=== PATIENT | male | born 1950 | race Caucasian/White ===

== ENCOUNTER 2016-03-15 02:29 | Inpatient (IN) | payer MEDICARE ==
[2016-03-15] VITALS (14 sets, daily range): BP systolic 122–165; BP diastolic 41–86
[~2016-03-15] VITALS: Ht 182.9 cm; Wt 105.7 kg
[2016-03-15] MEDS ORDERED: ONDANSETRON PF 4 MG/2 ML VIAL. IV ONE (03:30)
[2016-03-15] MEDS ORDERED: IV NORMAL SALINE 1000ML BAG 1,000 ML IV SCH (03:30)
[2016-03-15] MEDS ORDERED: FAMOTIDINE 20 MG/2 ML VIAL IVP ONE (03:30)
[2016-03-15 03:42] LABS: BASO % 0 % (0-3); EOS % 0 % (0-3); HEMATOCRIT 43.6 % (39.0-53.0); HEMOGLOBIN 14.3 g/dL (13.0-17.5); LYMPH # 0.9 x10^3/uL (1.0-4.8); LYMPH % 8 % (24-48); MEAN CORPUSCULAR HEMOGLOBIN 29 pg (25-35); MEAN CORPUSCULAR HGB CONC 33 g/dL (31-37); MEAN CORPUSCULAR VOLUME 90 fL (79-100); MONO % 3 % (0-9); NEUT % 88 % (31-73); PLATELET COUNT 309 x10^3/uL (140-400); RED BLOOD COUNT 4.85 x10^6/uL (4.30-5.70); RED CELL DISTRIBUTION WIDTH 13.2 % (11.5-14.5)
[2016-03-15] MEDS ORDERED: HYDROMORPHONE 2 MG/ML VIAL. ONE (03:47)
[2016-03-15 03:52] LABS: CALCIUM 9.4 mg/dL (8.5-10.1); CREATININE 1.2 mg/dL (0.7-1.3); GFR 60.6; POTASSIUM 4.2 mmol/L (3.5-5.1)
[2016-03-15 03:59] LABS: ALBUMIN 4.1 g/dL (3.4-5.0); ALBUMIN/GLOBULIN RATIO 1.2 (1.0-1.7); TOTAL BILIRUBIN 0.6 mg/dL (0.2-1.0); TOTAL PROTEIN 7.6 g/dL (6.4-8.2)
[2016-03-15] MEDS ORDERED: HYDROMORPHONE 2 MG/ML VIAL. IV ONE ×2 (04:00→05:30)
[2016-03-15] MEDS ORDERED: METOCLOPRAMIDE HCL 10 MG/2 ML VIAL. IV ONE (04:00)
[2016-03-15] MEDS ORDERED: LIDO:MAALOX:DONNATAL 1:1:1 15 ML SINGLE DOSE SWSW ONE (04:00)
[2016-03-15] MEDS ORDERED: IOHEXOL 350 MG/ML 100ML VIAL. IV ONE (04:00)
[2016-03-15] MEDS ORDERED: CONTRAST GIVEN MC PRN (04:00)
[2016-03-15 04:18] LABS: PLT ESTIMATE ADEQUATE (ADEQUATE)
--- NOTE | 2016-03-15 05:15 | RAD ---
Examination: CT angiography chest abdomen pelvis. HISTORY History of abdominal pain, vomiting, dissection. COMPARISON None available. TECHNIQUE Axial CT angiographic images system preserved with IV contrast. Coronal sagittal 3D MIP reformats were performed.Volumetric reformats were performed. Exposure: One or more of the following dose reduction technique were utilized for this examination: 1. Automated exposure control. 2.Adjustment of MA and /or KV according to patient size. 3. Use of iterative reconstruction technique. Findings : The visualized thyroid gland grossly appears unremarkable. The central airways are patent. The ascending aorta measures 4.7 centimeters in transverse dimension, aneurysmal change. No evidence of dissection flap identified in the aorta. Mild aortic atherosclerosis. Mild coronary artery calcifications. Mild cardiomegaly. No evidence of pericardial effusion. No radiologically significant mediastinal lymphadenopathy. There is a 6 millimeter pulmonary nodule identified in the right middle lobe of the lung along the fissure. There is a pleural-based nodule measuring 9.5 millimeters identified in the right lung base. Minimal bibasilar lung atelectasis. No evidence of pleural effusion or pneumothorax. No evidence of free air identified in the abdomen. There is mild diffuse decreased attenuation throughout the liver likely hepatic steatosis. The visualized spleen, adrenals grossly appears unremarkable The gallbladder is moderately distended. Multiple gallstones identified within the gallbladder. There is mild inflammatory fat stranding surrounding the gallbladder. There is moderate inflammatory stranding identified surrounding the common bile duct and the cystic duct. There is some hyperdensity identified within the proximal common bile duct measuring 9 millimeters in transverse dimension could be a choledocholithiasis. Small hiatal hernia. The stomach is mildly distended. The visualized celiac artery, superior mesenteric artery, inferior mesenteric artery are patent. The bilateral renal arteries are patent. There is mild inflammatory fat stranding identified surrounding the 2nd part of the duodenum. The visualized pancreas grossly appears unremarkable. The bilateral kidneys enhance symmetrically. There is a 1.3 centimeters cystic structure identified in the right kidney measuring 19 Hounsfield units likely a cyst. The small bowel is nondilated. The appendix grossly appears unremarkable . Numerous colonic diverticula identified. The urinary bladder is mildly distended. Moderate degenerative changes visualized thoracolumbar spine. IMPRESSION - No evidence of aortic dissection. - Inflammatory fat stranding identified surrounding the gallbladder, common bile duct and the duodenum. Differential includes cholangitis, cholecystitis, choledocholithiasis, and/or duodenitis. Right upper quadrant ultrasound can be considered. - Gallstones identified in the gallbladder. There is subtle hyperdensity identified in the common bile duct region. Choledochollithiasis is not completely excluded. - Mild hepatic steatosis. - Right renal cyst. - Multiple colonic diverticula. - Ascending aortic aneurysm measuring 4.7 centimeters. - Coronary artery calcifications. - 9.5 millimeter pulmonary nodule identified abutting the pleura in the right lower lobe of the lung. 6 millimeter nodule identified in the right mid lobe of the lung. Followup per Fleischner society guidelines for followup CT in 6 months. Electronically signed by: Keenan Dennis (Mar 15, 2016 05:13:25)
--- NOTE | 2016-03-15 05:26 | RAD ---
Examination: Ultrasound right upper quadrant abdomen. HISTORY History of right upper quadrant pain. COMPARISON None available FINDINGS The pancreas is not visualized due to bowel gas. The visualized IVC appears patent. There is increased echogenicity noted through the liver likely hepatic steatosis. The gallbladder and is distended. Multiple echogenicities identified in the gallbladder likely gallstones. The gallbladder wall thickness measures 5.7 millimeters. The common bile duct measures 9.8 millimeters in transverse dimension. Examination is positive for ultrasonographic evidence of Davis's sign. The right kidney measures 12.1 centimeters in length. IMPRESSION - Multiple gallstones identified within gallbladder. There is tenderness identified in the right upper quadrant with ultrasonographic evidence of Davis's sign and thickened appearance of the gallbladder wall. Cholecystitis is a possibility. The common bile duct is dilated measuring 9.8 millimeters in transverse dimension. Common bile duct obstruction is a possibility. Correlate with liver function tests. - Increased echogenicity noted throughout the liver likely hepatic steatosis. - Examination is limited patient body habitus and due to bowel gas. Electronically signed by: Keenan Dennis (Mar 15, 2016 05:24:42)
--- NOTE | 2016-03-15 05:30 | PHYS DOC ---
Past Medical History Past Medical History: Other Additional Past Medical Histor: kidney stones Past Surgical History: Other Additional Past Surgical Histo: left arm sx Alcohol Use: Occasionally Drug Use: None Adult General Chief Complaint Chief Complaint: ABDOMINAL PAIN HPI HPI Patient is a 65 year old gentleman who has no significant past medical history except for kidney stones presents to the ER today complaining of severe abdominal pain nausea vomiting after eating [employer]eman kemp soup that his had made today. Patient reports over the last several months he's lost approximately 45 pounds secondary to difficulty eating. Patient reports that after eating over the last several months he states his nausea vomiting and he says his diet is completely changed secondary to his abdominal pain after eating. Patient today denies any fevers shaking chills. Patient reports nausea and vomiting. Patient has any diarrhea. Patient complaining of midepigastric discomfort. Patient denies any melena or bright red blood per rectum. Patient denies any hematochezia or coffee-ground emesis. Patient's physical exam upon arrival was significant for a extremely uncomfortable appearing gentleman who is diaphoretic with multiple episodes of nausea and vomiting. Patient did have significant discomfort to palpation in his mid epigastric and right upper quadrant. Patient had labs drawn in the ER which were unremarkable. Upon evaluation the patient was concerned that he might have a dissection so a CT of his abdomen and pelvis were obtained. CTA revealed no evidence of aortic dissection. There was inflammatory fat stranding around the gallbladder, bile duct and the duodenum. Differential diagnoses included cholangitis, cholecystitis, choledocholithiasis and/or duodenitis. Right upper quadrant ultrasound was ordered at that time. At present the ultrasound report is pending. Patient received 3 rounds of IV Dilaudid with some relief in his discomfort. Patient did not receive a relief in his emesis from the Zofran, Reglan. Given the degree of pain that the patient is having and the abnormal CT scan patient will need to be admitted for surgical evaluation. The patient will be given Zosyn 3.375 mg IV 1 while in the ED. The patient was given IV fluids. Review of Systems Review of Systems Constitutional: Denies fever or chills [] Eyes: Denies change in visual acuity, redness, or eye pain [] All other review systems are negative except as documented in the history of present illness. Current Medications Current Medications Current Medications Medications (Trade) Dose Ordered Sig/Lili Start Time Stop Time Status Last Admin Dose Admin Famotidine (Pepcid) 20 mg 1X ONCE 03/15/16 03:30 03/15/16 03:31 DC 03/15/16 03:26 20 MG Hydromorphone HCl (Dilaudid) 1 mg 1X ONCE 03/15/16 05:30 03/15/16 05:31 Info (Do NOT chart on this entry -- for MONITORING) 1 each PRN DAILY PRN 03/15/16 04:00 03/17/16 03:59 Iohexol (Omnipaque 350 Mg/ml) 100 ml 1X ONCE 03/15/16 04:00 03/15/16 04:01 DC 03/15/16 03:58 100 ML Metoclopramide HCl (Reglan) 10 mg 1X ONCE 03/15/16 04:00 03/15/16 04:01 DC 03/15/16 03:26 10 MG Multi-Ingredient Mouthwash/Gargle (Gi Cocktail Single Dose) 15 ml 1X ONCE 03/15/16 04:00 03/15/16 04:01 DC 03/15/16 03:26 15 ML Ondansetron HCl (Zofran) 4 mg 1X ONCE 03/15/16 03:30 03/15/16 03:31 DC 03/15/16 03:26 4 MG Sodium Chloride (Iv Sodium Chloride 0.9% 1000ml Bag) 1,000 ml @ 1,000 mls/hr Q1H 03/15/16 03:30 03/15/16 04:29 DC 03/15/16 03:26 1,000 MLS/HR Allergies Allergies Allergies Coded Allergies Type Severity Reaction Last Updated Verified Sulfa (Sulfonamide Antibiotics) Allergy Intermediate 03/15/16 Yes Physical Exam Physical Exam Constitutional: Well developed, well nourished, moderate distress. Diaphoretic. Multiple episodes of vomiting. HENT: Normocephalic, atraumatic, bilateral external ears normal, Eyes: PERRLA, EOMI, conjunctiva normal, no discharge. [] Neck: Normal range of motion, no tenderness, supple, no stridor. [] Cardiovascular:Heart rate regular rhythm, Lungs & Thorax: Bilateral breath sounds clear to auscultation [] Abdomen: Bowel sounds normal, significant tenderness to palpation to his midepigastric and right upper quadrant. Skin: Diaphoretic Back: No tenderness, no CVA tenderness. [] Extremities: No tenderness, no cyanosis, no clubbing, ROM intact, no edema. [] Neurologic: Alert and oriented X 3, normal motor function, normal sensory function, no focal deficits noted. [] Psychologic: Affect normal, judgement normal, mood normal. [] Current Patient Data Vital Signs Vital Signs Date Time Temp Pulse Resp B/P Pulse Ox O2 Delivery O2 Flow Rate FiO2 03/15/16 03:10 96.1 49 16 194/95 98 Room Air 96.1 Lab Values Laboratory Tests Test 03/15/16 03:30 White Blood Count 11.0x10^3/uL (4.0-11.0) Red Blood Count 4.85x10^6/uL (4.30-5.70) Hemoglobin 14.3g/dL (13.0-17.5) Hematocrit 43.6% (39.0-53.0) Mean Corpuscular Volume 90fL (79-100) Mean Corpuscular Hemoglobin 29pg (25-35) Mean Corpuscular Hemoglobin Concent 33g/dL (31-37) Red Cell Distribution Width 13.2% (11.5-14.5) Platelet Count 309x10^3/uL (140-400) Neutrophils (%) (Auto) 88% (31-73) H Lymphocytes (%) (Auto) 8% (24-48) L Monocytes (%) (Auto) 3% (0-9) Eosinophils (%) (Auto) 0% (0-3) Basophils (%) (Auto) 0% (0-3) Neutrophils # (Auto) 9.7x10^3uL (1.8-7.7) H Lymphocytes # (Auto) 0.9x10^3/uL (1.0-4.8) L Monocytes # (Auto) 0.3x10^3/uL (0.0-1.1) Eosinophils # (Auto) 0.0x10^3/uL (0.0-0.7) Basophils # (Auto) 0.0x10^3/uL (0.0-0.2) Segmented Neutrophils % 90% (35-66) H Band Neutrophils % 2% (0-9) Lymphocytes % 2% (24-48) L Monocytes % 6% (0-10) Platelet Estimate Adequate (ADEQUATE) Sodium Level 146mmol/L (136-145) H Potassium Level 4.2mmol/L (3.5-5.1) Chloride Level 106mmol/L (98-107) Carbon Dioxide Level 28mmol/L (21-32) Anion Gap 12 (6-14) Blood Urea Nitrogen 17mg/dL (8-26) Creatinine 1.2mg/dL (0.7-1.3) Estimated GFR (Cockcroft-Gault) 60.6 BUN/Creatinine Ratio 14 (6-20) Glucose Level 123mg/dL (70-99) H Calcium Level 9.4mg/dL (8.5-10.1) Total Bilirubin 0.6mg/dL (0.2-1.0) Aspartate Amino Transferase (AST) 31U/L (15-37) Alanine Aminotransferase (ALT) 24U/L (16-63) Alkaline Phosphatase 63U/L (46-116) Troponin I Quantitative < 0.017ng/mL (0.000-0.055) Total Protein 7.6g/dL (6.4-8.2) Albumin 4.1g/dL (3.4-5.0) Albumin/Globulin Ratio 1.2 (1.0-1.7) Lipase 204U/L (73-393) Laboratory Tests 03/15/16 03:30 Laboratory Tests 03/15/16 03:30 EKG EKG [] Interpretation Time: EKG reveals sinus bradycardia without evidence of any acute ischemia Radiology/Procedures Radiology/Procedures [] Course & Med Decision Making Course & Med Decision Making Pertinent Labs and Imaging studies reviewed. (See chart for details) [] 65-year-old gentleman who presents here today complaining of a bowel pain who had an ER workup that was negative for thoracic aortic dissection who likely has cholecystitis. Patient has significant tenderness to palpation in his right upper quadrant despite multiple doses of Dilaudid in the ED. Patient will need to be admitted for further evaluation and management. #1 abdominal pain #2 cholecystitis #3 intractable emesis #4 intractable pain Dragon Disclaimer Dragon Disclaimer This electronic medical record was generated, in whole or in part, using a voice recognition dictation system. Departure Departure Impression: Primary Impression: Cholecystitis Additional Impressions: Intractable abdominal pain Dehydration Intractable vomiting Disposition: 09 ADMITTED INPATIENT Admitting Physician: Isai Benjamin Condition: GUARDED Referrals: NO PCP (PCP) Problem Qualifiers SILVIO HOBBS MD Mar 15, 2016 05:30
[2016-03-15] MEDS: IV NORMAL SALINE 1000ML BAG 1,000 ML IV SCH ×4 (05:41→22:20)
[2016-03-15] MEDS ORDERED: ONDANSETRON PF 4 MG/2 ML VIAL. IV PRN ×3 (05:45→14:30)
[2016-03-15] MEDS ORDERED: PIPERACILLIN/TAZOBACTAM 3.375 GM in IV NORMAL SALINE 50ML 50 ML IV ONE (06:00)
[2016-03-15] MEDS: FENTANYL PF 100 MCG/2 ML VIAL. IV PRN ×6 (07:38→20:20)
[2016-03-15 07:53] LABS: POTASSIUM ISTAT 4.3 mmol/L (3.5-5.0)
--- NOTE | 2016-03-15 09:31 | ACF ---
Admission Forms Criteria GALLBLADDER OR BILE DUCT INFLAMMATION OR STONE Clinical Indications for Admission to Inpatient Care ( Place 'X' for any and all applicable criteria): Admission is indicated for patients with ANY ONE of the following(1)(2)(3)(4)(5) : [X]I. Acute cholecystitis as indicated by ALL of the following: [X]a) Right upper quadrant pain, mass, or tenderness [X]b) Systemic signs of inflammation indicated by ANY ONE of the following: [ ]i) Fever [ ]ii) C-reactive protein level greater than 10 mg/L (95 nmol/L) [X]iii) White blood cell count greater than 10,000/mm3 (10 x109/L) or less than 4000/mm3 (4 x109/L) [ ]II. Inpatient admission required rather than observation care (Also use Gallbladder or Bile Duct Inflammation or Stone: Observation Care as appropriate) because of ANY ONE of the following: [ ]a) Common bile duct obstruction diagnosed [ ]b) Vomiting that is severe or persistent [ ]c) Severe pain requiring acute inpatient management [ ]d) Signs of intestinal obstruction or peritonitis [A] [ ]e) Severe electrolyte abnormalities requiring inpatient care [ ]f) Absent bowel sounds with complete ileus(8) [ ]g) Hemodynamic instability [ ]h) High fever or infection requiring inpatient admission as indicated by ANY ONE of the following (9): [ ]1) Appropriate outpatient or observation care antimicrobial Treatment. unavailable, not effective, or not feasible [ ]2) Temperature greater than 104.9 degrees F (40.5 degrees C) (oral) [ ]3) Temperature greater than 103.1 degrees F (39.5 degrees C) (oral) or less than 96.8 degrees F (36 degrees C) (rectal) that does not respond to all emergency treatment measures [ ]4) Documented bacteremia [ ]i) IV fluid to replace significant ongoing losses (greater than 3 L/m2 per day) [ ]j) Percutaneous or open drainage (eg, abscess, biliary tract) procedures [ ]k) Immediate inpatient surgery [ ]l) Other condition, treatment or monitoring requiring inpatient admission [ ]III. Acute cholangitis as indicated by ALL of the following(9)(10): [ ]a) Systemic signs of inflammation indicated by ANY ONE of the following: [ ]i) Fever [ ]ii) C-reactive protein level greater than 10 mg/L (95 nmol /L) [ ]iii) White blood cell count greater than 10,000/mm3 (10 x109/L) or less than 4000/mm3 (4 x109/L) [ ]b) Evidence of common bile duct disease indicated by ANY ONE of the following: [ ]i) Total serum bilirubin level greater than or equal to 2 mg/dL (34 micromoles/L) [ ]ii) Liver function test (alkaline phosphatase (ALP), r- glutamyltransferase (GGT), aspartate aminotransferase (AST), or alanine aminotransferase (ALT)) greater than 1.5 times the upper limit of normal[B] [ ]iii) Hepatobiliary imaging showing biliary dilatation or evidence of etiology (eg, stricture, stone, previously placed stent) Extended stay beyond goal length of stay may be needed for (1)(2)): [ ]a) Bacteremia or Hemodynamic instability [ ]b) Cholecystectomy [ ]c) Other surgical procedure(24) [ ]d) Percutaneous or endoscopic ultrasound-guided cholecystostomy The original [facility] content created by [facility] has been revised. The portions of the content which have been revised are identified through the use of italic text or in bold, and [facility] has neither reviewed nor approved the modified material. All other unmodified content is copyright [facility]. Please see references footnoted in the original [facility] edition 2016 Admission Criteria Met?: Yes ABRAHAM JACKSON Mar 15, 2016 09:30
--- NOTE | 2016-03-15 09:35 | PDOC1 ---
History and Physical Current Problem List Problem List Problems Medical Problems: (1) Cholecystitis Status: Acute (2) Dehydration Status: Acute (3) Intractable abdominal pain Status: Acute (4) Intractable vomiting Status: Acute Current Medications Current Medications Current Medications Medications (Trade) Dose Ordered Sig/Lili Start Time Stop Time Status Last Admin Dose Admin Famotidine (Pepcid) 20 mg 1X ONCE 03/15/16 03:30 03/15/16 03:31 DC 03/15/16 03:26 20 MG Fentanyl Citrate 50 mcg 50 mcg PRN Q1HR PRN 03/15/16 05:45 03/16/16 05:44 03/15/16 09:11 50 MCG Hydromorphone HCl (Dilaudid) 2 mg STK-MED ONCE 03/15/16 03:47 03/15/16 03:48 DC Hydromorphone HCl 1 mg 1 mg 1X ONCE 03/15/16 05:30 03/15/16 05:31 DC 03/15/16 05:25 1 MG Info (Do NOT chart on this entry -- for MONITORING) 1 each PRN DAILY PRN 03/15/16 04:00 03/17/16 03:59 Iohexol (Omnipaque 350 Mg/ml) 100 ml 1X ONCE 03/15/16 04:00 03/15/16 04:01 DC 03/15/16 03:58 100 ML Metoclopramide HCl (Reglan) 10 mg 1X ONCE 03/15/16 04:00 03/15/16 04:01 DC 03/15/16 03:26 10 MG Multi-Ingredient Mouthwash/Gargle (Gi Cocktail Single Dose) 15 ml 1X ONCE 03/15/16 04:00 03/15/16 04:01 DC 03/15/16 03:26 15 ML Ondansetron HCl (Zofran) 4 mg PRN Q8HRS PRN 03/15/16 05:45 03/16/16 05:44 Piperacillin Sod/ Tazobactam Sod/ Sodium Chloride (Zosyn/Iv Sodium Chloride 0.9% 50ml) 50 ml @ 100 mls/hr 1X ONCE 03/15/16 06:00 03/15/16 06:29 DC 03/15/16 05:35 100 MLS/HR Sodium Chloride (Iv Sodium Chloride 0.9% 1000ml Bag) 1,000 ml @ 125 mls/hr Q8H 03/15/16 05:34 03/16/16 05:33 03/15/16 05:41 125 MLS/HR Allergies Allergies Allergies Coded Allergies Type Severity Reaction Last Updated Verified Sulfa (Sulfonamide Antibiotics) Allergy Intermediate 03/15/16 Yes ROS Review of System CONSTITUTIONAL: No fever or chills EYES: No recent changes SKIN: No rash or itching CARDIOVASCULAR: No chest pain, syncope, palpitations, or edema RESPIRATORY: No SOB or cough GASTROINTESTINAL: No nausea, vomiting or abdominal pain NEUROLOGICAL: No headaches or weakness ENDOCRINE: No cold or heat intolerance GENITOURINARY: No urgency or frequency of urination MUSCULOSKELETAL: No back pain or joint pain LYMPHATICS: No enlarged lymph nodes PSYCHIATRIC: No anxiety or depression Physical Exam Physical Exam GEN.: No apparent distress. Alert and oriented. HEENT: Head is normocephalic, atraumatic NECK: Supple. NO JVD LUNGS: Clear to auscultation. Normal airflow HEART: RRR, S1, S2 present. Peripheral pulses intact ABDOMEN: Soft, nontender. Positive bowel sounds. EXTREMITIES: Without any cyanosis. NEUROLOGIC: Normal speech, normal tone PSYCHIATRIC: Normal affect, normal mood. SKIN: No visible ulcerations Vitals Vitals Vital Signs Date Time Temp Pulse Resp B/P Pulse Ox O2 Delivery O2 Flow Rate FiO2 03/15/16 09:11 99 Nasal Cannula 4.0 03/15/16 08:09 97.7 63 165/86 97.7 03/15/16 07:49 18 Labs Labs Laboratory Tests Test 03/15/16 03:30 03/15/16 03:36 03/15/16 03:40 White Blood Count 11.0x10^3/uL (4.0-11.0) Red Blood Count 4.85x10^6/uL (4.30-5.70) Hemoglobin 14.3g/dL (13.0-17.5) Hematocrit 43.6% (39.0-53.0) Mean Corpuscular Volume 90fL (79-100) Mean Corpuscular Hemoglobin 29pg (25-35) Mean Corpuscular Hemoglobin Concent 33g/dL (31-37) Red Cell Distribution Width 13.2% (11.5-14.5) Platelet Count 309x10^3/uL (140-400) Neutrophils (%) (Auto) 88% (31-73) Lymphocytes (%) (Auto) 8% (24-48) Monocytes (%) (Auto) 3% (0-9) Eosinophils (%) (Auto) 0% (0-3) Basophils (%) (Auto) 0% (0-3) Neutrophils # (Auto) 9.7x10^3uL (1.8-7.7) Lymphocytes # (Auto) 0.9x10^3/uL (1.0-4.8) Monocytes # (Auto) 0.3x10^3/uL (0.0-1.1) Eosinophils # (Auto) 0.0x10^3/uL (0.0-0.7) Basophils # (Auto) 0.0x10^3/uL (0.0-0.2) Segmented Neutrophils % 90% (35-66) Band Neutrophils % 2% (0-9) Lymphocytes % 2% (24-48) Monocytes % 6% (0-10) Platelet Estimate Adequate (ADEQUATE) Sodium Level 146mmol/L (136-145) Potassium Level 4.2mmol/L (3.5-5.1) Chloride Level 106mmol/L (98-107) Carbon Dioxide Level 28mmol/L (21-32) Anion Gap 12 (6-14) 17mmol/L (6-14) Blood Urea Nitrogen 17mg/dL (8-26) Creatinine 1.2mg/dL (0.7-1.3) Estimated GFR (Cockcroft-Gault) 60.6 BUN/Creatinine Ratio 14 (6-20) Glucose Level 123mg/dL (70-99) 117mg/dL (70-99) Calcium Level 9.4mg/dL (8.5-10.1) Total Bilirubin 0.6mg/dL (0.2-1.0) Aspartate Amino Transf (AST/SGOT) 31U/L (15-37) Alanine Aminotransferase (ALT/SGPT) 24U/L (16-63) Alkaline Phosphatase 63U/L (46-116) Troponin I Quantitative < 0.017ng/mL (0.000-0.055) Total Protein 7.6g/dL (6.4-8.2) Albumin 4.1g/dL (3.4-5.0) Albumin/Globulin Ratio 1.2 (1.0-1.7) Lipase 204U/L (73-393) Bedside Troponin I 0.00ng/ml (<0.08) Bedside Hemoglobin 15.6g/dL (14-18) Bedside Hematocrit 46% (37-52) Bedside Sodium 141mmol/L (135-145) Bedside Potassium 4.3mmol/L (3.5-5.0) Bedside Chloride 105mmol/L (98-110) Bedside Total CO2 24mmol/L (23-32) Bedside Blood Urea Nitrogen 19mg/dL (8-26) Bedside Creatinine 1.2mg/dL (0.5-1.4) Bedside Ionized Calcium (Nanette) 1.12mmol/L (1.13-1.32) Laboratory Tests Test 03/15/16 03:30 03/15/16 03:36 03/15/16 03:40 White Blood Count 11.0x10^3/uL (4.0-11.0) Red Blood Count 4.85x10^6/uL (4.30-5.70) Hemoglobin 14.3g/dL (13.0-17.5) Hematocrit 43.6% (39.0-53.0) Mean Corpuscular Volume 90fL (79-100) Mean Corpuscular Hemoglobin 29pg (25-35) Mean Corpuscular Hemoglobin Concent 33g/dL (31-37) Red Cell Distribution Width 13.2% (11.5-14.5) Platelet Count 309x10^3/uL (140-400) Neutrophils (%) (Auto) 88% (31-73) Lymphocytes (%) (Auto) 8% (24-48) Monocytes (%) (Auto) 3% (0-9) Eosinophils (%) (Auto) 0% (0-3) Basophils (%) (Auto) 0% (0-3) Neutrophils # (Auto) 9.7x10^3uL (1.8-7.7) Lymphocytes # (Auto) 0.9x10^3/uL (1.0-4.8) Monocytes # (Auto) 0.3x10^3/uL (0.0-1.1) Eosinophils # (Auto) 0.0x10^3/uL (0.0-0.7) Basophils # (Auto) 0.0x10^3/uL (0.0-0.2) Segmented Neutrophils % 90% (35-66) Band Neutrophils % 2% (0-9) Lymphocytes % 2% (24-48) Monocytes % 6% (0-10) Platelet Estimate Adequate (ADEQUATE) Sodium Level 146mmol/L (136-145) Potassium Level 4.2mmol/L (3.5-5.1) Chloride Level 106mmol/L (98-107) Carbon Dioxide Level 28mmol/L (21-32) Anion Gap 12 (6-14) 17mmol/L (6-14) Blood Urea Nitrogen 17mg/dL (8-26) Creatinine 1.2mg/dL (0.7-1.3) Estimated GFR (Cockcroft-Gault) 60.6 BUN/Creatinine Ratio 14 (6-20) Glucose Level 123mg/dL (70-99) 117mg/dL (70-99) Calcium Level 9.4mg/dL (8.5-10.1) Total Bilirubin 0.6mg/dL (0.2-1.0) Aspartate Amino Transf (AST/SGOT) 31U/L (15-37) Alanine Aminotransferase (ALT/SGPT) 24U/L (16-63) Alkaline Phosphatase 63U/L (46-116) Troponin I Quantitative < 0.017ng/mL (0.000-0.055) Total Protein 7.6g/dL (6.4-8.2) Albumin 4.1g/dL (3.4-5.0) Albumin/Globulin Ratio 1.2 (1.0-1.7) Lipase 204U/L (73-393) Bedside Troponin I 0.00ng/ml (<0.08) Bedside Hemoglobin 15.6g/dL (14-18) Bedside Hematocrit 46% (37-52) Bedside Sodium 141mmol/L (135-145) Bedside Potassium 4.3mmol/L (3.5-5.0) Bedside Chloride 105mmol/L (98-110) Bedside Total CO2 24mmol/L (23-32) Bedside Blood Urea Nitrogen 19mg/dL (8-26) Bedside Creatinine 1.2mg/dL (0.5-1.4) Bedside Ionized Calcium (Nanette) 1.12mmol/L (1.13-1.32) VTE Prophylaxis Ordered VTE Prophylaxis Devices: No VTE Pharmacological Prophylaxi: Yes GURVINDER DOLL MD Mar 15, 2016 09:35
[2016-03-15] MEDS ORDERED: ACETAMINOPHEN 325 MG TABLET. PO PRN (09:45)
[2016-03-15] MEDS ORDERED: hydrALAZINE 20 MG/ML VIAL. IVP PRN (09:45)
--- NOTE | 2016-03-15 10:22 | EKG ---
[facility] [address] [place] [address] Test Date: 2016-03-15 Test Time: 02:56:00 Pat Name: ELLIOTT GARDNER Department: Room: [facility] Gender: M Floorperson: : 1950 Requested By: HENRY PARK Order Number: [id number] Reading MD: Chidi Berry Measurements Intervals [place] Rate: 48 P: -34 TN: 170 QRS: -10 QRSD: 102 T: 19 QT: 424 QTc: 382 Interpretive Statements SINUS BRADYCARDIA Electronically Signed On 03-15-2016 14:06:20 [employer] PER[employer]NAGER by Chidi Berry
[2016-03-15] MEDS: MORPHINE SULFATE 2 MG/ML DISP.SYRIN. IV PRN ×5 (10:43→22:04)
--- NOTE | 2016-03-15 10:54 | PDOC2 ---
GI CONSULT Reason For Consult: Abdominal pain HPI: HPI: 65 y/o male admitted through the ER where he was evaluated for n/v and abd pain. Labs including LFTs, lipase, WBC, and troponin WNL. CTA C/A/P showed inflammatory fat stranding identified surrounding the gallbladder, common bile duct, and duodenum, gallstones, and possible choledocholithiasis. RUQ US showed multiple gallstones, positive Davis's sign, gallbladder wall thickening , and dilated common bile duct (9.8mm). He reports intentional weight loss about 25 pounds over the past few months w/ additional unintentional 20 pound weight loss in the past few weeks which is attributed to not eating much due to post-prandial n/v and epigastric/ substernal pain. Symptoms were more significant last night after eating soup, prompting ER eval. He has also had some diarrhea. Fentanyl isn't helping pain ; he feels terrible. Multiple episodes of emesis in ER, none on the floor so far. Feels sweaty, shaky. H/o GERD that hasn't been bothersome for awhile; previously was improved w/ gum and a special tea. Denies hematemesis, hematochezia, melena. Previous colonoscopy in [place], [place] ~2 years ago reportedly normal. PMH: PMH: nephrolithiasis, left shoulder surgery FH: Family History: Other (mother had peritonitis, father was an alcoholic) Social History: Smoke: No ALCOHOL: rare Drugs: None ROS: GEN: +sweats HEENT: Denies blurred vision, sore throat CV: +substernal pain RESP: Denies shortness of air, cough GI: Per HPI : Denies hematuria, dysuria ENDO: +weight loss NEURO: +shaking MSK: Denies weakness, joint pain/swelling SKIN: Denies jaundice, pruritus VItals: Vitals: Vital Signs Date Time Temp Pulse Resp B/P Pulse Ox O2 Delivery O2 Flow Rate FiO2 03/15/16 09:11 99 Nasal Cannula 4.0 03/15/16 08:09 97.7 63 165/86 97.7 03/15/16 07:49 18 Labs: Labs: Laboratory Tests Test 03/15/16 03:30 03/15/16 03:36 03/15/16 03:40 White Blood Count 11.0x10^3/uL (4.0-11.0) Red Blood Count 4.85x10^6/uL (4.30-5.70) Hemoglobin 14.3g/dL (13.0-17.5) Hematocrit 43.6% (39.0-53.0) Mean Corpuscular Volume 90fL (79-100) Mean Corpuscular Hemoglobin 29pg (25-35) Mean Corpuscular Hemoglobin Concent 33g/dL (31-37) Red Cell Distribution Width 13.2% (11.5-14.5) Platelet Count 309x10^3/uL (140-400) Neutrophils (%) (Auto) 88% (31-73) Lymphocytes (%) (Auto) 8% (24-48) Monocytes (%) (Auto) 3% (0-9) Eosinophils (%) (Auto) 0% (0-3) Basophils (%) (Auto) 0% (0-3) Neutrophils # (Auto) 9.7x10^3uL (1.8-7.7) Lymphocytes # (Auto) 0.9x10^3/uL (1.0-4.8) Monocytes # (Auto) 0.3x10^3/uL (0.0-1.1) Eosinophils # (Auto) 0.0x10^3/uL (0.0-0.7) Basophils # (Auto) 0.0x10^3/uL (0.0-0.2) Segmented Neutrophils % 90% (35-66) Band Neutrophils % 2% (0-9) Lymphocytes % 2% (24-48) Monocytes % 6% (0-10) Platelet Estimate Adequate (ADEQUATE) Sodium Level 146mmol/L (136-145) Potassium Level 4.2mmol/L (3.5-5.1) Chloride Level 106mmol/L (98-107) Carbon Dioxide Level 28mmol/L (21-32) Anion Gap 12 (6-14) 17mmol/L (6-14) Blood Urea Nitrogen 17mg/dL (8-26) Creatinine 1.2mg/dL (0.7-1.3) Estimated GFR (Cockcroft-Gault) 60.6 BUN/Creatinine Ratio 14 (6-20) Glucose Level 123mg/dL (70-99) 117mg/dL (70-99) Calcium Level 9.4mg/dL (8.5-10.1) Total Bilirubin 0.6mg/dL (0.2-1.0) Aspartate Amino Transf (AST/SGOT) 31U/L (15-37) Alanine Aminotransferase (ALT/SGPT) 24U/L (16-63) Alkaline Phosphatase 63U/L (46-116) Troponin I Quantitative < 0.017ng/mL (0.000-0.055) Total Protein 7.6g/dL (6.4-8.2) Albumin 4.1g/dL (3.4-5.0) Albumin/Globulin Ratio 1.2 (1.0-1.7) Lipase 204U/L (73-393) Bedside Troponin I 0.00ng/ml (<0.08) Bedside Hemoglobin 15.6g/dL (14-18) Bedside Hematocrit 46% (37-52) Bedside Sodium 141mmol/L (135-145) Bedside Potassium 4.3mmol/L (3.5-5.0) Bedside Chloride 105mmol/L (98-110) Bedside Total CO2 24mmol/L (23-32) Bedside Blood Urea Nitrogen 19mg/dL (8-26) Bedside Creatinine 1.2mg/dL (0.5-1.4) Bedside Ionized Calcium (Nanette) 1.12mmol/L (1.13-1.32) Allergies: Coded Allergies: Sulfa (Sulfonamide Antibiotics) (Verified Allergy, Intermediate, 03/15/16) Medications: Current Medications Medications (Trade) Dose Ordered Sig/Lili Route PRN Reason Start Time Stop Time Status Last Admin Dose Admin Sodium Chloride (Iv Sodium Chloride 0.9% 1000ml Bag) 1,000 ml @ 1,000 mls/hr Q1H IV 03/15/16 03:30 03/15/16 04:29 DC 03/15/16 03:26 Ondansetron HCl (Zofran) 4 mg 1X ONCE IV 03/15/16 03:30 03/15/16 03:31 DC 03/15/16 03:26 Famotidine (Pepcid) 20 mg 1X ONCE IVP 03/15/16 03:30 03/15/16 03:31 DC 03/15/16 03:26 Metoclopramide HCl (Reglan) 10 mg 1X ONCE IV 03/15/16 04:00 03/15/16 04:01 DC 03/15/16 03:26 Multi-Ingredient Mouthwash/Gargle (Gi Cocktail Single Dose) 15 ml 1X ONCE SWSW 03/15/16 04:00 03/15/16 04:01 DC 03/15/16 03:26 Iohexol (Omnipaque 350 Mg/ml) 100 ml 1X ONCE IV 03/15/16 04:00 03/15/16 04:01 DC 03/15/16 03:58 Hydromorphone HCl (Dilaudid) 1 mg 1X ONCE IV 03/15/16 04:00 03/15/16 04:01 DC 03/15/16 03:49 Hydromorphone HCl 1 mg 1 mg 1X ONCE IV 03/15/16 05:30 03/15/16 05:31 DC 03/15/16 05:25 Piperacillin Sod/ Tazobactam Sod/ Sodium Chloride (Zosyn/Iv Sodium Chloride 0.9% 50ml) 50 ml @ 100 mls/hr 1X ONCE IV 03/15/16 06:00 03/15/16 06:29 DC 03/15/16 05:35 Fentanyl Citrate 50 mcg 50 mcg PRN Q1HR PRN IV SEVERE PAIN 03/15/16 05:45 03/15/16 09:34 DC 03/15/16 09:11 Sodium Chloride (Iv Sodium Chloride 0.9% 1000ml Bag) 1,000 ml @ 125 mls/hr Q8H IV 03/15/16 05:34 03/16/16 05:33 03/15/16 05:41 Imaging: Imaging: C/A/P CTA 03/15/16 IMPRESSION - No evidence of aortic dissection. - Inflammatory fat stranding identified surrounding the gallbladder, common bile duct and the duodenum. Differential includes cholangitis, cholecystitis, choledocholithiasis, and/or duodenitis. Right upper quadrant ultrasound can be considered. - Gallstones identified in the gallbladder. There is subtle hyperdensity identified in the common bile duct region. Choledocholithiasis is not completely excluded. - Mild hepatic steatosis. - Right renal cyst. - Multiple colonic diverticula. - Ascending aortic aneurysm measuring 4.7 centimeters. - Coronary artery calcifications. - 9.5 millimeter pulmonary nodule identified abutting the pleura in the right lower lobe of the lung. 6 millimeter nodule identified in the right mid lobe of the lung. Followup per Fleischner society guidelines for followup CT in 6 months. PE: GEN: looks uncomfortable HEENT: Atraumatic, PERRL LUNGS: CTAB HEART: RRR ABD: epigastrium tender to very light palpation, some tenderness to RUQ and LUQ , BS+ EXTREMITY: No edema SKIN: No rashes, no jaundice NEURO/PSYCH: A & O 3 A/P: A/P: Post-prandial upper abd pain w/ n/v -bothersome for a few weeks, much worse after eating last night prompting ER eval Weight loss -began as intentional Cholelithiasis, gallbladder wall thickening, dilated common bile duct H/o GERD -not bothersome for awhile, no previous EGD CRC screen -says normal colonoscopy 2 years ago -note diverticulosis on CT Pulm nodules -per primary -- D/w Dr. Huddleston. Continue antibiotics, pain control. Normal LFTs, lipase - rec cholecystectomy w/ IOC, await surg eval. HEIKE BOSCH Mar 15, 2016 10:54
--- NOTE | 2016-03-15 12:07 | PDOC2 ---
CONSULT Date of Consult Date of Consult DATE: 03/15/16 TIME: 12:02 History of Present Illness Reason for Visit: The patient is a 65 year old male who reports problems for the last few months. He admits to fairly chronic upper abdominal pain and occasional diarrhea. He admits to nausea as well, and his symptoms would worsen with food. He thought it problems were from the foods he ate, and he never sought out medical assistance. His pain became severe last night with associated shaking and general ill feeling. His evaluation is suggestive of acute cholecystitis. Past Medical History Past Medical History kidney stones Past Surgical History Past Surgical History shoulder surgery Social History No ALCOHOL: rare Drugs: None Current Problem List Problem List Problems Medical Problems: (1) Cholecystitis Status: Acute (2) Dehydration Status: Acute (3) Intractable abdominal pain Status: Acute (4) Intractable vomiting Status: Acute Current Medications Current Medications Current Medications Sodium Chloride (Iv Sodium Chloride 0.9% 1000ml Bag) 1,000 ml @ 1,000 mls/hr Q1H IV Last administered on 03/15/16 03:26; Start 03/15/16 at 03:30; Stop at 04:29; Status DC Ondansetron HCl (Zofran) 4 mg 1X ONCE IV Last administered on 03/15/16 03:26 ; Start 03/15/16 at 03:30; Stop 03/15/16 at 03:31; Status DC Famotidine (Pepcid) 20 mg 1X ONCE IVP Last administered on 03/15/16 03:26; Start 03/15/16 at 03:30; Stop 03/15/16 at 03:31; Status DC Metoclopramide HCl (Reglan) 10 mg 1X ONCE IV Last administered on 03/15/16 03 :26; Start 03/15/16 at 04:00; Stop 03/15/16 at 04:01; Status DC Multi-Ingredient Mouthwash/Gargle (Gi Cocktail Single Dose) 15 ml 1X ONCE SWSW Last administered on 03/15/16 03:26; Start 03/15/16 at 04:00; Stop 03/15/16 at 04:01; Status DC Iohexol (Omnipaque 350 Mg/ml) 100 ml 1X ONCE IV Last administered on 03:58; Start 03/15/16 at 04:00; Stop 03/15/16 at 04:01; Status DC Hydromorphone HCl (Dilaudid) 1 mg 1X ONCE IV Last administered on 03/15/16 03 :49; Start 03/15/16 at 04:00; Stop 03/15/16 at 04:01; Status DC Info (Do NOT chart on this entry -- for MONITORING) 1 each PRN DAILY PRN MC SEE COMMENTS; Start 03/15/16 at 04:00; Stop 03/17/16 at 03:59 Hydromorphone HCl (Dilaudid) 2 mg STK-MED ONCE .ROUTE ; Start 03/15/16 at 03:47 ; Stop 03/15/16 at 03:48; Status DC Hydromorphone HCl 1 mg 1 mg 1X ONCE IV Last administered on 03/15/16 05:25; Start 03/15/16 at 05:30; Stop 03/15/16 at 05:31; Status DC Piperacillin Sod/ Tazobactam Sod/ Sodium Chloride (Zosyn/Iv Sodium Chloride 0.9 % 50ml) 50 ml @ 100 mls/hr 1X ONCE IV Last administered on 03/15/16 05:35; Start 03/15/16 at 06:00; Stop 03/15/16 at 06:29; Status DC Ondansetron HCl (Zofran) 4 mg PRN Q8HRS PRN IV NAUSEA/VOMITING; Start 03/15/16 at 05:45; Stop 03/15/16 at 09:35; Status DC Fentanyl Citrate 50 mcg 50 mcg PRN Q1HR PRN IV SEVERE PAIN Last administered on 03/15/16 09:11; Start 03/15/16 at 05:45; Stop 03/15/16 at 09:34; Status DC Sodium Chloride (Iv Sodium Chloride 0.9% 1000ml Bag) 1,000 ml @ 125 mls/hr Q8H IV Last administered on 03/15/16 05:41; Start 03/15/16 at 05:34; Stop at 05:33 Acetaminophen (Tylenol) 325 mg PRN Q6HRS PRN PO MILD PAIN / TEMP; Start at 09:45 Acetaminophen/ Hydrocodone Bitart (Lortab 5/325) 1 tab PRN Q6HRS PRN PO MODERATE TO SEVERE PAIN; Start 03/15/16 at 09:45 Hydralazine HCl (Apresoline) 10 mg PRN Q4HRS PRN IVP ELEVATED BP, SEE COMMENTS ; Start 03/15/16 at 09:45 Ondansetron HCl (Zofran) 4 mg PRN Q8HRS PRN IV NAUSEA/VOMITING; Start 03/15/16 at 09:45 Albuterol Sulfate 2.5 mg 2.5 mg PRN Q4HRS PRN NEB SHORTNESS OF BREATH; Start at 09:45 Sodium Chloride (Iv Sodium Chloride 0.9% 1000ml Bag) 1,000 ml @ 100 mls/hr Q10H IV Last administered on 03/15/16 09:45; Start 03/15/16 at 09:45 Morphine Sulfate 2 mg 2 mg PRN Q2HR PRN IV PAIN Last administered on 03/15/16 10:43; Start 03/15/16 at 09:45 Piperacillin Sod/ Tazobactam Sod/ Sodium Chloride (Zosyn/Iv Sodium Chloride 0.9 % 50ml) 50 ml @ 100 mls/hr Q6HRS IV ; Start 03/15/16 at 12:00 Allergies Allergies: Coded Allergies: Sulfa (Sulfonamide Antibiotics) (Verified Allergy, Intermediate, 03/15/16) ROS General: YES: Other (weight loss) PSYCHOLOGICAL ROS: No: Anxiety, Behavioral Disorder, Concentration difficultie , Decreased libido, Depression, Disorientation, Hallucinations, Hostility, Irritablity, Memory difficulties, Mood Swings, Obsessive thoughts, Other, Physical abuse, Sexual abuse, Sleep disturbances, Suicidal ideation Eyes: No Blurry vision, No Decreased vision, No Double vision, No Dry eyes, No Excessive tearing, No Eye Pain, No Itchy Eyes, No Loss of vision, No Other, No Photophobia, No Scotomata, No Uses contacts, No Uses glasses Gastrointestinal: Yes Abdominal Pain, Yes Vomiting Genitourinary: No , No , No , No , No , No , No , No Discharge, No Dysuria, No Flank Pain, No Frequency, No Hematuria, No Incontinence, No Other, No Pain, No Retention, No Urgency Musculoskeletal: No Gait Disturbance, No Joint Pain, No Joint Stiffness, No Joint Swelling, No Muscle Pain, No Muscular Weakness, No Other, No Pain In:, No Swelling In: Neurological: No Behavorial Changes, No Bowel/Bladder ControlChng, No Confusion , No Dizziness, No Gait Disturbance, No Headaches, No Impaired Coord/balance, No Memory Loss, No Numbness/Tingling, No Other, No Seizures, No Speech Problems , No Tremors, No Visual Changes, No Weakness Physical Exam General: Alert, Oriented X3, mild distress Lungs: Clear to auscultation Heart: Regular rate Abdomen: Soft (diffusely tender, tender in RUQ) Skin: No rashes, No breakdown Neuro: Normal speech Psych/Mental Status: Mental status NL MUSCULOSKELETAL: No joint tenderness, No deformity Vitals VITALS Vital Signs Date Time Temp Pulse Resp B/P Pulse Ox O2 Delivery O2 Flow Rate FiO2 03/15/16 11:28 94 Nasal Cannula 4.0 03/15/16 11:00 98.1 68 18 149/83 98.1 Labs Labs Laboratory Tests Test 03/15/16 03:30 03/15/16 03:36 03/15/16 03:40 White Blood Count 11.0x10^3/uL (4.0-11.0) Red Blood Count 4.85x10^6/uL (4.30-5.70) Hemoglobin 14.3g/dL (13.0-17.5) Hematocrit 43.6% (39.0-53.0) Mean Corpuscular Volume 90fL (79-100) Mean Corpuscular Hemoglobin 29pg (25-35) Mean Corpuscular Hemoglobin Concent 33g/dL (31-37) Red Cell Distribution Width 13.2% (11.5-14.5) Platelet Count 309x10^3/uL (140-400) Neutrophils (%) (Auto) 88% (31-73) Lymphocytes (%) (Auto) 8% (24-48) Monocytes (%) (Auto) 3% (0-9) Eosinophils (%) (Auto) 0% (0-3) Basophils (%) (Auto) 0% (0-3) Neutrophils # (Auto) 9.7x10^3uL (1.8-7.7) Lymphocytes # (Auto) 0.9x10^3/uL (1.0-4.8) Monocytes # (Auto) 0.3x10^3/uL (0.0-1.1) Eosinophils # (Auto) 0.0x10^3/uL (0.0-0.7) Basophils # (Auto) 0.0x10^3/uL (0.0-0.2) Segmented Neutrophils % 90% (35-66) Band Neutrophils % 2% (0-9) Lymphocytes % 2% (24-48) Monocytes % 6% (0-10) Platelet Estimate Adequate (ADEQUATE) Sodium Level 146mmol/L (136-145) Potassium Level 4.2mmol/L (3.5-5.1) Chloride Level 106mmol/L (98-107) Carbon Dioxide Level 28mmol/L (21-32) Anion Gap 12 (6-14) 17mmol/L (6-14) Blood Urea Nitrogen 17mg/dL (8-26) Creatinine 1.2mg/dL (0.7-1.3) Estimated GFR (Cockcroft-Gault) 60.6 BUN/Creatinine Ratio 14 (6-20) Glucose Level 123mg/dL (70-99) 117mg/dL (70-99) Calcium Level 9.4mg/dL (8.5-10.1) Total Bilirubin 0.6mg/dL (0.2-1.0) Aspartate Amino Transf (AST/SGOT) 31U/L (15-37) Alanine Aminotransferase (ALT/SGPT) 24U/L (16-63) Alkaline Phosphatase 63U/L (46-116) Troponin I Quantitative < 0.017ng/mL (0.000-0.055) Total Protein 7.6g/dL (6.4-8.2) Albumin 4.1g/dL (3.4-5.0) Albumin/Globulin Ratio 1.2 (1.0-1.7) Lipase 204U/L (73-393) Bedside Troponin I 0.00ng/ml (<0.08) Bedside Hemoglobin 15.6g/dL (14-18) Bedside Hematocrit 46% (37-52) Bedside Sodium 141mmol/L (135-145) Bedside Potassium 4.3mmol/L (3.5-5.0) Bedside Chloride 105mmol/L (98-110) Bedside Total CO2 24mmol/L (23-32) Bedside Blood Urea Nitrogen 19mg/dL (8-26) Bedside Creatinine 1.2mg/dL (0.5-1.4) Bedside Ionized Calcium (Nanette) 1.12mmol/L (1.13-1.32) Laboratory Tests Test 03/15/16 03:30 03/15/16 03:36 03/15/16 03:40 White Blood Count 11.0x10^3/uL (4.0-11.0) Red Blood Count 4.85x10^6/uL (4.30-5.70) Hemoglobin 14.3g/dL (13.0-17.5) Hematocrit 43.6% (39.0-53.0) Mean Corpuscular Volume 90fL (79-100) Mean Corpuscular Hemoglobin 29pg (25-35) Mean Corpuscular Hemoglobin Concent 33g/dL (31-37) Red Cell Distribution Width 13.2% (11.5-14.5) Platelet Count 309x10^3/uL (140-400) Neutrophils (%) (Auto) 88% (31-73) Lymphocytes (%) (Auto) 8% (24-48) Monocytes (%) (Auto) 3% (0-9) Eosinophils (%) (Auto) 0% (0-3) Basophils (%) (Auto) 0% (0-3) Neutrophils # (Auto) 9.7x10^3uL (1.8-7.7) Lymphocytes # (Auto) 0.9x10^3/uL (1.0-4.8) Monocytes # (Auto) 0.3x10^3/uL (0.0-1.1) Eosinophils # (Auto) 0.0x10^3/uL (0.0-0.7) Basophils # (Auto) 0.0x10^3/uL (0.0-0.2) Segmented Neutrophils % 90% (35-66) Band Neutrophils % 2% (0-9) Lymphocytes % 2% (24-48) Monocytes % 6% (0-10) Platelet Estimate Adequate (ADEQUATE) Sodium Level 146mmol/L (136-145) Potassium Level 4.2mmol/L (3.5-5.1) Chloride Level 106mmol/L (98-107) Carbon Dioxide Level 28mmol/L (21-32) Anion Gap 12 (6-14) 17mmol/L (6-14) Blood Urea Nitrogen 17mg/dL (8-26) Creatinine 1.2mg/dL (0.7-1.3) Estimated GFR (Cockcroft-Gault) 60.6 BUN/Creatinine Ratio 14 (6-20) Glucose Level 123mg/dL (70-99) 117mg/dL (70-99) Calcium Level 9.4mg/dL (8.5-10.1) Total Bilirubin 0.6mg/dL (0.2-1.0) Aspartate Amino Transf (AST/SGOT) 31U/L (15-37) Alanine Aminotransferase (ALT/SGPT) 24U/L (16-63) Alkaline Phosphatase 63U/L (46-116) Troponin I Quantitative < 0.017ng/mL (0.000-0.055) Total Protein 7.6g/dL (6.4-8.2) Albumin 4.1g/dL (3.4-5.0) Albumin/Globulin Ratio 1.2 (1.0-1.7) Lipase 204U/L (73-393) Bedside Troponin I 0.00ng/ml (<0.08) Bedside Hemoglobin 15.6g/dL (14-18) Bedside Hematocrit 46% (37-52) Bedside Sodium 141mmol/L (135-145) Bedside Potassium 4.3mmol/L (3.5-5.0) Bedside Chloride 105mmol/L (98-110) Bedside Total CO2 24mmol/L (23-32) Bedside Blood Urea Nitrogen 19mg/dL (8-26) Bedside Creatinine 1.2mg/dL (0.5-1.4) Bedside Ionized Calcium (Nanette) 1.12mmol/L (1.13-1.32) Assessment/Plan Assessment/Plan Abdominal pain, suspect acute cholecystitis; plan for IV abx and to OR. I explained the details and risks of surgery with the patient. The risks include bleeding, infection, bile duct injury, bile leak, injury to surrounding structures, anesthetic risk etc. I also explained that his significant delay in presentation would heighten his risks. He is aware and would like to proceed. PRADIP MCGOWAN MD Mar 15, 2016 12:06
[2016-03-15] MEDS: PIPERACILLIN/TAZOBACTAM 3.375 GM in IV NORMAL SALINE 50ML 50 ML IV SCH ×2 (12:41→19:00)
[2016-03-15] MEDS ORDERED: IV RINGERS,LACTATED 1000ML 1,000 ML IV SCH (14:29)
[2016-03-15] MEDS ORDERED: PROCHLORPERAZINE 10 MG/2 ML VIAL. IV PRN (14:30)
[2016-03-15] MEDS ORDERED: LIDOCAINE 1% 1 ML SYRINGE. ID PRN (14:30)
[2016-03-15] MEDS ORDERED: FENTANYL PF 100 MCG/2 ML VIAL. IV PRN (14:30)
[2016-03-15] MEDS ORDERED: SURGICEL HEMOSTAT 4X8 EACH. ONE (14:46)
[2016-03-15] MEDS ORDERED: BUPIVAC MPF-EPI 0.5%-1:200000 30 ML VIAL. ONE (14:46)
[2016-03-15] MEDS ORDERED: IOHEXOL 300 MG/ML 50 ML VIAL. ONE (14:46)
--- NOTE | 2016-03-15 15:10 | CARD ---
APPROVED REPORT EXAM: Two-dimensional and M-mode echocardiogram with Doppler and color Doppler. Other Information Quality : Good INDICATION Aortic Aneurysm 2D DIMENSIONS RVDd3.3 (2.9-3.5cm)Left Atrium(2D)4.3 (1.6-4.0cm) IVSd1.2 (0.7-1.1cm)Aortic Root(2D)3.8 (2.0-3.7cm) LVDd6.2 (3.9-5.9cm)LVOT Diameter2.2 (1.8-2.4cm) PWd1.2 (0.7-1.1cm)LVDs4.5 (2.5-4.0cm) FS (%) 27.7 %SV101.9 ml LVEF(%)52.8 (>50%) Aortic Valve AoV Peak Perry.137.7cm/sAoV VTI27.8cm AO Peak GR.7.6mmHgLVOT Peak Perry.113.9cm/s LVOT VTI 24.25cmAO Mean GR.4mmHg [place] (VMAX)3.73ft5KHC (VTI)3.40cm2 Mitral Valve MV E Ulfpwpeh16.2cm/sMV DECEL IKBP701gm MV A Pmxaytkf98.3cm/sMV AOX213qd E/A Ratio0.8MVA (PHT)2.11cm2 TDI E/Lateral E'6.8E/Medial E'10.3 Tricuspid Valve TR P. Ppkvkikd487ix/sRAP PFEAMYDV8lgCi TR Peak Gr.31hmIrWAWI92ohEh Pulmonary Vein S1 Hgqniskm29.3cm/sD2 Unttsifc33.4cm/s PVa [id number] LEFT VENTRICLE The Left Ventricle is mildly dilated. There is mild concentric left ventricular hypertrophy. The Ejec tion Fraction is low normal at 50-55%. There is normal LV segmental wall motion. Transmitral Doppler flow pattern is Grade I-abnormal relaxation pattern. RIGHT VENTRICLE The right ventricle is normal size. The right ventricular systolic function is normal. ATRIA The left atrium is mildly dilated. The right atrium size is normal. The interatrial septum is intact with no evidence for an atrial septal defect or patent foramen ovale as noted on 2-D or Doppler imagi ng. AORTIC VALVE The aortic valve is sclerotic but opens well. Doppler and Color Flow revealed trace aortic regurgitat ion. There is no significant aortic valvular stenosis. MITRAL VALVE The mitral valve is normal in structure and function. There is no evidence of mitral valve prolapse. There is no mitral valve stenosis. Doppler and Color-flow revealed trace mitral regurgitation. TRICUSPID VALVE The tricuspid valve is normal in structure and function. Doppler and Color Flow revealed trace to mil d tricuspid regurgitation. The PA pressure was estimated at 35 mmHg. There is no tricuspid valve sten osis. PULMONIC VALVE Doppler and Color Flow revealed trace pulmonic valvular regurgitation. There is no pulmonic valvular stenosis. GREAT VESSELS The aortic root is mildly enlarged at 3. 8 cm. The ascending aorta is moderately dilated at 4.2 cm. T he IVC is normal in size and collapses >50% with inspiration. PERICARDIAL EFFUSION There is no evidence of significant pericardial effusion. Critical Notification Critical Value: No <Conclusion> The Ejection Fraction is low normal at 50-55%. There is normal LV segmental wall motion. The left atrium is mildly dilated. Doppler and Color Flow revealed trace to mild tricuspid regurgitation. The PA pressure was estimated at 35 mmHg. The ascending aorta is moderately dilated at 4.2 cm
[2016-03-15] MEDS ORDERED: ROCURONIUM 50 MG/5 ML VIAL. ONE ×2 (15:13→16:58)
[2016-03-15] MEDS ORDERED: PROPOFOL 20 ML IV ONE (15:13)
[2016-03-15] MEDS ORDERED: DEXAMETHASONE SOD PHOS 20 MG/5 ML VIAL. ONE (15:13)
[2016-03-15] MEDS ORDERED: LIDOCAINE 2% 100 MG/5 ML DISP.SYRIN. ONE (15:13)
[2016-03-15] MEDS ORDERED: FENTANYL PF 100 MCG/2 ML VIAL. ONE (15:13)
[2016-03-15] MEDS ORDERED: ONDANSETRON PF 4 MG/2 ML VIAL. ONE (15:13)
[2016-03-15] MEDS ORDERED: SUCCINYLCHOLINE 200 MG/10 ML VIAL. ONE (15:15)
[2016-03-15] MEDS ORDERED: GLYCOPYRROLATE 1 MG/5 ML VIAL. ONE (15:38)
[2016-03-15] MEDS ORDERED: NEOSTIGMINE METHYLSULFATE 5 MG/5 ML SYRINGE. ONE (15:38)
[2016-03-15] MEDS ORDERED: PHENYLEPHRINE in 0.9% NACL PF 1 MG/10 ML DISP.SYRIN. IV ONE (15:38)
[2016-03-15] MEDS ORDERED: SEVOFLURANE > 120 MINUTES. IH ONE (17:33)
[2016-03-15] MEDS ORDERED: DESFLURANE > 120 MINUTES IH ONE (17:33)
--- NOTE | 2016-03-15 18:44 | HP ---
ADMIT DATE: 03/15/2016 CHIEF COMPLAINT: Abdominal pain. HISTORY OF PRESENT ILLNESS: A 65-year-old male patient with prior history of renal stones presented to the ER with complaints of abdominal pain, which has been coming and going, located in the epigastric and right upper quadrant pain, getting worse with food and also loss of weight, nearly 20 pounds. The patient's pain in mostly postprandial in nature. He denies any symptoms such as chest pain or syncope or palpitations. However, he had some nausea yesterday, vomited may be 9 times. Upon arrival to the ER, the patient was diagnosed with gallbladder inflammation and possible questionable duodenitis and gallstones. PAST MEDICAL HISTORY: Left shoulder surgery, nephrolithiasis. FAMILY HISTORY: Father, alcohol and mother . SOCIAL HISTORY: Former smoker, quit. No alcohol, no drug abuse. REVIEW OF SYSTEMS AND PHYSICAL EXAMINATION: Please see my electronic H and P. LABORATORY DATA: WBC 11,000, hemoglobin 14.3, MCV is 90, platelets 309, and bands 2+. Chemistry: Sodium is 146, potassium is 4.2, chloride is 106, carbon dioxide . Anion gap is 12, creatinine 1.2, blood glucose 123. Troponin is less than 0.01. Lipase is 204. IMAGING STUDIES: CT angiography chest, abdomen, and pelvis showed inflammatory fat stranding surrounding gallbladder, suspected bile duct or duodenum inflammation, gallstones identified in the gallbladder, mild hepatic steatosis, right renal cyst, and ascending aortic aneurysm 4.2 cm. Coronary artery calcifications and 9.5 mm pulmonary nodule identified in the right lower lobe. Ultrasound of the abdomen showed multiple gallstones in the gallbladder, common bile duct is dilated, measured about 9.8 cm in transverse dimension. ASSESSMENT: 1. Abdominal pain. Possible cholecystitis. 2. Aortic aneurysm. Incidental finding, 4.6 cm ascending aorta. 3. Pulmonary nodule 9.5 cm, incidental finding. 4. Right renal cyst. PLAN: 1. We will keep the patient on n.p.o. status and continue IV hydration at 75 mL per hour. Pain control with IV morphine/fentanyl. General surgery and GI have been consulted. Most likely, the patient may go for cholecystectomy today. We will order an echocardiogram to rule out any wall motion abnormalities. 2. The patient needs outpatient Pulmonology followup of pulmonary nodule. If the patient continues to develop hypoxia, I will consult Pulmonology. Supplemental oxygen to keep saturations around 90%. Currently, he is on 3-4 liters. At home, he is not taking any oxygen. 3. Plan explained to the patient and his family members at bedside. GURVINDER DOLL MD DR: GERMAIN/brenna JOB#: [id number] / [id number] LUAN
[2016-03-15] MEDS ORDERED: OXYCODONE/APAP 5/325 TABLET. PO PRN ×2 (18:45→19:00)
--- NOTE | 2016-03-15 18:58 | PDOC4 ---
Operative Note Operative Note Operative Note: Preoperative Diagnosis: Acute cholecystitis Postoperative Diagnosis: Severe acute and chronic cholecystitis Procedure: Laparoscopic cholecystectomy Surgeons: Harry Assist: Yasir Moseley MD, Delfina ROBERTSON Anesthesia: Gen. Estimated Blood Loss: 100 mL Specimen: Gallbladder to pathology Drains: 19Fr CRISTY drain to RUQ Indications: The patient is a 65-year-old male who reports abdominal pain for several months. He reported to the hospital with a severe onset of the pain associated chills. His evaluation suggested severe cholecystitis.. Surgical treatment was offered by means of a laparoscopic cholecystectomy. The risks of surgery were discussed which include bleeding, infection, bile duct injury, bile leak, pain, the potential for additional surgeries or procedures. I also explained that his clinical presentation and delay in seeking medical assistance may elevate his surgical risks. The patient understands and would like to proceed. Description: The patient was taken to the operating room and laid supine on the operating table. General anesthesia was performed. The abdomen was prepped with ChloraPrep and draped in a standard surgical fashion. A small infraumbilical incision was made with a scalpel. The Veress needle was then inserted and a pneumoperitoneum was then created. A 5 mm trocar was then inserted and the laparoscope was introduced. In the upper midabdomen an 11 mm trocar was inserted and in the right upper quadrant two 5 mm trochars were inserted. Inspection of the right upper quadrant showed an inflammatory mass with omentum adherent to the liver. The gallbladder could not initially be visualized. We began peeling away some of the inflamed omentum. There also appeared to be a segment of the transverse colon that was adherent to this inflammatory process. Were able to mobilize that inferiorly with gentle blunt dissection. The gallbladder was then able to be visualized and showed marked wall thickening and fibrosis consistent with severe acute and chronic cholecystitis. The gallbladder was aspirated and nearly 50 mL of dark bilious fluid was suctioned to assist with decompression. The gallbladder was then retracted cephalad. We began mobilization inferiorly freeing up the pericholecystic tissue. This was very difficult due to the marked acute and chronic inflammatory change which had created a dense fibrotic reaction. An additional 5 mm port was placed in the right lower quadrant to assist with inferior traction. We kept the dissection close to the gallbladder and were able to free up the inferior aspect. There was an area of degeneration of the wall of the gallbladder near the infundibulum and a small segment of it tore with minimal manipulation. We continued with gentle blunt dissection and progress was fairly slow. We were able to gradually identify a structure that seemed consistent with a cystic duct entering the gallbladder. It proved difficult to be certain due to the altered anatomy and fibrotic reaction. This collection of tissue was clearly entering the gallbladder. One clip was placed on it near the gallbladder junction and we began dividing the tissue in hopes of finding a lumen for a cholangiogram. We were unable to clearly identify a cystic duct lumen. We did clip and divide the remaining tissue. We then continued mobilizing the gallbladder keeping the dissection very close to the wall. We were able to visualize the region that seemed most consistent with the location of the common duct. This tissue was very fibrotic and inflamed. We kept dissection away from it and continued close to the wall of the gallbladder. We did find another structure entering the gallbladder in the expected region of the cystic artery. This was mobilized carefully from the surrounding tissue with blunt dissection. It was clear that the structure did enter the gallbladder. A small opening was made superiorly and there was return of blood consistent with cystic artery. The proximal portion of the vessels doubly clipped and then divided. What appeared to be a posterior vascular branch was also clipped close to the gallbladder and divided. The gallbladder was then mobilized away from the liver with a combination of blunt and cautery dissection. All blood and irrigation fluid was suctioned. A Surgicel pack was placed against the gallbladder fossa and hemostasis was well controlled. A 19 Arabic round Billy drain was left in the gallbladder fossa with an exit site in the right lateral port incision. This was secured to the skin with 2-0 silk. The gallbladder was then placed in an endoscopic bag and extracted at the superior trocar site. The fascia there was closed with interrupted 0 PDS sutures. Reinspection with the laparoscope showed good closure of the abdominal wall as well as good hemostasis. No other abnormalities were seen in the drain remained well in position. The remaining ports were removed and the pneumoperitoneum was relieved. Steri-Strips and dressings were then applied. The patient tolerated the procedure well and was sent to the recovery room in stable condition. At the end of the case all counts were correct. PRADIP MCGOWAN MD Mar 15, 2016 18:58
[2016-03-15] MEDS: ALBUTEROL SULFATE 2.5 MG/3 ML NEBU. NEB PRN ×2 (19:55→21:21)
[2016-03-15] MEDS: HYDROMORPHONE 2 MG/ML VIAL. IV PRN ×2 (20:07→20:26)
[2016-03-15] MEDS: HYDROCODONE/APAP 5/325MG TABLET. PO PRN (22:07)
[2016-03-16] MEDS: MORPHINE SULFATE 2 MG/ML DISP.SYRIN. IV PRN ×2 (00:30→03:12)
[2016-03-16] MEDS: PIPERACILLIN/TAZOBACTAM 3.375 GM in IV NORMAL SALINE 50ML 50 ML IV SCH ×4 (00:32→18:22)
[2016-03-16 03:00] VITALS: BP 124/82
[2016-03-16 04:45] LABS: BASO % 0 % (0-3); EOS % 0 % (0-3); HEMOGLOBIN 12.3 g/dL (13.0-17.5); LYMPH # 0.5 x10^3/uL (1.0-4.8); LYMPH % 4 % (24-48); MEAN CORPUSCULAR HEMOGLOBIN 29 pg (25-35); MEAN CORPUSCULAR HGB CONC 33 g/dL (31-37); MEAN CORPUSCULAR VOLUME 88 fL (79-100); MONO % 4 % (0-9); NEUT % 91 % (31-73); PLATELET COUNT 282 x10^3/uL (140-400); RED CELL DISTRIBUTION WIDTH 13.2 % (11.5-14.5)
[2016-03-16 04:53] LABS: CALCIUM 8.4 mg/dL (8.5-10.1); CREATININE 1.1 mg/dL (0.7-1.3); POTASSIUM 4.4 mmol/L (3.5-5.1)
[2016-03-16 04:54] LABS: ALBUMIN 2.8 g/dL (3.4-5.0); DIRECT BILIRUBIN 0.4 mg/dL (0.0-0.2); TOTAL BILIRUBIN 0.9 mg/dL (0.2-1.0); TOTAL PROTEIN 6.2 g/dL (6.4-8.2)
[2016-03-16] MEDS: IV NORMAL SALINE 1000ML BAG 1,000 ML IV SCH ×3 (05:45→21:30)
[2016-03-16] MEDS: HYDROCODONE/APAP 5/325MG TABLET. PO PRN (06:20)
[2016-03-16 07:00] VITALS: BP 145/77
--- NOTE | 2016-03-16 09:04 | RAD ---
Indication: Hypoxia and recent gallbladder surgery. Time of exam 0801 hours. No prior studies are available for comparison. The heart is enlarged. There is right basilar subsegmental atelectasis. There is mild central congestion. No overt failure is seen. There is no pneumothorax Impression: Cardiomegaly and central congestion with mild right basilar subsegmental atelectasis.
--- NOTE | 2016-03-16 09:37 | PDOC ---
Provider Note Provider Note dictated ISABEL CHEEMA MD Mar 16, 2016 09:37
--- NOTE | 2016-03-16 10:21 | PDOC ---
PROGRESS NOTES Subjective Subjective feels "much better" Objective Objective Vital Signs Date Time Temp Pulse Resp B/P Pulse Ox O2 Delivery O2 Flow Rate FiO2 03/16/16 07:48 Nasal Cannula 2.0 03/16/16 07:46 94 03/16/16 07:00 97.9 56 18 145/77 97.9 Intake and Output 03/16/16 07:00 Intake Total 2420 ml Output Total 1385 ml Balance 1035 ml Intake Oral 570 ml IV Total 1850 ml Output Urine Total 1100 ml Drainage Total 185 ml Estimated Blood Loss 100 ml # Voids 1 Physical Exam Physical Exam abdomen soft, CRISTY serosang (some surgicell drainage) Assessment Assessment Problems Medical Problems: (1) Cholecystitis Status: Acute (2) Dehydration Status: Acute (3) Intractable abdominal pain Status: Acute (4) Intractable vomiting Status: Acute Plan Plan of Care Continue IV abx, CIRSTY drain, recheck LFTs in am Comment Review of Relevant I have reviewed the following items jass (where applicable) has been applied. Labs Laboratory Tests Test 03/15/16 03:30 03/15/16 03:36 03/15/16 03:40 03/16/16 03:51 White Blood Count 11.0x10^3/uL (4.0-11.0) 11.0x10^3/uL (4.0-11.0) Red Blood Count 4.85x10^6/uL (4.30-5.70) 4.20x10^6/uL (4.30-5.70) Hemoglobin 14.3g/dL (13.0-17.5) 12.3g/dL (13.0-17.5) Hematocrit 43.6% (39.0-53.0) 37.0% (39.0-53.0) Mean Corpuscular Volume 90fL (79-100) 88fL (79-100) Mean Corpuscular Hemoglobin 29pg (25-35) 29pg (25-35) Mean Corpuscular Hemoglobin Concent 33g/dL (31-37) 33g/dL (31-37) Red Cell Distribution Width 13.2% (11.5-14.5) 13.2% (11.5-14.5) Platelet Count 309x10^3/uL (140-400) 282x10^3/uL (140-400) Neutrophils (%) (Auto) 88% (31-73) 91% (31-73) Lymphocytes (%) (Auto) 8% (24-48) 4% (24-48) Monocytes (%) (Auto) 3% (0-9) 4% (0-9) Eosinophils (%) (Auto) 0% (0-3) 0% (0-3) Basophils (%) (Auto) 0% (0-3) 0% (0-3) Neutrophils # (Auto) 9.7x10^3uL (1.8-7.7) 10.1x10^3uL (1.8-7.7) Lymphocytes # (Auto) 0.9x10^3/uL (1.0-4.8) 0.5x10^3/uL (1.0-4.8) Monocytes # (Auto) 0.3x10^3/uL (0.0-1.1) 0.5x10^3/uL (0.0-1.1) Eosinophils # (Auto) 0.0x10^3/uL (0.0-0.7) 0.0x10^3/uL (0.0-0.7) Basophils # (Auto) 0.0x10^3/uL (0.0-0.2) 0.0x10^3/uL (0.0-0.2) Segmented Neutrophils % 90% (35-66) Band Neutrophils % 2% (0-9) Lymphocytes % 2% (24-48) Monocytes % 6% (0-10) Platelet Estimate Adequate (ADEQUATE) Sodium Level 146mmol/L (136-145) 140mmol/L (136-145) Potassium Level 4.2mmol/L (3.5-5.1) 4.4mmol/L (3.5-5.1) Chloride Level 106mmol/L (98-107) 106mmol/L (98-107) Carbon Dioxide Level 28mmol/L (21-32) 25mmol/L (21-32) Anion Gap 12 (6-14) 17mmol/L (6-14) 9 (6-14) Blood Urea Nitrogen 17mg/dL (8-26) 15mg/dL (8-26) Creatinine 1.2mg/dL (0.7-1.3) 1.1mg/dL (0.7-1.3) Estimated GFR (Cockcroft-Gault) 60.6 67.0 BUN/Creatinine Ratio 14 (6-20) Glucose Level 123mg/dL (70-99) 117mg/dL (70-99) 128mg/dL (70-99) Calcium Level 9.4mg/dL (8.5-10.1) 8.4mg/dL (8.5-10.1) Total Bilirubin 0.6mg/dL (0.2-1.0) 0.9mg/dL (0.2-1.0) Aspartate Amino Transf (AST/SGOT) 31U/L (15-37) 73U/L (15-37) Alanine Aminotransferase (ALT/SGPT) 24U/L (16-63) 77U/L (16-63) Alkaline Phosphatase 63U/L (46-116) 51U/L (46-116) Troponin I Quantitative < 0.017ng/mL (0.000-0.055) Total Protein 7.6g/dL (6.4-8.2) 6.2g/dL (6.4-8.2) Albumin 4.1g/dL (3.4-5.0) 2.8g/dL (3.4-5.0) Albumin/Globulin Ratio 1.2 (1.0-1.7) Lipase 204U/L (73-393) Bedside Troponin I 0.00ng/ml (<0.08) Bedside Hemoglobin 15.6g/dL (14-18) Bedside Hematocrit 46% (37-52) Bedside Sodium 141mmol/L (135-145) Bedside Potassium 4.3mmol/L (3.5-5.0) Bedside Chloride 105mmol/L (98-110) Bedside Total CO2 24mmol/L (23-32) Bedside Blood Urea Nitrogen 19mg/dL (8-26) Bedside Creatinine 1.2mg/dL (0.5-1.4) Bedside Ionized Calcium (Nanette) 1.12mmol/L (1.13-1.32) Direct Bilirubin 0.4mg/dL (0.0-0.2) Laboratory Tests Test 03/16/16 03:51 White Blood Count 11.0x10^3/uL (4.0-11.0) Red Blood Count 4.20x10^6/uL (4.30-5.70) Hemoglobin 12.3g/dL (13.0-17.5) Hematocrit 37.0% (39.0-53.0) Mean Corpuscular Volume 88fL (79-100) Mean Corpuscular Hemoglobin 29pg (25-35) Mean Corpuscular Hemoglobin Concent 33g/dL (31-37) Red Cell Distribution Width 13.2% (11.5-14.5) Platelet Count 282x10^3/uL (140-400) Neutrophils (%) (Auto) 91% (31-73) Lymphocytes (%) (Auto) 4% (24-48) Monocytes (%) (Auto) 4% (0-9) Eosinophils (%) (Auto) 0% (0-3) Basophils (%) (Auto) 0% (0-3) Neutrophils # (Auto) 10.1x10^3uL (1.8-7.7) Lymphocytes # (Auto) 0.5x10^3/uL (1.0-4.8) Monocytes # (Auto) 0.5x10^3/uL (0.0-1.1) Eosinophils # (Auto) 0.0x10^3/uL (0.0-0.7) Basophils # (Auto) 0.0x10^3/uL (0.0-0.2) Sodium Level 140mmol/L (136-145) Potassium Level 4.4mmol/L (3.5-5.1) Chloride Level 106mmol/L (98-107) Carbon Dioxide Level 25mmol/L (21-32) Anion Gap 9 (6-14) Blood Urea Nitrogen 15mg/dL (8-26) Creatinine 1.1mg/dL (0.7-1.3) Estimated GFR (Cockcroft-Gault) 67.0 Glucose Level 128mg/dL (70-99) Calcium Level 8.4mg/dL (8.5-10.1) Total Bilirubin 0.9mg/dL (0.2-1.0) Direct Bilirubin 0.4mg/dL (0.0-0.2) Aspartate Amino Transf (AST/SGOT) 73U/L (15-37) Alanine Aminotransferase (ALT/SGPT) 77U/L (16-63) Alkaline Phosphatase 51U/L (46-116) Total Protein 6.2g/dL (6.4-8.2) Albumin 2.8g/dL (3.4-5.0) Medications Current Medications Sodium Chloride (Iv Sodium Chloride 0.9% 1000ml Bag) 1,000 ml @ 1,000 mls/hr Q1H IV Last administered on 03/15/16 03:26; Start 03/15/16 at 03:30; Stop at 04:29; Status DC Ondansetron HCl (Zofran) 4 mg 1X ONCE IV Last administered on 03/15/16 03:26 ; Start 03/15/16 at 03:30; Stop 03/15/16 at 03:31; Status DC Famotidine (Pepcid) 20 mg 1X ONCE IVP Last administered on 03/15/16 03:26; Start 03/15/16 at 03:30; Stop 03/15/16 at 03:31; Status DC Metoclopramide HCl (Reglan) 10 mg 1X ONCE IV Last administered on 03/15/16 03 :26; Start 03/15/16 at 04:00; Stop 03/15/16 at 04:01; Status DC Multi-Ingredient Mouthwash/Gargle (Gi Cocktail Single Dose) 15 ml 1X ONCE SWSW Last administered on 03/15/16 03:26; Start 03/15/16 at 04:00; Stop 03/15/16 at 04:01; Status DC Iohexol (Omnipaque 350 Mg/ml) 100 ml 1X ONCE IV Last administered on 03:58; Start 03/15/16 at 04:00; Stop 03/15/16 at 04:01; Status DC Hydromorphone HCl (Dilaudid) 1 mg 1X ONCE IV Last administered on 03/15/16 03 :49; Start 03/15/16 at 04:00; Stop 03/15/16 at 04:01; Status DC Info (Do NOT chart on this entry -- for MONITORING) 1 each PRN DAILY PRN MC SEE COMMENTS; Start 03/15/16 at 04:00; Stop 03/17/16 at 03:59 Hydromorphone HCl (Dilaudid) 2 mg STK-MED ONCE .ROUTE ; Start 03/15/16 at 03:47 ; Stop 03/15/16 at 03:48; Status DC Hydromorphone HCl 1 mg 1 mg 1X ONCE IV Last administered on 03/15/16 05:25; Start 03/15/16 at 05:30; Stop 03/15/16 at 05:31; Status DC Piperacillin Sod/ Tazobactam Sod/ Sodium Chloride (Zosyn/Iv Sodium Chloride 0.9 % 50ml) 50 ml @ 100 mls/hr 1X ONCE IV Last administered on 03/15/16 05:35; Start 03/15/16 at 06:00; Stop 03/15/16 at 06:29; Status DC Ondansetron HCl (Zofran) 4 mg PRN Q8HRS PRN IV NAUSEA/VOMITING; Start 03/15/16 at 05:45; Stop 03/15/16 at 09:35; Status DC Fentanyl Citrate 50 mcg 50 mcg PRN Q1HR PRN IV SEVERE PAIN Last administered on 03/15/16 09:11; Start 03/15/16 at 05:45; Stop 03/15/16 at 09:34; Status DC Sodium Chloride (Iv Sodium Chloride 0.9% 1000ml Bag) 1,000 ml @ 125 mls/hr Q8H IV Last administered on 03/15/16 05:41; Start 03/15/16 at 05:34; Stop at 13:39; Status DC Acetaminophen (Tylenol) 325 mg PRN Q6HRS PRN PO MILD PAIN / TEMP; Start at 09:45 Acetaminophen/ Hydrocodone Bitart (Lortab 5/325) 1 tab PRN Q6HRS PRN PO MODERATE TO SEVERE PAIN Last administered on 03/16/16 06:20; Start 03/15/16 at 09:45 Hydralazine HCl (Apresoline) 10 mg PRN Q4HRS PRN IVP ELEVATED BP, SEE COMMENTS ; Start 03/15/16 at 09:45 Ondansetron HCl (Zofran) 4 mg PRN Q8HRS PRN IV NAUSEA/VOMITING; Start 03/15/16 at 09:45 Albuterol Sulfate 2.5 mg 2.5 mg PRN Q4HRS PRN NEB SHORTNESS OF BREATH Last administered on 03/15/16 21:21; Start 03/15/16 at 09:45 Sodium Chloride (Iv Sodium Chloride 0.9% 1000ml Bag) 1,000 ml @ 100 mls/hr Q10H IV Last administered on 03/16/16 09:39; Start 03/15/16 at 09:45 Morphine Sulfate 2 mg 2 mg PRN Q2HR PRN IV PAIN Last administered on 03/16/16 03:12; Start 03/15/16 at 09:45 Piperacillin Sod/ Tazobactam Sod/ Sodium Chloride (Zosyn/Iv Sodium Chloride 0.9 % 50ml) 50 ml @ 100 mls/hr Q6HRS IV Last administered on 03/16/16 05:18; Start 03/15/16 at 12:00 Ondansetron HCl (Zofran) 4 mg PRN Q6HRS PRN IV Nausea; Start 03/15/16 at 14:30 ; Stop 03/15/16 at 23:00; Status DC Fentanyl Citrate (Fentanyl 2ml Vial) 25 mcg PRN Q5MIN PRN IV MILD PAIN; Start 03/15/16 at 14:30; Stop 03/15/16 at 23:00; Status DC Fentanyl Citrate (Fentanyl 2ml Vial) 50 mcg PRN Q5MIN PRN IV MODERATE PAIN Last administered on 03/15/16 20:20; Start 03/15/16 at 14:30; Stop 03/15/16 at 23:00; Status DC Morphine Sulfate 1 mg 1 mg PRN Q10MIN PRN IV SEVERE PAIN Last administered on 19:55; Start 03/15/16 at 14:30; Stop 03/15/16 at 23:00; Status DC Lactated Ringer's (Iv Lactated Ringers) 1,000 ml @ 0 mls/hr Q0M IV ; Start at 14:29; Stop 03/16/16 at 02:28; Status DC Lidocaine HCl 2 ml 1X PRN PRN ID IV START; Start 03/15/16 at 14:30; Stop at 23:00; Status DC Hydromorphone HCl (Dilaudid) 0.5 mg PRN Q10MIN PRN IV SEV PAIN,Second choice Last administered on 03/15/16 20:26; Start 03/15/16 at 14:30; Stop 03/15/16 at 23:00; Status DC Prochlorperazine Edisylate (Compazine) 5 mg PACU PRN PRN IV NAUSEA Last administered on 03/15/16 19:31; Start 03/15/16 at 14:30; Stop 03/15/16 at 23:00 ; Status DC Cellulose 1 each STK-MED ONCE .ROUTE Last administered on 03/15/16 16:55; Start 03/15/16 at 14:46; Stop 03/15/16 at 14:47; Status DC Bupivacaine HCl/ Epinephrine Bitart (Sensorcain-Mpf Epi 0.5%-1:[id number]) 30 ml STK -MED ONCE .ROUTE ; Start 03/15/16 at 14:46; Stop 03/15/16 at 14:47; Status DC Iohexol (Omnipaque 300 Mg/ml) 50 ml STK-MED ONCE .ROUTE ; Start 03/15/16 at 14: 46; Stop 03/15/16 at 14:47; Status DC Dexamethasone Sodium Phosphate (Decadron) 20 mg STK-MED ONCE .ROUTE ; Start at 15:13; Stop 03/15/16 at 15:14; Status DC Ondansetron HCl 4 mg 4 mg STK-MED ONCE .ROUTE ; Start 03/15/16 at 15:13; Stop at 15:14; Status DC Propofol (Diprivan) 20 ml @ As Directed STK-MED ONCE IV ; Start 03/15/16 at 15: 13; Stop 03/15/16 at 15:14; Status DC Lidocaine HCl 100 mg STK-MED ONCE .ROUTE ; Start 03/15/16 at 15:13; Stop at 15:14; Status DC Fentanyl Citrate (Fentanyl 2ml Vial) 100 mcg STK-MED ONCE .ROUTE ; Start at 15:13; Stop 03/15/16 at 15:14; Status DC Rocuronium Coleman (Zemuron) 50 mg STK-MED ONCE .ROUTE ; Start 03/15/16 at 15:13 ; Stop 03/15/16 at 15:14; Status DC Succinylcholine Chloride (Anectine) 200 mg STK-MED ONCE .ROUTE ; Start 03/15/16 at 15:15; Stop 03/15/16 at 15:16; Status DC Phenylephrine HCl 1 mg STK-MED ONCE IV ; Start 03/15/16 at 15:38; Stop 03/15/16 at 15:39; Status DC Glycopyrrolate (Robinul) 1 mg STK-MED ONCE .ROUTE ; Start 03/15/16 at 15:38; Stop 03/15/16 at 15:39; Status DC Neostigmine Methylsulfate 5 mg STK-MED ONCE .ROUTE ; Start 03/15/16 at 15:38; Stop 03/15/16 at 15:39; Status DC Rocuronium Coleman (Zemuron) 50 mg STK-MED ONCE .ROUTE ; Start 03/15/16 at 16:58 ; Stop 03/15/16 at 16:59; Status DC Sevoflurane (Ultane) 90 ml STK-MED ONCE IH ; Start 03/15/16 at 17:33; Stop 03/15 at 17:34; Status DC Desflurane (Suprane) 90 ml STK-MED ONCE IH ; Start 03/15/16 at 17:33; Stop 03/15 at 17:34; Status DC Oxycodone/ Acetaminophen (Percocet 5/325) 1 tab PRN Q4HRS PRN PO PAIN Last administered on 03/16/16t 00:37; Start 03/15/16 at 18:45 Oxycodone/ Acetaminophen (Percocet 5/325) 2 tab PRN Q4HRS PRN PO PAIN; Start at 19:00 Vitals/I & O Vital Sign - Last 24 Hours 03/15/16 03/15/16 03/15/16 03/15/16 10:43 11:00 12:19 12:47 Temp 98.1 98.1 Pulse 68 Resp 18 B/P 149/83 Pulse Ox 99 94 95 95 O2 Delivery Nasal Cannula Room Air Nasal Cannula O2 Flow Rate 4.0 4.0 03/15/16 03/15/16 03/15/16 03/15/16 15:00 18:48 18:48 19:03 Temp 98.8 97.7 98.8 97.7 Pulse 61 65 69 Resp 20 20 20 B/P 152/74 161/83 169/90 Pulse Ox 89 93 88 O2 Delivery Room Air Simple Mask Mask Nasal Cannula O2 Flow Rate 10 10 3 03/15/16 03/15/16 03/15/16 03/15/16 19:18 19:18 19:31 19:33 Pulse 69 Resp 20 20 22 22 B/P 168/89 Pulse Ox 89 86 89 89 O2 Delivery Nasal Cannula Nasal Cannula Nasal Cannula Nasal Cannula O2 Flow Rate 3 3.0 03/15/16 03/15/16 03/15/16 03/15/16 19:33 19:48 19:48 19:55 Temp 97.0 97.0 Pulse 71 62 Resp 20 20 22 B/P 158/83 160/90 Pulse Ox 91 92 89 O2 Delivery Nasal Cannula Nasal Cannula Nasal Cannula Nasal Cannula O2 Flow Rate 2 2 2 2.0 03/15/16 03/15/16 03/15/16 03/15/16 20:00 20:01 20:03 20:07 Pulse 65 Resp 20 20 20 B/P 180/91 Pulse Ox 89 93 O2 Delivery Nasal Cannula Nasal Cannula Nasal Cannula Nasal Cannula O2 Flow Rate 3.0 2.0 3 2.0 03/15/16 03/15/16 03/15/16 03/15/16 20:18 20:20 20:26 20:33 Pulse 67 78 Resp 20 22 20 20 B/P 160/77 153/85 Pulse Ox 93 93 98 O2 Delivery Nasal Cannula Nasal Cannula Nasal Cannula Nasal Cannula O2 Flow Rate 3 2.0 3.0 3 03/15/16 03/15/16 03/15/16 03/15/16 20:40 21:00 21:10 21:25 Pulse 68 67 67 Resp 18 18 B/P 130/67 123/67 133/68 Pulse Ox 92 93 93 95 O2 Delivery Nasal Cannula Nasal Cannula Nasal Cannula Nasal Cannula O2 Flow Rate 2.0 2.0 2.0 4.0 03/15/16 03/15/16 03/15/16 03/15/16 21:25 21:40 21:55 22:04 Pulse 64 72 61 Resp 18 B/P 134/65 122/70 137/71 Pulse Ox 92 95 93 O2 Delivery Nasal Cannula Nasal Cannula Nasal Cannula Nasal Cannula O2 Flow Rate 2.0 2.0 2.0 3.0 1/24/17 1/24/17 1/24/17 1/24/17 22:07 22:10 22:25 22:40 Pulse 69 59 55 Resp 18 B/P 141/77 140/74 142/41 Pulse Ox 95 93 92 91 O2 Delivery Nasal Cannula Nasal Cannula Nasal Cannula Nasal Cannula O2 Flow Rate 3.0 2.0 2.0 2.0 03/15/16 03/16/16 03/16/16 03/16/16 22:41 00:30 00:37 01:53 Pulse Ox 95 95 95 94 O2 Delivery Nasal Cannula Nasal Cannula Nasal Cannula Nasal Cannula O2 Flow Rate 3.0 3.0 3.0 3.0 03/16/16 03/16/16 03/16/16 03/16/16 03:00 03:12 03:45 06:20 Temp 98.0 98.0 Pulse 63 Resp 20 16 14 B/P 124/82 Pulse Ox 93 94 94 94 O2 Delivery Nasal Cannula Nasal Cannula Nasal Cannula Nasal Cannula O2 Flow Rate 2.0 3.0 2.0 2.0 03/16/16 03/16/16 03/16/16 07:00 07:46 07:48 Temp 97.9 97.9 Pulse 56 Resp 18 B/P 145/77 Pulse Ox 99 94 O2 Delivery Nasal Cannula Nasal Cannula Nasal Cannula O2 Flow Rate 2.0 2.0 2.0 Intake and Output 03/15/16 03/15/16 03/16/16 15:00 23:00 07:00 Intake Total 1950 ml 470 ml Output Total 1215 ml 170 ml Balance 735 ml 300 ml PRADIP MCGOWAN MD Mar 16, 2016 10:21
--- NOTE | 2016-03-16 11:01 | CONS ---
DATE OF CONSULTATION: ATTENDING PHYSICIAN: Dr. Poe REASON FOR CONSULTATION: Lung nodule. HISTORY OF PRESENT ILLNESS: The patient is a pleasant 65-year-old male who has no significant history of tobacco use. He came to the hospital with epigastric and right upper quadrant pain along with weight loss. No cough, no fever, no chills, no chest pains. He was found to have acute cholecystitis. The patient has been having nausea and vomiting for many weeks, as a result has lost weight. He underwent imaging study with a CT chest which was reviewed by me on 03/15/2016. The patient has 9.5 mm nodule close to the pleura in the right lower lobe posteromedially and a 6 mm nodule in the right middle lobe of the lung. I have been asked to see him for further evaluation. No significant adenopathy seen. He is recovering from his surgery. PAST MEDICAL HISTORY: He is a nonsmoker. No significant pulmonary history, history of nephrolithiasis. PAST SURGICAL HISTORY: Left shoulder surgery. ALLERGIES: SULFA. MEDICATIONS: Reviewed as listed in [facility]. SOCIAL HISTORY: Nonsmoker. FAMILY HISTORY: Noncontributory to lungs. PHYSICAL EXAMINATION: VITAL SIGNS: Stable. Pulse ox 94% on 2 liters. NECK: Supple. LUNGS: Diminished breath sounds. CARDIOVASCULAR: Regular rate. ABDOMEN: Soft. EXTREMITIES: No pitting edema. LABORATORY DATA: His chest x-ray from today was reviewed and it shows cardiomegaly and right basilar atelectasis. His labs were reviewed. IMPRESSION: 1. Abnormal CT chest with a 9.5 mm nodule in the right lower lobe posteromedially attached to the pleura and also 6 mm nodule in the right middle lobe of the lung. This is a patient who has no significant tobacco history. or malignancy His risk factors are low for primary lung malignancy. I would recommend having a followup CT chest in 3-6 months. 2. Acute cholecystitis status post laparoscopic cholecystectomy. 3. Postop atelectasis. 4. No significant tobacco history. PLAN: 1. Incentive spirometry. 2. P.r.n. bronchodilators. 3. Antibiotics per Infectious Disease. 4. Follow surgery recommendations. 5. We will follow along with you. 6. I will see him for f/u in few months with ct chest prior to visit Discussed with the patient and his . ISABEL CHEEMA MD DR: Altaf JOB#: [id number] / [id number] LUAN
[2016-03-16 11:15] VITALS: BP 143/69
--- NOTE | 2016-03-16 11:36 | PDOC ---
Subjective: Subjective: Feeling much better. No pain except when coughs. No n/v, tolerating liquids. Passing gas. Objective: Vital Signs: Vital Signs Date Time Temp Pulse Resp B/P Pulse Ox O2 Delivery O2 Flow Rate FiO2 03/16/16 11:15 97.4 62 18 143/69 91 Room Air 97.4 03/16/16 07:48 2.0 Labs: Laboratory Tests Test 03/16/16 03:51 White Blood Count 11.0x10^3/uL Red Blood Count 4.20x10^6/uL Hemoglobin 12.3g/dL Hematocrit 37.0% Mean Corpuscular Volume 88fL Mean Corpuscular Hemoglobin 29pg Mean Corpuscular Hemoglobin Concent 33g/dL Red Cell Distribution Width 13.2% Platelet Count 282x10^3/uL Neutrophils (%) (Auto) 91% Lymphocytes (%) (Auto) 4% Monocytes (%) (Auto) 4% Eosinophils (%) (Auto) 0% Basophils (%) (Auto) 0% Neutrophils # (Auto) 10.1x10^3uL Lymphocytes # (Auto) 0.5x10^3/uL Monocytes # (Auto) 0.5x10^3/uL Eosinophils # (Auto) 0.0x10^3/uL Basophils # (Auto) 0.0x10^3/uL Sodium Level 140mmol/L Potassium Level 4.4mmol/L Chloride Level 106mmol/L Carbon Dioxide Level 25mmol/L Anion Gap 9 Blood Urea Nitrogen 15mg/dL Creatinine 1.1mg/dL Estimated GFR (Cockcroft-Gault) 67.0 Glucose Level 128mg/dL Calcium Level 8.4mg/dL Total Bilirubin 0.9mg/dL Direct Bilirubin 0.4mg/dL Aspartate Amino Transf (AST/SGOT) 73U/L Alanine Aminotransferase (ALT/SGPT) 77U/L Alkaline Phosphatase 51U/L Total Protein 6.2g/dL Albumin 2.8g/dL Imaging: CXR 03/16/16 Impression: Cardiomegaly and central congestion with mild right basilar subsegmental atelectasis. PE: GEN: NAD LUNGS: CTAB anteriorly, nasal cannula HEART: RRR ABD: BS+, mild tenderness RUQ and epigastrium (much less) NEURO/PSYCH: A & O 3 A/P: Post-prandial upper abd pain w/ n/v - improved/resolved s/p lap cholecystectomy 03/15 -on IV antibiotics w/ CRISTY drain -mild elevation in LFTs (normal total bili) -- Reviewed surg note - orders for full liquids and lab recheck in [facility] Mar 16, 2016 11:36
[2016-03-16 15:00] VITALS: BP 114/72
--- NOTE | 2016-03-16 15:25 | PDOC ---
PROGRESS NOTES Chief Complaint Chief Complaint cc: abdominal pain A/P 1. C holecystitis, S/P Lap cholecystectomy 2. Aortic aneurysm. Incidental finding, 4.6 cm ascending aorta. 3. Pulmonary nodule 9.5 cm, incidental finding. 4. Right renal cysts Plan Pain control NPO IVF OUT PT FOLLOW UP WITH pulmonolgy cardiology consult echo reviwed, above findings d/w pt. labs reivwed, History of Present Illness History of Present Illness no flatus no fever no chills. Vitals Vitals Vital Signs Date Time Temp Pulse Resp B/P Pulse Ox O2 Delivery O2 Flow Rate FiO2 03/16/16 11:15 97.4 62 18 143/69 91 Room Air 97.4 03/16/16 07:48 2.0 Physical Exam General: Alert, Oriented X3, mild distress Heart: Regular rate, Normal S1, Normal S2 Lungs: Clear Abdomen: Soft (diffusely tender, tender in RUQ) Skin: No rashes, No breakdown Labs LABS Laboratory Tests Test 03/16/16 03:51 White Blood Count 11.0x10^3/uL (4.0-11.0) Red Blood Count 4.20x10^6/uL (4.30-5.70) Hemoglobin 12.3g/dL (13.0-17.5) Hematocrit 37.0% (39.0-53.0) Mean Corpuscular Volume 88fL (79-100) Mean Corpuscular Hemoglobin 29pg (25-35) Mean Corpuscular Hemoglobin Concent 33g/dL (31-37) Red Cell Distribution Width 13.2% (11.5-14.5) Platelet Count 282x10^3/uL (140-400) Neutrophils (%) (Auto) 91% (31-73) Lymphocytes (%) (Auto) 4% (24-48) Monocytes (%) (Auto) 4% (0-9) Eosinophils (%) (Auto) 0% (0-3) Basophils (%) (Auto) 0% (0-3) Neutrophils # (Auto) 10.1x10^3uL (1.8-7.7) Lymphocytes # (Auto) 0.5x10^3/uL (1.0-4.8) Monocytes # (Auto) 0.5x10^3/uL (0.0-1.1) Eosinophils # (Auto) 0.0x10^3/uL (0.0-0.7) Basophils # (Auto) 0.0x10^3/uL (0.0-0.2) Sodium Level 140mmol/L (136-145) Potassium Level 4.4mmol/L (3.5-5.1) Chloride Level 106mmol/L (98-107) Carbon Dioxide Level 25mmol/L (21-32) Anion Gap 9 (6-14) Blood Urea Nitrogen 15mg/dL (8-26) Creatinine 1.1mg/dL (0.7-1.3) Estimated GFR (Cockcroft-Gault) 67.0 Glucose Level 128mg/dL (70-99) Calcium Level 8.4mg/dL (8.5-10.1) Total Bilirubin 0.9mg/dL (0.2-1.0) Direct Bilirubin 0.4mg/dL (0.0-0.2) Aspartate Amino Transf (AST/SGOT) 73U/L (15-37) Alanine Aminotransferase (ALT/SGPT) 77U/L (16-63) Alkaline Phosphatase 51U/L (46-116) Total Protein 6.2g/dL (6.4-8.2) Albumin 2.8g/dL (3.4-5.0) Assessment and Plan Assessmemt and Plan Problems Medical Problems: (1) Cholecystitis Status: Acute (2) Dehydration Status: Acute (3) Intractable abdominal pain Status: Acute (4) Intractable vomiting Status: Acute Problems: Comment Review of Relevant I have reviewed the following items jass (where applicable) has been applied. Labs Laboratory Tests Test 03/15/16 03:30 03/15/16 03:36 03/15/16 03:40 03/16/16 03:51 White Blood Count 11.0x10^3/uL (4.0-11.0) 11.0x10^3/uL (4.0-11.0) Red Blood Count 4.85x10^6/uL (4.30-5.70) 4.20x10^6/uL (4.30-5.70) Hemoglobin 14.3g/dL (13.0-17.5) 12.3g/dL (13.0-17.5) Hematocrit 43.6% (39.0-53.0) 37.0% (39.0-53.0) Mean Corpuscular Volume 90fL (79-100) 88fL (79-100) Mean Corpuscular Hemoglobin 29pg (25-35) 29pg (25-35) Mean Corpuscular Hemoglobin Concent 33g/dL (31-37) 33g/dL (31-37) Red Cell Distribution Width 13.2% (11.5-14.5) 13.2% (11.5-14.5) Platelet Count 309x10^3/uL (140-400) 282x10^3/uL (140-400) Neutrophils (%) (Auto) 88% (31-73) 91% (31-73) Lymphocytes (%) (Auto) 8% (24-48) 4% (24-48) Monocytes (%) (Auto) 3% (0-9) 4% (0-9) Eosinophils (%) (Auto) 0% (0-3) 0% (0-3) Basophils (%) (Auto) 0% (0-3) 0% (0-3) Neutrophils # (Auto) 9.7x10^3uL (1.8-7.7) 10.1x10^3uL (1.8-7.7) Lymphocytes # (Auto) 0.9x10^3/uL (1.0-4.8) 0.5x10^3/uL (1.0-4.8) Monocytes # (Auto) 0.3x10^3/uL (0.0-1.1) 0.5x10^3/uL (0.0-1.1) Eosinophils # (Auto) 0.0x10^3/uL (0.0-0.7) 0.0x10^3/uL (0.0-0.7) Basophils # (Auto) 0.0x10^3/uL (0.0-0.2) 0.0x10^3/uL (0.0-0.2) Segmented Neutrophils % 90% (35-66) Band Neutrophils % 2% (0-9) Lymphocytes % 2% (24-48) Monocytes % 6% (0-10) Platelet Estimate Adequate (ADEQUATE) Sodium Level 146mmol/L (136-145) 140mmol/L (136-145) Potassium Level 4.2mmol/L (3.5-5.1) 4.4mmol/L (3.5-5.1) Chloride Level 106mmol/L (98-107) 106mmol/L (98-107) Carbon Dioxide Level 28mmol/L (21-32) 25mmol/L (21-32) Anion Gap 12 (6-14) 17mmol/L (6-14) 9 (6-14) Blood Urea Nitrogen 17mg/dL (8-26) 15mg/dL (8-26) Creatinine 1.2mg/dL (0.7-1.3) 1.1mg/dL (0.7-1.3) Estimated GFR (Cockcroft-Gault) 60.6 67.0 BUN/Creatinine Ratio 14 (6-20) Glucose Level 123mg/dL (70-99) 117mg/dL (70-99) 128mg/dL (70-99) Calcium Level 9.4mg/dL (8.5-10.1) 8.4mg/dL (8.5-10.1) Total Bilirubin 0.6mg/dL (0.2-1.0) 0.9mg/dL (0.2-1.0) Aspartate Amino Transf (AST/SGOT) 31U/L (15-37) 73U/L (15-37) Alanine Aminotransferase (ALT/SGPT) 24U/L (16-63) 77U/L (16-63) Alkaline Phosphatase 63U/L (46-116) 51U/L (46-116) Troponin I Quantitative < 0.017ng/mL (0.000-0.055) Total Protein 7.6g/dL (6.4-8.2) 6.2g/dL (6.4-8.2) Albumin 4.1g/dL (3.4-5.0) 2.8g/dL (3.4-5.0) Albumin/Globulin Ratio 1.2 (1.0-1.7) Lipase 204U/L (73-393) Bedside Troponin I 0.00ng/ml (<0.08) Bedside Hemoglobin 15.6g/dL (14-18) Bedside Hematocrit 46% (37-52) Bedside Sodium 141mmol/L (135-145) Bedside Potassium 4.3mmol/L (3.5-5.0) Bedside Chloride 105mmol/L (98-110) Bedside Total CO2 24mmol/L (23-32) Bedside Blood Urea Nitrogen 19mg/dL (8-26) Bedside Creatinine 1.2mg/dL (0.5-1.4) Bedside Ionized Calcium (Nanette) 1.12mmol/L (1.13-1.32) Direct Bilirubin 0.4mg/dL (0.0-0.2) Laboratory Tests Test 03/16/16 03:51 White Blood Count 11.0x10^3/uL (4.0-11.0) Red Blood Count 4.20x10^6/uL (4.30-5.70) Hemoglobin 12.3g/dL (13.0-17.5) Hematocrit 37.0% (39.0-53.0) Mean Corpuscular Volume 88fL (79-100) Mean Corpuscular Hemoglobin 29pg (25-35) Mean Corpuscular Hemoglobin Concent 33g/dL (31-37) Red Cell Distribution Width 13.2% (11.5-14.5) Platelet Count 282x10^3/uL (140-400) Neutrophils (%) (Auto) 91% (31-73) Lymphocytes (%) (Auto) 4% (24-48) Monocytes (%) (Auto) 4% (0-9) Eosinophils (%) (Auto) 0% (0-3) Basophils (%) (Auto) 0% (0-3) Neutrophils # (Auto) 10.1x10^3uL (1.8-7.7) Lymphocytes # (Auto) 0.5x10^3/uL (1.0-4.8) Monocytes # (Auto) 0.5x10^3/uL (0.0-1.1) Eosinophils # (Auto) 0.0x10^3/uL (0.0-0.7) Basophils # (Auto) 0.0x10^3/uL (0.0-0.2) Sodium Level 140mmol/L (136-145) Potassium Level 4.4mmol/L (3.5-5.1) Chloride Level 106mmol/L (98-107) Carbon Dioxide Level 25mmol/L (21-32) Anion Gap 9 (6-14) Blood Urea Nitrogen 15mg/dL (8-26) Creatinine 1.1mg/dL (0.7-1.3) Estimated GFR (Cockcroft-Gault) 67.0 Glucose Level 128mg/dL (70-99) Calcium Level 8.4mg/dL (8.5-10.1) Total Bilirubin 0.9mg/dL (0.2-1.0) Direct Bilirubin 0.4mg/dL (0.0-0.2) Aspartate Amino Transf (AST/SGOT) 73U/L (15-37) Alanine Aminotransferase (ALT/SGPT) 77U/L (16-63) Alkaline Phosphatase 51U/L (46-116) Total Protein 6.2g/dL (6.4-8.2) Albumin 2.8g/dL (3.4-5.0) Medications Current Medications Sodium Chloride (Iv Sodium Chloride 0.9% 1000ml Bag) 1,000 ml @ 1,000 mls/hr Q1H IV Last administered on 03/15/16 03:26; Start 03/15/16 at 03:30; Stop at 04:29; Status DC Ondansetron HCl (Zofran) 4 mg 1X ONCE IV Last administered on 03/15/16 03:26 ; Start 03/15/16 at 03:30; Stop 03/15/16 at 03:31; Status DC Famotidine (Pepcid) 20 mg 1X ONCE IVP Last administered on 03/15/16 03:26; Start 03/15/16 at 03:30; Stop 03/15/16 at 03:31; Status DC Metoclopramide HCl (Reglan) 10 mg 1X ONCE IV Last administered on 03/15/16 03 :26; Start 03/15/16 at 04:00; Stop 03/15/16 at 04:01; Status DC Multi-Ingredient Mouthwash/Gargle (Gi Cocktail Single Dose) 15 ml 1X ONCE SWSW Last administered on 03/15/16 03:26; Start 03/15/16 at 04:00; Stop 03/15/16 at 04:01; Status DC Iohexol (Omnipaque 350 Mg/ml) 100 ml 1X ONCE IV Last administered on 03:58; Start 03/15/16 at 04:00; Stop 03/15/16 at 04:01; Status DC Hydromorphone HCl (Dilaudid) 1 mg 1X ONCE IV Last administered on 03/15/16 03 :49; Start 03/15/16 at 04:00; Stop 03/15/16 at 04:01; Status DC Info (Do NOT chart on this entry -- for MONITORING) 1 each PRN DAILY PRN MC SEE COMMENTS; Start 03/15/16 at 04:00; Stop 03/17/16 at 03:59 Hydromorphone HCl (Dilaudid) 2 mg STK-MED ONCE .ROUTE ; Start 03/15/16 at 03:47 ; Stop 03/15/16 at 03:48; Status DC Hydromorphone HCl 1 mg 1 mg 1X ONCE IV Last administered on 03/15/16 05:25; Start 03/15/16 at 05:30; Stop 03/15/16 at 05:31; Status DC Piperacillin Sod/ Tazobactam Sod/ Sodium Chloride (Zosyn/Iv Sodium Chloride 0.9 % 50ml) 50 ml @ 100 mls/hr 1X ONCE IV Last administered on 03/15/16 05:35; Start 03/15/16 at 06:00; Stop 03/15/16 at 06:29; Status DC Ondansetron HCl (Zofran) 4 mg PRN Q8HRS PRN IV NAUSEA/VOMITING; Start 03/15/16 at 05:45; Stop 03/15/16 at 09:35; Status DC Fentanyl Citrate 50 mcg 50 mcg PRN Q1HR PRN IV SEVERE PAIN Last administered on 03/15/16 09:11; Start 03/15/16 at 05:45; Stop 03/15/16 at 09:34; Status DC Sodium Chloride (Iv Sodium Chloride 0.9% 1000ml Bag) 1,000 ml @ 125 mls/hr Q8H IV Last administered on 03/15/16 05:41; Start 03/15/16 at 05:34; Stop at 13:39; Status DC Acetaminophen (Tylenol) 325 mg PRN Q6HRS PRN PO MILD PAIN / TEMP; Start at 09:45 Acetaminophen/ Hydrocodone Bitart (Lortab 5/325) 1 tab PRN Q6HRS PRN PO MODERATE TO SEVERE PAIN Last administered on 03/16/16 06:20; Start 03/15/16 at 09:45 Hydralazine HCl (Apresoline) 10 mg PRN Q4HRS PRN IVP ELEVATED BP, SEE COMMENTS ; Start 03/15/16 at 09:45 Ondansetron HCl (Zofran) 4 mg PRN Q8HRS PRN IV NAUSEA/VOMITING; Start 03/15/16 at 09:45 Albuterol Sulfate 2.5 mg 2.5 mg PRN Q4HRS PRN NEB SHORTNESS OF BREATH Last administered on 03/15/16 21:21; Start 03/15/16 at 09:45 Sodium Chloride (Iv Sodium Chloride 0.9% 1000ml Bag) 1,000 ml @ 100 mls/hr Q10H IV Last administered on 03/16/16 09:39; Start 03/15/16 at 09:45 Morphine Sulfate 2 mg 2 mg PRN Q2HR PRN IV PAIN Last administered on 03/16/16 03:12; Start 03/15/16 at 09:45 Piperacillin Sod/ Tazobactam Sod/ Sodium Chloride (Zosyn/Iv Sodium Chloride 0.9 % 50ml) 50 ml @ 100 mls/hr Q6HRS IV Last administered on 03/16/16 12:19; Start 03/15/16 at 12:00 Ondansetron HCl (Zofran) 4 mg PRN Q6HRS PRN IV Nausea; Start 03/15/16 at 14:30 ; Stop 03/15/16 at 23:00; Status DC Fentanyl Citrate (Fentanyl 2ml Vial) 25 mcg PRN Q5MIN PRN IV MILD PAIN; Start 03/15/16 at 14:30; Stop 03/15/16 at 23:00; Status DC Fentanyl Citrate (Fentanyl 2ml Vial) 50 mcg PRN Q5MIN PRN IV MODERATE PAIN Last administered on 03/15/16 20:20; Start 03/15/16 at 14:30; Stop 03/15/16 at 23:00; Status DC Morphine Sulfate 1 mg 1 mg PRN Q10MIN PRN IV SEVERE PAIN Last administered on 19:55; Start 03/15/16 at 14:30; Stop 03/15/16 at 23:00; Status DC Lactated Ringer's (Iv Lactated Ringers) 1,000 ml @ 0 mls/hr Q0M IV ; Start at 14:29; Stop 03/16/16 at 02:28; Status DC Lidocaine HCl 2 ml 1X PRN PRN ID IV START; Start 03/15/16 at 14:30; Stop at 23:00; Status DC Hydromorphone HCl (Dilaudid) 0.5 mg PRN Q10MIN PRN IV SEV PAIN,Second choice Last administered on 03/15/16 20:26; Start 03/15/16 at 14:30; Stop 03/15/16 at 23:00; Status DC Prochlorperazine Edisylate (Compazine) 5 mg PACU PRN PRN IV NAUSEA Last administered on 03/15/16 19:31; Start 03/15/16 at 14:30; Stop 03/15/16 at 23:00 ; Status DC Cellulose 1 each STK-MED ONCE .ROUTE Last administered on 03/15/16 16:55; Start 03/15/16 at 14:46; Stop 03/15/16 at 14:47; Status DC Bupivacaine HCl/ Epinephrine Bitart (Sensorcain-Mpf Epi 0.5%-[id number]) 30 ml STK -MED ONCE .ROUTE ; Start 03/15/16 at 14:46; Stop 03/15/16 at 14:47; Status DC Iohexol (Omnipaque 300 Mg/ml) 50 ml STK-MED ONCE .ROUTE ; Start 03/15/16 at 14: 46; Stop 03/15/16 at 14:47; Status DC Dexamethasone Sodium Phosphate (Decadron) 20 mg STK-MED ONCE .ROUTE ; Start at 15:13; Stop 03/15/16 at 15:14; Status DC Ondansetron HCl 4 mg 4 mg STK-MED ONCE .ROUTE ; Start 03/15/16 at 15:13; Stop at 15:14; Status DC Propofol (Diprivan) 20 ml @ As Directed STK-MED ONCE IV ; Start 03/15/16 at 15: 13; Stop 03/15/16 at 15:14; Status DC Lidocaine HCl 100 mg STK-MED ONCE .ROUTE ; Start 03/15/16 at 15:13; Stop at 15:14; Status DC Fentanyl Citrate (Fentanyl 2ml Vial) 100 mcg STK-MED ONCE .ROUTE ; Start at 15:13; Stop 03/15/16 at 15:14; Status DC Rocuronium [place] (Zemuron) 50 mg STK-MED ONCE .ROUTE ; Start 03/15/16 at 15:13 ; Stop 03/15/16 at 15:14; Status DC Succinylcholine Chloride (Anectine) 200 mg STK-MED ONCE .ROUTE ; Start 03/15/16 at 15:15; Stop 03/15/16 at 15:16; Status DC Phenylephrine HCl 1 mg STK-MED ONCE IV ; Start 03/15/16 at 15:38; Stop 03/15/16 at 15:39; Status DC Glycopyrrolate (Robinul) 1 mg STK-MED ONCE .ROUTE ; Start 03/15/16 at 15:38; Stop 03/15/16 at 15:39; Status DC Neostigmine Methylsulfate 5 mg STK-MED ONCE .ROUTE ; Start 03/15/16 at 15:38; Stop 03/15/16 at 15:39; Status DC Rocuronium [place] (Zemuron) 50 mg STK-MED ONCE .ROUTE ; Start 03/15/16 at 16:58 ; Stop 03/15/16 at 16:59; Status DC Sevoflurane (Ultane) 90 ml STK-MED ONCE IH ; Start 03/15/16 at 17:33; Stop 03/15 at 17:34; Status DC Desflurane (Suprane) 90 ml STK-MED ONCE IH ; Start 03/15/16 at 17:33; Stop 03/15 at 17:34; Status DC Oxycodone/ Acetaminophen (Percocet 5/325) 1 tab PRN Q4HRS PRN PO PAIN Last administered on 03/16/16t 00:37; Start 03/15/16 at 18:45 Oxycodone/ Acetaminophen (Percocet 5/325) 2 tab PRN Q4HRS PRN PO PAIN; Start at 19:00 Vitals/I & O Vital Sign - Last 24 Hours 03/15/16 03/15/16 03/15/16 03/15/16 18:48 18:48 19:03 19:18 Temp 97.7 97.7 Pulse 65 69 Resp 20 20 20 B/P 161/83 169/90 Pulse Ox 93 88 89 O2 Delivery Simple Mask Mask Nasal Cannula Nasal Cannula O2 Flow Rate 10 10 3 03/15/16 03/15/16 03/15/16 03/15/16 19:18 19:31 19:33 19:33 Pulse 69 71 Resp 20 22 22 20 B/P 168/89 158/83 Pulse Ox 86 89 89 91 O2 Delivery Nasal Cannula Nasal Cannula Nasal Cannula Nasal Cannula O2 Flow Rate 3 3.0 2 03/15/16 03/15/16 03/15/16 03/15/16 19:48 19:48 19:55 20:00 Temp 97.0 97.0 Pulse 62 Resp 20 22 B/P 160/90 Pulse Ox 92 89 O2 Delivery Nasal Cannula Nasal Cannula Nasal Cannula Nasal Cannula O2 Flow Rate 2 2 2.0 3.0 03/15/16 03/15/16 03/15/16 03/15/16 20:01 20:03 20:07 20:18 Pulse 65 67 Resp 20 20 20 20 B/P 180/91 160/77 Pulse Ox 89 93 93 O2 Delivery Nasal Cannula Nasal Cannula Nasal Cannula Nasal Cannula O2 Flow Rate 2.0 3 2.0 3 03/15/16 03/15/16 03/15/16 03/15/16 20:20 20:26 20:33 20:40 Pulse 78 68 Resp 22 20 20 18 B/P 153/85 130/67 Pulse Ox 93 98 92 O2 Delivery Nasal Cannula Nasal Cannula Nasal Cannula Nasal Cannula O2 Flow Rate 2.0 3.0 3 2.0 03/15/16 03/15/16 03/15/16 03/15/16 21:00 21:10 21:25 21:25 Pulse 67 67 64 Resp 18 B/P 123/67 133/68 134/65 Pulse Ox 93 93 95 92 O2 Delivery Nasal Cannula Nasal Cannula Nasal Cannula Nasal Cannula O2 Flow Rate 2.0 2.0 4.0 2.0 1/24/03/15/16 03/15/16 03/15/16 21:40 21:55 22:04 22:07 Pulse 72 61 Resp 18 18 B/P 122/70 137/71 Pulse Ox 95 93 95 O2 Delivery Nasal Cannula Nasal Cannula Nasal Cannula Nasal Cannula O2 Flow Rate 2.0 2.0 3.0 3.0 03/15/16 03/15/16 03/15/16 03/15/16 22:10 22:25 22:40 22:41 Pulse 69 59 55 B/P 141/77 140/74 142/41 Pulse Ox 93 92 91 95 O2 Delivery Nasal Cannula Nasal Cannula Nasal Cannula Nasal Cannula O2 Flow Rate 2.0 2.0 2.0 3.0 03/16/16 03/16/16 03/16/16 03/16/16 00:30 00:37 01:53 03:00 Temp 98.0 98.0 Pulse 63 Resp 20 B/P 124/82 Pulse Ox 95 95 94 93 O2 Delivery Nasal Cannula Nasal Cannula Nasal Cannula Nasal Cannula O2 Flow Rate 3.0 3.0 3.0 2.0 03/16/16 03/16/16 03/16/16 03/16/16 03:12 03:45 06:20 07:00 Temp 97.9 97.9 Pulse 56 Resp 16 14 18 B/P 145/77 Pulse Ox 94 94 94 99 O2 Delivery Nasal Cannula Nasal Cannula Nasal Cannula Nasal Cannula O2 Flow Rate 3.0 2.0 2.0 2.0 03/16/16 03/16/16 03/16/16 07:46 07:48 11:15 Temp 97.4 97.4 Pulse 62 Resp 18 B/P 143/69 Pulse Ox 94 91 O2 Delivery Nasal Cannula Nasal Cannula Room Air O2 Flow Rate 2.0 2.0 Intake and Output 03/15/16 03/15/16 03/16/16 15:00 23:00 07:00 Intake Total 1950 ml 470 ml Output Total 1215 ml 170 ml Balance 735 ml 300 ml GURVINDER DOLL MD Mar 16, 2016 15:25
--- NOTE | 2016-03-16 16:20 | PDOC2 ---
CARDIAC CONSULT DATE OF CONSULT Date of Consult DATE: 03/16/16 TIME: 15:46 REASON FOR CONSULT Reason for Consult: Ascending aortic aneurysm REFERRING PHYSICIAN Referring Physician: Deepika SOURCE Source: Chart review, Patient HISTORY OF PRESENT ILLNESS HISTORY OF PRESENT ILLNESS This is a 65 yo male who presented with complaints of ongoing abdominal pain along with nausea,vomiting, and diarrhea. Patient reports symptoms have been ongoing intermittently for the last couple of months. Would generally occur after eating. Would contribute his symptoms to food intolerance. Has had 20 # weight loss over the last couple months. Yesterday evening, patient reports he had ham and beans for dinner and was about to go to work when he had significant nausea and vomiting and abdominal pain. Was associated with dizziness and diaphoresis. Pain was so severe he came in for evaluation. Symptoms were suspicious for dissection so CTA of abdomen/pelvis were obtained which noted ascending aortic aneurysm measuring 4.7 centimeters, which prompted this consult. Patient denies any chest pain, palpitations, SOA, othorpnea, or LE edema. No prior cardiac history or cardiac workup. PAST MEDICAL HISTORY Cardiovascular: HTN Pulmonary: No pertinent hx CENTRAL NERVOUS SYSTEM: Other (no pertinent hx) GI: GERD Heme/Onc: No pertinent hx Hepatobiliary: No pertinent hx Psych: Anxiety Musculoskeletal: Osteoarthritis Rheumatologic: No pertinent hx Infectious disease: No pertinent hx ENT: No pertinent hx Renal/: Other (nephrolithiasis) Endocrine: No pertinent hx Dermatology: No pertinent hx PAST SURGICAL HISTORY Past Surgical History: Arthroscopy (left shoulder), Cholecystectomy FAMILY HISTORY Family History noncontributory to cardiac SOCIAL HISTORY Smoke: No ALCOHOL: none Drugs: None CURRENT MEDICATIONS CURRENT MEDICATIONS Current Medications Medications (Trade) Dose Ordered Sig/Lili Route PRN Reason Start Time Stop Time Status Last Admin Dose Admin Oxycodone/ Acetaminophen (Percocet 5/325) 1 tab PRN Q4HRS PRN PO PAIN 03/15/16 18:45 03/16/16 00:37 ALLERGIES ALLERGIES: Coded Allergies: Sulfa (Sulfonamide Antibiotics) (Verified Allergy, Intermediate, 03/15/16) ROS Review of System 14 point ROS conducted with pertinent positives noted above in HPI. PHYSICAL EXAM General: Alert, Oriented X3, Cooperative, No acute distress HEENT: Atraumatic, Mucous membr. moist/pink Lungs: Clear to auscultation, Normal air movement Heart: Regular rate, Normal S1, Normal S2, No murmurs Abdomen: Soft, Other (diffusely tender, laprascopic surgical puncture sites intact. Rt CRISTY drain intact ) Extremities: No edema, Normal pulses Skin: No breakdown, No significant lesion Neuro: Normal speech, Sensation intact Psych/Mental Status: Mental status NL, Mood NL MUSCULOSKELETAL: No joint tenderness, Osteoarthritic changes both hands VITALS VITALS Vital Signs Date Time Temp Pulse Resp B/P Pulse Ox O2 Delivery O2 Flow Rate FiO2 03/16/16 11:15 97.4 62 18 143/69 91 Room Air 97.4 03/16/16 07:48 2.0 LABS Lab: Laboratory Tests Test 03/16/16 03:51 White Blood Count 11.0x10^3/uL (4.0-11.0) Red Blood Count 4.20x10^6/uL (4.30-5.70) Hemoglobin 12.3g/dL (13.0-17.5) Hematocrit 37.0% (39.0-53.0) Mean Corpuscular Volume 88fL (79-100) Mean Corpuscular Hemoglobin 29pg (25-35) Mean Corpuscular Hemoglobin Concent 33g/dL (31-37) Red Cell Distribution Width 13.2% (11.5-14.5) Platelet Count 282x10^3/uL (140-400) Neutrophils (%) (Auto) 91% (31-73) Lymphocytes (%) (Auto) 4% (24-48) Monocytes (%) (Auto) 4% (0-9) Eosinophils (%) (Auto) 0% (0-3) Basophils (%) (Auto) 0% (0-3) Neutrophils # (Auto) 10.1x10^3uL (1.8-7.7) Lymphocytes # (Auto) 0.5x10^3/uL (1.0-4.8) Monocytes # (Auto) 0.5x10^3/uL (0.0-1.1) Eosinophils # (Auto) 0.0x10^3/uL (0.0-0.7) Basophils # (Auto) 0.0x10^3/uL (0.0-0.2) Sodium Level 140mmol/L (136-145) Potassium Level 4.4mmol/L (3.5-5.1) Chloride Level 106mmol/L (98-107) Carbon Dioxide Level 25mmol/L (21-32) Anion Gap 9 (6-14) Blood Urea Nitrogen 15mg/dL (8-26) Creatinine 1.1mg/dL (0.7-1.3) Estimated GFR (Cockcroft-Gault) 67.0 Glucose Level 128mg/dL (70-99) Calcium Level 8.4mg/dL (8.5-10.1) Total Bilirubin 0.9mg/dL (0.2-1.0) Direct Bilirubin 0.4mg/dL (0.0-0.2) Aspartate Amino Transf (AST/SGOT) 73U/L (15-37) Alanine Aminotransferase (ALT/SGPT) 77U/L (16-63) Alkaline Phosphatase 51U/L (46-116) Total Protein 6.2g/dL (6.4-8.2) Albumin 2.8g/dL (3.4-5.0) ASSESSMENT/PLAN ASSESSMENT/PLAN 1. Acute cholecystitis: POD#1 Lap spring. Per General surgery and GI. Doing well. 2. Ascending aortic aneurysm: incidental finding. No known history of vasculitides or genetic anomalies. Noted with 4.7 cm in transverse dimension per CTA. 4.2 cm via TTE. No symptoms in relation to this. Will continue with outpt surveillance and obtain another imaging in 6 months and would consider CTS referral. Unable to place on BB currently due to HR in the 50s. 3. CAD: noted via CT with mild coronary calcification. Tolerance to surgery denoting good cardiac tolerance. Will continue to risk stratify by considering MPI as an outpt. EKG SB at 48. Will start with secondary prevention. ECASA 81 mg po daily. lipid panel and TSH. TTE noted with EF of 50-55% with normal wall motion, mild LVH, mild pulmonary HTN, mild TR otherwise no significant valvular insufficiency. 4. HTN: mildly elevated, start on lisinopril 5 mg po daily. 5. MALLORY with likely dysmetabolic X syndrome: Check A1C. 6. Pulmonary nodules with prior tobaccoism: per pulmonary Problems: KEON PEDERSEN APRN Mar 16, 2016 16:20
[2016-03-16 16:40] LABS: CHOLESTEROL/HDL RATIO 1.9
[2016-03-16 19:20] VITALS: BP 117/72
[2016-03-16 23:46] VITALS: BP 142/86
[2016-03-17] MEDS: PIPERACILLIN/TAZOBACTAM 3.375 GM in IV NORMAL SALINE 50ML 50 ML IV SCH ×4 (00:52→17:44)
[2016-03-17 03:32] VITALS: BP 156/87
[2016-03-17 04:51] LABS: BASO % 1 % (0-3); EOS % 1 % (0-3); HEMATOCRIT 35.3 % (39.0-53.0); HEMOGLOBIN 11.7 g/dL (13.0-17.5); LYMPH # 1.9 x10^3/uL (1.0-4.8); LYMPH % 21 % (24-48); MEAN CORPUSCULAR HEMOGLOBIN 30 pg (25-35); MEAN CORPUSCULAR HGB CONC 33 g/dL (31-37); MEAN CORPUSCULAR VOLUME 90 fL (79-100); MONO % 8 % (0-9); NEUT % 70 % (31-73); PLATELET COUNT 267 x10^3/uL (140-400); RED BLOOD COUNT 3.91 x10^6/uL (4.30-5.70); RED CELL DISTRIBUTION WIDTH 13.3 % (11.5-14.5)
[2016-03-17 05:31] LABS: CALCIUM 8.4 mg/dL (8.5-10.1); CREATININE 1.1 mg/dL (0.7-1.3)
[2016-03-17 05:53] LABS: ALBUMIN 2.8 g/dL (3.4-5.0); DIRECT BILIRUBIN 0.3 mg/dL (0.0-0.2); TOTAL BILIRUBIN 0.6 mg/dL (0.2-1.0); TOTAL PROTEIN 5.8 g/dL (6.4-8.2)
[2016-03-17 07:25] VITALS: BP 153/88
[2016-03-17] MEDS: LISINOPRIL 5 MG TABLET. PO SCH (10:21)
[2016-03-17] MEDS: IV NORMAL SALINE 1000ML BAG 1,000 ML IV SCH ×2 (10:22→17:50)
--- NOTE | 2016-03-17 10:51 | PDOC ---
MIQUEL CHAPA [employer] 03/17/16 1051: SURGICAL PROGRESS NOTE Subjective tolerating diet Vital Signs Vital Signs Date Time Temp Pulse Resp B/P Pulse Ox O2 Delivery O2 Flow Rate FiO2 03/17/16 10:21 57 153/88 03/17/16 07:40 Nasal Cannula 1.0 03/17/16 07:25 97.9 20 95 97.9 I&O Intake and Output 03/17/16 07:00 Intake Total 2200 ml Output Total 1220 ml Balance 980 ml Intake Oral 2200 ml Output Urine Total 1000 ml Drainage Total 220 ml # Voids 5 General: Alert, Oriented X3, Cooperative, No acute distress Abdomen: Soft, Other (CRISTY bloody) Labs Laboratory Tests Test 03/16/16 03:51 03/17/16 04:04 White Blood Count 11.0x10^3/uL (4.0-11.0) 9.0x10^3/uL (4.0-11.0) Red Blood Count 4.20x10^6/uL (4.30-5.70) 3.91x10^6/uL (4.30-5.70) Hemoglobin 12.3g/dL (13.0-17.5) 11.7g/dL (13.0-17.5) Hematocrit 37.0% (39.0-53.0) 35.3% (39.0-53.0) Mean Corpuscular Volume 88fL (79-100) 90fL (79-100) Mean Corpuscular Hemoglobin 29pg (25-35) 30pg (25-35) Mean Corpuscular Hemoglobin Concent 33g/dL (31-37) 33g/dL (31-37) Red Cell Distribution Width 13.2% (11.5-14.5) 13.3% (11.5-14.5) Platelet Count 282x10^3/uL (140-400) 267x10^3/uL (140-400) Neutrophils (%) (Auto) 91% (31-73) 70% (31-73) Lymphocytes (%) (Auto) 4% (24-48) 21% (24-48) Monocytes (%) (Auto) 4% (0-9) 8% (0-9) Eosinophils (%) (Auto) 0% (0-3) 1% (0-3) Basophils (%) (Auto) 0% (0-3) 1% (0-3) Neutrophils # (Auto) 10.1x10^3uL (1.8-7.7) 6.3x10^3uL (1.8-7.7) Lymphocytes # (Auto) 0.5x10^3/uL (1.0-4.8) 1.9x10^3/uL (1.0-4.8) Monocytes # (Auto) 0.5x10^3/uL (0.0-1.1) 0.7x10^3/uL (0.0-1.1) Eosinophils # (Auto) 0.0x10^3/uL (0.0-0.7) 0.1x10^3/uL (0.0-0.7) Basophils # (Auto) 0.0x10^3/uL (0.0-0.2) 0.0x10^3/uL (0.0-0.2) Sodium Level 140mmol/L (136-145) 140mmol/L (136-145) Potassium Level 4.4mmol/L (3.5-5.1) 4.0mmol/L (3.5-5.1) Chloride Level 106mmol/L (98-107) 107mmol/L (98-107) Carbon Dioxide Level 25mmol/L (21-32) 26mmol/L (21-32) Anion Gap 9 (6-14) 7 (6-14) Blood Urea Nitrogen 15mg/dL (8-26) 17mg/dL (8-26) Creatinine 1.1mg/dL (0.7-1.3) 1.1mg/dL (0.7-1.3) Estimated GFR (Cockcroft-Gault) 67.0 67.0 Glucose Level 128mg/dL (70-99) 95mg/dL (70-99) Hemoglobin A1c 5.1% (4.8-5.6) Calcium Level 8.4mg/dL (8.5-10.1) 8.4mg/dL (8.5-10.1) Total Bilirubin 0.9mg/dL (0.2-1.0) 0.6mg/dL (0.2-1.0) Direct Bilirubin 0.4mg/dL (0.0-0.2) 0.3mg/dL (0.0-0.2) Aspartate Amino Transf (AST/SGOT) 73U/L (15-37) 48U/L (15-37) Alanine Aminotransferase (ALT/SGPT) 77U/L (16-63) 58U/L (16-63) Alkaline Phosphatase 51U/L (46-116) 42U/L (46-116) Total Protein 6.2g/dL (6.4-8.2) 5.8g/dL (6.4-8.2) Albumin 2.8g/dL (3.4-5.0) 2.8g/dL (3.4-5.0) Triglycerides Level 18mg/dL (0-150) Cholesterol Level 123mg/dL (0-200) LDL Cholesterol, Calculated 54mg/dL (0-100) VLDL Cholesterol, Calculated 4mg/dL (0-40) HDL Cholesterol 65mg/dL (40-60) Cholesterol/HDL Ratio 1.9 Thyroid Stimulating Hormone (TSH) 0.405uIU/mL (0.358-3.74) Laboratory Tests Test 03/17/16 04:04 White Blood Count 9.0x10^3/uL (4.0-11.0) Red Blood Count 3.91x10^6/uL (4.30-5.70) Hemoglobin 11.7g/dL (13.0-17.5) Hematocrit 35.3% (39.0-53.0) Mean Corpuscular Volume 90fL (79-100) Mean Corpuscular Hemoglobin 30pg (25-35) Mean Corpuscular Hemoglobin Concent 33g/dL (31-37) Red Cell Distribution Width 13.3% (11.5-14.5) Platelet Count 267x10^3/uL (140-400) Neutrophils (%) (Auto) 70% (31-73) Lymphocytes (%) (Auto) 21% (24-48) Monocytes (%) (Auto) 8% (0-9) Eosinophils (%) (Auto) 1% (0-3) Basophils (%) (Auto) 1% (0-3) Neutrophils # (Auto) 6.3x10^3uL (1.8-7.7) Lymphocytes # (Auto) 1.9x10^3/uL (1.0-4.8) Monocytes # (Auto) 0.7x10^3/uL (0.0-1.1) Eosinophils # (Auto) 0.1x10^3/uL (0.0-0.7) Basophils # (Auto) 0.0x10^3/uL (0.0-0.2) Sodium Level 140mmol/L (136-145) Potassium Level 4.0mmol/L (3.5-5.1) Chloride Level 107mmol/L (98-107) Carbon Dioxide Level 26mmol/L (21-32) Anion Gap 7 (6-14) Blood Urea Nitrogen 17mg/dL (8-26) Creatinine 1.1mg/dL (0.7-1.3) Estimated GFR (Cockcroft-Gault) 67.0 Glucose Level 95mg/dL (70-99) Calcium Level 8.4mg/dL (8.5-10.1) Total Bilirubin 0.6mg/dL (0.2-1.0) Direct Bilirubin 0.3mg/dL (0.0-0.2) Aspartate Amino Transf (AST/SGOT) 48U/L (15-37) Alanine Aminotransferase (ALT/SGPT) 58U/L (16-63) Alkaline Phosphatase 42U/L (46-116) Total Protein 5.8g/dL (6.4-8.2) Albumin 2.8g/dL (3.4-5.0) Problem List Problems Medical Problems: (1) Cholecystitis Status: Acute (2) Dehydration Status: Acute (3) Intractable abdominal pain Status: Acute (4) Intractable vomiting Status: Acute Assessment/Plan s/p spring LFTS stable, continue drain for a week, FU in clinic Problems: PRAIDP MCGOWAN MD 03/17/16 1119: SURGICAL PROGRESS NOTE Assessment/Plan Reviewed, agree with above; ok from our standpoint to discharge, keep drain intact and FU in 1 week Problems: MIQUEL CHAPA APRN Mar 17, 2016 10:51 PRADIP MCGOWAN MD Mar 17, 2016 11:19
[2016-03-17 10:59] VITALS: BP 139/82
--- NOTE | 2016-03-17 11:09 | PDOC ---
PROGRESS NOTES Chief Complaint Chief Complaint cc: abdominal pain A/P 1. C holecystitis, S/P Lap cholecystectomy 2. Aortic aneurysm. Incidental finding, 4.6 cm ascending aorta. 3. Pulmonary nodule 9.5 cm, incidental finding. 4. Right renal cysts Plan Pain control advance diet per GI OUT PT FOLLOW UP WITH pulmonolgy cardiology consult echo reviwed, above findings d/w pt. labs reivwed, History of Present Illness History of Present Illness no flatus no fever no chills. Vitals Vitals Vital Signs Date Time Temp Pulse Resp B/P Pulse Ox O2 Delivery O2 Flow Rate FiO2 03/17/16 10:59 96.3 55 20 139/82 95 Room Air 96.3 03/17/16 07:40 1.0 Physical Exam General: Alert, Oriented X3, Cooperative, No acute distress Heart: Regular rate, Normal S1, Normal S2, No murmurs Lungs: Clear Abdomen: Soft, Other (CRISTY bloody) Extremities: No edema, Normal pulses Skin: No breakdown, No significant lesion Labs LABS Laboratory Tests Test 03/17/16 04:04 White Blood Count 9.0x10^3/uL (4.0-11.0) Red Blood Count 3.91x10^6/uL (4.30-5.70) Hemoglobin 11.7g/dL (13.0-17.5) Hematocrit 35.3% (39.0-53.0) Mean Corpuscular Volume 90fL (79-100) Mean Corpuscular Hemoglobin 30pg (25-35) Mean Corpuscular Hemoglobin Concent 33g/dL (31-37) Red Cell Distribution Width 13.3% (11.5-14.5) Platelet Count 267x10^3/uL (140-400) Neutrophils (%) (Auto) 70% (31-73) Lymphocytes (%) (Auto) 21% (24-48) Monocytes (%) (Auto) 8% (0-9) Eosinophils (%) (Auto) 1% (0-3) Basophils (%) (Auto) 1% (0-3) Neutrophils # (Auto) 6.3x10^3uL (1.8-7.7) Lymphocytes # (Auto) 1.9x10^3/uL (1.0-4.8) Monocytes # (Auto) 0.7x10^3/uL (0.0-1.1) Eosinophils # (Auto) 0.1x10^3/uL (0.0-0.7) Basophils # (Auto) 0.0x10^3/uL (0.0-0.2) Sodium Level 140mmol/L (136-145) Potassium Level 4.0mmol/L (3.5-5.1) Chloride Level 107mmol/L (98-107) Carbon Dioxide Level 26mmol/L (21-32) Anion Gap 7 (6-14) Blood Urea Nitrogen 17mg/dL (8-26) Creatinine 1.1mg/dL (0.7-1.3) Estimated GFR (Cockcroft-Gault) 67.0 Glucose Level 95mg/dL (70-99) Calcium Level 8.4mg/dL (8.5-10.1) Total Bilirubin 0.6mg/dL (0.2-1.0) Direct Bilirubin 0.3mg/dL (0.0-0.2) Aspartate Amino Transf (AST/SGOT) 48U/L (15-37) Alanine Aminotransferase (ALT/SGPT) 58U/L (16-63) Alkaline Phosphatase 42U/L (46-116) Total Protein 5.8g/dL (6.4-8.2) Albumin 2.8g/dL (3.4-5.0) Assessment and Plan Assessmemt and Plan Problems Medical Problems: (1) Cholecystitis Status: Acute (2) Dehydration Status: Acute (3) Intractable abdominal pain Status: Acute (4) Intractable vomiting Status: Acute Problems: Comment Review of Relevant I have reviewed the following items jass (where applicable) has been applied. Labs Laboratory Tests Test 03/16/16 03:51 03/17/16 04:04 White Blood Count 11.0x10^3/uL (4.0-11.0) 9.0x10^3/uL (4.0-11.0) Red Blood Count 4.20x10^6/uL (4.30-5.70) 3.91x10^6/uL (4.30-5.70) Hemoglobin 12.3g/dL (13.0-17.5) 11.7g/dL (13.0-17.5) Hematocrit 37.0% (39.0-53.0) 35.3% (39.0-53.0) Mean Corpuscular Volume 88fL (79-100) 90fL (79-100) Mean Corpuscular Hemoglobin 29pg (25-35) 30pg (25-35) Mean Corpuscular Hemoglobin Concent 33g/dL (31-37) 33g/dL (31-37) Red Cell Distribution Width 13.2% (11.5-14.5) 13.3% (11.5-14.5) Platelet Count 282x10^3/uL (140-400) 267x10^3/uL (140-400) Neutrophils (%) (Auto) 91% (31-73) 70% (31-73) Lymphocytes (%) (Auto) 4% (24-48) 21% (24-48) Monocytes (%) (Auto) 4% (0-9) 8% (0-9) Eosinophils (%) (Auto) 0% (0-3) 1% (0-3) Basophils (%) (Auto) 0% (0-3) 1% (0-3) Neutrophils # (Auto) 10.1x10^3uL (1.8-7.7) 6.3x10^3uL (1.8-7.7) Lymphocytes # (Auto) 0.5x10^3/uL (1.0-4.8) 1.9x10^3/uL (1.0-4.8) Monocytes # (Auto) 0.5x10^3/uL (0.0-1.1) 0.7x10^3/uL (0.0-1.1) Eosinophils # (Auto) 0.0x10^3/uL (0.0-0.7) 0.1x10^3/uL (0.0-0.7) Basophils # (Auto) 0.0x10^3/uL (0.0-0.2) 0.0x10^3/uL (0.0-0.2) Sodium Level 140mmol/L (136-145) 140mmol/L (136-145) Potassium Level 4.4mmol/L (3.5-5.1) 4.0mmol/L (3.5-5.1) Chloride Level 106mmol/L (98-107) 107mmol/L (98-107) Carbon Dioxide Level 25mmol/L (21-32) 26mmol/L (21-32) Anion Gap 9 (6-14) 7 (6-14) Blood Urea Nitrogen 15mg/dL (8-26) 17mg/dL (8-26) Creatinine 1.1mg/dL (0.7-1.3) 1.1mg/dL (0.7-1.3) Estimated GFR (Cockcroft-Gault) 67.0 67.0 Glucose Level 128mg/dL (70-99) 95mg/dL (70-99) Hemoglobin A1c 5.1% (4.8-5.6) Calcium Level 8.4mg/dL (8.5-10.1) 8.4mg/dL (8.5-10.1) Total Bilirubin 0.9mg/dL (0.2-1.0) 0.6mg/dL (0.2-1.0) Direct Bilirubin 0.4mg/dL (0.0-0.2) 0.3mg/dL (0.0-0.2) Aspartate Amino Transf (AST/SGOT) 73U/L (15-37) 48U/L (15-37) Alanine Aminotransferase (ALT/SGPT) 77U/L (16-63) 58U/L (16-63) Alkaline Phosphatase 51U/L (46-116) 42U/L (46-116) Total Protein 6.2g/dL (6.4-8.2) 5.8g/dL (6.4-8.2) Albumin 2.8g/dL (3.4-5.0) 2.8g/dL (3.4-5.0) Triglycerides Level 18mg/dL (0-150) Cholesterol Level 123mg/dL (0-200) LDL Cholesterol, Calculated 54mg/dL (0-100) VLDL Cholesterol, Calculated 4mg/dL (0-40) HDL Cholesterol 65mg/dL (40-60) Cholesterol/HDL Ratio 1.9 Thyroid Stimulating Hormone (TSH) 0.405uIU/mL (0.358-3.74) Laboratory Tests Test 1/26/17 04:04 White Blood Count 9.0x10^3/uL (4.0-11.0) Red Blood Count 3.91x10^6/uL (4.30-5.70) Hemoglobin 11.7g/dL (13.0-17.5) Hematocrit 35.3% (39.0-53.0) Mean Corpuscular Volume 90fL (79-100) Mean Corpuscular Hemoglobin 30pg (25-35) Mean Corpuscular Hemoglobin Concent 33g/dL (31-37) Red Cell Distribution Width 13.3% (11.5-14.5) Platelet Count 267x10^3/uL (140-400) Neutrophils (%) (Auto) 70% (31-73) Lymphocytes (%) (Auto) 21% (24-48) Monocytes (%) (Auto) 8% (0-9) Eosinophils (%) (Auto) 1% (0-3) Basophils (%) (Auto) 1% (0-3) Neutrophils # (Auto) 6.3x10^3uL (1.8-7.7) Lymphocytes # (Auto) 1.9x10^3/uL (1.0-4.8) Monocytes # (Auto) 0.7x10^3/uL (0.0-1.1) Eosinophils # (Auto) 0.1x10^3/uL (0.0-0.7) Basophils # (Auto) 0.0x10^3/uL (0.0-0.2) Sodium Level 140mmol/L (136-145) Potassium Level 4.0mmol/L (3.5-5.1) Chloride Level 107mmol/L (98-107) Carbon Dioxide Level 26mmol/L (21-32) Anion Gap 7 (6-14) Blood Urea Nitrogen 17mg/dL (8-26) Creatinine 1.1mg/dL (0.7-1.3) Estimated GFR (Cockcroft-Gault) 67.0 Glucose Level 95mg/dL (70-99) Calcium Level 8.4mg/dL (8.5-10.1) Total Bilirubin 0.6mg/dL (0.2-1.0) Direct Bilirubin 0.3mg/dL (0.0-0.2) Aspartate Amino Transf (AST/SGOT) 48U/L (15-37) Alanine Aminotransferase (ALT/SGPT) 58U/L (16-63) Alkaline Phosphatase 42U/L (46-116) Total Protein 5.8g/dL (6.4-8.2) Albumin 2.8g/dL (3.4-5.0) Medications Current Medications Sodium Chloride (Iv Sodium Chloride 0.9% 1000ml Bag) 1,000 ml @ 1,000 mls/hr Q1H IV Last administered on 03/15/16 03:26; Start 03/15/16 at 03:30; Stop at 04:29; Status DC Ondansetron HCl (Zofran) 4 mg 1X ONCE IV Last administered on 03/15/16 03:26 ; Start 03/15/16 at 03:30; Stop 03/15/16 at 03:31; Status DC Famotidine (Pepcid) 20 mg 1X ONCE IVP Last administered on 03/15/16 03:26; Start 03/15/16 at 03:30; Stop 03/15/16 at 03:31; Status DC Metoclopramide HCl (Reglan) 10 mg 1X ONCE IV Last administered on 03/15/16 03 :26; Start 03/15/16 at 04:00; Stop 03/15/16 at 04:01; Status DC Multi-Ingredient Mouthwash/Gargle (Gi Cocktail Single Dose) 15 ml 1X ONCE SWSW Last administered on 03/15/16 03:26; Start 03/15/16 at 04:00; Stop 03/15/16 at 04:01; Status DC Iohexol (Omnipaque 350 Mg/ml) 100 ml 1X ONCE IV Last administered on 03:58; Start 03/15/16 at 04:00; Stop 03/15/16 at 04:01; Status DC Hydromorphone HCl (Dilaudid) 1 mg 1X ONCE IV Last administered on 03/15/16 03 :49; Start 03/15/16 at 04:00; Stop 03/15/16 at 04:01; Status DC Info (Do NOT chart on this entry -- for MONITORING) 1 each PRN DAILY PRN MC SEE COMMENTS; Start 03/15/16 at 04:00; Stop 03/17/16 at 03:59; Status DC Hydromorphone HCl (Dilaudid) 2 mg STK-MED ONCE .ROUTE ; Start 03/15/16 at 03:47 ; Stop 03/15/16 at 03:48; Status DC Hydromorphone HCl 1 mg 1 mg 1X ONCE IV Last administered on 03/15/16 05:25; Start 03/15/16 at 05:30; Stop 03/15/16 at 05:31; Status DC Piperacillin Sod/ Tazobactam Sod/ Sodium Chloride (Zosyn/Iv Sodium Chloride 0.9 % 50ml) 50 ml @ 100 mls/hr 1X ONCE IV Last administered on 03/15/16 05:35; Start 03/15/16 at 06:00; Stop 03/15/16 at 06:29; Status DC Ondansetron HCl (Zofran) 4 mg PRN Q8HRS PRN IV NAUSEA/VOMITING; Start 03/15/16 at 05:45; Stop 03/15/16 at 09:35; Status DC Fentanyl Citrate 50 mcg 50 mcg PRN Q1HR PRN IV SEVERE PAIN Last administered on 03/15/16 09:11; Start 03/15/16 at 05:45; Stop 03/15/16 at 09:34; Status DC Sodium Chloride (Iv Sodium Chloride 0.9% 1000ml Bag) 1,000 ml @ 125 mls/hr Q8H IV Last administered on 03/15/16 05:41; Start 03/15/16 at 05:34; Stop at 13:39; Status DC Acetaminophen (Tylenol) 325 mg PRN Q6HRS PRN PO MILD PAIN / TEMP; Start at 09:45 Acetaminophen/ Hydrocodone Bitart (Lortab 5/325) 1 tab PRN Q6HRS PRN PO MODERATE TO SEVERE PAIN Last administered on 03/16/16 06:20; Start 03/15/16 at 09:45 Hydralazine HCl (Apresoline) 10 mg PRN Q4HRS PRN IVP ELEVATED BP, SEE COMMENTS ; Start 03/15/16 at 09:45 Ondansetron HCl (Zofran) 4 mg PRN Q8HRS PRN IV NAUSEA/VOMITING; Start 03/15/16 at 09:45 Albuterol Sulfate 2.5 mg 2.5 mg PRN Q4HRS PRN NEB SHORTNESS OF BREATH Last administered on 03/15/16 21:21; Start 03/15/16 at 09:45 Sodium Chloride (Iv Sodium Chloride 0.9% 1000ml Bag) 1,000 ml @ 100 mls/hr Q10H IV Last administered on 03/17/16 10:22; Start 03/15/16 at 09:45 Morphine Sulfate 2 mg 2 mg PRN Q2HR PRN IV PAIN Last administered on 03/16/16 03:12; Start 03/15/16 at 09:45 Piperacillin Sod/ Tazobactam Sod/ Sodium Chloride (Zosyn/Iv Sodium Chloride 0.9 % 50ml) 50 ml @ 100 mls/hr Q6HRS IV Last administered on 03/17/16 06:06; Start 03/15/16 at 12:00 Ondansetron HCl (Zofran) 4 mg PRN Q6HRS PRN IV Nausea; Start 03/15/16 at 14:30 ; Stop 03/15/16 at 23:00; Status DC Fentanyl Citrate (Fentanyl 2ml Vial) 25 mcg PRN Q5MIN PRN IV MILD PAIN; Start 03/15/16 at 14:30; Stop 03/15/16 at 23:00; Status DC Fentanyl Citrate (Fentanyl 2ml Vial) 50 mcg PRN Q5MIN PRN IV MODERATE PAIN Last administered on 03/15/16 20:20; Start 03/15/16 at 14:30; Stop 03/15/16 at 23:00; Status DC Morphine Sulfate 1 mg 1 mg PRN Q10MIN PRN IV SEVERE PAIN Last administered on 19:55; Start 03/15/16 at 14:30; Stop 03/15/16 at 23:00; Status DC Lactated Ringer's (Iv Lactated Ringers) 1,000 ml @ 0 mls/hr Q0M IV ; Start at 14:29; Stop 03/16/16 at 02:28; Status DC Lidocaine HCl 2 ml 1X PRN PRN ID IV START; Start 03/15/16 at 14:30; Stop at 23:00; Status DC Hydromorphone HCl (Dilaudid) 0.5 mg PRN Q10MIN PRN IV SEV PAIN,Second choice Last administered on 03/15/16 20:26; Start 03/15/16 at 14:30; Stop 03/15/16 at 23:00; Status DC Prochlorperazine Edisylate (Compazine) 5 mg PACU PRN PRN IV NAUSEA Last administered on 03/15/16 19:31; Start 03/15/16 at 14:30; Stop 03/15/16 at 23:00 ; Status DC Cellulose 1 each STK-MED ONCE .ROUTE Last administered on 03/15/16 16:55; Start 03/15/16 at 14:46; Stop 03/15/16 at 14:47; Status DC Bupivacaine HCl/ Epinephrine Bitart (Sensorcain-Mpf Epi 0.5%-[id number]) 30 ml STK -MED ONCE .ROUTE ; Start 03/15/16 at 14:46; Stop 03/15/16 at 14:47; Status DC Iohexol (Omnipaque 300 Mg/ml) 50 ml STK-MED ONCE .ROUTE ; Start 03/15/16 at 14: 46; Stop 03/15/16 at 14:47; Status DC Dexamethasone Sodium Phosphate (Decadron) 20 mg STK-MED ONCE .ROUTE ; Start at 15:13; Stop 03/15/16 at 15:14; Status DC Ondansetron HCl 4 mg 4 mg STK-MED ONCE .ROUTE ; Start 03/15/16 at 15:13; Stop at 15:14; Status DC Propofol (Diprivan) 20 ml @ As Directed STK-MED ONCE IV ; Start 03/15/16 at 15: 13; Stop 03/15/16 at 15:14; Status DC Lidocaine HCl 100 mg STK-MED ONCE .ROUTE ; Start 03/15/16 at 15:13; Stop at 15:14; Status DC Fentanyl Citrate (Fentanyl 2ml Vial) 100 mcg STK-MED ONCE .ROUTE ; Start at 15:13; Stop 03/15/16 at 15:14; Status DC Rocuronium [place]aho (Zemuron) 50 mg STK-MED ONCE .ROUTE ; Start 03/15/16 at 15:13 ; Stop 03/15/16 at 15:14; Status DC Succinylcholine Chloride (Anectine) 200 mg STK-MED ONCE .ROUTE ; Start 03/15/16 at 15:15; Stop 03/15/16 at 15:16; Status DC Phenylephrine HCl 1 mg STK-MED ONCE IV ; Start 03/15/16 at 15:38; Stop 03/15/16 at 15:39; Status DC Glycopyrrolate (Robinul) 1 mg STK-MED ONCE .ROUTE ; Start 03/15/16 at 15:38; Stop 03/15/16 at 15:39; Status DC Neostigmine Methylsulfate 5 mg STK-MED ONCE .ROUTE ; Start 03/15/16 at 15:38; Stop 03/15/16 at 15:39; Status DC Rocuronium [place] (Zemuron) 50 mg STK-MED ONCE .ROUTE ; Start 03/15/16 at 16:58 ; Stop 03/15/16 at 16:59; Status DC Sevoflurane (Ultane) 90 ml STK-MED ONCE IH ; Start 03/15/16 at 17:33; Stop 03/15 at 17:34; Status DC Desflurane (Suprane) 90 ml STK-MED ONCE IH ; Start 03/15/16 at 17:33; Stop 03/15 at 17:34; Status DC Oxycodone/ Acetaminophen (Percocet 5/325) 1 tab PRN Q4HRS PRN PO PAIN Last administered on 03/16/16 00:37; Start 03/15/16 at 18:45 Oxycodone/ Acetaminophen (Percocet 5/325) 2 tab PRN Q4HRS PRN PO PAIN; Start at 19:00 Lisinopril (Prinivil) 5 mg DAILY PO Last administered on 03/17/16t 10:21; Start 03/17/16 at 09:00 Vitals/I & O Vital Sign - Last 24 Hours 03/16/16 03/16/16 03/16/16 03/16/16 11:15 15:00 19:20 20:00 Temp 97.4 96.6 100.4 97.4 96.6 100.4 Pulse 62 60 66 Resp 18 18 20 B/P 143/69 114/72 117/72 Pulse Ox 91 92 92 O2 Delivery Room Air Room Air Room Air Room Air 03/16/16 03/16/16 03/17/16 03/17/16 21:46 23:46 03:32 07:25 Temp 97.3 97.7 97.9 97.9 97.3 97.7 97.9 97.9 Pulse 58 57 57 Resp 20 20 20 B/P 142/86 156/87 153/88 Pulse Ox 96 91 95 O2 Delivery Room Air Room Air Room Air 03/17/16 03/17/16 03/17/16 07:40 10:21 10:59 Temp 96.3 96.3 Pulse 57 55 Resp 20 B/P 153/88 139/82 Pulse Ox 95 O2 Delivery Nasal Cannula Room Air O2 Flow Rate 1.0 Intake and Output 03/16/16 03/16/16 03/17/16 15:00 23:00 07:00 Intake Total 1000 ml 1200 ml Output Total 130 ml 1090 ml Balance 1000 ml 1070 ml -1090 ml GURVINDER DOLL MD Mar 17, 2016 11:09
--- NOTE | 2016-03-17 12:24 | PDOC ---
Subjective: Subjective: Feels a little tired, didn't sleep well. Tolerating diet, passing gas. Says probably will DC tomorrow. Objective: Vital Signs: Vital Signs Date Time Temp Pulse Resp B/P Pulse Ox O2 Delivery O2 Flow Rate FiO2 03/17/16 10:59 96.3 55 20 139/82 95 Room Air 96.3 03/17/16 07:40 1.0 Labs: Laboratory Tests Test 03/17/16 04:04 White Blood Count 9.0x10^3/uL Red Blood Count 3.91x10^6/uL Hemoglobin 11.7g/dL Hematocrit 35.3% Mean Corpuscular Volume 90fL Mean Corpuscular Hemoglobin 30pg Mean Corpuscular Hemoglobin Concent 33g/dL Red Cell Distribution Width 13.3% Platelet Count 267x10^3/uL Neutrophils (%) (Auto) 70% Lymphocytes (%) (Auto) 21% Monocytes (%) (Auto) 8% Eosinophils (%) (Auto) 1% Basophils (%) (Auto) 1% Neutrophils # (Auto) 6.3x10^3uL Lymphocytes # (Auto) 1.9x10^3/uL Monocytes # (Auto) 0.7x10^3/uL Eosinophils # (Auto) 0.1x10^3/uL Basophils # (Auto) 0.0x10^3/uL Sodium Level 140mmol/L Potassium Level 4.0mmol/L Chloride Level 107mmol/L Carbon Dioxide Level 26mmol/L Anion Gap 7 Blood Urea Nitrogen 17mg/dL Creatinine 1.1mg/dL Estimated GFR (Cockcroft-Gault) 67.0 Glucose Level 95mg/dL Calcium Level 8.4mg/dL Total Bilirubin 0.6mg/dL Direct Bilirubin 0.3mg/dL Aspartate Amino Transf (AST/SGOT) 48U/L Alanine Aminotransferase (ALT/SGPT) 58U/L Alkaline Phosphatase 42U/L Total Protein 5.8g/dL Albumin 2.8g/dL PE: GEN: NAD LUNGS: CTAB HEART: RRR ABD: a little tenderness in RUQ, +CRISTY bloody, BS+ NEURO/PSYCH: A & O 3 A/P: Post-prandial upper abd pain w/ n/v - improved/resolved s/p lap cholecystectomy 03/15 -on antibiotics w/ CRISTY drain -LFTs better -- Improved after surgery. HEIKE BOSCH Mar 17, 2016 12:24
--- NOTE | 2016-03-17 12:50 | PDOC ---
PULMONARY PROGRESS NOTES Subjective no soa Vitals Vital Signs Date Time Temp Pulse Resp B/P Pulse Ox O2 Delivery O2 Flow Rate FiO2 03/17/16 10:59 96.3 55 20 139/82 95 Room Air 96.3 03/17/16 07:40 1.0 General: Alert, No acute distress Lungs: Clear Cardiovascular: S1 Abdomen: Soft Neuro Exam: Alert Extremities: No Edema Skin: Warm Labs Laboratory Tests Test 03/16/16 03:51 03/17/16 04:04 White Blood Count 11.0x10^3/uL (4.0-11.0) 9.0x10^3/uL (4.0-11.0) Red Blood Count 4.20x10^6/uL (4.30-5.70) 3.91x10^6/uL (4.30-5.70) Hemoglobin 12.3g/dL (13.0-17.5) 11.7g/dL (13.0-17.5) Hematocrit 37.0% (39.0-53.0) 35.3% (39.0-53.0) Mean Corpuscular Volume 88fL (79-100) 90fL (79-100) Mean Corpuscular Hemoglobin 29pg (25-35) 30pg (25-35) Mean Corpuscular Hemoglobin Concent 33g/dL (31-37) 33g/dL (31-37) Red Cell Distribution Width 13.2% (11.5-14.5) 13.3% (11.5-14.5) Platelet Count 282x10^3/uL (140-400) 267x10^3/uL (140-400) Neutrophils (%) (Auto) 91% (31-73) 70% (31-73) Lymphocytes (%) (Auto) 4% (24-48) 21% (24-48) Monocytes (%) (Auto) 4% (0-9) 8% (0-9) Eosinophils (%) (Auto) 0% (0-3) 1% (0-3) Basophils (%) (Auto) 0% (0-3) 1% (0-3) Neutrophils # (Auto) 10.1x10^3uL (1.8-7.7) 6.3x10^3uL (1.8-7.7) Lymphocytes # (Auto) 0.5x10^3/uL (1.0-4.8) 1.9x10^3/uL (1.0-4.8) Monocytes # (Auto) 0.5x10^3/uL (0.0-1.1) 0.7x10^3/uL (0.0-1.1) Eosinophils # (Auto) 0.0x10^3/uL (0.0-0.7) 0.1x10^3/uL (0.0-0.7) Basophils # (Auto) 0.0x10^3/uL (0.0-0.2) 0.0x10^3/uL (0.0-0.2) Sodium Level 140mmol/L (136-145) 140mmol/L (136-145) Potassium Level 4.4mmol/L (3.5-5.1) 4.0mmol/L (3.5-5.1) Chloride Level 106mmol/L (98-107) 107mmol/L (98-107) Carbon Dioxide Level 25mmol/L (21-32) 26mmol/L (21-32) Anion Gap 9 (6-14) 7 (6-14) Blood Urea Nitrogen 15mg/dL (8-26) 17mg/dL (8-26) Creatinine 1.1mg/dL (0.7-1.3) 1.1mg/dL (0.7-1.3) Estimated GFR (Cockcroft-Gault) 67.0 67.0 Glucose Level 128mg/dL (70-99) 95mg/dL (70-99) Hemoglobin A1c 5.1% (4.8-5.6) Calcium Level 8.4mg/dL (8.5-10.1) 8.4mg/dL (8.5-10.1) Total Bilirubin 0.9mg/dL (0.2-1.0) 0.6mg/dL (0.2-1.0) Direct Bilirubin 0.4mg/dL (0.0-0.2) 0.3mg/dL (0.0-0.2) Aspartate Amino Transf (AST/SGOT) 73U/L (15-37) 48U/L (15-37) Alanine Aminotransferase (ALT/SGPT) 77U/L (16-63) 58U/L (16-63) Alkaline Phosphatase 51U/L (46-116) 42U/L (46-116) Total Protein 6.2g/dL (6.4-8.2) 5.8g/dL (6.4-8.2) Albumin 2.8g/dL (3.4-5.0) 2.8g/dL (3.4-5.0) Triglycerides Level 18mg/dL (0-150) Cholesterol Level 123mg/dL (0-200) LDL Cholesterol, Calculated 54mg/dL (0-100) VLDL Cholesterol, Calculated 4mg/dL (0-40) HDL Cholesterol 65mg/dL (40-60) Cholesterol/HDL Ratio 1.9 Thyroid Stimulating Hormone (TSH) 0.405uIU/mL (0.358-3.74) Laboratory Tests Test 03/17/16 04:04 White Blood Count 9.0x10^3/uL (4.0-11.0) Red Blood Count 3.91x10^6/uL (4.30-5.70) Hemoglobin 11.7g/dL (13.0-17.5) Hematocrit 35.3% (39.0-53.0) Mean Corpuscular Volume 90fL (79-100) Mean Corpuscular Hemoglobin 30pg (25-35) Mean Corpuscular Hemoglobin Concent 33g/dL (31-37) Red Cell Distribution Width 13.3% (11.5-14.5) Platelet Count 267x10^3/uL (140-400) Neutrophils (%) (Auto) 70% (31-73) Lymphocytes (%) (Auto) 21% (24-48) Monocytes (%) (Auto) 8% (0-9) Eosinophils (%) (Auto) 1% (0-3) Basophils (%) (Auto) 1% (0-3) Neutrophils # (Auto) 6.3x10^3uL (1.8-7.7) Lymphocytes # (Auto) 1.9x10^3/uL (1.0-4.8) Monocytes # (Auto) 0.7x10^3/uL (0.0-1.1) Eosinophils # (Auto) 0.1x10^3/uL (0.0-0.7) Basophils # (Auto) 0.0x10^3/uL (0.0-0.2) Sodium Level 140mmol/L (136-145) Potassium Level 4.0mmol/L (3.5-5.1) Chloride Level 107mmol/L (98-107) Carbon Dioxide Level 26mmol/L (21-32) Anion Gap 7 (6-14) Blood Urea Nitrogen 17mg/dL (8-26) Creatinine 1.1mg/dL (0.7-1.3) Estimated GFR (Cockcroft-Gault) 67.0 Glucose Level 95mg/dL (70-99) Calcium Level 8.4mg/dL (8.5-10.1) Total Bilirubin 0.6mg/dL (0.2-1.0) Direct Bilirubin 0.3mg/dL (0.0-0.2) Aspartate Amino Transf (AST/SGOT) 48U/L (15-37) Alanine Aminotransferase (ALT/SGPT) 58U/L (16-63) Alkaline Phosphatase 42U/L (46-116) Total Protein 5.8g/dL (6.4-8.2) Albumin 2.8g/dL (3.4-5.0) Impression . 1. Abnormal CT chest with a 9.5 mm nodule in the right lower lobe posteromedially attached to the pleura and also 6 mm nodule in the right middle lobe of the lung. This is a patient who has no significant tobacco history. or malignancy His risk factors are low for primary lung malignancy. I would recommend having a followup CT chest in 3-6 months. 2. Acute cholecystitis status post laparoscopic cholecystectomy. 3. Postop atelectasis. 4. No significant tobacco history. 5. Hypoxia due to post-op atelectasis Plan . 1. Incentive spirometry. 2. P.r.n. bronchodilators. 3. Antibiotics per Infectious Disease. 4. Follow surgery recommendations. 5. wean oxygen off 6. repeat cxr today. 6. I will see him for f/u in April with ct chest prior Discussed with the patient and his . ISABEL CHEEMA MD Mar 17, 2016 12:50
--- NOTE | 2016-03-17 13:02 | RAD ---
Indication: Atelectasis. Time of exam 12:34 PM Comparison is made with prior chest from 03/16/2016. The heart remains enlarged. There is some residual subsegmental atelectasis in the medial right base. There is central congestion but no overt failure. No effusion or pneumothorax is identified. Impression: Stable chest since exam one day earlier.
[2016-03-17 14:59] VITALS: BP 122/71
--- NOTE | 2016-03-17 15:12 | PATHOLOGY ---
PATHOLOGY REPORT * * * * * * * * FINAL DIAGNOSIS: Gallbladder, laparoscopic cholecystectomy: - Cholelithiasis. - Acute necrotizing (gangrenous) and chronic cholecystitis. COMMENT: There is no evidence of malignancy. (JPM:all; d/t: 03/16/2016) REPORT ELECTRONICALLY SIGNED BY: Tristen Conn M.D. DATE/TIME: 03/17/2016 15:12 * * * * * * * * GROSS PATHOLOGY: Received in formalin labeled "Elliott Gardner, gallbladder and its contents," is a 7.3 x 4.3 x 3.1 cm, intact gallbladder with adipose covered serosal surfaces. Opening the gallbladder reveals a velvety, dark brown mucosa and an average wall thickness of 0.1 cm. Calculi are present and no masses are noted grossly. [employer] Teacher sections from the body and fundus are submitted along with the proximal margin in cassette A1. (CAA; 03/16/2016) INITIAL CPT CODE(S): A; 79775 Professional services performed [place] [facility] [address] Technical services performed by [facility] at [address] [place] [address], [facility] [address] [address]. SPECIMEN(S) RECEIVED: A.Gallbladder and its contents CLINICAL HISTORY: Cholecystitis PATIENT: ELLIOTT GARDNER /AGE: 10 1950 (Age: 65) PATIENT #: [id number] ALT CASE #: SPECIMEN COLLECTION DATE: 03/15/2016 SPECIMEN RECEIVED DATE: 03/16/2016 [facility] - [address] [place] [address] - PHONE: [phone] * * * END OF REPORT * * *
[2016-03-17 19:10] VITALS: BP 138/77
[2016-03-17 23:40] VITALS: BP 142/87
[2016-03-18] MEDS: PIPERACILLIN/TAZOBACTAM 3.375 GM in IV NORMAL SALINE 50ML 50 ML IV SCH ×3 (00:04→13:32)
[2016-03-18 03:41] VITALS: BP 156/91
[2016-03-18] MEDS: IV NORMAL SALINE 1000ML BAG 1,000 ML IV SCH (05:14)
[2016-03-18 06:40] LABS: BASO # 0.1 x10^3/uL (0.0-0.2); BASO % 1 % (0-3); EOS % 4 % (0-3); HEMATOCRIT 38.2 % (39.0-53.0); HEMOGLOBIN 12.6 g/dL (13.0-17.5); LYMPH # 1.6 x10^3/uL (1.0-4.8); LYMPH % 28 % (24-48); MEAN CORPUSCULAR HEMOGLOBIN 29 pg (25-35); MEAN CORPUSCULAR HGB CONC 33 g/dL (31-37); MEAN CORPUSCULAR VOLUME 90 fL (79-100); MONO % 8 % (0-9); NEUT % 59 % (31-73); PLATELET COUNT 310 x10^3/uL (140-400); RED BLOOD COUNT 4.27 x10^6/uL (4.30-5.70); RED CELL DISTRIBUTION WIDTH 13.4 % (11.5-14.5); WHITE BLOOD COUNT 5.7 x10^3/uL (4.0-11.0)
[2016-03-18 06:54] LABS: CALCIUM 8.3 mg/dL (8.5-10.1); CREATININE 1.1 mg/dL (0.7-1.3); POTASSIUM 3.9 mmol/L (3.5-5.1)
[2016-03-18 07:55] VITALS: BP 132/74
[2016-03-18] MEDS ORDERED: ASPIRIN ENTERIC COATED 81 MG TABLET.DR. PO SCH (08:00)
--- NOTE | 2016-03-18 08:27 | PDOC ---
PROGRESS NOTES Subjective Subjective doing well Objective Objective Vital Signs Date Time Temp Pulse Resp B/P Pulse Ox O2 Delivery O2 Flow Rate FiO2 03/18/16 03:41 98.5 56 16 156/91 91 Room Air 98.5 03/17/16 07:40 1.0 Intake and Output 03/18/16 07:00 Intake Total 1360 ml Output Total 630 ml Balance 730 ml Intake Oral 1360 ml Output Urine Total 500 ml Drainage Total 130 ml # Voids 9 Physical Exam Abdomen: Soft (CRISTY serosang) Assessment Assessment Problems Medical Problems: (1) Cholecystitis Status: Acute (2) Dehydration Status: Acute (3) Intractable abdominal pain Status: Acute (4) Intractable vomiting Status: Acute Plan Plan of Care stable postop, ok to discharge Comment Review of Relevant I have reviewed the following items jass (where applicable) has been applied. Labs Laboratory Tests Test 03/17/16 04:04 03/18/16 06:25 White Blood Count 9.0x10^3/uL (4.0-11.0) 5.7x10^3/uL (4.0-11.0) Red Blood Count 3.91x10^6/uL (4.30-5.70) 4.27x10^6/uL (4.30-5.70) Hemoglobin 11.7g/dL (13.0-17.5) 12.6g/dL (13.0-17.5) Hematocrit 35.3% (39.0-53.0) 38.2% (39.0-53.0) Mean Corpuscular Volume 90fL (79-100) 90fL (79-100) Mean Corpuscular Hemoglobin 30pg (25-35) 29pg (25-35) Mean Corpuscular Hemoglobin Concent 33g/dL (31-37) 33g/dL (31-37) Red Cell Distribution Width 13.3% (11.5-14.5) 13.4% (11.5-14.5) Platelet Count 267x10^3/uL (140-400) 310x10^3/uL (140-400) Neutrophils (%) (Auto) 70% (31-73) 59% (31-73) Lymphocytes (%) (Auto) 21% (24-48) 28% (24-48) Monocytes (%) (Auto) 8% (0-9) 8% (0-9) Eosinophils (%) (Auto) 1% (0-3) 4% (0-3) Basophils (%) (Auto) 1% (0-3) 1% (0-3) Neutrophils # (Auto) 6.3x10^3uL (1.8-7.7) 3.3x10^3uL (1.8-7.7) Lymphocytes # (Auto) 1.9x10^3/uL (1.0-4.8) 1.6x10^3/uL (1.0-4.8) Monocytes # (Auto) 0.7x10^3/uL (0.0-1.1) 0.4x10^3/uL (0.0-1.1) Eosinophils # (Auto) 0.1x10^3/uL (0.0-0.7) 0.2x10^3/uL (0.0-0.7) Basophils # (Auto) 0.0x10^3/uL (0.0-0.2) 0.1x10^3/uL (0.0-0.2) Sodium Level 140mmol/L (136-145) 140mmol/L (136-145) Potassium Level 4.0mmol/L (3.5-5.1) 3.9mmol/L (3.5-5.1) Chloride Level 107mmol/L (98-107) 107mmol/L (98-107) Carbon Dioxide Level 26mmol/L (21-32) 25mmol/L (21-32) Anion Gap 7 (6-14) 8 (6-14) Blood Urea Nitrogen 17mg/dL (8-26) 13mg/dL (8-26) Creatinine 1.1mg/dL (0.7-1.3) 1.1mg/dL (0.7-1.3) Estimated GFR (Cockcroft-Gault) 67.0 67.0 Glucose Level 95mg/dL (70-99) 89mg/dL (70-99) Calcium Level 8.4mg/dL (8.5-10.1) 8.3mg/dL (8.5-10.1) Total Bilirubin 0.6mg/dL (0.2-1.0) Direct Bilirubin 0.3mg/dL (0.0-0.2) Aspartate Amino Transf (AST/SGOT) 48U/L (15-37) Alanine Aminotransferase (ALT/SGPT) 58U/L (16-63) Alkaline Phosphatase 42U/L (46-116) Total Protein 5.8g/dL (6.4-8.2) Albumin 2.8g/dL (3.4-5.0) Laboratory Tests Test 03/18/16 06:25 White Blood Count 5.7x10^3/uL (4.0-11.0) Red Blood Count 4.27x10^6/uL (4.30-5.70) Hemoglobin 12.6g/dL (13.0-17.5) Hematocrit 38.2% (39.0-53.0) Mean Corpuscular Volume 90fL (79-100) Mean Corpuscular Hemoglobin 29pg (25-35) Mean Corpuscular Hemoglobin Concent 33g/dL (31-37) Red Cell Distribution Width 13.4% (11.5-14.5) Platelet Count 310x10^3/uL (140-400) Neutrophils (%) (Auto) 59% (31-73) Lymphocytes (%) (Auto) 28% (24-48) Monocytes (%) (Auto) 8% (0-9) Eosinophils (%) (Auto) 4% (0-3) Basophils (%) (Auto) 1% (0-3) Neutrophils # (Auto) 3.3x10^3uL (1.8-7.7) Lymphocytes # (Auto) 1.6x10^3/uL (1.0-4.8) Monocytes # (Auto) 0.4x10^3/uL (0.0-1.1) Eosinophils # (Auto) 0.2x10^3/uL (0.0-0.7) Basophils # (Auto) 0.1x10^3/uL (0.0-0.2) Sodium Level 140mmol/L (136-145) Potassium Level 3.9mmol/L (3.5-5.1) Chloride Level 107mmol/L (98-107) Carbon Dioxide Level 25mmol/L (21-32) Anion Gap 8 (6-14) Blood Urea Nitrogen 13mg/dL (8-26) Creatinine 1.1mg/dL (0.7-1.3) Estimated GFR (Cockcroft-Gault) 67.0 Glucose Level 89mg/dL (70-99) Calcium Level 8.3mg/dL (8.5-10.1) Medications Current Medications Sodium Chloride (Iv Sodium Chloride 0.9% 1000ml Bag) 1,000 ml @ 1,000 mls/hr Q1H IV Last administered on 03/15/16 03:26; Start 03/15/16 at 03:30; Stop at 04:29; Status DC Ondansetron HCl (Zofran) 4 mg 1X ONCE IV Last administered on 03/15/16 03:26 ; Start 03/15/16 at 03:30; Stop 03/15/16 at 03:31; Status DC Famotidine (Pepcid) 20 mg 1X ONCE IVP Last administered on 03/15/16 03:26; Start 03/15/16 at 03:30; Stop 03/15/16 at 03:31; Status DC Metoclopramide HCl (Reglan) 10 mg 1X ONCE IV Last administered on 03/15/16 03 :26; Start 03/15/16 at 04:00; Stop 03/15/16 at 04:01; Status DC Multi-Ingredient Mouthwash/Gargle (Gi Cocktail Single Dose) 15 ml 1X ONCE SWSW Last administered on 03/15/16 03:26; Start 03/15/16 at 04:00; Stop 03/15/16 at 04:01; Status DC Iohexol (Omnipaque 350 Mg/ml) 100 ml 1X ONCE IV Last administered on 03:58; Start 03/15/16 at 04:00; Stop 03/15/16 at 04:01; Status DC Hydromorphone HCl (Dilaudid) 1 mg 1X ONCE IV Last administered on 03/15/16 03 :49; Start 03/15/16 at 04:00; Stop 03/15/16 at 04:01; Status DC Info (Do NOT chart on this entry -- for MONITORING) 1 each PRN DAILY PRN MC SEE COMMENTS; Start 03/15/16 at 04:00; Stop 03/17/16 at 03:59; Status DC Hydromorphone HCl (Dilaudid) 2 mg STK-MED ONCE .ROUTE ; Start 03/15/16 at 03:47 ; Stop 03/15/16 at 03:48; Status DC Hydromorphone HCl 1 mg 1 mg 1X ONCE IV Last administered on 03/15/16 05:25; Start 03/15/16 at 05:30; Stop 03/15/16 at 05:31; Status DC Piperacillin Sod/ Tazobactam Sod/ Sodium Chloride (Zosyn/Iv Sodium Chloride 0.9 % 50ml) 50 ml @ 100 mls/hr 1X ONCE IV Last administered on 03/15/16 05:35; Start 03/15/16 at 06:00; Stop 03/15/16 at 06:29; Status DC Ondansetron HCl (Zofran) 4 mg PRN Q8HRS PRN IV NAUSEA/VOMITING; Start 03/15/16 at 05:45; Stop 03/15/16 at 09:35; Status DC Fentanyl Citrate 50 mcg 50 mcg PRN Q1HR PRN IV SEVERE PAIN Last administered on 03/15/16 09:11; Start 03/15/16 at 05:45; Stop 03/15/16 at 09:34; Status DC Sodium Chloride (Iv Sodium Chloride 0.9% 1000ml Bag) 1,000 ml @ 125 mls/hr Q8H IV Last administered on 03/15/16 05:41; Start 03/15/16 at 05:34; Stop at 13:39; Status DC Acetaminophen (Tylenol) 325 mg PRN Q6HRS PRN PO MILD PAIN / TEMP; Start at 09:45 Acetaminophen/ Hydrocodone Bitart (Lortab 5/325) 1 tab PRN Q6HRS PRN PO MODERATE TO SEVERE PAIN Last administered on 03/16/16 06:20; Start 03/15/16 at 09:45 Hydralazine HCl (Apresoline) 10 mg PRN Q4HRS PRN IVP ELEVATED BP, SEE COMMENTS ; Start 03/15/16 at 09:45 Ondansetron HCl (Zofran) 4 mg PRN Q8HRS PRN IV NAUSEA/VOMITING; Start 03/15/16 at 09:45 Albuterol Sulfate 2.5 mg 2.5 mg PRN Q4HRS PRN NEB SHORTNESS OF BREATH Last administered on 03/15/16 21:21; Start 03/15/16 at 09:45 Sodium Chloride (Iv Sodium Chloride 0.9% 1000ml Bag) 1,000 ml @ 100 mls/hr Q10H IV Last administered on 03/18/16 05:14; Start 03/15/16 at 09:45 Morphine Sulfate 2 mg 2 mg PRN Q2HR PRN IV PAIN Last administered on 03/16/16 03:12; Start 03/15/16 at 09:45 Piperacillin Sod/ Tazobactam Sod/ Sodium Chloride (Zosyn/Iv Sodium Chloride 0.9 % 50ml) 50 ml @ 100 mls/hr Q6HRS IV Last administered on 03/18/16 05:19; Start 03/15/16 at 12:00 Ondansetron HCl (Zofran) 4 mg PRN Q6HRS PRN IV Nausea; Start 03/15/16 at 14:30 ; Stop 03/15/16 at 23:00; Status DC Fentanyl Citrate (Fentanyl 2ml Vial) 25 mcg PRN Q5MIN PRN IV MILD PAIN; Start 03/15/16 at 14:30; Stop 03/15/16 at 23:00; Status DC Fentanyl Citrate (Fentanyl 2ml Vial) 50 mcg PRN Q5MIN PRN IV MODERATE PAIN Last administered on 03/15/16 20:20; Start 03/15/16 at 14:30; Stop 03/15/16 at 23:00; Status DC Morphine Sulfate 1 mg 1 mg PRN Q10MIN PRN IV SEVERE PAIN Last administered on 19:55; Start 03/15/16 at 14:30; Stop 03/15/16 at 23:00; Status DC Lactated Ringer's (Iv Lactated Ringers) 1,000 ml @ 0 mls/hr Q0M IV ; Start at 14:29; Stop 03/16/16 at 02:28; Status DC Lidocaine HCl 2 ml 1X PRN PRN ID IV START; Start 03/15/16 at 14:30; Stop at 23:00; Status DC Hydromorphone HCl (Dilaudid) 0.5 mg PRN Q10MIN PRN IV SEV PAIN,Second choice Last administered on 03/15/16 20:26; Start 03/15/16 at 14:30; Stop 03/15/16 at 23:00; Status DC Prochlorperazine Edisylate (Compazine) 5 mg PACU PRN PRN IV NAUSEA Last administered on 03/15/16 19:31; Start 03/15/16 at 14:30; Stop 03/15/16 at 23:00 ; Status DC Cellulose 1 each STK-MED ONCE .ROUTE Last administered on 03/15/16 16:55; Start 03/15/16 at 14:46; Stop 03/15/16 at 14:47; Status DC Bupivacaine HCl/ Epinephrine Bitart (Sensorcain-Mpf Epi 0.5%-1:810800) 30 ml STK -MED ONCE .ROUTE ; Start 03/15/16 at 14:46; Stop 03/15/16 at 14:47; Status DC Iohexol (Omnipaque 300 Mg/ml) 50 ml STK-MED ONCE .ROUTE ; Start 03/15/16 at 14: 46; Stop 03/15/16 at 14:47; Status DC Dexamethasone Sodium Phosphate (Decadron) 20 mg STK-MED ONCE .ROUTE ; Start at 15:13; Stop 03/15/16 at 15:14; Status DC Ondansetron HCl 4 mg 4 mg STK-MED ONCE .ROUTE ; Start 03/15/16 at 15:13; Stop at 15:14; Status DC Propofol (Diprivan) 20 ml @ As Directed STK-MED ONCE IV ; Start 03/15/16 at 15: 13; Stop 03/15/16 at 15:14; Status DC Lidocaine HCl 100 mg STK-MED ONCE .ROUTE ; Start 03/15/16 at 15:13; Stop at 15:14; Status DC Fentanyl Citrate (Fentanyl 2ml Vial) 100 mcg STK-MED ONCE .ROUTE ; Start at 15:13; Stop 03/15/16 at 15:14; Status DC Rocuronium [place] (Zemuron) 50 mg STK-MED ONCE .ROUTE ; Start 03/15/16 at 15:13 ; Stop 03/15/16 at 15:14; Status DC Succinylcholine Chloride (Anectine) 200 mg STK-MED ONCE .ROUTE ; Start 03/15/16 at 15:15; Stop 03/15/16 at 15:16; Status DC Phenylephrine HCl 1 mg STK-MED ONCE IV ; Start 03/15/16 at 15:38; Stop 03/15/16 at 15:39; Status DC Glycopyrrolate (Robinul) 1 mg STK-MED ONCE .ROUTE ; Start 03/15/16 at 15:38; Stop 03/15/16 at 15:39; Status DC Neostigmine Methylsulfate 5 mg STK-MED ONCE .ROUTE ; Start 03/15/16 at 15:38; Stop 03/15/16 at 15:39; Status DC Rocuronium [place] (Zemuron) 50 mg STK-MED ONCE .ROUTE ; Start 03/15/16 at 16:58 ; Stop 03/15/16 at 16:59; Status DC Sevoflurane (Ultane) 90 ml STK-MED ONCE IH ; Start 03/15/16 at 17:33; Stop 03/15 at 17:34; Status DC Desflurane (Suprane) 90 ml STK-MED ONCE IH ; Start 03/15/16 at 17:33; Stop 03/15 at 17:34; Status DC Oxycodone/ Acetaminophen (Percocet 5/325) 1 tab PRN Q4HRS PRN PO PAIN Last administered on 03/16/16 00:37; Start 03/15/16 at 18:45 Oxycodone/ Acetaminophen (Percocet 5/325) 2 tab PRN Q4HRS PRN PO PAIN; Start at 19:00 Lisinopril (Prinivil) 5 mg DAILY PO Last administered on 03/17/16 10:21; Start 03/17/16 at 09:00 Aspirin (Ecotrin) 81 mg DAILYWBKFT PO ; Start 03/18/16 at 08:00 Vitals/I & O Vital Sign - Last 24 Hours 03/17/16 03/17/16 03/17/16 03/17/16 10:21 10:59 14:59 19:10 Temp 96.3 96.1 98.1 96.3 96.1 98.1 Pulse 57 55 63 59 Resp 20 18 16 B/P 153/88 139/82 122/71 138/77 Pulse Ox 95 92 92 O2 Delivery Room Air Room Air Room Air 03/17/16 03/17/16 03/18/16 20:11 23:40 03:41 Temp 98.5 98.5 98.5 98.5 Pulse 56 56 Resp 16 16 B/P 142/87 156/91 Pulse Ox 92 91 O2 Delivery Room Air Room Air Room Air Intake and Output 03/17/16 03/17/16 03/18/16 15:00 23:00 07:00 Intake Total 420 ml 940 ml Output Total 70 ml 560 ml Balance 420 ml 870 ml -560 ml PRADIP MGCOWAN MD Mar 18, 2016 08:27
[2016-03-18] MEDS: LISINOPRIL 5 MG TABLET. PO SCH (08:37)
[2016-03-18] MEDS ORDERED: HYDR-971 PO (10:11)
--- NOTE | 2016-03-18 10:18 | PDOC ---
PULMONARY PROGRESS NOTES Subjective no soa Vitals Vital Signs Date Time Temp Pulse Resp B/P Pulse Ox O2 Delivery O2 Flow Rate FiO2 03/18/16 08:37 60 132/74 03/18/16 08:00 Room Air 1.0 03/18/16 07:55 97.9 16 93 97.9 General: Alert, No acute distress Lungs: Clear Cardiovascular: S1 Abdomen: Soft Neuro Exam: Alert Extremities: No Edema Skin: Warm Labs Laboratory Tests Test 03/17/16 04:04 03/18/16 06:25 White Blood Count 9.0x10^3/uL (4.0-11.0) 5.7x10^3/uL (4.0-11.0) Red Blood Count 3.91x10^6/uL (4.30-5.70) 4.27x10^6/uL (4.30-5.70) Hemoglobin 11.7g/dL (13.0-17.5) 12.6g/dL (13.0-17.5) Hematocrit 35.3% (39.0-53.0) 38.2% (39.0-53.0) Mean Corpuscular Volume 90fL (79-100) 90fL (79-100) Mean Corpuscular Hemoglobin 30pg (25-35) 29pg (25-35) Mean Corpuscular Hemoglobin Concent 33g/dL (31-37) 33g/dL (31-37) Red Cell Distribution Width 13.3% (11.5-14.5) 13.4% (11.5-14.5) Platelet Count 267x10^3/uL (140-400) 310x10^3/uL (140-400) Neutrophils (%) (Auto) 70% (31-73) 59% (31-73) Lymphocytes (%) (Auto) 21% (24-48) 28% (24-48) Monocytes (%) (Auto) 8% (0-9) 8% (0-9) Eosinophils (%) (Auto) 1% (0-3) 4% (0-3) Basophils (%) (Auto) 1% (0-3) 1% (0-3) Neutrophils # (Auto) 6.3x10^3uL (1.8-7.7) 3.3x10^3uL (1.8-7.7) Lymphocytes # (Auto) 1.9x10^3/uL (1.0-4.8) 1.6x10^3/uL (1.0-4.8) Monocytes # (Auto) 0.7x10^3/uL (0.0-1.1) 0.4x10^3/uL (0.0-1.1) Eosinophils # (Auto) 0.1x10^3/uL (0.0-0.7) 0.2x10^3/uL (0.0-0.7) Basophils # (Auto) 0.0x10^3/uL (0.0-0.2) 0.1x10^3/uL (0.0-0.2) Sodium Level 140mmol/L (136-145) 140mmol/L (136-145) Potassium Level 4.0mmol/L (3.5-5.1) 3.9mmol/L (3.5-5.1) Chloride Level 107mmol/L (98-107) 107mmol/L (98-107) Carbon Dioxide Level 26mmol/L (21-32) 25mmol/L (21-32) Anion Gap 7 (6-14) 8 (6-14) Blood Urea Nitrogen 17mg/dL (8-26) 13mg/dL (8-26) Creatinine 1.1mg/dL (0.7-1.3) 1.1mg/dL (0.7-1.3) Estimated GFR (Cockcroft-Gault) 67.0 67.0 Glucose Level 95mg/dL (70-99) 89mg/dL (70-99) Calcium Level 8.4mg/dL (8.5-10.1) 8.3mg/dL (8.5-10.1) Total Bilirubin 0.6mg/dL (0.2-1.0) Direct Bilirubin 0.3mg/dL (0.0-0.2) Aspartate Amino Transf (AST/SGOT) 48U/L (15-37) Alanine Aminotransferase (ALT/SGPT) 58U/L (16-63) Alkaline Phosphatase 42U/L (46-116) Total Protein 5.8g/dL (6.4-8.2) Albumin 2.8g/dL (3.4-5.0) Laboratory Tests Test 03/18/16 06:25 White Blood Count 5.7x10^3/uL (4.0-11.0) Red Blood Count 4.27x10^6/uL (4.30-5.70) Hemoglobin 12.6g/dL (13.0-17.5) Hematocrit 38.2% (39.0-53.0) Mean Corpuscular Volume 90fL (79-100) Mean Corpuscular Hemoglobin 29pg (25-35) Mean Corpuscular Hemoglobin Concent 33g/dL (31-37) Red Cell Distribution Width 13.4% (11.5-14.5) Platelet Count 310x10^3/uL (140-400) Neutrophils (%) (Auto) 59% (31-73) Lymphocytes (%) (Auto) 28% (24-48) Monocytes (%) (Auto) 8% (0-9) Eosinophils (%) (Auto) 4% (0-3) Basophils (%) (Auto) 1% (0-3) Neutrophils # (Auto) 3.3x10^3uL (1.8-7.7) Lymphocytes # (Auto) 1.6x10^3/uL (1.0-4.8) Monocytes # (Auto) 0.4x10^3/uL (0.0-1.1) Eosinophils # (Auto) 0.2x10^3/uL (0.0-0.7) Basophils # (Auto) 0.1x10^3/uL (0.0-0.2) Sodium Level 140mmol/L (136-145) Potassium Level 3.9mmol/L (3.5-5.1) Chloride Level 107mmol/L (98-107) Carbon Dioxide Level 25mmol/L (21-32) Anion Gap 8 (6-14) Blood Urea Nitrogen 13mg/dL (8-26) Creatinine 1.1mg/dL (0.7-1.3) Estimated GFR (Cockcroft-Gault) 67.0 Glucose Level 89mg/dL (70-99) Calcium Level 8.3mg/dL (8.5-10.1) Medications Active Scripts Medications Dose Route/Sig Days Date Category Nash 5-325 Tablet (Acetaminophen/Hydrocodone Bitart) 1 Each Tablet 1 Tab PO PRN Q6HRS PRN 03/18/16 Rx Impression . 1. Abnormal CT chest with a 9.5 mm nodule in the right lower lobe posteromedially attached to the pleura and also 6 mm nodule in the right middle lobe of the lung. This is a patient who has no significant tobacco history. or malignancy His risk factors are low for primary lung malignancy. I would recommend having a followup CT chest in 3-6 months. 2. Acute cholecystitis status post laparoscopic cholecystectomy. 3. Postop atelectasis.IMPROVED 4. No significant tobacco history. 5. Hypoxia due to post-op atelectasis, RESOLVED Plan . 1. Incentive spirometry. 2. P.r.n. bronchodilators. 3. Antibiotics per Infectious Disease. 4. Follow surgery recommendations. 5. oxygen off 6. repeat cxr stable 6. I will see him for f/u in April with ct chest prior Discussed with the patient and his ./ ok with [facility] [place] ISABEL CHEEMA MD Mar 18, 2016 10:18
--- NOTE | 2016-03-18 11:20 | PDOC ---
Subjective: Subjective: Feeling good. Ready to DC. Tolerating diet, had BM. Objective: Vital Signs: Vital Signs Date Time Temp Pulse Resp B/P Pulse Ox O2 Delivery O2 Flow Rate FiO2 03/18/16 08:37 60 132/74 03/18/16 08:00 Room Air 1.0 03/18/16 07:55 97.9 16 93 97.9 Labs: Laboratory Tests Test 03/18/16 06:25 White Blood Count 5.7x10^3/uL Red Blood Count 4.27x10^6/uL Hemoglobin 12.6g/dL Hematocrit 38.2% Mean Corpuscular Volume 90fL Mean Corpuscular Hemoglobin 29pg Mean Corpuscular Hemoglobin Concent 33g/dL Red Cell Distribution Width 13.4% Platelet Count 310x10^3/uL Neutrophils (%) (Auto) 59% Lymphocytes (%) (Auto) 28% Monocytes (%) (Auto) 8% Eosinophils (%) (Auto) 4% Basophils (%) (Auto) 1% Neutrophils # (Auto) 3.3x10^3uL Lymphocytes # (Auto) 1.6x10^3/uL Monocytes # (Auto) 0.4x10^3/uL Eosinophils # (Auto) 0.2x10^3/uL Basophils # (Auto) 0.1x10^3/uL Sodium Level 140mmol/L Potassium Level 3.9mmol/L Chloride Level 107mmol/L Carbon Dioxide Level 25mmol/L Anion Gap 8 Blood Urea Nitrogen 13mg/dL Creatinine 1.1mg/dL Estimated GFR (Cockcroft-Gault) 67.0 Glucose Level 89mg/dL Calcium Level 8.3mg/dL PE: GEN: NAD, up to chair LUNGS: CTAB HEART: RRR ABD: +CRISTY w/ minimal drainage, non-tender, BS+ NEURO/PSYCH: A & O 3 A/P: Post-prandial upper abd pain w/ n/v - improved/resolved s/p lap cholecystectomy 03/15 -- Okay to DC per GI, follow-up w/ HEIKE Yu Mar 18, 2016 11:20
[2016-03-18 11:44] VITALS: BP 128/82
--- NOTE | 2016-03-18 15:25 | PDOC3 ---
Discharge Summary* Admitting Diagnosis Problems Medical Problems: (1) Cholecystitis Status: Acute (2) Dehydration Status: Acute (3) Intractable abdominal pain Status: Acute (4) Intractable vomiting Status: Acute Final Diagnosis 1. Cholecystitis, S/P Lap cholecystectomy 2. Aortic aneurysm. Incidental finding, 4.6 cm ascending aorta. 3. Pulmonary nodule 9.5 cm, incidental finding. 4. Right renal cysts Brief Hospital Course Mr. Cooley is a 65 old [male] who presented with abdominal pain, and he was diagnosed with acute cholecystitis, s/p lap cholecystectomy, well tolerated. Today he deemed stable to go home and followup with Dr Mcdonald in 2 weeks, also pt need follow up with Cardiology and Pulmonology as advised. Pt verbalized the understanding of his condition. exam GENERAL: No apparent distress. Alert and oriented. HEENT: Head normocephalic, atraumatic. NECK: Supple LUNGS: Clear to auscultation. HEART: RRR, S1, S2 present, pulses intact ABDOMEN: Soft, positive bowel sounds., draain present. CONDITION AT DISCHARGE: Stable Diet: Soft Scheduled PRN Hydrocodone/Apap 5-325 ([facility] 5-325 Tablet) 1 TAB PO PRN Q6HRS PRN PRN PAIN Time Spent Total time spent with patient > 32 minutes for coordination of care, counseling , and education. GURVINDER DOLL MD Mar 18, 2016 15:25
== END 2016-03-18 15:40 | disposition home or self-care (01) | DRG 418 ==
LOC: ER 02:29 → 6 SOUTH 05:30
PROVIDERS: ADMIT Internal Medicine; ATTEND Internal Medicine
PROC: 0FT44ZZ Resection of Gallbladder, Percutaneous Endoscopic Approach (ICD-10-PCS; principal; 2016-03-15 15:30)
DX: K80.66 Calculus of gallbladder and bile duct with acute and chronic cholecystitis without obstruction (principal); J98.11 Atelectasis; I25.10 Atherosclerotic heart disease of native coronary artery without angina pectoris; I71.4 Abdominal aortic aneurysm, without rupture; I10 Essential (primary) hypertension; I71.2 Thoracic aortic aneurysm, without rupture; E66.9 Obesity, unspecified; F41.9 Anxiety disorder, unspecified; M19.90 Unspecified osteoarthritis, unspecified site; I27.2 Other secondary pulmonary hypertension; R09.02 Hypoxemia; R63.3 Feeding difficulties; R91.1 Solitary pulmonary nodule; K21.9 Gastro-esophageal reflux disease without esophagitis; Z81.1 Family history of alcohol abuse and dependence; Z87.442 Personal history of urinary calculi; Z87.891 Personal history of nicotine dependence; Z68.31 Body mass index [BMI] 31.0-31.9, adult; Z88.2 Allergy status to sulfonamides
CPT/HCPCS: 36415; 71010; 71275; 74174; 76705; 80047; 80048; 80053; 80061; 80076; 83036; 83690; 84443; 84484; 85007; 85027; 88304; 93005; 93306; 94250; 94640; 94760; 96361; 96365; 96375; 96376; C1769; C1782; J0330; J0780; J1100; J1170; J2270; J2370; J2405; J2543; J2704; J2710; J2765; J3010; J3490; J7030; J7120; Q9967; S0028; 99285-25

== ENCOUNTER 2016-03-23 07:29 | Inpatient (IN) | payer MEDICARE ==
[~2016-03-23] VITALS: Ht 182.9 cm; Wt 103.0 kg
[~2016-03-23 07:29] MED LIST: HYDR-971 PO
[2016-03-23] MEDS ORDERED: IV NORMAL SALINE 1000ML BAG 1,000 ML IV SCH (07:39)
[2016-03-23] MEDS ORDERED: FAMOTIDINE 20 MG/2 ML VIAL IVP ONE (07:45)
[2016-03-23] MEDS ORDERED: MORPHINE SULFATE 10 MG/ML VIAL. IV ONE (07:45)
[2016-03-23] MEDS ORDERED: ONDANSETRON PF 4 MG/2 ML VIAL. IV ONE (07:45)
--- NOTE | 2016-03-23 07:47 | PHYS DOC ---
Past Medical History Past Medical History: Other Additional Past Medical Histor: kidney stones Past Surgical History: Other Additional Past Surgical Histo: left arm sx Alcohol Use: Occasionally Drug Use: None Adult General Chief Complaint Chief Complaint: ABDOMINAL PAIN HPI HPI Patient is a 65 year old male who presents the emergency department with acute onset of epigastric pain with nausea that began approximately 2 hours prior to arrival (0530). Patient had a lap spring performed last week secondary to cholecystitis. Patient reports no complications that he knows of secondary to the surgery. Patient denies no vomiting, diarrhea or constipation. Last by mouth intake was approximately 6 PM yesterday ([employer]) with a last bowel movement reported as "12 hours ago". Patient denies fevers. He reports chills. Patient is currently not on any antibiotics. He did take a [place] tablet approximately one hour prior to his arrival. Patient denies chest pain or shortness of breath. Review of Systems Review of Systems Constitutional: Denies fever or chills [] Eyes: Denies change in visual acuity, redness, or eye pain [] HENT: Denies nasal congestion or sore throat [] Respiratory: Denies cough or shortness of breath [] Cardiovascular: No additional information not addressed in HPI [] GI: Denies abdominal pain, nausea, vomiting, bloody stools or diarrhea [] : Denies dysuria or hematuria [] Musculoskeletal: Denies back pain or joint pain [] Integument: Denies rash or skin lesions [] Neurologic: Denies headache, focal weakness or sensory changes [] Endocrine: Denies polyuria or polydipsia [] Current Medications Current Medications Current Medications Medications (Trade) Dose Ordered Sig/Lili Start Time Stop Time Status Last Admin Dose Admin Famotidine (Pepcid) 20 mg 1X ONCE 03/23/16 07:45 03/23/16 07:46 DC 03/23/16 07:53 20 MG Hydromorphone HCl (Dilaudid) 1 mg 1X ONCE 03/23/16 09:15 03/23/16 09:16 DC 03/23/16 09:23 1 MG Info (Do NOT chart on this entry -- for MONITORING) 1 each PRN DAILY PRN 03/23/16 08:30 03/25/16 08:29 Iohexol (Omnipaque 300 Mg/ml) 75 ml 1X ONCE 03/23/16 08:30 03/23/16 08:31 DC 03/23/16 08:39 75 ML Morphine Sulfate 5 mg 1X ONCE 03/23/16 07:45 03/23/16 07:46 DC 03/23/16 07:49 5 MG Ondansetron HCl (Zofran) 4 mg 1X ONCE 03/23/16 07:45 03/23/16 07:46 DC 03/23/16 07:50 4 MG Sodium Chloride (Iv Sodium Chloride 0.9% 1000ml Bag) 1,000 ml @ 1,000 mls/hr Q1H 03/23/16 07:39 03/23/16 08:38 DC 03/23/16 07:47 1,000 MLS/HR Allergies Allergies Allergies Coded Allergies Type Severity Reaction Last Updated Verified Sulfa (Sulfonamide Antibiotics) Allergy Intermediate 03/15/16 Yes Physical Exam Physical Exam Constitutional: Well developed, well nourished, moderate distress, non-toxic appearance. Patient lying supine in a semi-Fowlers position moaning in pain. There is no active vomiting. HENT: Normocephalic, atraumatic, bilateral external ears normal, oropharynx moist, no oral exudates, nose normal. [] Eyes: PERRLA, EOMI, conjunctiva normal, no discharge. [] Neck: Normal range of motion, no tenderness, supple, no stridor. [] Cardiovascular:Heart rate 92 with regular rhythm, no murmur Lungs & Thorax: Bilateral breath sounds clear to auscultation [] Abdomen: Abdomen is firm and nondistended. There is a Jose-Gore drain in the left lower quadrant region with serosanguineous drainage. There is no palpable defect to the abdominal wall or pulsatile mass. There is tenderness in the right upper quadrant and epigastric region without guarding or rebound. Surgical dressings are dry. Skin: Skin is pale and clammy. Back: No tenderness, no CVA tenderness. [] Extremities: No tenderness, no cyanosis, no clubbing, ROM intact, no edema. [] Neurologic: Alert and oriented X 3, normal motor function, normal sensory function, no focal deficits noted. [] Psychologic: Affect normal, judgement normal, mood normal. [] Current Patient Data Vital Signs Vital Signs Date Time Temp Pulse Resp B/P Pulse Ox O2 Delivery O2 Flow Rate FiO2 03/23/16 09:30 62 19 199/84 95 Nasal Cannula 2 03/23/16 07:39 97.1 97.1 Lab Values Laboratory Tests Test 03/23/16 07:43 White Blood Count 7.5x10^3/uL (4.0-11.0) Red Blood Count 5.03x10^6/uL (4.30-5.70) Hemoglobin 15.0g/dL (13.0-17.5) Hematocrit 45.6% (39.0-53.0) Mean Corpuscular Volume 91fL (79-100) Mean Corpuscular Hemoglobin 30pg (25-35) Mean Corpuscular Hemoglobin Concent 33g/dL (31-37) Red Cell Distribution Width 13.6% (11.5-14.5) Platelet Count 405x10^3/uL (140-400) H Neutrophils (%) (Auto) 53% (31-73) Lymphocytes (%) (Auto) 36% (24-48) Monocytes (%) (Auto) 6% (0-9) Eosinophils (%) (Auto) 5% (0-3) H Basophils (%) (Auto) 1% (0-3) Neutrophils # (Auto) 4.0x10^3uL (1.8-7.7) Lymphocytes # (Auto) 2.7x10^3/uL (1.0-4.8) Monocytes # (Auto) 0.4x10^3/uL (0.0-1.1) Eosinophils # (Auto) 0.4x10^3/uL (0.0-0.7) Basophils # (Auto) 0.1x10^3/uL (0.0-0.2) Sodium Level 139mmol/L (136-145) Potassium Level 4.3mmol/L (3.5-5.1) Chloride Level 104mmol/L (98-107) Carbon Dioxide Level 23mmol/L (21-32) Anion Gap 12 (6-14) Blood Urea Nitrogen 16mg/dL (8-26) Creatinine 1.2mg/dL (0.7-1.3) Estimated GFR (Cockcroft-Gault) 60.6 BUN/Creatinine Ratio 13 (6-20) Glucose Level 130mg/dL (70-99) H Calcium Level 9.7mg/dL (8.5-10.1) Total Bilirubin 0.8mg/dL (0.2-1.0) Aspartate Amino Transferase (AST) 45U/L (15-37) H Alanine Aminotransferase (ALT) 59U/L (16-63) Alkaline Phosphatase 63U/L (46-116) Total Protein 7.8g/dL (6.4-8.2) Albumin 3.7g/dL (3.4-5.0) Albumin/Globulin Ratio 0.9 (1.0-1.7) L Lipase 252U/L (73-393) Laboratory Tests 03/23/16 07:43 Laboratory Tests 03/23/16 07:43 EKG EKG Twelve-lead EKG was performed at 0800: Shows a normal sinus rhythm with a heart rate of 57 bpm. UT interval is not detected due to low voltage of the P wave, QRS duration is 102 ms with a QT duration of 430 ms. There is no ST elevation or depression. Radiology/Procedures Radiology/Procedures [facility] [address] [place] [address] IMAGING REPORT Signed PATIENT: ELLIOTT GARDNER ACCOUNT: [id number] : 1950 LOCATION: ER AGE: 65 SEX: M EXAM STATUS: PRE ER ORD. PHYSICIAN: YASHIRA MCCORMICK REASON: RUQ/epigastric pain s/p lap spring last week PROCEDURE: ABD PELV W/ IV CONTRAST ONLY Exam performed: CT abdomen and pelvis with contrast. History: Right upper quadrant pain since 5:00 AM this morning. Cholecystectomy one week ago Date of service: 03/23/16. Comparison: CT abdomen pelvis from 03/15/16. Technique: Contiguous helical acquisitions are obtained through the abdomen and pelvis during intravenous administration of 75 cc of Omnipaque 300. Sagittal and coronal reformatted images are obtained and reviewed. Findings: The lung bases demonstrate bibasal atelectasis, no pleural effusions. The visualized heart is normal. The liver, spleen and pancreas appear normal. There is trace amount of perihepatic fluid. There is a drainage tube in the gallbladder fossa with mild inflammatory changes. Interval Cholecystectomy. Both adrenal glands and bilateral kidneys are normal in size with symmetric excretion of contrast via both kidneys. There is a small right inferior renal cyst. Aorta is normal in caliber without aneurysm. No retroperitoneal or mesenteric lymphadenopathy seen. Small and large bowel loops are nondilated and unremarkable. Visualized appendix is unremarkable. Scattered stool throughout the colon. Diffuse sigmoid diverticulosis. The urinary bladder is decompressed. Prostatomegaly. Seminal vesicles appear normal. No free or focal fluid collections are identified. Interrogation of bone windows demonstrates no bony abnormality. Impression: 1. Interval cholecystectomy with a drainage tube in the gallbladder fossa. Some inflammatory changes in the gallbladder fossa extending to the second part of duodenum may be related to recent surgery. No abnormal fluid collections are seen. 2. Trace perihepatic fluid. 3. Diffuse sigmoid diverticulosis without acute diverticulitis. PQRS Compliance Statement: One or more of the following individualized dose reduction techniques were utilized for this examination: 1. Automated exposure control 2. Adjustment of the mA and/or kV according to patient size 3. Use of iterative reconstruction technique DICTATED and SIGNED BY: WINTER GARCIA MD DATE: 03/23/16 09 CC: YASHIRA MCCORMICK; NO PCP ~ Course & Med Decision Making Course & Med Decision Making Phone call was placed to Dr. Mcdonlad, surgeon in reference to this patient. Case was staffed with Dr. Mcdonald at 0812: Patient has normal CBC, normal liver function and lipase. Dr. Mcdonald requested CT scan with IV contrast only. Dr. Beltran stated that the surgery was somewhat complicated due to the chronic changes to the patient's gallbladder with a significant amount of scar tissue. There is an indwelling device in the gallbladder fossa which is used for absorption into the CRISTY. Dragon Disclaimer Dragon Disclaimer This electronic medical record was generated, in whole or in part, using a voice recognition dictation system. Departure Departure Impression: Primary Impression: Intractable abdominal pain Disposition: ADMITTED INPATIENT Admitting Physician: Other (Reusch,Zandra) Condition: STABLE Referrals: NO PCP (PCP) YASHIRA MCCORMICK Mar 23, 2016 07:47
[2016-03-23 08:01] LABS: BASO # 0.1 x10^3/uL (0.0-0.2); BASO % 1 % (0-3); EOS % 5 % (0-3); HEMATOCRIT 45.6 % (39.0-53.0); LYMPH # 2.7 x10^3/uL (1.0-4.8); LYMPH % 36 % (24-48); MEAN CORPUSCULAR HEMOGLOBIN 30 pg (25-35); MEAN CORPUSCULAR HGB CONC 33 g/dL (31-37); MEAN CORPUSCULAR VOLUME 91 fL (79-100); MONO % 6 % (0-9); NEUT % 53 % (31-73); PLATELET COUNT 405 x10^3/uL (140-400); RED BLOOD COUNT 5.03 x10^6/uL (4.30-5.70); RED CELL DISTRIBUTION WIDTH 13.6 % (11.5-14.5); WHITE BLOOD COUNT 7.5 x10^3/uL (4.0-11.0)
[2016-03-23 08:05] LABS: CALCIUM 9.7 mg/dL (8.5-10.1); CREATININE 1.2 mg/dL (0.7-1.3); GFR 60.6; POTASSIUM 4.3 mmol/L (3.5-5.1)
[2016-03-23 08:10] LABS: ALBUMIN 3.7 g/dL (3.4-5.0); ALBUMIN/GLOBULIN RATIO 0.9 (1.0-1.7); TOTAL BILIRUBIN 0.8 mg/dL (0.2-1.0); TOTAL PROTEIN 7.8 g/dL (6.4-8.2)
[2016-03-23] MEDS ORDERED: HYDROMORPHONE 2 MG/ML VIAL. IV ONE ×2 (08:15→09:15)
[2016-03-23] MEDS ORDERED: CONTRAST GIVEN MC PRN (08:30)
[2016-03-23] MEDS ORDERED: IOHEXOL 300 MG/ML 75 ML VIAL IV ONE (08:30)
--- NOTE | 2016-03-23 09:20 | RAD ---
Exam performed: CT abdomen and pelvis with contrast. History: Right upper quadrant pain since 5:00 AM this morning. Cholecystectomy one week ago Date of service: 03/23/16. Comparison: CT abdomen pelvis from 03/15/16. Technique: Contiguous helical acquisitions are obtained through the abdomen and pelvis during intravenous administration of 75 cc of Omnipaque 300. Sagittal and coronal reformatted images are obtained and reviewed. Findings: The lung bases demonstrate bibasal atelectasis, no pleural effusions. The visualized heart is normal. The liver, spleen and pancreas appear normal. There is trace amount of perihepatic fluid. There is a drainage tube in the gallbladder fossa with mild inflammatory changes. Interval Cholecystectomy. Both adrenal glands and bilateral kidneys are normal in size with symmetric excretion of contrast via both kidneys. There is a small right inferior renal cyst. Aorta is normal in caliber without aneurysm. No retroperitoneal or mesenteric lymphadenopathy seen. Small and large bowel loops are nondilated and unremarkable. Visualized appendix is unremarkable. Scattered stool throughout the colon. Diffuse sigmoid diverticulosis. The urinary bladder is decompressed. Prostatomegaly. Seminal vesicles appear normal. No free or focal fluid collections are identified. Interrogation of bone windows demonstrates no bony abnormality. Impression: 1. Interval cholecystectomy with a drainage tube in the gallbladder fossa. Some inflammatory changes in the gallbladder fossa extending to the second part of duodenum may be related to recent surgery. No abnormal fluid collections are seen. 2. Trace perihepatic fluid. 3. Diffuse sigmoid diverticulosis without acute diverticulitis. PQRS Compliance Statement: One or more of the following individualized dose reduction techniques were utilized for this examination: 1. Automated exposure control 2. Adjustment of the mA and/or kV according to patient size 3. Use of iterative reconstruction technique
[2016-03-23] MEDS ORDERED: ONDANSETRON PF 4 MG/2 ML VIAL. IV PRN (10:00)
--- NOTE | 2016-03-23 10:03 | ACF ---
Admission Forms Criteria ABDOMINAL PAIN Clinical Indications for Admission to Inpatient Care (Place 'X' for any and all applicable criteria): Admission is indicated for ANY ONE of the following(1)(2)(3)(4)(5): [X]I. Inpatient admission required rather than observation care (Also use Abdominal Pain: Observation Care, as appropriate) because of ANY ONE of the following: [X]a) Severe pain requiring acute inpatient management [ ]b) Identification of etiology/finding that requires inpatient care (eg, aortic dissection, free air) [ ]c) Absent bowel sounds with complete ileus(6) [ ]d) Suspected toxic megacolon [ ]e) Severe electrolyte abnormalities requiring inpatient care [ ]f) High fever or infection requiring inpatient admission as indicated by ANY ONE of following(7)(8): [ ] i) Appropriate outpatient or observational care antimicrobial treatment unavailable, not effective, or not feasible [ ] ii) Documented bacteremia [ ] iii) Temperature > 104.9 degrees F (oral) [ ] iv) T >103.1 F (oral) or < 96.8 F(rectal) that does not respond to all emergency treatment measures [ ]g) Signs of intestinal obstruction [B] [ ]h) Hemodynamic instability [ ]i) IV fluid to replace significant ongoing losses (greater than 3 L/m2 per day) (12)(13) [ ]j) Percutaneous or open drainage (eg, abscess, biliary tract ) procedures [ ]k) Parenteral nutrition regimen that must be implemented on inpatient basis [ ]l) Other condition,treatment or monitoring requiring inpatient admission. [ ]II. Peritoneal signs present [ ]III. Surgery needed that cannot be performed on an ambulatory basis. [ ]IV. Evaluation requires patient to not eat or drink for extended period ( eg, more than 24 hours). [ ]V. Contraindications and/or Inappropriate clinical situations for Observational Care in patients with abdominal pain, when ANY ONE of the following is required: [ ]a) Thorough evaluation is required to prevent catastrophic events due to delays in diagnosing (e.g.Mesenteric ischemia) 1,3 [ ]b) Patient with severe pathology or with chronic symptoms unlikely to improve in the ED stay (3) [ ]. General contraindications and/or Inappropriate clinical situations for Observational Care in patients with abdominal pain, when ANY ONE of the following is required: [ ]a) Prediction of prolongation of LOS based on ANY ONE of the following may be considered as a contraindication for observational care 2, 3, 4, 5, 6, 7, 8, 9, 10, 11 [ ]i) Age > 65 yrs. [ ]ii) Patient arriving by ambulance [ ]iii) Patient with high acuity [ ]iv) Patient requiring vital sign monitoring [ ]v) Patient on IV medication [ ]b) Systolic blood pressures 180mmHg 3,12 [ ]c) Patient with altered mental status including delirium and other alteration of consciousness, (3) [ ]d) Patient whose discharge disposition will be to a fdc home or rehabilitation home should not be managed in Emergency Department Observation Unit. CMS rule requires 3 days hospital stay before such placement.3,13 [ ]e) Patient with failure to thrive due to broad array of etiologies 3,16,17 [ ]f) Inability to ambulate 3,14 Extended stay beyond goal length of stay may be needed for(2)(3): [ ]a) Persistent abdominal pain with suspected intra-abdominal process [ ]b) Diagnosed condition requiring continued stay (e.g., pancreatitis, complicated diverticulitis) [ ]c) Surgery (e.g., colectomy) The original [facility] content created by [place] has been revised. The portions of the content which have been revised are identified through the use of italic text or in bold, and [facility] has neither reviewed nor approved the modified material.All other unmodified content is copyright [facility]. Please see references footnoted in the original [facility] edition 2016 Admission Criteria Met?: Yes REJI DENIS Mar 23, 2016 10:03
[2016-03-23 11:00] VITALS: BP 179/96
--- NOTE | 2016-03-23 11:15 | PDOC ---
Subjective: Subjective: Previous GI consult 03/16/16. 65 y/o male admitted last week w/ abd pain, n/v. CTA C/A/P showed inflammatory fat stranding identified surrounding the gallbladder, common bile duct, and duodenum, gallstones, and possible choledocholithiasis. (Incidental findings of pulmonary nodules and asc aortic aneurysm were evaluated by pulm and cardio w / outpt follow-up/monitoring planned.) RUQ US showed multiple gallstones, positive Davis's sign, gallbladder wall thickening, and dilated common bile duct (9.8mm). He underwent lap cholecystectomy on 03/16 w/ improvement of symptoms. It seems w/ severity of gallbladder disease, surgery was a bit complicated (no IOC performed). LFTs were very mildly elevated post-op but then improved prior to discharge on 03/18. He has been doing well at home, eating and stooling fairly normally and basically w/o pain and minimal CRISTY drainage until this morning at 5:45 a.m. when he awoke w/ diffuse abdominal pain, sweats, and shaking chills. He vomited a little. Pain was so severe even after taking hydrocodone that he asked his to bring him to the ER. Labs unrevealing except plt count 405, glucose 130 , and AST 45 (was 48 on discharge). He is seen in his room; pain is a little better now but he feels it coming on again. Objective: Vital Signs: Vital Signs Date Time Temp Pulse Resp B/P Pulse Ox O2 Delivery O2 Flow Rate FiO2 03/23/16 09:45 62 16 191/98 95 Nasal Cannula 2 Labs: Laboratory Tests Test 03/23/16 07:43 White Blood Count 7.5x10^3/uL Red Blood Count 5.03x10^6/uL Hemoglobin 15.0g/dL Hematocrit 45.6% Mean Corpuscular Volume 91fL Mean Corpuscular Hemoglobin 30pg Mean Corpuscular Hemoglobin Concent 33g/dL Red Cell Distribution Width 13.6% Platelet Count 405x10^3/uL Neutrophils (%) (Auto) 53% Lymphocytes (%) (Auto) 36% Monocytes (%) (Auto) 6% Eosinophils (%) (Auto) 5% Basophils (%) (Auto) 1% Neutrophils # (Auto) 4.0x10^3uL Lymphocytes # (Auto) 2.7x10^3/uL Monocytes # (Auto) 0.4x10^3/uL Eosinophils # (Auto) 0.4x10^3/uL Basophils # (Auto) 0.1x10^3/uL Sodium Level 139mmol/L Potassium Level 4.3mmol/L Chloride Level 104mmol/L Carbon Dioxide Level 23mmol/L Anion Gap 12 Blood Urea Nitrogen 16mg/dL Creatinine 1.2mg/dL Estimated GFR (Cockcroft-Gault) 60.6 BUN/Creatinine Ratio 13 Glucose Level 130mg/dL Calcium Level 9.7mg/dL Total Bilirubin 0.8mg/dL Aspartate Amino Transf (AST/SGOT) 45U/L Alanine Aminotransferase (ALT/SGPT) 59U/L Alkaline Phosphatase 63U/L Total Protein 7.8g/dL Albumin 3.7g/dL Albumin/Globulin Ratio 0.9 Lipase 252U/L Imaging: CT A/P w/ IV contrast 03/23/16 Impression: 1. Interval cholecystectomy with a drainage tube in the gallbladder fossa. Some inflammatory changes in the gallbladder fossa extending to the second part of duodenum may be related to recent surgery. No abnormal fluid collections are seen. 2. Trace perihepatic fluid. 3. Diffuse sigmoid diverticulosis without acute diverticulitis. PE: GEN: NAD HEENT: Atraumatic, PERRL LUNGS: CTAB anteriorly HEART: RRR ABD: dressings/drain in place - drain w/ some bloody output, some tenderness in RUQ and around drain, BS quiet EXTREMITY: No edema SKIN: No rashes, no jaundice NEURO/PSYCH: A & O 3, anxious A/P: Abdominal pain, sweats/chills, n/v -s/p lap cholecystectomy 03/16 w/ imaging as above -recurrent symptoms this morning H/o GERD -not bothersome for awhile, no previous EGD CRC screen -reports normal colonoscopy 2 years ago, diverticulosis on CT -- D/w Dr. Huddleston - will check HIDA r/o bile leak. HEIKE BOSCH Mar 23, 2016 11:15
[2016-03-23] MEDS: HYDROMORPHONE 2 MG/ML VIAL. IV PRN ×5 (11:19→22:30)
[2016-03-23] MEDS: IV NORMAL SALINE 1000ML BAG 1,000 ML IV SCH ×2 (11:19→16:51)
[2016-03-23 11:41] VITALS: BP 179/96
--- NOTE | 2016-03-23 14:24 | EKG ---
[facility] [address] [place] [address] Test Date: 2016-03-23 Test Time: 08:00:44 Pat Name: ELLIOTT GARDNER Department: Room: [facility] Gender: M Manager Battery: : 1950 Requested By: YASHIRA MCCORMICK Order Number: [id number] Reading MD: Chidi Berry Measurements Intervals [place] Rate: 57 P: CA: QRS: -13 QRSD: 102 T: 22 QT: 430 QTc: 422 Interpretive Statements SR POSSIBLE PRIOR SEPTAL INFARCT NON-SPECIFIC ST/T CHANGES LOW QUALITY EKG Electronically Signed On 04-07-2016 14:35:30 BUSINESS RULES ANALYST by Chidi Berry
[2016-03-23 15:19] VITALS: BP 154/90
--- NOTE | 2016-03-23 15:51 | PDOC ---
PROGRESS NOTES Subjective Subjective Pt not in room, PIPIDA scan ordered, suspect in nuc med; present in room Objective Objective Vital Signs Date Time Temp Pulse Resp B/P Pulse Ox O2 Delivery O2 Flow Rate FiO2 03/23/16 15:19 97.5 66 16 154/90 96 Nasal Cannula 2.0 97.5 Assessment Assessment Problems Medical Problems: (1) Intractable abdominal pain Status: Acute Recent lap spring due to severe necrotizing cholecystitis, difficult surgery with marked inflammatory reaction, unable to do cholangiogram; CRISTY with scant serosang fluid per ER MD; LFTs, WBC normal, CT abdomen unremarkable, as expected for recent lap spring; Await PIPIDA results, no surgical issue identified thus far, will follow Comment Review of Relevant I have reviewed the following items jass (where applicable) has been applied. Labs Laboratory Tests Test 03/23/16 07:43 White Blood Count 7.5x10^3/uL (4.0-11.0) Red Blood Count 5.03x10^6/uL (4.30-5.70) Hemoglobin 15.0g/dL (13.0-17.5) Hematocrit 45.6% (39.0-53.0) Mean Corpuscular Volume 91fL (79-100) Mean Corpuscular Hemoglobin 30pg (25-35) Mean Corpuscular Hemoglobin Concent 33g/dL (31-37) Red Cell Distribution Width 13.6% (11.5-14.5) Platelet Count 405x10^3/uL (140-400) Neutrophils (%) (Auto) 53% (31-73) Lymphocytes (%) (Auto) 36% (24-48) Monocytes (%) (Auto) 6% (0-9) Eosinophils (%) (Auto) 5% (0-3) Basophils (%) (Auto) 1% (0-3) Neutrophils # (Auto) 4.0x10^3uL (1.8-7.7) Lymphocytes # (Auto) 2.7x10^3/uL (1.0-4.8) Monocytes # (Auto) 0.4x10^3/uL (0.0-1.1) Eosinophils # (Auto) 0.4x10^3/uL (0.0-0.7) Basophils # (Auto) 0.1x10^3/uL (0.0-0.2) Sodium Level 139mmol/L (136-145) Potassium Level 4.3mmol/L (3.5-5.1) Chloride Level 104mmol/L (98-107) Carbon Dioxide Level 23mmol/L (21-32) Anion Gap 12 (6-14) Blood Urea Nitrogen 16mg/dL (8-26) Creatinine 1.2mg/dL (0.7-1.3) Estimated GFR (Cockcroft-Gault) 60.6 BUN/Creatinine Ratio 13 (6-20) Glucose Level 130mg/dL (70-99) Calcium Level 9.7mg/dL (8.5-10.1) Total Bilirubin 0.8mg/dL (0.2-1.0) Aspartate Amino Transf (AST/SGOT) 45U/L (15-37) Alanine Aminotransferase (ALT/SGPT) 59U/L (16-63) Alkaline Phosphatase 63U/L (46-116) Total Protein 7.8g/dL (6.4-8.2) Albumin 3.7g/dL (3.4-5.0) Albumin/Globulin Ratio 0.9 (1.0-1.7) Lipase 252U/L (73-393) Laboratory Tests Test 03/23/16 07:43 White Blood Count 7.5x10^3/uL (4.0-11.0) Red Blood Count 5.03x10^6/uL (4.30-5.70) Hemoglobin 15.0g/dL (13.0-17.5) Hematocrit 45.6% (39.0-53.0) Mean Corpuscular Volume 91fL (79-100) Mean Corpuscular Hemoglobin 30pg (25-35) Mean Corpuscular Hemoglobin Concent 33g/dL (31-37) Red Cell Distribution Width 13.6% (11.5-14.5) Platelet Count 405x10^3/uL (140-400) Neutrophils (%) (Auto) 53% (31-73) Lymphocytes (%) (Auto) 36% (24-48) Monocytes (%) (Auto) 6% (0-9) Eosinophils (%) (Auto) 5% (0-3) Basophils (%) (Auto) 1% (0-3) Neutrophils # (Auto) 4.0x10^3uL (1.8-7.7) Lymphocytes # (Auto) 2.7x10^3/uL (1.0-4.8) Monocytes # (Auto) 0.4x10^3/uL (0.0-1.1) Eosinophils # (Auto) 0.4x10^3/uL (0.0-0.7) Basophils # (Auto) 0.1x10^3/uL (0.0-0.2) Sodium Level 139mmol/L (136-145) Potassium Level 4.3mmol/L (3.5-5.1) Chloride Level 104mmol/L (98-107) Carbon Dioxide Level 23mmol/L (21-32) Anion Gap 12 (6-14) Blood Urea Nitrogen 16mg/dL (8-26) Creatinine 1.2mg/dL (0.7-1.3) Estimated GFR (Cockcroft-Gault) 60.6 BUN/Creatinine Ratio 13 (6-20) Glucose Level 130mg/dL (70-99) Calcium Level 9.7mg/dL (8.5-10.1) Total Bilirubin 0.8mg/dL (0.2-1.0) Aspartate Amino Transf (AST/SGOT) 45U/L (15-37) Alanine Aminotransferase (ALT/SGPT) 59U/L (16-63) Alkaline Phosphatase 63U/L (46-116) Total Protein 7.8g/dL (6.4-8.2) Albumin 3.7g/dL (3.4-5.0) Albumin/Globulin Ratio 0.9 (1.0-1.7) Lipase 252U/L (73-393) Medications Current Medications Sodium Chloride (Iv Sodium Chloride 0.9% 1000ml Bag) 1,000 ml @ 1,000 mls/hr Q1H IV Last administered on 03/23/16 07:47; Start 03/23/16 at 07:39; Stop at 08:38; Status DC Morphine Sulfate 5 mg 1X ONCE IV Last administered on 03/23/16 07:49; Start at 07:45; Stop 03/23/16 at 07:46; Status DC Ondansetron HCl (Zofran) 4 mg 1X ONCE IV Last administered on 03/23/16 07:50; Start 03/23/16 at 07:45; Stop 03/23/16 at 07:46; Status DC Famotidine (Pepcid) 20 mg 1X ONCE IVP Last administered on 03/23/16 07:53; Start 03/23/16 at 07:45; Stop 03/23/16 at 07:46; Status DC Hydromorphone HCl (Dilaudid) 1 mg 1X ONCE IV Last administered on 03/23/16 08: 12; Start 03/23/16 at 08:15; Stop 03/23/16 at 08:16; Status DC Iohexol (Omnipaque 300 Mg/ml) 75 ml 1X ONCE IV Last administered on 03/23/16 08:39; Start 03/23/16 at 08:30; Stop 03/23/16 at 08:31; Status DC Info (Do NOT chart on this entry -- for MONITORING) 1 each PRN DAILY PRN MC SEE COMMENTS; Start 03/23/16 at 08:30; Stop 03/25/16 at 08:29 Hydromorphone HCl (Dilaudid) 1 mg 1X ONCE IV Last administered on 03/23/16 09: 23; Start 03/23/16 at 09:15; Stop 03/23/16 at 09:16; Status DC Ondansetron HCl 4 mg 4 mg PRN Q8HRS PRN IV NAUSEA/VOMITING; Start 03/23/16 at 10 :00; Stop 03/24/16 at 09:59 Sodium Chloride (Iv Sodium Chloride 0.9% 1000ml Bag) 1,000 ml @ 125 mls/hr Q8H IV Last administered on 03/23/16 11:19; Start 03/23/16 at 10:00; Stop 03/24/16 at 09:59 Hydromorphone HCl (Dilaudid) 1 mg PRN Q3HRS PRN IV PAIN Last administered on 14:29; Start 03/23/16 at 12:00 Active Scripts Active [place] 5-325 Tablet (Acetaminophen/Hydrocodone Bitart) 1 Each Tablet 1 Tab PO PRN Q6HRS PRN Vitals/I & O Vital Sign - Last 24 Hours 03/23/16 03/23/16 03/23/1603/23/17 07:39 08:00 08:15 09:00 Temp 97.1 97.1 Pulse 60 58 58 62 Resp 30 30 30 22 B/P 198/93 179/97 191/95 198/94 Pulse Ox 96 93 91 93 O2 Delivery Room Air Room Air Nasal Cannula Nasal Cannula O2 Flow Rate 2 2 03/23/16 03/23/16 03/23/16 03/23/16 09:30 09:45 11:00 11:19 Temp 98.1 98.1 Pulse 62 62 63 Resp 19 16 16 20 B/P 199/84 191/98 179/96 Pulse Ox 95 95 94 O2 Delivery Nasal Cannula Nasal Cannula Nasal Cannula Nasal Cannula O2 Flow Rate 2 2 2.0 2.0 03/23/16 03/23/16 03/23/16 03/23/16 11:41 11:45 12:03 14:29 Temp 98.1 98.1 Pulse 63 Resp 16 16 18 B/P 179/96 Pulse Ox 94 94 94 O2 Delivery Nasal Cannula Nasal Cannula Nasal Cannula Nasal Cannula O2 Flow Rate 2.0 2.0 2.0 2.0 03/23/16 15:19 Temp 97.5 97.5 Pulse 66 Resp 16 B/P 154/90 Pulse Ox 96 O2 Delivery Nasal Cannula O2 Flow Rate 2.0 PRADIP MCGOWAN MD Mar 23, 2016 15:51
--- NOTE | 2016-03-23 16:15 | RAD ---
Radionuclide hepatobiliary scan, 03/23/2016: History: Abdominal pain after cholecystectomy, possible biliary leak Following IV injection of 3.6 mCi of technetium 99m Choletec there is prompt uptake of the radionuclide from the blood stream by the liver. Activity is present in the bile ducts at 5 minutes. Activity accumulates in the gallbladder fossa region and then extends inferolaterally and eventually over the dome of the right lobe of the liver. The appearance is that of a biliary leak. Images obtained out to one hour do not demonstrate small bowel activity. IMPRESSION: 1. Biliary leak as described above. 2. Nonvisualization of the small bowel on the initial images. Delayed images will be obtained and reported separately.
[2016-03-23] MEDS ORDERED: POTASSIUM CHLORIDE 20 MEQ in IV 1/2 NORMAL SALINE 1,000 ML IV SCH (18:45)
[2016-03-23] MEDS ORDERED: hydrALAZINE 20 MG/ML VIAL. IVP PRN (18:45)
[2016-03-23 19:39] VITALS: BP 138/94
[2016-03-23] MEDS: POTASSIUM CL 20MEQ-0.45% NACL 1,000 ML IV SCH (20:13)
--- NOTE | 2016-03-23 20:42 | HP ---
ADMIT DATE: 03/23/2016 CHIEF COMPLAINT: Abdominal pain. HISTORY OF PRESENT ILLNESS: The patient is a 65-year-old gentleman who had undergone a laparoscopic cholecystectomy for necrotizing cholecystitis on 03/15/[address] Mcdonald. Surgery was apparently complicated and drain was left in place. He was scheduled to see Dr. Mcdonald for further postop evaluation tomorrow. He had been discharged over the weekend and had been doing fairly well until the provider scribe hours today. He relates that about quarter till 6 he suddenly had severe abdominal pain, is unaware of having moved in the wrong direction or turned over on his side. He also relates that he was hot and had rigors. Pain was severe and he presented to the Emergency Room where it actually took several doses of morphine and Dilaudid to get pain under control. From previous workup prior to cholecystectomy, patient had positive ultrasounds for multiple gallstones. GI had seen him at that time and have now been reconsulted for evaluation of potential for ERCP as cholangiogram could not be done intraoperatively. PAST MEDICAL HISTORY: Necrotizing cholecystitis, status post cholecystectomy on 03/15/2016. Distant history of nephrolithiasis, shoulder surgery, left. FAMILY HISTORY: Negative for GI symptoms. Apparently alcoholism in parents. SOCIAL HISTORY: Lives with his . Quit smoking several years ago. Denies any ongoing toxic habits. ALLERGIES: SULFA. MEDICATIONS: Home medications reconciled with [facility]. REVIEW OF SYSTEMS: Severe right upper quadrant pain as per HPI. Some rigors and fever prior to presentation to the Emergency Room. Denies any nausea, vomiting or diarrhea. Has noted serosanguineous or bloody drainage in his CRISTY since this morning. PHYSICAL EXAMINATION: VITAL SIGNS: From today show a blood pressure of 154/90, heart rate of 66, respiratory rate is 16. He is afebrile, sat 96% on 2 liters by nasal cannula. GENERAL: This is a 65-year-old gentleman, alert and oriented currently without any pain or distress. HEENT: Shows no scleral icterus. Oral mucosa is dry. NECK: Supple. LUNGS: Fairly clear anteriorly. CARDIOVASCULAR: Regular rate and rhythm without any murmurs. ABDOMEN: Positive bowel sounds. Tenderness to palpation right upper quadrant. Incision from laparoscopic cholecystectomy are covered with gauze and/or Steri-Strips and appear clean and dry. EXTREMITIES: Show no edema. SKIN: Warm, soft and dry without any rash. LABORATORY DATA: CBC from today shows a WBC of 7.5, hemoglobin 15, platelets of 405. Chemistries with a BUN and creatinine of 16 and 1.2. Electrolytes within normal limits. LFTs with minimally elevated AST at 45, essentially stable from prior admission. Albumin at 3.7, previously had been 2.8. IMAGING STUDIES: CT of the abdomen and pelvis in the Emergency Room showed interval cholecystectomy with drainage tube in the gallbladder fossa, some inflammatory changes in the gallbladder fossa extending to the second part of the duodenum possibly related to a recent surgery. No abnormal fluid collections are seen. ASSESSMENT AND PLAN: The patient is a 65-year-old gentleman with right upper quadrant pain post-cholecystectomy [address] does not reveal any significant abnormalities including abscess formation. Both Dr. Mcdonald and Dr. Huddleston have been consulted. Plan is for HIDA scan today to evaluate. ERCP is tentatively scheduled for tomorrow to rule out stones in the bile duct. Further decisions to be made according to imaging and procedures. For the time being, we will keep patient n.p.o. He will be on IV fluids. Should longer n.p.o. status persist, we will plan on PPN/TPN. Pain control will be achieved with Dilaudid 2 mg q. 2 hours. He relates that q. 3-hour dosing is not covering his pain adequately. He actually is on no medications at home save for a recent addition of [place] post-surgically. He has been hypertensive in the Emergency Room since coming up to the floor. I am not sure if this is related to pain versus underlying hypertension. We will give hydralazine p.r.n. IV. For GI prophylaxis, he will be started on H2 johny IV. We will monitor further symptoms. ELLEN SKELTON MD DR: CIRILO/brenna JOB#: [id number] / [id number] LUAN
[2016-03-23 23:23] VITALS: BP 148/91
[2016-03-24] MEDS: HYDROMORPHONE 2 MG/ML VIAL. IV PRN ×2 (02:17→21:24)
[2016-03-24 03:08] VITALS: BP 136/84
[2016-03-24 05:54] LABS: HEMATOCRIT 43.4 % (39.0-53.0); MEAN CORPUSCULAR HEMOGLOBIN 29 pg (25-35); MEAN CORPUSCULAR HGB CONC 32 g/dL (31-37); MEAN CORPUSCULAR VOLUME 90 fL (79-100); RED BLOOD COUNT 4.81 x10^6/uL (4.30-5.70); RED CELL DISTRIBUTION WIDTH 13.7 % (11.5-14.5); WHITE BLOOD COUNT 9.2 x10^3/uL (4.0-11.0)
[2016-03-24 05:55] LABS: BASO % 0 % (0-3); EOS % 0 % (0-3); LYMPH # 0.9 x10^3/uL (1.0-4.8); LYMPH % 10 % (24-48); MONO % 9 % (0-9); NEUT % 81 % (31-73); PLATELET COUNT 364 x10^3/uL (140-400)
[2016-03-24 06:31] LABS: ALBUMIN/GLOBULIN RATIO 0.8 (1.0-1.7); GFR 74.8; POTASSIUM 4.4 mmol/L (3.5-5.1); TOTAL BILIRUBIN 1.3 mg/dL (0.2-1.0); TOTAL PROTEIN 6.7 g/dL (6.4-8.2)
[2016-03-24 07:00] VITALS: BP 120/78
--- NOTE | 2016-03-24 08:42 | PDOC ---
PROGRESS NOTES Chief Complaint Chief Complaint RUQ pain ASSESSMENT AND PLAN: 1. RUQ pain: s/p complicated CCY on 03/15. CT a/p w/o significant pathology. HIDA scan with biliary leak. Planned ERCP today 2. Pain control: IV dilaudid PRN. has not needed any since 3AM! 3. Nutrition: NPO for now, on IVF. 4. Prophylaxis: Protonix IV. hold DVT prophylaxis until procedure(s) completed Vitals Vitals Vital Signs Date Time Temp Pulse Resp B/P Pulse Ox O2 Delivery O2 Flow Rate FiO2 03/24/16 07:00 98.0 71 16 120/78 95 Nasal Cannula 2.0 98.0 Physical Exam General: Alert, Oriented X3, Cooperative, No acute distress Heart: Regular rate Lungs: Clear Abdomen: Normal bowel sounds, No tenderness Extremities: No clubbing, No edema Skin: No rashes Labs LABS Laboratory Tests Test 03/24/16 05:27 White Blood Count 9.2x10^3/uL (4.0-11.0) Red Blood Count 4.81x10^6/uL (4.30-5.70) Hemoglobin 14.0g/dL (13.0-17.5) Hematocrit 43.4% (39.0-53.0) Mean Corpuscular Volume 90fL (79-100) Mean Corpuscular Hemoglobin 29pg (25-35) Mean Corpuscular Hemoglobin Concent 32g/dL (31-37) Red Cell Distribution Width 13.7% (11.5-14.5) Platelet Count 364x10^3/uL (140-400) Neutrophils (%) (Auto) 81% (31-73) Lymphocytes (%) (Auto) 10% (24-48) Monocytes (%) (Auto) 9% (0-9) Eosinophils (%) (Auto) 0% (0-3) Basophils (%) (Auto) 0% (0-3) Neutrophils # (Auto) 7.4x10^3uL (1.8-7.7) Lymphocytes # (Auto) 0.9x10^3/uL (1.0-4.8) Monocytes # (Auto) 0.8x10^3/uL (0.0-1.1) Eosinophils # (Auto) 0.0x10^3/uL (0.0-0.7) Basophils # (Auto) 0.0x10^3/uL (0.0-0.2) Sodium Level 138mmol/L (136-145) Potassium Level 4.4mmol/L (3.5-5.1) Chloride Level 103mmol/L (98-107) Carbon Dioxide Level 26mmol/L (21-32) Anion Gap 9 (6-14) Blood Urea Nitrogen 14mg/dL (8-26) Creatinine 1.0mg/dL (0.7-1.3) Estimated GFR (Cockcroft-Gault) 74.8 BUN/Creatinine Ratio 14 (6-20) Glucose Level 105mg/dL (70-99) Calcium Level 9.0mg/dL (8.5-10.1) Total Bilirubin 1.3mg/dL (0.2-1.0) Aspartate Amino Transf (AST/SGOT) 29U/L (15-37) Alanine Aminotransferase (ALT/SGPT) 44U/L (16-63) Alkaline Phosphatase 58U/L (46-116) Total Protein 6.7g/dL (6.4-8.2) Albumin 3.0g/dL (3.4-5.0) Albumin/Globulin Ratio 0.8 (1.0-1.7) Review of Systems Review of Systems states pain eased up about 1AM, has not needed pain meds after. CRISTY draining mildly bilious serous fluid since Comment Review of Relevant I have reviewed the following items jass (where applicable) has been applied. Labs Laboratory Tests Test 03/23/16 07:43 03/24/16 05:27 White Blood Count 7.5x10^3/uL (4.0-11.0) 9.2x10^3/uL (4.0-11.0) Red Blood Count 5.03x10^6/uL (4.30-5.70) 4.81x10^6/uL (4.30-5.70) Hemoglobin 15.0g/dL (13.0-17.5) 14.0g/dL (13.0-17.5) Hematocrit 45.6% (39.0-53.0) 43.4% (39.0-53.0) Mean Corpuscular Volume 91fL (79-100) 90fL (79-100) Mean Corpuscular Hemoglobin 30pg (25-35) 29pg (25-35) Mean Corpuscular Hemoglobin Concent 33g/dL (31-37) 32g/dL (31-37) Red Cell Distribution Width 13.6% (11.5-14.5) 13.7% (11.5-14.5) Platelet Count 405x10^3/uL (140-400) 364x10^3/uL (140-400) Neutrophils (%) (Auto) 53% (31-73) 81% (31-73) Lymphocytes (%) (Auto) 36% (24-48) 10% (24-48) Monocytes (%) (Auto) 6% (0-9) 9% (0-9) Eosinophils (%) (Auto) 5% (0-3) 0% (0-3) Basophils (%) (Auto) 1% (0-3) 0% (0-3) Neutrophils # (Auto) 4.0x10^3uL (1.8-7.7) 7.4x10^3uL (1.8-7.7) Lymphocytes # (Auto) 2.7x10^3/uL (1.0-4.8) 0.9x10^3/uL (1.0-4.8) Monocytes # (Auto) 0.4x10^3/uL (0.0-1.1) 0.8x10^3/uL (0.0-1.1) Eosinophils # (Auto) 0.4x10^3/uL (0.0-0.7) 0.0x10^3/uL (0.0-0.7) Basophils # (Auto) 0.1x10^3/uL (0.0-0.2) 0.0x10^3/uL (0.0-0.2) Sodium Level 139mmol/L (136-145) 138mmol/L (136-145) Potassium Level 4.3mmol/L (3.5-5.1) 4.4mmol/L (3.5-5.1) Chloride Level 104mmol/L (98-107) 103mmol/L (98-107) Carbon Dioxide Level 23mmol/L (21-32) 26mmol/L (21-32) Anion Gap 12 (6-14) 9 (6-14) Blood Urea Nitrogen 16mg/dL (8-26) 14mg/dL (8-26) Creatinine 1.2mg/dL (0.7-1.3) 1.0mg/dL (0.7-1.3) Estimated GFR (Cockcroft-Gault) 60.6 74.8 BUN/Creatinine Ratio 13 (6-20) 14 (6-20) Glucose Level 130mg/dL (70-99) 105mg/dL (70-99) Calcium Level 9.7mg/dL (8.5-10.1) 9.0mg/dL (8.5-10.1) Total Bilirubin 0.8mg/dL (0.2-1.0) 1.3mg/dL (0.2-1.0) Aspartate Amino Transf (AST/SGOT) 45U/L (15-37) 29U/L (15-37) Alanine Aminotransferase (ALT/SGPT) 59U/L (16-63) 44U/L (16-63) Alkaline Phosphatase 63U/L (46-116) 58U/L (46-116) Total Protein 7.8g/dL (6.4-8.2) 6.7g/dL (6.4-8.2) Albumin 3.7g/dL (3.4-5.0) 3.0g/dL (3.4-5.0) Albumin/Globulin Ratio 0.9 (1.0-1.7) 0.8 (1.0-1.7) Lipase 252U/L (73-393) Laboratory Tests Test 03/24/16 05:27 White Blood Count 9.2x10^3/uL (4.0-11.0) Red Blood Count 4.81x10^6/uL (4.30-5.70) Hemoglobin 14.0g/dL (13.0-17.5) Hematocrit 43.4% (39.0-53.0) Mean Corpuscular Volume 90fL (79-100) Mean Corpuscular Hemoglobin 29pg (25-35) Mean Corpuscular Hemoglobin Concent 32g/dL (31-37) Red Cell Distribution Width 13.7% (11.5-14.5) Platelet Count 364x10^3/uL (140-400) Neutrophils (%) (Auto) 81% (31-73) Lymphocytes (%) (Auto) 10% (24-48) Monocytes (%) (Auto) 9% (0-9) Eosinophils (%) (Auto) 0% (0-3) Basophils (%) (Auto) 0% (0-3) Neutrophils # (Auto) 7.4x10^3uL (1.8-7.7) Lymphocytes # (Auto) 0.9x10^3/uL (1.0-4.8) Monocytes # (Auto) 0.8x10^3/uL (0.0-1.1) Eosinophils # (Auto) 0.0x10^3/uL (0.0-0.7) Basophils # (Auto) 0.0x10^3/uL (0.0-0.2) Sodium Level 138mmol/L (136-145) Potassium Level 4.4mmol/L (3.5-5.1) Chloride Level 103mmol/L (98-107) Carbon Dioxide Level 26mmol/L (21-32) Anion Gap 9 (6-14) Blood Urea Nitrogen 14mg/dL (8-26) Creatinine 1.0mg/dL (0.7-1.3) Estimated GFR (Cockcroft-Gault) 74.8 BUN/Creatinine Ratio 14 (6-20) Glucose Level 105mg/dL (70-99) Calcium Level 9.0mg/dL (8.5-10.1) Total Bilirubin 1.3mg/dL (0.2-1.0) Aspartate Amino Transf (AST/SGOT) 29U/L (15-37) Alanine Aminotransferase (ALT/SGPT) 44U/L (16-63) Alkaline Phosphatase 58U/L (46-116) Total Protein 6.7g/dL (6.4-8.2) Albumin 3.0g/dL (3.4-5.0) Albumin/Globulin Ratio 0.8 (1.0-1.7) Medications Current Medications Sodium Chloride (Iv Sodium Chloride 0.9% 1000ml Bag) 1,000 ml @ 1,000 mls/hr Q1H IV Last administered on 03/23/16 07:47; Start 03/23/16 at 07:39; Stop at 08:38; Status DC Morphine Sulfate 5 mg 1X ONCE IV Last administered on 03/23/16 07:49; Start at 07:45; Stop 03/23/16 at 07:46; Status DC Ondansetron HCl (Zofran) 4 mg 1X ONCE IV Last administered on 03/23/16 07:50; Start 03/23/16 at 07:45; Stop 03/23/16 at 07:46; Status DC Famotidine (Pepcid) 20 mg 1X ONCE IVP Last administered on 03/23/16 07:53; Start 03/23/16 at 07:45; Stop 03/23/16 at 07:46; Status DC Hydromorphone HCl (Dilaudid) 1 mg 1X ONCE IV Last administered on 03/23/16 08: 12; Start 03/23/16 at 08:15; Stop 03/23/16 at 08:16; Status DC Iohexol (Omnipaque 300 Mg/ml) 75 ml 1X ONCE IV Last administered on 03/23/16 08:39; Start 03/23/16 at 08:30; Stop 03/23/16 at 08:31; Status DC Info (Do NOT chart on this entry -- for MONITORING) 1 each PRN DAILY PRN MC SEE COMMENTS; Start 03/23/16 at 08:30; Stop 03/25/16 at 08:29 Hydromorphone HCl (Dilaudid) 1 mg 1X ONCE IV Last administered on 03/23/16 09: 23; Start 03/23/16 at 09:15; Stop 03/23/16 at 09:16; Status DC Ondansetron HCl 4 mg 4 mg PRN Q8HRS PRN IV NAUSEA/VOMITING; Start 03/23/16 at 10 :00; Stop 03/24/16 at 09:59 Sodium Chloride (Iv Sodium Chloride 0.9% 1000ml Bag) 1,000 ml @ 125 mls/hr Q8H IV Last administered on 03/23/16 11:19; Start 03/23/16 at 10:00; Stop 03/23/16 at 18:47; Status DC Hydromorphone HCl (Dilaudid) 1 mg PRN Q3HRS PRN IV PAIN Last administered on 17:38; Start 03/23/16 at 12:00; Stop 03/23/16 at 18:47; Status DC Hydromorphone HCl (Dilaudid) 1 mg PRN Q2HRS PRN IV PAIN Last administered on 02:17; Start 03/23/16 at 19:00 Hydralazine HCl 10 mg 10 mg PRN Q4HRS PRN IVP ELEVATED BP, SEE COMMENTS; Start 03/23/16 at 18:45 Potassium Chloride 20 meq/ Sodium Chloride 1,010 ml @ 75 mls/hr [id number] IV ; Start 03/23/16 at 18:45; Stop 03/23/16 at 19:11; Status DC Potassium Chloride/Sodium Chloride (KCl 20 Meq-0.45% Nacl) 1,000 ml @ 75 mls/ hr [id number] IV Last administered on 03/23/16 20:13; Start 03/23/16 at 19:11 Active Scripts Active [place] 5-325 Tablet (Acetaminophen/Hydrocodone Bitart) 1 Each Tablet 1 Tab PO PRN Q6HRS PRN Vitals/I & O Vital Sign - Last 24 Hours 03/23/16 03/23/16 03/23/16 03/23/16 09:00 09:30 09:45 11:00 Temp 98.1 98.1 Pulse 62 62 62 63 Resp 22 16 16 B/P 198/94 199/84 191/98 179/96 Pulse Ox 93 95 95 94 O2 Delivery Nasal Cannula Nasal Cannula Nasal Cannula Nasal Cannula O2 Flow Rate 2 2 2 2.0 03/23/16 03/23/16 03/23/16 03/23/16 11:19 11:41 11:45 12:03 Temp 98.1 98.1 Pulse 63 Resp 20 16 B/P 179/96 Pulse Ox 94 94 O2 Delivery Nasal Cannula Nasal Cannula Nasal Cannula O2 Flow Rate 2.0 2.0 2.0 03/23/16 03/23/16 03/23/16 03/23/16 14:29 15:19 17:38 18:01 Temp 97.5 97.5 Pulse 66 Resp 18 16 16 16 B/P 154/90 Pulse Ox 94 96 96 O2 Delivery Nasal Cannula Nasal Cannula Nasal Cannula Nasal Cannula O2 Flow Rate 2.0 2.0 2.0 2.0 03/23/16 03/23/16 03/23/16 03/23/16 19:39 20:08 20:16 22:30 Temp 98.6 98.6 Pulse 77 Resp 16 B/P 138/94 Pulse Ox 90 90 90 O2 Delivery Room Air Nasal Cannula Nasal Cannula Nasal Cannula O2 Flow Rate 2.0 2.0 2.0 03/23/16 03/24/16 03/24/16 03/24/16 23:23 02:17 02:50 03:08 Temp 99.3 97.9 99.3 97.9 Pulse 75 72 Resp 16 16 B/P 148/91 136/84 Pulse Ox 93 93 93 93 O2 Delivery Room Air Nasal Cannula Nasal Cannula Nasal Cannula O2 Flow Rate 2.0 2.0 2.0 2.0 03/24/16 07:00 Temp 98.0 98.0 Pulse 71 Resp 16 B/P 120/78 Pulse Ox 95 O2 Delivery Nasal Cannula O2 Flow Rate 2.0 Intake and Output 03/23/16 03/23/16 03/24/16 15:00 23:00 07:00 Intake Total 1000 ml 595 ml 0 ml Output Total 100 ml 560 ml Balance 1000 ml 495 ml -560 ml ELLEN SKELTON MD Mar 24, 2016 08:42
[2016-03-24] MEDS: POTASSIUM CL 20MEQ-0.45% NACL 1,000 ML IV SCH ×2 (09:41→21:51)
--- NOTE | 2016-03-24 09:48 | PDOC ---
MIQUEL CHAPA HOME SERVICE DIRECTOR 03/24/16 0948: SURGICAL PROGRESS NOTE Subjective feeling better, drain started working Vital Signs Vital Signs Date Time Temp Pulse Resp B/P Pulse Ox O2 Delivery O2 Flow Rate FiO2 03/24/16 07:00 98.0 71 16 120/78 95 Nasal Cannula 2.0 98.0 I&O Intake and Output 03/24/16 07:00 Intake Total 1595 ml Output Total 660 ml Balance 935 ml Intake Oral 0 ml IV Total 1595 ml Output Urine Total 600 ml Drainage Total 60 ml PATIENT HAS A ALEJANDRO: No General: Alert, Oriented X3, Cooperative, No acute distress Abdomen: Soft, Other (ND, CRISTY bilious) Labs Laboratory Tests Test 03/23/16 07:43 03/24/16 05:27 White Blood Count 7.5x10^3/uL (4.0-11.0) 9.2x10^3/uL (4.0-11.0) Red Blood Count 5.03x10^6/uL (4.30-5.70) 4.81x10^6/uL (4.30-5.70) Hemoglobin 15.0g/dL (13.0-17.5) 14.0g/dL (13.0-17.5) Hematocrit 45.6% (39.0-53.0) 43.4% (39.0-53.0) Mean Corpuscular Volume 91fL (79-100) 90fL (79-100) Mean Corpuscular Hemoglobin 30pg (25-35) 29pg (25-35) Mean Corpuscular Hemoglobin Concent 33g/dL (31-37) 32g/dL (31-37) Red Cell Distribution Width 13.6% (11.5-14.5) 13.7% (11.5-14.5) Platelet Count 405x10^3/uL (140-400) 364x10^3/uL (140-400) Neutrophils (%) (Auto) 53% (31-73) 81% (31-73) Lymphocytes (%) (Auto) 36% (24-48) 10% (24-48) Monocytes (%) (Auto) 6% (0-9) 9% (0-9) Eosinophils (%) (Auto) 5% (0-3) 0% (0-3) Basophils (%) (Auto) 1% (0-3) 0% (0-3) Neutrophils # (Auto) 4.0x10^3uL (1.8-7.7) 7.4x10^3uL (1.8-7.7) Lymphocytes # (Auto) 2.7x10^3/uL (1.0-4.8) 0.9x10^3/uL (1.0-4.8) Monocytes # (Auto) 0.4x10^3/uL (0.0-1.1) 0.8x10^3/uL (0.0-1.1) Eosinophils # (Auto) 0.4x10^3/uL (0.0-0.7) 0.0x10^3/uL (0.0-0.7) Basophils # (Auto) 0.1x10^3/uL (0.0-0.2) 0.0x10^3/uL (0.0-0.2) Sodium Level 139mmol/L (136-145) 138mmol/L (136-145) Potassium Level 4.3mmol/L (3.5-5.1) 4.4mmol/L (3.5-5.1) Chloride Level 104mmol/L (98-107) 103mmol/L (98-107) Carbon Dioxide Level 23mmol/L (21-32) 26mmol/L (21-32) Anion Gap 12 (6-14) 9 (6-14) Blood Urea Nitrogen 16mg/dL (8-26) 14mg/dL (8-26) Creatinine 1.2mg/dL (0.7-1.3) 1.0mg/dL (0.7-1.3) Estimated GFR (Cockcroft-Gault) 60.6 74.8 BUN/Creatinine Ratio 13 (6-20) 14 (6-20) Glucose Level 130mg/dL (70-99) 105mg/dL (70-99) Calcium Level 9.7mg/dL (8.5-10.1) 9.0mg/dL (8.5-10.1) Total Bilirubin 0.8mg/dL (0.2-1.0) 1.3mg/dL (0.2-1.0) Aspartate Amino Transf (AST/SGOT) 45U/L (15-37) 29U/L (15-37) Alanine Aminotransferase (ALT/SGPT) 59U/L (16-63) 44U/L (16-63) Alkaline Phosphatase 63U/L (46-116) 58U/L (46-116) Total Protein 7.8g/dL (6.4-8.2) 6.7g/dL (6.4-8.2) Albumin 3.7g/dL (3.4-5.0) 3.0g/dL (3.4-5.0) Albumin/Globulin Ratio 0.9 (1.0-1.7) 0.8 (1.0-1.7) Lipase 252U/L (73-393) Laboratory Tests Test 03/24/16 05:27 White Blood Count 9.2x10^3/uL (4.0-11.0) Red Blood Count 4.81x10^6/uL (4.30-5.70) Hemoglobin 14.0g/dL (13.0-17.5) Hematocrit 43.4% (39.0-53.0) Mean Corpuscular Volume 90fL (79-100) Mean Corpuscular Hemoglobin 29pg (25-35) Mean Corpuscular Hemoglobin Concent 32g/dL (31-37) Red Cell Distribution Width 13.7% (11.5-14.5) Platelet Count 364x10^3/uL (140-400) Neutrophils (%) (Auto) 81% (31-73) Lymphocytes (%) (Auto) 10% (24-48) Monocytes (%) (Auto) 9% (0-9) Eosinophils (%) (Auto) 0% (0-3) Basophils (%) (Auto) 0% (0-3) Neutrophils # (Auto) 7.4x10^3uL (1.8-7.7) Lymphocytes # (Auto) 0.9x10^3/uL (1.0-4.8) Monocytes # (Auto) 0.8x10^3/uL (0.0-1.1) Eosinophils # (Auto) 0.0x10^3/uL (0.0-0.7) Basophils # (Auto) 0.0x10^3/uL (0.0-0.2) Sodium Level 138mmol/L (136-145) Potassium Level 4.4mmol/L (3.5-5.1) Chloride Level 103mmol/L (98-107) Carbon Dioxide Level 26mmol/L (21-32) Anion Gap 9 (6-14) Blood Urea Nitrogen 14mg/dL (8-26) Creatinine 1.0mg/dL (0.7-1.3) Estimated GFR (Cockcroft-Gault) 74.8 BUN/Creatinine Ratio 14 (6-20) Glucose Level 105mg/dL (70-99) Calcium Level 9.0mg/dL (8.5-10.1) Total Bilirubin 1.3mg/dL (0.2-1.0) Aspartate Amino Transf (AST/SGOT) 29U/L (15-37) Alanine Aminotransferase (ALT/SGPT) 44U/L (16-63) Alkaline Phosphatase 58U/L (46-116) Total Protein 6.7g/dL (6.4-8.2) Albumin 3.0g/dL (3.4-5.0) Albumin/Globulin Ratio 0.8 (1.0-1.7) Problem List Problems Medical Problems: (1) Intractable abdominal pain Status: Acute Assessment/Plan bile leak ERCP today Problems: PRADIP MCGOWAN MD 03/24/16 1147: SURGICAL PROGRESS NOTE Assessment/Plan Reviewed, agree with plans for ERCP, likely stent Problems: MIQUEL CHAPA APRN Mar 24, 2016 09:48 PRADIP MCGOWAN MD Mar 24, 2016 11:47
[2016-03-24 11:00] VITALS: BP 121/70
[2016-03-24] MEDS ORDERED: DEXAMETHASONE SOD PHOS 20 MG/5 ML VIAL. ONE (12:00)
[2016-03-24] MEDS ORDERED: EPHEDRINE PF IN SALINE 50 MG/5 ML DISP.SYRIN. IV ONE (12:00)
[2016-03-24] MEDS ORDERED: SUCCINYLCHOLINE 200 MG/10 ML VIAL. ONE (12:00)
[2016-03-24] MEDS ORDERED: IV RINGERS,LACTATED 1000ML 1,000 ML IV ONE (13:30)
[2016-03-24] MEDS ORDERED: IOHEXOL 300 MG/ML 50 ML VIAL. ONE (14:01)
[2016-03-24] MEDS ORDERED: PROPOFOL 20 ML IV ONE (14:09)
[2016-03-24] MEDS ORDERED: PROPOFOL 50 ML IV ONE (14:12)
[2016-03-24] MEDS ORDERED: IOHEXOL 300 MG/ML 50 ML VIAL. IV ONE (14:35)
[2016-03-24] MEDS ORDERED: ONDANSETRON PF 4 MG/2 ML VIAL. ONE (14:53)
[2016-03-24] MEDS ORDERED: IV RINGERS,LACTATED 1000ML 1,000 ML IV SCH ×2 (15:44)
[2016-03-24] MEDS ORDERED: FENTANYL PF 100 MCG/2 ML VIAL. IV PRN ×3 (15:45)
[2016-03-24] MEDS ORDERED: MORPHINE SULFATE 2 MG/ML DISP.SYRIN. IV PRN ×2 (15:45)
[2016-03-24] MEDS ORDERED: PROCHLORPERAZINE 10 MG/2 ML VIAL. IV PRN ×2 (15:45)
[2016-03-24] MEDS ORDERED: ONDANSETRON PF 4 MG/2 ML VIAL. IV PRN ×2 (15:45)
[2016-03-24] MEDS ORDERED: HYDROMORPHONE 2 MG/ML VIAL. IV PRN ×2 (15:45)
[2016-03-24] MEDS ORDERED: LIDOCAINE 1% 1 ML SYRINGE. ID PRN ×2 (15:45)
[2016-03-24] MEDS ORDERED: FENTANYL PF 100 MCG/2 ML VIAL. ONE (15:47)
[2016-03-24] MEDS: FENTANYL PF 100 MCG/2 ML VIAL. IV PRN ×2 (15:53→16:03)
--- NOTE | 2016-03-24 16:11 | RAD ---
ERCP, 03/24/2016: History: Biliary leak 8 spot films from an ERCP performed by Dr. Huddleston are presented for review. 88 seconds of fluoroscopy time was utilized. The biliary tree was partially opacified. The patient's presumed biliary leak is not clearly visible on these images. The final images demonstrate a common duct biliary stent in place extending into the duodenum.
[2016-03-24] MEDS: ONDANSETRON ODT 4 MG TAB.RAPDIS PO PRN (18:21)
[2016-03-24 19:00] VITALS: BP 142/71
[2016-03-24] MEDS: METOCLOPRAMIDE HCL 10 MG/2 ML VIAL. IV PRN (20:20)
[2016-03-24] MEDS ORDERED: LORAZEPAM 2 MG/ML VIAL IV ONE (22:00)
[2016-03-24 23:00] VITALS: BP 109/65
[2016-03-25 03:00] VITALS: BP 139/100
[2016-03-25] MEDS: METOCLOPRAMIDE HCL 10 MG/2 ML VIAL. IV PRN (05:30)
[2016-03-25] MEDS: HYDROMORPHONE 2 MG/ML VIAL. IV PRN (05:30)
[2016-03-25 06:07] LABS: BASO % 0 % (0-3); EOS % 0 % (0-3); HEMATOCRIT 40.5 % (39.0-53.0); HEMOGLOBIN 13.5 g/dL (13.0-17.5); LYMPH % 9 % (24-48); MEAN CORPUSCULAR HEMOGLOBIN 29 pg (25-35); MEAN CORPUSCULAR HGB CONC 33 g/dL (31-37); MEAN CORPUSCULAR VOLUME 88 fL (79-100); MONO % 9 % (0-9); NEUT % 82 % (31-73); PLATELET COUNT 336 x10^3/uL (140-400); RED CELL DISTRIBUTION WIDTH 13.1 % (11.5-14.5); WHITE BLOOD COUNT 10.8 x10^3/uL (4.0-11.0)
[2016-03-25 06:37] LABS: ALBUMIN 2.8 g/dL (3.4-5.0); ALBUMIN/GLOBULIN RATIO 0.7 (1.0-1.7); CALCIUM 9.1 mg/dL (8.5-10.1); CREATININE 0.9 mg/dL (0.7-1.3); GFR 84.4; POTASSIUM 4.5 mmol/L (3.5-5.1); TOTAL BILIRUBIN 0.8 mg/dL (0.2-1.0); TOTAL PROTEIN 6.8 g/dL (6.4-8.2)
[2016-03-25 07:00] VITALS: BP 118/69
[2016-03-25] MEDS: POTASSIUM CL 20MEQ-0.45% NACL 1,000 ML IV SCH (08:58)
--- NOTE | 2016-03-25 09:03 | PDOC ---
MIQUEL CHAPA TEXTILE FINISHER 03/25/16 0903: SURGICAL PROGRESS NOTE Subjective nausea, emesis last night better this AM ERCP yesterday Vital Signs Vital Signs Date Time Temp Pulse Resp B/P Pulse Ox O2 Delivery O2 Flow Rate FiO2 03/25/16 07:00 97.9 61 20 118/69 95 Nasal Cannula 2.0 97.9 I&O Intake and Output 03/25/16 07:00 Intake Total 1000 ml Output Total 1170 ml Balance -170 ml Intake Oral 0 ml IV Total 1000 ml Output Urine Total 1050 ml Drainage Total 120 ml General: Alert, Oriented X3, Cooperative, No acute distress Abdomen: Soft, Other (scant bilious drainage in drain ) Labs Laboratory Tests Test 03/24/16 05:27 03/25/16 05:30 White Blood Count 9.2x10^3/uL (4.0-11.0) 10.8x10^3/uL (4.0-11.0) Red Blood Count 4.81x10^6/uL (4.30-5.70) 4.60x10^6/uL (4.30-5.70) Hemoglobin 14.0g/dL (13.0-17.5) 13.5g/dL (13.0-17.5) Hematocrit 43.4% (39.0-53.0) 40.5% (39.0-53.0) Mean Corpuscular Volume 90fL (79-100) 88fL (79-100) Mean Corpuscular Hemoglobin 29pg (25-35) 29pg (25-35) Mean Corpuscular Hemoglobin Concent 32g/dL (31-37) 33g/dL (31-37) Red Cell Distribution Width 13.7% (11.5-14.5) 13.1% (11.5-14.5) Platelet Count 364x10^3/uL (140-400) 336x10^3/uL (140-400) Neutrophils (%) (Auto) 81% (31-73) 82% (31-73) Lymphocytes (%) (Auto) 10% (24-48) 9% (24-48) Monocytes (%) (Auto) 9% (0-9) 9% (0-9) Eosinophils (%) (Auto) 0% (0-3) 0% (0-3) Basophils (%) (Auto) 0% (0-3) 0% (0-3) Neutrophils # (Auto) 7.4x10^3uL (1.8-7.7) 8.9x10^3uL (1.8-7.7) Lymphocytes # (Auto) 0.9x10^3/uL (1.0-4.8) 1.0x10^3/uL (1.0-4.8) Monocytes # (Auto) 0.8x10^3/uL (0.0-1.1) 0.9x10^3/uL (0.0-1.1) Eosinophils # (Auto) 0.0x10^3/uL (0.0-0.7) 0.0x10^3/uL (0.0-0.7) Basophils # (Auto) 0.0x10^3/uL (0.0-0.2) 0.0x10^3/uL (0.0-0.2) Sodium Level 138mmol/L (136-145) 135mmol/L (136-145) Potassium Level 4.4mmol/L (3.5-5.1) 4.5mmol/L (3.5-5.1) Chloride Level 103mmol/L (98-107) 103mmol/L (98-107) Carbon Dioxide Level 26mmol/L (21-32) 24mmol/L (21-32) Anion Gap 9 (6-14) 8 (6-14) Blood Urea Nitrogen 14mg/dL (8-26) 18mg/dL (8-26) Creatinine 1.0mg/dL (0.7-1.3) 0.9mg/dL (0.7-1.3) Estimated GFR (Cockcroft-Gault) 74.8 84.4 BUN/Creatinine Ratio 14 (6-20) 20 (6-20) Glucose Level 105mg/dL (70-99) 109mg/dL (70-99) Calcium Level 9.0mg/dL (8.5-10.1) 9.1mg/dL (8.5-10.1) Total Bilirubin 1.3mg/dL (0.2-1.0) 0.8mg/dL (0.2-1.0) Aspartate Amino Transf (AST/SGOT) 29U/L (15-37) 31U/L (15-37) Alanine Aminotransferase (ALT/SGPT) 44U/L (16-63) 36U/L (16-63) Alkaline Phosphatase 58U/L (46-116) 51U/L (46-116) Total Protein 6.7g/dL (6.4-8.2) 6.8g/dL (6.4-8.2) Albumin 3.0g/dL (3.4-5.0) 2.8g/dL (3.4-5.0) Albumin/Globulin Ratio 0.8 (1.0-1.7) 0.7 (1.0-1.7) Laboratory Tests Test 03/25/16 05:30 White Blood Count 10.8x10^3/uL (4.0-11.0) Red Blood Count 4.60x10^6/uL (4.30-5.70) Hemoglobin 13.5g/dL (13.0-17.5) Hematocrit 40.5% (39.0-53.0) Mean Corpuscular Volume 88fL (79-100) Mean Corpuscular Hemoglobin 29pg (25-35) Mean Corpuscular Hemoglobin Concent 33g/dL (31-37) Red Cell Distribution Width 13.1% (11.5-14.5) Platelet Count 336x10^3/uL (140-400) Neutrophils (%) (Auto) 82% (31-73) Lymphocytes (%) (Auto) 9% (24-48) Monocytes (%) (Auto) 9% (0-9) Eosinophils (%) (Auto) 0% (0-3) Basophils (%) (Auto) 0% (0-3) Neutrophils # (Auto) 8.9x10^3uL (1.8-7.7) Lymphocytes # (Auto) 1.0x10^3/uL (1.0-4.8) Monocytes # (Auto) 0.9x10^3/uL (0.0-1.1) Eosinophils # (Auto) 0.0x10^3/uL (0.0-0.7) Basophils # (Auto) 0.0x10^3/uL (0.0-0.2) Sodium Level 135mmol/L (136-145) Potassium Level 4.5mmol/L (3.5-5.1) Chloride Level 103mmol/L (98-107) Carbon Dioxide Level 24mmol/L (21-32) Anion Gap 8 (6-14) Blood Urea Nitrogen 18mg/dL (8-26) Creatinine 0.9mg/dL (0.7-1.3) Estimated GFR (Cockcroft-Gault) 84.4 BUN/Creatinine Ratio 20 (6-20) Glucose Level 109mg/dL (70-99) Calcium Level 9.1mg/dL (8.5-10.1) Total Bilirubin 0.8mg/dL (0.2-1.0) Aspartate Amino Transf (AST/SGOT) 31U/L (15-37) Alanine Aminotransferase (ALT/SGPT) 36U/L (16-63) Alkaline Phosphatase 51U/L (46-116) Total Protein 6.8g/dL (6.4-8.2) Albumin 2.8g/dL (3.4-5.0) Albumin/Globulin Ratio 0.7 (1.0-1.7) Problem List Problems Medical Problems: (1) Intractable abdominal pain Status: Acute Assessment/Plan bile leak, s/p ERCP scant bilious drainage, no ercp report dictated yet Problems: PRADIP MCGOWAN MD 03/25/16 1010: SURGICAL PROGRESS NOTE Assessment/Plan Reviewed, ERCP with stent placed; Appreciate GI assistance! I haven't seen report but suspect sphincter spasm, relieved with stent; LFTs normal. Will keep drain in a bit longer; ok to discharge when OK with GI Problems: MIQUEL CHAPA APRN Mar 25, 2016 09:03 PRADIP MCGOWAN MD Mar 25, 2016 10:10
--- NOTE | 2016-03-25 09:27 | PDOC ---
Subjective: Subjective: Had some nausea overnight - better. Doing okay w/ full liquids. No pain. Less drainage. Objective: Vital Signs: Vital Signs Date Time Temp Pulse Resp B/P Pulse Ox O2 Delivery O2 Flow Rate FiO2 03/25/16 07:00 97.9 61 20 118/69 95 Nasal Cannula 2.0 97.9 Labs: Laboratory Tests Test 03/25/16 05:30 White Blood Count 10.8x10^3/uL Red Blood Count 4.60x10^6/uL Hemoglobin 13.5g/dL Hematocrit 40.5% Mean Corpuscular Volume 88fL Mean Corpuscular Hemoglobin 29pg Mean Corpuscular Hemoglobin Concent 33g/dL Red Cell Distribution Width 13.1% Platelet Count 336x10^3/uL Neutrophils (%) (Auto) 82% Lymphocytes (%) (Auto) 9% Monocytes (%) (Auto) 9% Eosinophils (%) (Auto) 0% Basophils (%) (Auto) 0% Neutrophils # (Auto) 8.9x10^3uL Lymphocytes # (Auto) 1.0x10^3/uL Monocytes # (Auto) 0.9x10^3/uL Eosinophils # (Auto) 0.0x10^3/uL Basophils # (Auto) 0.0x10^3/uL Sodium Level 135mmol/L Potassium Level 4.5mmol/L Chloride Level 103mmol/L Carbon Dioxide Level 24mmol/L Anion Gap 8 Blood Urea Nitrogen 18mg/dL Creatinine 0.9mg/dL Estimated GFR (Cockcroft-Gault) 84.4 BUN/Creatinine Ratio 20 Glucose Level 109mg/dL Calcium Level 9.1mg/dL Total Bilirubin 0.8mg/dL Aspartate Amino Transf (AST/SGOT) 31U/L Alanine Aminotransferase (ALT/SGPT) 36U/L Alkaline Phosphatase 51U/L Total Protein 6.8g/dL Albumin 2.8g/dL Albumin/Globulin Ratio 0.7 PE: GEN: NAD LUNGS: CTAB anteriorly HEART: RRR ABD: drain w/ some light-colored drainage, BS+, non-tender NEURO/PSYCH: A & O 3 A/P: S/p cholecystectomy w/ bile leak, now s/p ERCP w/ stent placement 2 -- Decreasing drain output w/ resolution of abd pain. ADAT, look toward DC if tolerates and drain output continues to decrease. Follow-up w/ Dr. Mcdonald for drain removal. Follow- up w/ Dr. Huddletson for stent removal in 2-3 weeks. HEIKE BOSCH Mar 25, 2016 09:26
[2016-03-25 10:48] VITALS: BP 115/67
[2016-03-25] MEDS ORDERED: SUCRALFATE 1 GM TABLET. PO SCH (13:49)
--- NOTE | 2016-03-25 14:26 | PDOC ---
PROGRESS NOTES Chief Complaint Chief Complaint RUQ pain ASSESSMENT AND PLAN: 1. RUQ pain: s/p complicated CCY on 03/15. CT a/p w/o significant pathology. s/p ERCP with stent placement on 03/24. post proc N/V. PO intake poor. add raglan ATC 2. Pain control: IV dilaudid PRN. 3. Nutrition: advance as tolerated 4. Prophylaxis: Protonix IV. 5. dispo: awaiting clinical improvement, hopefully by AM Vitals Vitals Vital Signs Date Time Temp Pulse Resp B/P Pulse Ox O2 Delivery O2 Flow Rate FiO2 03/25/16 10:48 97.7 68 20 115/67 95 Nasal Cannula 2.0 97.7 Physical Exam General: Alert, Oriented X3, Cooperative, No acute distress Heart: Regular rate Lungs: Clear Abdomen: Soft, Other (scant bilious drainage in drain ) Extremities: No clubbing, No edema Skin: No rashes Labs LABS Laboratory Tests Test 03/25/16 05:30 White Blood Count 10.8x10^3/uL (4.0-11.0) Red Blood Count 4.60x10^6/uL (4.30-5.70) Hemoglobin 13.5g/dL (13.0-17.5) Hematocrit 40.5% (39.0-53.0) Mean Corpuscular Volume 88fL (79-100) Mean Corpuscular Hemoglobin 29pg (25-35) Mean Corpuscular Hemoglobin Concent 33g/dL (31-37) Red Cell Distribution Width 13.1% (11.5-14.5) Platelet Count 336x10^3/uL (140-400) Neutrophils (%) (Auto) 82% (31-73) Lymphocytes (%) (Auto) 9% (24-48) Monocytes (%) (Auto) 9% (0-9) Eosinophils (%) (Auto) 0% (0-3) Basophils (%) (Auto) 0% (0-3) Neutrophils # (Auto) 8.9x10^3uL (1.8-7.7) Lymphocytes # (Auto) 1.0x10^3/uL (1.0-4.8) Monocytes # (Auto) 0.9x10^3/uL (0.0-1.1) Eosinophils # (Auto) 0.0x10^3/uL (0.0-0.7) Basophils # (Auto) 0.0x10^3/uL (0.0-0.2) Sodium Level 135mmol/L (136-145) Potassium Level 4.5mmol/L (3.5-5.1) Chloride Level 103mmol/L (98-107) Carbon Dioxide Level 24mmol/L (21-32) Anion Gap 8 (6-14) Blood Urea Nitrogen 18mg/dL (8-26) Creatinine 0.9mg/dL (0.7-1.3) Estimated GFR (Cockcroft-Gault) 84.4 BUN/Creatinine Ratio 20 (6-20) Glucose Level 109mg/dL (70-99) Calcium Level 9.1mg/dL (8.5-10.1) Total Bilirubin 0.8mg/dL (0.2-1.0) Aspartate Amino Transf (AST/SGOT) 31U/L (15-37) Alanine Aminotransferase (ALT/SGPT) 36U/L (16-63) Alkaline Phosphatase 51U/L (46-116) Total Protein 6.8g/dL (6.4-8.2) Albumin 2.8g/dL (3.4-5.0) Albumin/Globulin Ratio 0.7 (1.0-1.7) Review of Systems Review of Systems N/V severe yesterday. retching w/o vomitus today. feels ill, worse with PO intake. no significant pain ELLEN SKELTON MD Mar 25, 2016 14:26
[2016-03-25 15:00] VITALS: BP 126/76
[2016-03-25 19:16] VITALS: BP 135/79
[2016-03-25] MEDS: ONDANSETRON ODT 4 MG TAB.RAPDIS PO PRN (19:42)
[2016-03-25] MEDS: METOCLOPRAMIDE HCL 10 MG/2 ML VIAL. IV SCH (21:37)
[2016-03-25 23:50] VITALS: BP 121/72
[2016-03-26] MEDS: POTASSIUM CL 20MEQ-0.45% NACL 1,000 ML IV SCH ×2 (00:31→14:48)
[2016-03-26 03:31] VITALS: BP 137/78
[2016-03-26 05:33] LABS: BASO % 1 % (0-3); EOS % 1 % (0-3); HEMATOCRIT 38.8 % (39.0-53.0); HEMOGLOBIN 13.1 g/dL (13.0-17.5); LYMPH # 1.1 x10^3/uL (1.0-4.8); LYMPH % 13 % (24-48); MEAN CORPUSCULAR HEMOGLOBIN 29 pg (25-35); MEAN CORPUSCULAR HGB CONC 34 g/dL (31-37); MEAN CORPUSCULAR VOLUME 87 fL (79-100); MONO % 8 % (0-9); NEUT % 79 % (31-73); PLATELET COUNT 295 x10^3/uL (140-400); RED BLOOD COUNT 4.46 x10^6/uL (4.30-5.70); RED CELL DISTRIBUTION WIDTH 13.3 % (11.5-14.5)
[2016-03-26] MEDS: METOCLOPRAMIDE HCL 10 MG/2 ML VIAL. IV SCH ×3 (05:42→21:30)
[2016-03-26 06:08] LABS: ALBUMIN 2.6 g/dL (3.4-5.0); ALBUMIN/GLOBULIN RATIO 0.7 (1.0-1.7); CALCIUM 8.6 mg/dL (8.5-10.1); CREATININE 0.9 mg/dL (0.7-1.3); GFR 84.4; POTASSIUM 4.2 mmol/L (3.5-5.1); TOTAL BILIRUBIN 1.1 mg/dL (0.2-1.0); TOTAL PROTEIN 6.4 g/dL (6.4-8.2)
[2016-03-26 07:33] VITALS: BP 129/65
[2016-03-26] MEDS ORDERED: SUCRALFATE 1 GM TABLET. PO PRN (08:00)
--- NOTE | 2016-03-26 08:58 | PDOC ---
PROGRESS NOTES Chief Complaint Chief Complaint RUQ pain ASSESSMENT AND PLAN: 1. RUQ pain: s/p complicated CCY on 03/15. CT a/p w/o significant pathology. s/p ERCP with stent placement on 03/24. pain resolved 2. nausea: on Reglan ATC. PO intake poor, causes cough and phlegm. no apparent vomiting 3. Cough: productive, new. check CXR, poss aspir PNA 4. Nutrition: advance as tolerated 5. Prophylaxis: Protonix IV. 5. dispo: awaiting clinical improvement Vitals Vitals Vital Signs Date Time Temp Pulse Resp B/P Pulse Ox O2 Delivery O2 Flow Rate FiO2 03/26/16 07:33 99.0 75 18 129/65 93 Room Air 99.0 03/25/16 23:50 2.0 Physical Exam General: Alert, Oriented X3, Cooperative, No acute distress Heart: Regular rate Lungs: Clear Abdomen: Soft, No tenderness, Other (scant bilious drainage in drain ) Extremities: No clubbing, No edema Skin: No rashes Labs LABS Laboratory Tests Test 03/26/16 05:15 White Blood Count 9.0x10^3/uL (4.0-11.0) Red Blood Count 4.46x10^6/uL (4.30-5.70) Hemoglobin 13.1g/dL (13.0-17.5) Hematocrit 38.8% (39.0-53.0) Mean Corpuscular Volume 87fL (79-100) Mean Corpuscular Hemoglobin 29pg (25-35) Mean Corpuscular Hemoglobin Concent 34g/dL (31-37) Red Cell Distribution Width 13.3% (11.5-14.5) Platelet Count 295x10^3/uL (140-400) Neutrophils (%) (Auto) 79% (31-73) Lymphocytes (%) (Auto) 13% (24-48) Monocytes (%) (Auto) 8% (0-9) Eosinophils (%) (Auto) 1% (0-3) Basophils (%) (Auto) 1% (0-3) Neutrophils # (Auto) 7.1x10^3uL (1.8-7.7) Lymphocytes # (Auto) 1.1x10^3/uL (1.0-4.8) Monocytes # (Auto) 0.7x10^3/uL (0.0-1.1) Eosinophils # (Auto) 0.1x10^3/uL (0.0-0.7) Basophils # (Auto) 0.0x10^3/uL (0.0-0.2) Sodium Level 137mmol/L (136-145) Potassium Level 4.2mmol/L (3.5-5.1) Chloride Level 101mmol/L (98-107) Carbon Dioxide Level 27mmol/L (21-32) Anion Gap 9 (6-14) Blood Urea Nitrogen 17mg/dL (8-26) Creatinine 0.9mg/dL (0.7-1.3) Estimated GFR (Cockcroft-Gault) 84.4 BUN/Creatinine Ratio 19 (6-20) Glucose Level 101mg/dL (70-99) Calcium Level 8.6mg/dL (8.5-10.1) Total Bilirubin 1.1mg/dL (0.2-1.0) Aspartate Amino Transf (AST/SGOT) 32U/L (15-37) Alanine Aminotransferase (ALT/SGPT) 30U/L (16-63) Alkaline Phosphatase 49U/L (46-116) Total Protein 6.4g/dL (6.4-8.2) Albumin 2.6g/dL (3.4-5.0) Albumin/Globulin Ratio 0.7 (1.0-1.7) Review of Systems Review of Systems tried carbonated blake and OJ last marisol, with upset stomach and resultant cough and phlegm prod. leery to try more. + BM (small) ELLEN SKELTON MD Mar 26, 2016 08:58
--- NOTE | 2016-03-26 08:59 | PDOC ---
G I PROGRESS NOTE Subjective Denies much pain, but recurrent nausea and vomiting with attempts to take po. Physical Exam Lungs clear. RRR Abdomen soft, drain right side; not much in drain, but apparently leaked last night. Review of Relevant I have reviewed the following items jass (where applicable) has been applied. Labs Laboratory Tests Test 03/25/16 05:30 03/26/16 05:15 White Blood Count 10.8x10^3/uL (4.0-11.0) 9.0x10^3/uL (4.0-11.0) Red Blood Count 4.60x10^6/uL (4.30-5.70) 4.46x10^6/uL (4.30-5.70) Hemoglobin 13.5g/dL (13.0-17.5) 13.1g/dL (13.0-17.5) Hematocrit 40.5% (39.0-53.0) 38.8% (39.0-53.0) Mean Corpuscular Volume 88fL (79-100) 87fL (79-100) Mean Corpuscular Hemoglobin 29pg (25-35) 29pg (25-35) Mean Corpuscular Hemoglobin Concent 33g/dL (31-37) 34g/dL (31-37) Red Cell Distribution Width 13.1% (11.5-14.5) 13.3% (11.5-14.5) Platelet Count 336x10^3/uL (140-400) 295x10^3/uL (140-400) Neutrophils (%) (Auto) 82% (31-73) 79% (31-73) Lymphocytes (%) (Auto) 9% (24-48) 13% (24-48) Monocytes (%) (Auto) 9% (0-9) 8% (0-9) Eosinophils (%) (Auto) 0% (0-3) 1% (0-3) Basophils (%) (Auto) 0% (0-3) 1% (0-3) Neutrophils # (Auto) 8.9x10^3uL (1.8-7.7) 7.1x10^3uL (1.8-7.7) Lymphocytes # (Auto) 1.0x10^3/uL (1.0-4.8) 1.1x10^3/uL (1.0-4.8) Monocytes # (Auto) 0.9x10^3/uL (0.0-1.1) 0.7x10^3/uL (0.0-1.1) Eosinophils # (Auto) 0.0x10^3/uL (0.0-0.7) 0.1x10^3/uL (0.0-0.7) Basophils # (Auto) 0.0x10^3/uL (0.0-0.2) 0.0x10^3/uL (0.0-0.2) Sodium Level 135mmol/L (136-145) 137mmol/L (136-145) Potassium Level 4.5mmol/L (3.5-5.1) 4.2mmol/L (3.5-5.1) Chloride Level 103mmol/L (98-107) 101mmol/L (98-107) Carbon Dioxide Level 24mmol/L (21-32) 27mmol/L (21-32) Anion Gap 8 (6-14) 9 (6-14) Blood Urea Nitrogen 18mg/dL (8-26) 17mg/dL (8-26) Creatinine 0.9mg/dL (0.7-1.3) 0.9mg/dL (0.7-1.3) Estimated GFR (Cockcroft-Gault) 84.4 84.4 BUN/Creatinine Ratio 20 (6-20) 19 (6-20) Glucose Level 109mg/dL (70-99) 101mg/dL (70-99) Calcium Level 9.1mg/dL (8.5-10.1) 8.6mg/dL (8.5-10.1) Total Bilirubin 0.8mg/dL (0.2-1.0) 1.1mg/dL (0.2-1.0) Aspartate Amino Transf (AST/SGOT) 31U/L (15-37) 32U/L (15-37) Alanine Aminotransferase (ALT/SGPT) 36U/L (16-63) 30U/L (16-63) Alkaline Phosphatase 51U/L (46-116) 49U/L (46-116) Total Protein 6.8g/dL (6.4-8.2) 6.4g/dL (6.4-8.2) Albumin 2.8g/dL (3.4-5.0) 2.6g/dL (3.4-5.0) Albumin/Globulin Ratio 0.7 (1.0-1.7) 0.7 (1.0-1.7) Laboratory Tests Test 03/26/16 05:15 White Blood Count 9.0x10^3/uL (4.0-11.0) Red Blood Count 4.46x10^6/uL (4.30-5.70) Hemoglobin 13.1g/dL (13.0-17.5) Hematocrit 38.8% (39.0-53.0) Mean Corpuscular Volume 87fL (79-100) Mean Corpuscular Hemoglobin 29pg (25-35) Mean Corpuscular Hemoglobin Concent 34g/dL (31-37) Red Cell Distribution Width 13.3% (11.5-14.5) Platelet Count 295x10^3/uL (140-400) Neutrophils (%) (Auto) 79% (31-73) Lymphocytes (%) (Auto) 13% (24-48) Monocytes (%) (Auto) 8% (0-9) Eosinophils (%) (Auto) 1% (0-3) Basophils (%) (Auto) 1% (0-3) Neutrophils # (Auto) 7.1x10^3uL (1.8-7.7) Lymphocytes # (Auto) 1.1x10^3/uL (1.0-4.8) Monocytes # (Auto) 0.7x10^3/uL (0.0-1.1) Eosinophils # (Auto) 0.1x10^3/uL (0.0-0.7) Basophils # (Auto) 0.0x10^3/uL (0.0-0.2) Sodium Level 137mmol/L (136-145) Potassium Level 4.2mmol/L (3.5-5.1) Chloride Level 101mmol/L (98-107) Carbon Dioxide Level 27mmol/L (21-32) Anion Gap 9 (6-14) Blood Urea Nitrogen 17mg/dL (8-26) Creatinine 0.9mg/dL (0.7-1.3) Estimated GFR (Cockcroft-Gault) 84.4 BUN/Creatinine Ratio 19 (6-20) Glucose Level 101mg/dL (70-99) Calcium Level 8.6mg/dL (8.5-10.1) Total Bilirubin 1.1mg/dL (0.2-1.0) Aspartate Amino Transf (AST/SGOT) 32U/L (15-37) Alanine Aminotransferase (ALT/SGPT) 30U/L (16-63) Alkaline Phosphatase 49U/L (46-116) Total Protein 6.4g/dL (6.4-8.2) Albumin 2.6g/dL (3.4-5.0) Albumin/Globulin Ratio 0.7 (1.0-1.7) Medications Current Medications Sodium Chloride (Iv Sodium Chloride 0.9% 1000ml Bag) 1,000 ml @ 1,000 mls/hr Q1H IV Last administered on 03/23/16 07:47; Start 03/23/16 at 07:39; Stop at 08:38; Status DC Morphine Sulfate 5 mg 1X ONCE IV Last administered on 03/23/16 07:49; Start at 07:45; Stop 03/23/16 at 07:46; Status DC Ondansetron HCl (Zofran) 4 mg 1X ONCE IV Last administered on 03/23/16 07:50; Start 03/23/16 at 07:45; Stop 03/23/16 at 07:46; Status DC Famotidine (Pepcid) 20 mg 1X ONCE IVP Last administered on 03/23/16 07:53; Start 03/23/16 at 07:45; Stop 03/23/16 at 07:46; Status DC Hydromorphone HCl (Dilaudid) 1 mg 1X ONCE IV Last administered on 03/23/16 08: 12; Start 03/23/16 at 08:15; Stop 03/23/16 at 08:16; Status DC Iohexol (Omnipaque 300 Mg/ml) 75 ml 1X ONCE IV Last administered on 03/23/16 08:39; Start 03/23/16 at 08:30; Stop 03/23/16 at 08:31; Status DC Info (Do NOT chart on this entry -- for MONITORING) 1 each PRN DAILY PRN MC SEE COMMENTS; Start 03/23/16 at 08:30; Stop 03/25/16 at 08:29; Status DC Hydromorphone HCl (Dilaudid) 1 mg 1X ONCE IV Last administered on 03/23/16 09: 23; Start 03/23/16 at 09:15; Stop 03/23/16 at 09:16; Status DC Ondansetron HCl 4 mg 4 mg PRN Q8HRS PRN IV NAUSEA/VOMITING; Start 03/23/16 at 10 :00; Stop 03/24/16 at 09:59; Status DC Sodium Chloride (Iv Sodium Chloride 0.9% 1000ml Bag) 1,000 ml @ 125 mls/hr Q8H IV Last administered on 03/23/16 11:19; Start 03/23/16 at 10:00; Stop 03/23/16 at 18:47; Status DC Hydromorphone HCl (Dilaudid) 1 mg PRN Q3HRS PRN IV PAIN Last administered on 17:38; Start 03/23/16 at 12:00; Stop 03/23/16 at 18:47; Status DC Hydromorphone HCl (Dilaudid) 1 mg PRN Q2HRS PRN IV PAIN Last administered on 05:30; Start 03/23/16 at 19:00 Hydralazine HCl 10 mg 10 mg PRN Q4HRS PRN IVP ELEVATED BP, SEE COMMENTS; Start 03/23/16 at 18:45 Potassium Chloride 20 meq/ Sodium Chloride 1,010 ml @ 75 mls/hr [id number] IV ; Start 03/23/16 at 18:45; Stop 03/23/16 at 19:11; Status DC Potassium Chloride/Sodium Chloride 1,000 ml @ 75 mls/hr [id number] IV Last administered on 03/26/16 00:31; Start 03/23/16 at 19:11 Lactated Ringer's (Iv Lactated Ringers) 1,000 ml @ 75 mls/hr 1X ONCE IV Last administered on 03/24/16 13:14; Start 03/24/16 at 13:30; Stop 03/25/16 at 02:49; Status DC Iohexol 50 ml 50 ml STK-MED ONCE .ROUTE ; Start 03/24/16 at 14:01; Stop 03/24/16 at 14:02; Status DC Propofol 20 ml @ As Directed STK-MED ONCE IV ; Start 03/24/16 at 14:09; Stop 03/24 at 14:10; Status DC Propofol (Diprivan) 50 ml @ As Directed STK-MED ONCE IV ; Start 03/24/16 at 14:12 ; Stop 03/24/16 at 14:13; Status DC Ondansetron HCl (Zofran) 4 mg STK-MED ONCE .ROUTE ; Start 03/24/16 at 14:53; Stop 03/24/16 at 14:54; Status DC Iohexol (Omnipaque 300 Mg/ml) 50 ml STK-MED ONCE IV Last administered on t 14:35; Start 03/24/16 at 14:35; Stop 03/24/16 at 15:12; Status DC Ondansetron HCl (Zofran) 4 mg PRN Q6HRS PRN IV Nausea; Start 03/24/16 at 15:45; Stop 03/25/16 at 15:44; Status UNV Fentanyl Citrate (Fentanyl 2ml Vial) 25 mcg PRN Q5MIN PRN IV MILD PAIN; Start 03/24/16 at 15:45; Stop 03/25/16 at 15:44; Status UNV Fentanyl Citrate (Fentanyl 2ml Vial) 50 mcg PRN Q5MIN PRN IV MODERATE PAIN; Start 03/24/16 at 15:45; Stop 03/25/16 at 15:44; Status UNV Morphine Sulfate 1 mg 1 mg PRN Q10MIN PRN IV SEVERE PAIN; Start 03/24/16 at 15: 45; Stop 03/25/16 at 15:44; Status UNV Lactated Ringer's (Iv Lactated Ringers) 1,000 ml @ 0 mls/hr Q0M IV ; Start 03/24 at 15:44; Stop 03/25/16 at 03:43; Status UNV Lidocaine HCl 2 ml 1X PRN PRN ID IV START; Start 03/24/16 at 15:45; Stop at 15:44; Status UNV Hydromorphone HCl (Dilaudid) 0.5 mg PRN Q10MIN PRN IV SEV PAIN,Second choice; Start 03/24/16 at 15:45; Stop 03/25/16 at 15:44; Status UNV Prochlorperazine Edisylate (Compazine) 5 mg PACU PRN PRN IV NAUSEA; Start at 15:45; Stop 03/25/16 at 15:44; Status UNV Ondansetron HCl (Zofran) 4 mg PRN Q6HRS PRN IV Nausea; Start 03/24/16 at 15:45; Stop 03/24/16 at 19:36; Status DC Fentanyl Citrate (Fentanyl 2ml Vial) 25 mcg PRN Q5MIN PRN IV MILD PAIN Last administered on 03/24/16t 16:03; Start 03/24/16 at 15:45; Stop 03/24/16 at 19:36; Status DC Fentanyl Citrate (Fentanyl 2ml Vial) 50 mcg PRN Q5MIN PRN IV MODERATE PAIN; Start 03/24/16 at 15:45; Stop 03/24/16 at 19:36; Status DC Morphine Sulfate 1 mg 1 mg PRN Q10MIN PRN IV SEVERE PAIN; Start 03/24/16 at 15: 45; Stop 03/24/16 at 19:36; Status DC Lactated Ringer's (Iv Lactated Ringers) 1,000 ml @ 0 mls/hr Q0M IV ; Start 03/24 at 15:44; Stop 03/24/16 at 19:36; Status DC Lidocaine HCl 2 ml 1X PRN PRN ID IV START; Start 03/24/16 at 15:45; Stop at 19:36; Status DC Hydromorphone HCl (Dilaudid) 0.5 mg PRN Q10MIN PRN IV SEV PAIN,Second choice; Start 03/24/16 at 15:45; Stop 03/24/16 at 19:36; Status DC Prochlorperazine Edisylate (Compazine) 5 mg PACU PRN PRN IV NAUSEA; Start at 15:45; Stop 03/24/16 at 19:36; Status DC Fentanyl Citrate (Fentanyl 2ml Vial) 100 mcg STK-MED ONCE .ROUTE ; Start at 15:47; Stop 03/24/16 at 15:51; Status DC Ondansetron HCl (Zofran Odt) 4 mg PRN Q8HRS PRN PO NAUSEA/VOMITING Last administered on 03/25/16 19:42; Start 03/24/16 at 18:15 Metoclopramide HCl (Reglan) 10 mg PRN Q8HRS PRN IV NAUSEA/VOMITING Last administered on 03/25/16 05:30; Start 03/24/16 at 19:45; Stop 03/25/16 at 17:27; Status DC Lorazepam (Ativan) 0.5 mg 1X ONCE IV Last administered on 03/24/16 22:25; Start 03/24/16 at 22:00; Stop 03/24/16 at 22:01; Status DC Dexamethasone Sodium Phosphate (Decadron) 20 mg STK-MED ONCE .ROUTE ; Start 03/24 at 12:00; Stop 03/25/16 at 13:25; Status DC Ephedrine Sulfate 100 mg STK-MED ONCE IV ; Start 03/24/16 at 12:00; Stop 03/25/16 at 13:25; Status DC Succinylcholine Chloride (Anectine) 200 mg STK-MED ONCE .ROUTE ; Start 03/24/16 at 12:00; Stop 03/25/16 at 13:25; Status DC Sucralfate (Carafate) 1 gm QIDACHS PO Last administered on 03/25/16 14:07; Start 03/25/16 at 13:49; Stop 03/25/16 at 16:46; Status DC Sucralfate (Carafate) 1 gm QIDPRN PRN PO HEARTBURN / GAS; Start 03/26/16 at 08: 00 Metoclopramide HCl (Reglan) 10 mg Q8HRS IV Last administered on 03/26/16 05:42 ; Start 03/25/16 at 22:00 Active Scripts Active [place] 5-325 Tablet (Acetaminophen/Hydrocodone Bitart) 1 Each Tablet 1 Tab PO PRN Q6HRS PRN As of this morning, on scheduled Reglan. Not on anti-secretory (GERD listed as chronic problem). Vitals/I & O Vital Sign - Last 24 Hours 2/3/03/25/16 03/25/16 03/25/16 10:48 15:00 19:16 20:00 Temp 97.7 98.2 97.9 97.7 98.2 97.9 Pulse 68 65 79 Resp 18 B/P 115/67 126/76 135/79 Pulse Ox 95 96 93 O2 Delivery Nasal Cannula Nasal Cannula BiPAP/CPAP Nasal Cannula O2 Flow Rate 2.0 2.0 2.0 2.0 03/25/16 03/26/16 03/26/16 23:50 03:31 07:33 Temp 97.7 97.6 99.0 97.7 97.6 99.0 Pulse 69 73 75 Resp 18 B/P 121/72 137/78 129/65 Pulse Ox 92 92 93 O2 Delivery Nasal Cannula Room Air Room Air O2 Flow Rate 2.0 Intake and Output 03/25/16 03/25/16 03/26/16 15:00 23:00 07:00 Intake Total 1400 ml 100 ml Output Total 500 ml 500 ml Balance 900 ml -400 ml Problem List Problems Medical Problems: (1) Intractable abdominal pain Status: Acute Assessment Bile leak, w/p ERCP/stent. Nausea and vomiting--reflux? Plan of Care: Continue current Tx, Mgmt Plan of Care Note Add Protonix iv bid. JULIO MAI MD Mar 26, 2016 08:59
[2016-03-26] MEDS: PANTOPRAZOLE IV PUSH 40 MG VIAL. IVP SCH ×2 (09:34→17:49)
[2016-03-26 11:26] VITALS: BP 127/77
[2016-03-26 15:49] VITALS: BP 132/74
[2016-03-26 19:00] VITALS: BP 124/72
--- NOTE | 2016-03-26 19:43 | PDOC ---
Provider Note Provider Note SURG (Pradip Mcdonald) Mr Cooley was seen earlier this AM complains of 'coughing up phlegm" as opposed to emesis belly soft no icterus s/p ERCP with stent no new surgical recs CARLO LILLY MD Mar 26, 2016 19:42
[2016-03-26 23:05] VITALS: BP 137/82
[2016-03-27 03:00] VITALS: BP 123/76
[2016-03-27] MEDS: POTASSIUM CL 20MEQ-0.45% NACL 1,000 ML IV SCH ×2 (03:31→16:31)
[2016-03-27] MEDS: METOCLOPRAMIDE HCL 10 MG/2 ML VIAL. IV SCH (06:04)
[2016-03-27 06:25] LABS: BASO # 0.1 x10^3/uL (0.0-0.2); BASO % 1 % (0-3); EOS % 2 % (0-3); HEMATOCRIT 39.2 % (39.0-53.0); HEMOGLOBIN 12.8 g/dL (13.0-17.5); LYMPH # 0.8 x10^3/uL (1.0-4.8); LYMPH % 14 % (24-48); MEAN CORPUSCULAR HEMOGLOBIN 29 pg (25-35); MEAN CORPUSCULAR HGB CONC 33 g/dL (31-37); MEAN CORPUSCULAR VOLUME 90 fL (79-100); MONO % 11 % (0-9); NEUT % 72 % (31-73); PLATELET COUNT 265 x10^3/uL (140-400); RED BLOOD COUNT 4.37 x10^6/uL (4.30-5.70); RED CELL DISTRIBUTION WIDTH 13.1 % (11.5-14.5); WHITE BLOOD COUNT 5.8 x10^3/uL (4.0-11.0)
[2016-03-27 06:46] LABS: ALBUMIN 2.5 g/dL (3.4-5.0); ALBUMIN/GLOBULIN RATIO 0.6 (1.0-1.7); CALCIUM 8.7 mg/dL (8.5-10.1); CREATININE 1.1 mg/dL (0.7-1.3); POTASSIUM 4.3 mmol/L (3.5-5.1); TOTAL PROTEIN 6.4 g/dL (6.4-8.2)
[2016-03-27 07:31] VITALS: BP 144/81
[2016-03-27] MEDS: PANTOPRAZOLE IV PUSH 40 MG VIAL. IVP SCH (08:12)
--- NOTE | 2016-03-27 08:49 | PDOC ---
G I PROGRESS NOTE Subjective Still feels pretty lousy. "Spitting up". Denies pain. Objective Minimal CRISTY output. What's in basin looks like sputum. Physical Exam Focal wheezes/ronchi right anterior. RRR Abdomen soft, not distended nor tender. Review of Relevant I have reviewed the following items jass (where applicable) has been applied. Labs Laboratory Tests Test 03/26/16 05:15 03/27/16 04:55 White Blood Count 9.0x10^3/uL (4.0-11.0) 5.8x10^3/uL (4.0-11.0) Red Blood Count 4.46x10^6/uL (4.30-5.70) 4.37x10^6/uL (4.30-5.70) Hemoglobin 13.1g/dL (13.0-17.5) 12.8g/dL (13.0-17.5) Hematocrit 38.8% (39.0-53.0) 39.2% (39.0-53.0) Mean Corpuscular Volume 87fL (79-100) 90fL (79-100) Mean Corpuscular Hemoglobin 29pg (25-35) 29pg (25-35) Mean Corpuscular Hemoglobin Concent 34g/dL (31-37) 33g/dL (31-37) Red Cell Distribution Width 13.3% (11.5-14.5) 13.1% (11.5-14.5) Platelet Count 295x10^3/uL (140-400) 265x10^3/uL (140-400) Neutrophils (%) (Auto) 79% (31-73) 72% (31-73) Lymphocytes (%) (Auto) 13% (24-48) 14% (24-48) Monocytes (%) (Auto) 8% (0-9) 11% (0-9) Eosinophils (%) (Auto) 1% (0-3) 2% (0-3) Basophils (%) (Auto) 1% (0-3) 1% (0-3) Neutrophils # (Auto) 7.1x10^3uL (1.8-7.7) 4.2x10^3uL (1.8-7.7) Lymphocytes # (Auto) 1.1x10^3/uL (1.0-4.8) 0.8x10^3/uL (1.0-4.8) Monocytes # (Auto) 0.7x10^3/uL (0.0-1.1) 0.6x10^3/uL (0.0-1.1) Eosinophils # (Auto) 0.1x10^3/uL (0.0-0.7) 0.1x10^3/uL (0.0-0.7) Basophils # (Auto) 0.0x10^3/uL (0.0-0.2) 0.1x10^3/uL (0.0-0.2) Sodium Level 137mmol/L (136-145) 136mmol/L (136-145) Potassium Level 4.2mmol/L (3.5-5.1) 4.3mmol/L (3.5-5.1) Chloride Level 101mmol/L (98-107) 101mmol/L (98-107) Carbon Dioxide Level 27mmol/L (21-32) 25mmol/L (21-32) Anion Gap 9 (6-14) 10 (6-14) Blood Urea Nitrogen 17mg/dL (8-26) 16mg/dL (8-26) Creatinine 0.9mg/dL (0.7-1.3) 1.1mg/dL (0.7-1.3) Estimated GFR (Cockcroft-Gault) 84.4 67.0 BUN/Creatinine Ratio 19 (6-20) 15 (6-20) Glucose Level 101mg/dL (70-99) 84mg/dL (70-99) Calcium Level 8.6mg/dL (8.5-10.1) 8.7mg/dL (8.5-10.1) Total Bilirubin 1.1mg/dL (0.2-1.0) 1.0mg/dL (0.2-1.0) Aspartate Amino Transf (AST/SGOT) 32U/L (15-37) 38U/L (15-37) Alanine Aminotransferase (ALT/SGPT) 30U/L (16-63) 43U/L (16-63) Alkaline Phosphatase 49U/L (46-116) 57U/L (46-116) Total Protein 6.4g/dL (6.4-8.2) 6.4g/dL (6.4-8.2) Albumin 2.6g/dL (3.4-5.0) 2.5g/dL (3.4-5.0) Albumin/Globulin Ratio 0.7 (1.0-1.7) 0.6 (1.0-1.7) Laboratory Tests Test 03/27/16 04:55 White Blood Count 5.8x10^3/uL (4.0-11.0) Red Blood Count 4.37x10^6/uL (4.30-5.70) Hemoglobin 12.8g/dL (13.0-17.5) Hematocrit 39.2% (39.0-53.0) Mean Corpuscular Volume 90fL (79-100) Mean Corpuscular Hemoglobin 29pg (25-35) Mean Corpuscular Hemoglobin Concent 33g/dL (31-37) Red Cell Distribution Width 13.1% (11.5-14.5) Platelet Count 265x10^3/uL (140-400) Neutrophils (%) (Auto) 72% (31-73) Lymphocytes (%) (Auto) 14% (24-48) Monocytes (%) (Auto) 11% (0-9) Eosinophils (%) (Auto) 2% (0-3) Basophils (%) (Auto) 1% (0-3) Neutrophils # (Auto) 4.2x10^3uL (1.8-7.7) Lymphocytes # (Auto) 0.8x10^3/uL (1.0-4.8) Monocytes # (Auto) 0.6x10^3/uL (0.0-1.1) Eosinophils # (Auto) 0.1x10^3/uL (0.0-0.7) Basophils # (Auto) 0.1x10^3/uL (0.0-0.2) Sodium Level 136mmol/L (136-145) Potassium Level 4.3mmol/L (3.5-5.1) Chloride Level 101mmol/L (98-107) Carbon Dioxide Level 25mmol/L (21-32) Anion Gap 10 (6-14) Blood Urea Nitrogen 16mg/dL (8-26) Creatinine 1.1mg/dL (0.7-1.3) Estimated GFR (Cockcroft-Gault) 67.0 BUN/Creatinine Ratio 15 (6-20) Glucose Level 84mg/dL (70-99) Calcium Level 8.7mg/dL (8.5-10.1) Total Bilirubin 1.0mg/dL (0.2-1.0) Aspartate Amino Transf (AST/SGOT) 38U/L (15-37) Alanine Aminotransferase (ALT/SGPT) 43U/L (16-63) Alkaline Phosphatase 57U/L (46-116) Total Protein 6.4g/dL (6.4-8.2) Albumin 2.5g/dL (3.4-5.0) Albumin/Globulin Ratio 0.6 (1.0-1.7) Medications Current Medications Sodium Chloride (Iv Sodium Chloride 0.9% 1000ml Bag) 1,000 ml @ 1,000 mls/hr Q1H IV Last administered on 03/23/16 07:47; Start 03/23/16 at 07:39; Stop at 08:38; Status DC Morphine Sulfate 5 mg 1X ONCE IV Last administered on 03/23/16 07:49; Start at 07:45; Stop 03/23/16 at 07:46; Status DC Ondansetron HCl (Zofran) 4 mg 1X ONCE IV Last administered on 03/23/16 07:50; Start 03/23/16 at 07:45; Stop 03/23/16 at 07:46; Status DC Famotidine (Pepcid) 20 mg 1X ONCE IVP Last administered on 03/23/16 07:53; Start 03/23/16 at 07:45; Stop 03/23/16 at 07:46; Status DC Hydromorphone HCl (Dilaudid) 1 mg 1X ONCE IV Last administered on 03/23/16 08: 12; Start 03/23/16 at 08:15; Stop 03/23/16 at 08:16; Status DC Iohexol (Omnipaque 300 Mg/ml) 75 ml 1X ONCE IV Last administered on 03/23/16 08:39; Start 03/23/16 at 08:30; Stop 03/23/16 at 08:31; Status DC Info (Do NOT chart on this entry -- for MONITORING) 1 each PRN DAILY PRN MC SEE COMMENTS; Start 03/23/16 at 08:30; Stop 03/25/16 at 08:29; Status DC Hydromorphone HCl (Dilaudid) 1 mg 1X ONCE IV Last administered on 03/23/16 09: 23; Start 03/23/16 at 09:15; Stop 03/23/16 at 09:16; Status DC Ondansetron HCl 4 mg 4 mg PRN Q8HRS PRN IV NAUSEA/VOMITING; Start 03/23/16 at 10 :00; Stop 03/24/16 at 09:59; Status DC Sodium Chloride (Iv Sodium Chloride 0.9% 1000ml Bag) 1,000 ml @ 125 mls/hr Q8H IV Last administered on 03/23/16 11:19; Start 03/23/16 at 10:00; Stop 03/23/16 at 18:47; Status DC Hydromorphone HCl (Dilaudid) 1 mg PRN Q3HRS PRN IV PAIN Last administered on 17:38; Start 03/23/16 at 12:00; Stop 03/23/16 at 18:47; Status DC Hydromorphone HCl (Dilaudid) 1 mg PRN Q2HRS PRN IV PAIN Last administered on 05:30; Start 03/23/16 at 19:00 Hydralazine HCl 10 mg 10 mg PRN Q4HRS PRN IVP ELEVATED BP, SEE COMMENTS; Start 03/23/16 at 18:45 Potassium Chloride 20 meq/ Sodium Chloride 1,010 ml @ 75 mls/hr [id number] IV ; Start 03/23/16 at 18:45; Stop 03/23/16 at 19:11; Status DC Potassium Chloride/Sodium Chloride 1,000 ml @ 75 mls/hr [id number] IV Last administered on 03/27/16 03:31; Start 03/23/16 at 19:11 Lactated Ringer's (Iv Lactated Ringers) 1,000 ml @ 75 mls/hr 1X ONCE IV Last administered on 03/24/16 13:14; Start 03/24/16 at 13:30; Stop 03/25/16 at 02:49; Status DC Iohexol 50 ml 50 ml STK-MED ONCE .ROUTE ; Start 03/24/16 at 14:01; Stop 03/24/16 at 14:02; Status DC Propofol 20 ml @ As Directed STK-MED ONCE IV ; Start 03/24/16 at 14:09; Stop 03/24 at 14:10; Status DC Propofol (Diprivan) 50 ml @ As Directed STK-MED ONCE IV ; Start 03/24/16 at 14:12 ; Stop 03/24/16 at 14:13; Status DC Ondansetron HCl (Zofran) 4 mg STK-MED ONCE .ROUTE ; Start 03/24/16 at 14:53; Stop 03/24/16 at 14:54; Status DC Iohexol (Omnipaque 300 Mg/ml) 50 ml STK-MED ONCE IV Last administered on t 14:35; Start 03/24/16 at 14:35; Stop 03/24/16 at 15:12; Status DC Ondansetron HCl (Zofran) 4 mg PRN Q6HRS PRN IV Nausea; Start 03/24/16 at 15:45; Stop 03/25/16 at 15:44; Status UNV Fentanyl Citrate (Fentanyl 2ml Vial) 25 mcg PRN Q5MIN PRN IV MILD PAIN; Start 03/24/16 at 15:45; Stop 03/25/16 at 15:44; Status UNV Fentanyl Citrate (Fentanyl 2ml Vial) 50 mcg PRN Q5MIN PRN IV MODERATE PAIN; Start 03/24/16 at 15:45; Stop 03/25/16 at 15:44; Status UNV Morphine Sulfate 1 mg 1 mg PRN Q10MIN PRN IV SEVERE PAIN; Start 03/24/16 at 15: 45; Stop 03/25/16 at 15:44; Status UNV Lactated Ringer's (Iv Lactated Ringers) 1,000 ml @ 0 mls/hr Q0M IV ; Start 03/24 at 15:44; Stop 03/25/16 at 03:43; Status UNV Lidocaine HCl 2 ml 1X PRN PRN ID IV START; Start 03/24/16 at 15:45; Stop at 15:44; Status UNV Hydromorphone HCl (Dilaudid) 0.5 mg PRN Q10MIN PRN IV SEV PAIN,Second choice; Start 03/24/16 at 15:45; Stop 03/25/16 at 15:44; Status UNV Prochlorperazine Edisylate (Compazine) 5 mg PACU PRN PRN IV NAUSEA; Start at 15:45; Stop 03/25/16 at 15:44; Status UNV Ondansetron HCl (Zofran) 4 mg PRN Q6HRS PRN IV Nausea; Start 03/24/16 at 15:45; Stop 03/24/16 at 19:36; Status DC Fentanyl Citrate (Fentanyl 2ml Vial) 25 mcg PRN Q5MIN PRN IV MILD PAIN Last administered on 03/24/16t 16:03; Start 03/24/16 at 15:45; Stop 03/24/16 at 19:36; Status DC Fentanyl Citrate (Fentanyl 2ml Vial) 50 mcg PRN Q5MIN PRN IV MODERATE PAIN; Start 03/24/16 at 15:45; Stop 03/24/16 at 19:36; Status DC Morphine Sulfate 1 mg 1 mg PRN Q10MIN PRN IV SEVERE PAIN; Start 03/24/16 at 15: 45; Stop 03/24/16 at 19:36; Status DC Lactated Ringer's (Iv Lactated Ringers) 1,000 ml @ 0 mls/hr Q0M IV ; Start 03/24 at 15:44; Stop 03/24/16 at 19:36; Status DC Lidocaine HCl 2 ml 1X PRN PRN ID IV START; Start 03/24/16 at 15:45; Stop at 19:36; Status DC Hydromorphone HCl (Dilaudid) 0.5 mg PRN Q10MIN PRN IV SEV PAIN,Second choice; Start 03/24/16 at 15:45; Stop 03/24/16 at 19:36; Status DC Prochlorperazine Edisylate (Compazine) 5 mg PACU PRN PRN IV NAUSEA; Start at 15:45; Stop 03/24/16 at 19:36; Status DC Fentanyl Citrate (Fentanyl 2ml Vial) 100 mcg STK-MED ONCE .ROUTE ; Start at 15:47; Stop 03/24/16 at 15:51; Status DC Ondansetron HCl (Zofran Odt) 4 mg PRN Q8HRS PRN PO NAUSEA/VOMITING Last administered on 03/25/16 19:42; Start 03/24/16 at 18:15 Metoclopramide HCl (Reglan) 10 mg PRN Q8HRS PRN IV NAUSEA/VOMITING Last administered on 03/25/16 05:30; Start 03/24/16 at 19:45; Stop 03/25/16 at 17:27; Status DC Lorazepam (Ativan) 0.5 mg 1X ONCE IV Last administered on 03/24/16 22:25; Start 03/24/16 at 22:00; Stop 03/24/16 at 22:01; Status DC Dexamethasone Sodium Phosphate (Decadron) 20 mg STK-MED ONCE .ROUTE ; Start 03/24 at 12:00; Stop 03/25/16 at 13:25; Status DC Ephedrine Sulfate 100 mg STK-MED ONCE IV ; Start 03/24/16 at 12:00; Stop 03/25/16 at 13:25; Status DC Succinylcholine Chloride (Anectine) 200 mg STK-MED ONCE .ROUTE ; Start 03/24/16 at 12:00; Stop 03/25/16 at 13:25; Status DC Sucralfate (Carafate) 1 gm QIDACHS PO Last administered on 03/25/16 14:07; Start 03/25/16 at 13:49; Stop 03/25/16 at 16:46; Status DC Sucralfate (Carafate) 1 gm QIDPRN PRN PO HEARTBURN / GAS; Start 03/26/16 at 08: 00 Metoclopramide HCl (Reglan) 10 mg Q8HRS IV Last administered on 03/27/16 06:04 ; Start 03/25/16 at 22:00 Pantoprazole Sodium (Protonix Vial) 40 mg BIDAC IVP Last administered on 08:12; Start 03/26/16 at 09:30 Active Scripts Active [place] 5-325 Tablet (Acetaminophen/Hydrocodone Bitart) 1 Each Tablet 1 Tab PO PRN Q6HRS PRN Vitals/I & O Vital Sign - Last 24 Hours 03/26/16 03/26/16 03/26/16 03/26/16 11:26 15:49 19:00 20:00 Temp 98.2 98.6 101.5 98.2 98.6 101.5 Pulse 73 84 80 Resp 18 18 16 B/P 127/77 132/74 124/72 Pulse Ox 90 89 87 O2 Delivery Room Air Room Air Nasal Cannula Nasal Cannula O2 Flow Rate 2.0 2.0 03/26/16 03/27/16 23:05 03:00 Temp 97.9 97.5 97.9 97.5 Pulse 78 67 Resp 19 18 B/P 137/82 123/76 Pulse Ox 88 85 O2 Delivery Nasal Cannula Nasal Cannula O2 Flow Rate 2.0 2.0 Intake and Output 03/26/16 03/26/16 03/27/16 15:00 23:00 07:00 Intake Total 100 ml Output Total 400 ml 750 ml Balance -300 ml -750 ml Images CXR report pending; don't see definite infiltrate as I review. Problem List Problems Medical Problems: (1) Intractable abdominal pain Status: Acute Assessment Post-stent for bile leak; this seems OK. Bronchitis/early pneumonia? Plan of Care: Continue current Tx, Mgmt Plan of Care Note Await radiology report. JULIO MAI MD Mar 27, 2016 08:49
[2016-03-27 10:12] VITALS: BP 111/77
--- NOTE | 2016-03-27 11:22 | PDOC ---
SURGICAL PROGRESS NOTE Subjective continued cough low appetite no significant abdominal pain Vital Signs Vital Signs Date Time Temp Pulse Resp B/P Pulse Ox O2 Delivery O2 Flow Rate FiO2 03/27/16 08:01 Nasal Cannula 2.0 03/27/16 07:31 98.1 71 18 144/81 92 98.1 I&O Intake and Output 03/27/16 07:00 Intake Total 100 ml Output Total 1150 ml Balance -1050 ml Intake Oral 100 ml Output Urine Total 1150 ml General: Alert, Oriented X3, Cooperative, No acute distress Abdomen: Soft, Other (NTTP, drain serous) Labs Laboratory Tests Test 03/26/16 05:15 03/27/16 04:55 White Blood Count 9.0x10^3/uL (4.0-11.0) 5.8x10^3/uL (4.0-11.0) Red Blood Count 4.46x10^6/uL (4.30-5.70) 4.37x10^6/uL (4.30-5.70) Hemoglobin 13.1g/dL (13.0-17.5) 12.8g/dL (13.0-17.5) Hematocrit 38.8% (39.0-53.0) 39.2% (39.0-53.0) Mean Corpuscular Volume 87fL (79-100) 90fL (79-100) Mean Corpuscular Hemoglobin 29pg (25-35) 29pg (25-35) Mean Corpuscular Hemoglobin Concent 34g/dL (31-37) 33g/dL (31-37) Red Cell Distribution Width 13.3% (11.5-14.5) 13.1% (11.5-14.5) Platelet Count 295x10^3/uL (140-400) 265x10^3/uL (140-400) Neutrophils (%) (Auto) 79% (31-73) 72% (31-73) Lymphocytes (%) (Auto) 13% (24-48) 14% (24-48) Monocytes (%) (Auto) 8% (0-9) 11% (0-9) Eosinophils (%) (Auto) 1% (0-3) 2% (0-3) Basophils (%) (Auto) 1% (0-3) 1% (0-3) Neutrophils # (Auto) 7.1x10^3uL (1.8-7.7) 4.2x10^3uL (1.8-7.7) Lymphocytes # (Auto) 1.1x10^3/uL (1.0-4.8) 0.8x10^3/uL (1.0-4.8) Monocytes # (Auto) 0.7x10^3/uL (0.0-1.1) 0.6x10^3/uL (0.0-1.1) Eosinophils # (Auto) 0.1x10^3/uL (0.0-0.7) 0.1x10^3/uL (0.0-0.7) Basophils # (Auto) 0.0x10^3/uL (0.0-0.2) 0.1x10^3/uL (0.0-0.2) Sodium Level 137mmol/L (136-145) 136mmol/L (136-145) Potassium Level 4.2mmol/L (3.5-5.1) 4.3mmol/L (3.5-5.1) Chloride Level 101mmol/L (98-107) 101mmol/L (98-107) Carbon Dioxide Level 27mmol/L (21-32) 25mmol/L (21-32) Anion Gap 9 (6-14) 10 (6-14) Blood Urea Nitrogen 17mg/dL (8-26) 16mg/dL (8-26) Creatinine 0.9mg/dL (0.7-1.3) 1.1mg/dL (0.7-1.3) Estimated GFR (Cockcroft-Gault) 84.4 67.0 BUN/Creatinine Ratio 19 (6-20) 15 (6-20) Glucose Level 101mg/dL (70-99) 84mg/dL (70-99) Calcium Level 8.6mg/dL (8.5-10.1) 8.7mg/dL (8.5-10.1) Total Bilirubin 1.1mg/dL (0.2-1.0) 1.0mg/dL (0.2-1.0) Aspartate Amino Transf (AST/SGOT) 32U/L (15-37) 38U/L (15-37) Alanine Aminotransferase (ALT/SGPT) 30U/L (16-63) 43U/L (16-63) Alkaline Phosphatase 49U/L (46-116) 57U/L (46-116) Total Protein 6.4g/dL (6.4-8.2) 6.4g/dL (6.4-8.2) Albumin 2.6g/dL (3.4-5.0) 2.5g/dL (3.4-5.0) Albumin/Globulin Ratio 0.7 (1.0-1.7) 0.6 (1.0-1.7) Laboratory Tests Test 03/27/16 04:55 White Blood Count 5.8x10^3/uL (4.0-11.0) Red Blood Count 4.37x10^6/uL (4.30-5.70) Hemoglobin 12.8g/dL (13.0-17.5) Hematocrit 39.2% (39.0-53.0) Mean Corpuscular Volume 90fL (79-100) Mean Corpuscular Hemoglobin 29pg (25-35) Mean Corpuscular Hemoglobin Concent 33g/dL (31-37) Red Cell Distribution Width 13.1% (11.5-14.5) Platelet Count 265x10^3/uL (140-400) Neutrophils (%) (Auto) 72% (31-73) Lymphocytes (%) (Auto) 14% (24-48) Monocytes (%) (Auto) 11% (0-9) Eosinophils (%) (Auto) 2% (0-3) Basophils (%) (Auto) 1% (0-3) Neutrophils # (Auto) 4.2x10^3uL (1.8-7.7) Lymphocytes # (Auto) 0.8x10^3/uL (1.0-4.8) Monocytes # (Auto) 0.6x10^3/uL (0.0-1.1) Eosinophils # (Auto) 0.1x10^3/uL (0.0-0.7) Basophils # (Auto) 0.1x10^3/uL (0.0-0.2) Sodium Level 136mmol/L (136-145) Potassium Level 4.3mmol/L (3.5-5.1) Chloride Level 101mmol/L (98-107) Carbon Dioxide Level 25mmol/L (21-32) Anion Gap 10 (6-14) Blood Urea Nitrogen 16mg/dL (8-26) Creatinine 1.1mg/dL (0.7-1.3) Estimated GFR (Cockcroft-Gault) 67.0 BUN/Creatinine Ratio 15 (6-20) Glucose Level 84mg/dL (70-99) Calcium Level 8.7mg/dL (8.5-10.1) Total Bilirubin 1.0mg/dL (0.2-1.0) Aspartate Amino Transf (AST/SGOT) 38U/L (15-37) Alanine Aminotransferase (ALT/SGPT) 43U/L (16-63) Alkaline Phosphatase 57U/L (46-116) Total Protein 6.4g/dL (6.4-8.2) Albumin 2.5g/dL (3.4-5.0) Albumin/Globulin Ratio 0.6 (1.0-1.7) Problem List Problems Medical Problems: (1) Intractable abdominal pain Status: Acute Assessment/Plan supportive care likely drain out prior to discharge Problems: MIQUEL CHAPA APRN Mar 27, 2016 11:22
[2016-03-27] MEDS ORDERED: HYDROCODONE/APAP 5/325MG TABLET. PO PRN (12:15)
--- NOTE | 2016-03-27 12:24 | RAD ---
PA and lateral chest radiographs 03/26/2016 Clinical history: Cough for 3 days with shortness of breath. PA and lateral digital radiographs of the chest were obtained. Comparison study is dated 03/17/2016. The cardiac silhouette is borderline enlarged. The thoracic aorta is mildly tortuous. Patchy area of infiltrate/atelectasis is seen involving the left lower lobe which is new since the previous examination. Right midlung subsegmental atelectasis is seen. No pneumothorax or pleural effusion is noted. The osseous structures are unchanged. Impression: 1. Patchy left lower lobe atelectasis and/or infiltrate. 2. Right midlung subsegmental atelectasis.
--- NOTE | 2016-03-27 12:24 | PDOC ---
PROGRESS NOTES Chief Complaint Chief Complaint RUQ pain ASSESSMENT AND PLAN: 1. RUQ pain: s/p complicated CCY on 03/15. CT a/p w/o significant pathology. s/p ERCP with stent placement on 03/24. pain resolved. drain management as per surgery team 2. nausea: resolved. advance diet 3. Cough: productive, new. CXR obtained; final read pending; initial interp with hilar atelectasis/scarring on R, no infiltrates. fever yeaterday PM: abx indicated. add mucolytics 4. Prophylaxis: Protonix, switch to PO. 5. dispo: when cleared by surgery, respir status improved Vitals Vitals Vital Signs Date Time Temp Pulse Resp B/P Pulse Ox O2 Delivery O2 Flow Rate FiO2 03/27/16 08:01 Nasal Cannula 2.0 03/27/16 07:31 98.1 71 18 144/81 92 98.1 Physical Exam General: Alert, Oriented X3, Cooperative, No acute distress Heart: Regular rate Lungs: Clear Abdomen: Soft, Other (NTTP, drain serous) Extremities: No clubbing, No edema Skin: No rashes Labs LABS Laboratory Tests Test 03/27/16 04:55 White Blood Count 5.8x10^3/uL (4.0-11.0) Red Blood Count 4.37x10^6/uL (4.30-5.70) Hemoglobin 12.8g/dL (13.0-17.5) Hematocrit 39.2% (39.0-53.0) Mean Corpuscular Volume 90fL (79-100) Mean Corpuscular Hemoglobin 29pg (25-35) Mean Corpuscular Hemoglobin Concent 33g/dL (31-37) Red Cell Distribution Width 13.1% (11.5-14.5) Platelet Count 265x10^3/uL (140-400) Neutrophils (%) (Auto) 72% (31-73) Lymphocytes (%) (Auto) 14% (24-48) Monocytes (%) (Auto) 11% (0-9) Eosinophils (%) (Auto) 2% (0-3) Basophils (%) (Auto) 1% (0-3) Neutrophils # (Auto) 4.2x10^3uL (1.8-7.7) Lymphocytes # (Auto) 0.8x10^3/uL (1.0-4.8) Monocytes # (Auto) 0.6x10^3/uL (0.0-1.1) Eosinophils # (Auto) 0.1x10^3/uL (0.0-0.7) Basophils # (Auto) 0.1x10^3/uL (0.0-0.2) Sodium Level 136mmol/L (136-145) Potassium Level 4.3mmol/L (3.5-5.1) Chloride Level 101mmol/L (98-107) Carbon Dioxide Level 25mmol/L (21-32) Anion Gap 10 (6-14) Blood Urea Nitrogen 16mg/dL (8-26) Creatinine 1.1mg/dL (0.7-1.3) Estimated GFR (Cockcroft-Gault) 67.0 BUN/Creatinine Ratio 15 (6-20) Glucose Level 84mg/dL (70-99) Calcium Level 8.7mg/dL (8.5-10.1) Total Bilirubin 1.0mg/dL (0.2-1.0) Aspartate Amino Transf (AST/SGOT) 38U/L (15-37) Alanine Aminotransferase (ALT/SGPT) 43U/L (16-63) Alkaline Phosphatase 57U/L (46-116) Total Protein 6.4g/dL (6.4-8.2) Albumin 2.5g/dL (3.4-5.0) Albumin/Globulin Ratio 0.6 (1.0-1.7) Review of Systems Review of Systems prod cough, decreasing sputum. mon fevers, no CP no SOB. ELLEN SKELTON MD Mar 27, 2016 12:24
--- NOTE | 2016-03-27 13:24 | RAD ---
Acute abdominal series to include a PA chest radiograph 03/27/2016 Clinical History: Abdominal distention. A PA digital radiograph of the chest was obtained. Supine and erect AP digital radiographs of the abdomen/pelvis were obtained. Comparison study is dated 03/26/2016. The cardiac silhouette is borderline enlarged. The thoracic aorta is mild tortuous. Patchy left lower lobe atelectasis and/ or infiltrate and right midlung subsegmental atelectasis is again seen, unchanged. A stent overlies the common bile duct. Surgical clips overlie the right upper quadrant of the abdomen consistent with a cholecystectomy. A drain overlies the right upper quadrant of the abdomen. Air is seen within the intrahepatic biliary ducts. The abdominal bowel gas pattern is nonobstructive. Calcifications are seen within the pelvis consistent with phleboliths. No free air is seen. The osseous structures are unchanged. Impression: Nonobstructive bowel gas pattern.
[2016-03-27 15:39] VITALS: BP 109/73
[2016-03-27 19:00] VITALS: BP 128/79
[2016-03-27] MEDS: GUAIFENESIN ER 600 MG TABLET.ER PO SCH (20:31)
[2016-03-27 23:00] VITALS: BP 123/66
[2016-03-28] MEDS: POTASSIUM CL 20MEQ-0.45% NACL 1,000 ML IV SCH ×2 (02:24→17:19)
[2016-03-28 03:00] VITALS: BP 134/77
[2016-03-28 04:54] LABS: BASO % 1 % (0-3); EOS % 5 % (0-3); HEMOGLOBIN 13.4 g/dL (13.0-17.5); LYMPH # 0.9 x10^3/uL (1.0-4.8); LYMPH % 23 % (24-48); MEAN CORPUSCULAR HEMOGLOBIN 29 pg (25-35); MEAN CORPUSCULAR HGB CONC 34 g/dL (31-37); MEAN CORPUSCULAR VOLUME 87 fL (79-100); MONO % 13 % (0-9); NEUT % 59 % (31-73); PLATELET COUNT 260 x10^3/uL (140-400); RED BLOOD COUNT 4.61 x10^6/uL (4.30-5.70); RED CELL DISTRIBUTION WIDTH 13.2 % (11.5-14.5)
[2016-03-28 04:58] LABS: ALBUMIN 2.4 g/dL (3.4-5.0); ALBUMIN/GLOBULIN RATIO 0.6 (1.0-1.7); CALCIUM 8.6 mg/dL (8.5-10.1); GFR 74.8; TOTAL BILIRUBIN 0.6 mg/dL (0.2-1.0); TOTAL PROTEIN 6.6 g/dL (6.4-8.2)
[2016-03-28 07:00] VITALS: BP 118/80
[2016-03-28] MEDS: GUAIFENESIN ER 600 MG TABLET.ER PO SCH ×2 (08:39→20:38)
[2016-03-28] MEDS: PANTOPRAZOLE 40 MG TABLET. PO SCH (08:39)
[2016-03-28 11:00] VITALS: BP 116/77
--- NOTE | 2016-03-28 12:25 | PDOC ---
PROGRESS NOTES Chief Complaint Chief Complaint RUQ pain ASSESSMENT AND PLAN: 1. RUQ pain 2. nausea 3. Cough History of Present Illness History of Present Illness Patient standing comfortably in room Patient denies current abd pain Drain is clean and dry Vitals Vitals Vital Signs Date Time Temp Pulse Resp B/P Pulse Ox O2 Delivery O2 Flow Rate FiO2 03/28/16 11:00 98.6 62 20 116/77 96 Room Air 98.6 03/28/16 03:00 2.0 Physical Exam General: Alert, Oriented X3, Cooperative, No acute distress Heart: Regular rate, No murmurs Lungs: Clear, Other (No wheezes or crackles) Abdomen: Soft, Other (NTTP, drain serous) Extremities: No clubbing, No edema Skin: No rashes, No breakdown Labs LABS Laboratory Tests Test 03/28/16 03:52 White Blood Count 4.0x10^3/uL (4.0-11.0) Red Blood Count 4.61x10^6/uL (4.30-5.70) Hemoglobin 13.4g/dL (13.0-17.5) Hematocrit 40.0% (39.0-53.0) Mean Corpuscular Volume 87fL (79-100) Mean Corpuscular Hemoglobin 29pg (25-35) Mean Corpuscular Hemoglobin Concent 34g/dL (31-37) Red Cell Distribution Width 13.2% (11.5-14.5) Platelet Count 260x10^3/uL (140-400) Neutrophils (%) (Auto) 59% (31-73) Lymphocytes (%) (Auto) 23% (24-48) Monocytes (%) (Auto) 13% (0-9) Eosinophils (%) (Auto) 5% (0-3) Basophils (%) (Auto) 1% (0-3) Neutrophils # (Auto) 2.3x10^3uL (1.8-7.7) Lymphocytes # (Auto) 0.9x10^3/uL (1.0-4.8) Monocytes # (Auto) 0.5x10^3/uL (0.0-1.1) Eosinophils # (Auto) 0.2x10^3/uL (0.0-0.7) Basophils # (Auto) 0.0x10^3/uL (0.0-0.2) Sodium Level 138mmol/L (136-145) Potassium Level 4.0mmol/L (3.5-5.1) Chloride Level 103mmol/L (98-107) Carbon Dioxide Level 26mmol/L (21-32) Anion Gap 9 (6-14) Blood Urea Nitrogen 16mg/dL (8-26) Creatinine 1.0mg/dL (0.7-1.3) Estimated GFR (Cockcroft-Gault) 74.8 BUN/Creatinine Ratio 16 (6-20) Glucose Level 96mg/dL (70-99) Calcium Level 8.6mg/dL (8.5-10.1) Total Bilirubin 0.6mg/dL (0.2-1.0) Aspartate Amino Transf (AST/SGOT) 51U/L (15-37) Alanine Aminotransferase (ALT/SGPT) 54U/L (16-63) Alkaline Phosphatase 61U/L (46-116) Total Protein 6.6g/dL (6.4-8.2) Albumin 2.4g/dL (3.4-5.0) Albumin/Globulin Ratio 0.6 (1.0-1.7) Review of Systems Review of Systems Productive cough Denies SOA Assessment and Plan Assessmemt and Plan Problems Medical Problems: (1) Intractable abdominal pain Status: Acute ASSESSMENT AND PLAN: 1. RUQ pain: s/p complicated CCY on 03/15. CT a/p w/o significant pathology. s/p ERCP with stent placement on 03/24. pain resolved. drain management as per surgery team 2. Nausea: resolved. advance diet 3. Cough: productive, new. CXR obtained; final read pending; initial interp with hilar atelectasis/scarring on R, no infiltrates. fever yeaterday PM: abx indicated. add mucolytics 4. Prophylaxis: Protonix, switch to PO. 5. Dispo: when cleared by surgery, respir status improved Repeat labs in AM Continue home meds Problems: Comment Review of Relevant I have reviewed the following items jass (where applicable) has been applied. Labs Laboratory Tests Test 03/27/16 04:55 03/28/16 03:52 White Blood Count 5.8x10^3/uL (4.0-11.0) 4.0x10^3/uL (4.0-11.0) Red Blood Count 4.37x10^6/uL (4.30-5.70) 4.61x10^6/uL (4.30-5.70) Hemoglobin 12.8g/dL (13.0-17.5) 13.4g/dL (13.0-17.5) Hematocrit 39.2% (39.0-53.0) 40.0% (39.0-53.0) Mean Corpuscular Volume 90fL (79-100) 87fL (79-100) Mean Corpuscular Hemoglobin 29pg (25-35) 29pg (25-35) Mean Corpuscular Hemoglobin Concent 33g/dL (31-37) 34g/dL (31-37) Red Cell Distribution Width 13.1% (11.5-14.5) 13.2% (11.5-14.5) Platelet Count 265x10^3/uL (140-400) 260x10^3/uL (140-400) Neutrophils (%) (Auto) 72% (31-73) 59% (31-73) Lymphocytes (%) (Auto) 14% (24-48) 23% (24-48) Monocytes (%) (Auto) 11% (0-9) 13% (0-9) Eosinophils (%) (Auto) 2% (0-3) 5% (0-3) Basophils (%) (Auto) 1% (0-3) 1% (0-3) Neutrophils # (Auto) 4.2x10^3uL (1.8-7.7) 2.3x10^3uL (1.8-7.7) Lymphocytes # (Auto) 0.8x10^3/uL (1.0-4.8) 0.9x10^3/uL (1.0-4.8) Monocytes # (Auto) 0.6x10^3/uL (0.0-1.1) 0.5x10^3/uL (0.0-1.1) Eosinophils # (Auto) 0.1x10^3/uL (0.0-0.7) 0.2x10^3/uL (0.0-0.7) Basophils # (Auto) 0.1x10^3/uL (0.0-0.2) 0.0x10^3/uL (0.0-0.2) Sodium Level 136mmol/L (136-145) 138mmol/L (136-145) Potassium Level 4.3mmol/L (3.5-5.1) 4.0mmol/L (3.5-5.1) Chloride Level 101mmol/L (98-107) 103mmol/L (98-107) Carbon Dioxide Level 25mmol/L (21-32) 26mmol/L (21-32) Anion Gap 10 (6-14) 9 (6-14) Blood Urea Nitrogen 16mg/dL (8-26) 16mg/dL (8-26) Creatinine 1.1mg/dL (0.7-1.3) 1.0mg/dL (0.7-1.3) Estimated GFR (Cockcroft-Gault) 67.0 74.8 BUN/Creatinine Ratio 15 (6-20) 16 (6-20) Glucose Level 84mg/dL (70-99) 96mg/dL (70-99) Calcium Level 8.7mg/dL (8.5-10.1) 8.6mg/dL (8.5-10.1) Total Bilirubin 1.0mg/dL (0.2-1.0) 0.6mg/dL (0.2-1.0) Aspartate Amino Transf (AST/SGOT) 38U/L (15-37) 51U/L (15-37) Alanine Aminotransferase (ALT/SGPT) 43U/L (16-63) 54U/L (16-63) Alkaline Phosphatase 57U/L (46-116) 61U/L (46-116) Total Protein 6.4g/dL (6.4-8.2) 6.6g/dL (6.4-8.2) Albumin 2.5g/dL (3.4-5.0) 2.4g/dL (3.4-5.0) Albumin/Globulin Ratio 0.6 (1.0-1.7) 0.6 (1.0-1.7) Laboratory Tests Test 03/28/16 03:52 White Blood Count 4.0x10^3/uL (4.0-11.0) Red Blood Count 4.61x10^6/uL (4.30-5.70) Hemoglobin 13.4g/dL (13.0-17.5) Hematocrit 40.0% (39.0-53.0) Mean Corpuscular Volume 87fL (79-100) Mean Corpuscular Hemoglobin 29pg (25-35) Mean Corpuscular Hemoglobin Concent 34g/dL (31-37) Red Cell Distribution Width 13.2% (11.5-14.5) Platelet Count 260x10^3/uL (140-400) Neutrophils (%) (Auto) 59% (31-73) Lymphocytes (%) (Auto) 23% (24-48) Monocytes (%) (Auto) 13% (0-9) Eosinophils (%) (Auto) 5% (0-3) Basophils (%) (Auto) 1% (0-3) Neutrophils # (Auto) 2.3x10^3uL (1.8-7.7) Lymphocytes # (Auto) 0.9x10^3/uL (1.0-4.8) Monocytes # (Auto) 0.5x10^3/uL (0.0-1.1) Eosinophils # (Auto) 0.2x10^3/uL (0.0-0.7) Basophils # (Auto) 0.0x10^3/uL (0.0-0.2) Sodium Level 138mmol/L (136-145) Potassium Level 4.0mmol/L (3.5-5.1) Chloride Level 103mmol/L (98-107) Carbon Dioxide Level 26mmol/L (21-32) Anion Gap 9 (6-14) Blood Urea Nitrogen 16mg/dL (8-26) Creatinine 1.0mg/dL (0.7-1.3) Estimated GFR (Cockcroft-Gault) 74.8 BUN/Creatinine Ratio 16 (6-20) Glucose Level 96mg/dL (70-99) Calcium Level 8.6mg/dL (8.5-10.1) Total Bilirubin 0.6mg/dL (0.2-1.0) Aspartate Amino Transf (AST/SGOT) 51U/L (15-37) Alanine Aminotransferase (ALT/SGPT) 54U/L (16-63) Alkaline Phosphatase 61U/L (46-116) Total Protein 6.6g/dL (6.4-8.2) Albumin 2.4g/dL (3.4-5.0) Albumin/Globulin Ratio 0.6 (1.0-1.7) Medications Current Medications Sodium Chloride (Iv Sodium Chloride 0.9% 1000ml Bag) 1,000 ml @ 1,000 mls/hr Q1H IV Last administered on 03/23/16 07:47; Start 03/23/16 at 07:39; Stop at 08:38; Status DC Morphine Sulfate 5 mg 1X ONCE IV Last administered on 03/23/16 07:49; Start at 07:45; Stop 03/23/16 at 07:46; Status DC Ondansetron HCl (Zofran) 4 mg 1X ONCE IV Last administered on 03/23/16 07:50; Start 03/23/16 at 07:45; Stop 03/23/16 at 07:46; Status DC Famotidine (Pepcid) 20 mg 1X ONCE IVP Last administered on 03/23/16 07:53; Start 03/23/16 at 07:45; Stop 03/23/16 at 07:46; Status DC Hydromorphone HCl (Dilaudid) 1 mg 1X ONCE IV Last administered on 03/23/16 08: 12; Start 03/23/16 at 08:15; Stop 03/23/16 at 08:16; Status DC Iohexol (Omnipaque 300 Mg/ml) 75 ml 1X ONCE IV Last administered on 03/23/16 08:39; Start 03/23/16 at 08:30; Stop 03/23/16 at 08:31; Status DC Info (Do NOT chart on this entry -- for MONITORING) 1 each PRN DAILY PRN MC SEE COMMENTS; Start 03/23/16 at 08:30; Stop 03/25/16 at 08:29; Status DC Hydromorphone HCl (Dilaudid) 1 mg 1X ONCE IV Last administered on 03/23/16 09: 23; Start 03/23/16 at 09:15; Stop 03/23/16 at 09:16; Status DC Ondansetron HCl 4 mg 4 mg PRN Q8HRS PRN IV NAUSEA/VOMITING; Start 03/23/16 at 10 :00; Stop 03/24/16 at 09:59; Status DC Sodium Chloride (Iv Sodium Chloride 0.9% 1000ml Bag) 1,000 ml @ 125 mls/hr Q8H IV Last administered on 03/23/16 11:19; Start 03/23/16 at 10:00; Stop 03/23/16 at 18:47; Status DC Hydromorphone HCl (Dilaudid) 1 mg PRN Q3HRS PRN IV PAIN Last administered on 17:38; Start 03/23/16 at 12:00; Stop 03/23/16 at 18:47; Status DC Hydromorphone HCl (Dilaudid) 1 mg PRN Q2HRS PRN IV PAIN Last administered on 05:30; Start 03/23/16 at 19:00; Stop 03/27/16 at 12:17; Status DC Hydralazine HCl 10 mg 10 mg PRN Q4HRS PRN IVP ELEVATED BP, SEE COMMENTS; Start 03/23/16 at 18:45 Potassium Chloride 20 meq/ Sodium Chloride 1,010 ml @ 75 mls/hr [id number] IV ; Start 03/23/16 at 18:45; Stop 03/23/16 at 19:11; Status DC Potassium Chloride/Sodium Chloride 1,000 ml @ 75 mls/hr [id number] IV Last administered on 03/28/16 02:24; Start 03/23/16 at 19:11 Lactated Ringer's (Iv Lactated Ringers) 1,000 ml @ 75 mls/hr 1X ONCE IV Last administered on 03/24/16 13:14; Start 03/24/16 at 13:30; Stop 03/25/16 at 02:49; Status DC Iohexol 50 ml 50 ml STK-MED ONCE .ROUTE ; Start 03/24/16 at 14:01; Stop 03/24/16 at 14:02; Status DC Propofol 20 ml @ As Directed STK-MED ONCE IV ; Start 03/24/16 at 14:09; Stop 03/24 at 14:10; Status DC Propofol (Diprivan) 50 ml @ As Directed STK-MED ONCE IV ; Start 03/24/16 at 14:12 ; Stop 03/24/16 at 14:13; Status DC Ondansetron HCl (Zofran) 4 mg STK-MED ONCE .ROUTE ; Start 03/24/16 at 14:53; Stop 03/24/16 at 14:54; Status DC Iohexol (Omnipaque 300 Mg/ml) 50 ml STK-MED ONCE IV Last administered on t 14:35; Start 03/24/16 at 14:35; Stop 03/24/16 at 15:12; Status DC Ondansetron HCl (Zofran) 4 mg PRN Q6HRS PRN IV Nausea; Start 03/24/16 at 15:45; Stop 03/25/16 at 15:44; Status UNV Fentanyl Citrate (Fentanyl 2ml Vial) 25 mcg PRN Q5MIN PRN IV MILD PAIN; Start 03/24/16 at 15:45; Stop 03/25/16 at 15:44; Status UNV Fentanyl Citrate (Fentanyl 2ml Vial) 50 mcg PRN Q5MIN PRN IV MODERATE PAIN; Start 03/24/16 at 15:45; Stop 03/25/16 at 15:44; Status UNV Morphine Sulfate 1 mg 1 mg PRN Q10MIN PRN IV SEVERE PAIN; Start 03/24/16 at 15: 45; Stop 03/25/16 at 15:44; Status UNV Lactated Ringer's (Iv Lactated Ringers) 1,000 ml @ 0 mls/hr Q0M IV ; Start 03/24 at 15:44; Stop 03/25/16 at 03:43; Status UNV Lidocaine HCl 2 ml 1X PRN PRN ID IV START; Start 03/24/16 at 15:45; Stop at 15:44; Status UNV Hydromorphone HCl (Dilaudid) 0.5 mg PRN Q10MIN PRN IV SEV PAIN,Second choice; Start 03/24/16 at 15:45; Stop 03/25/16 at 15:44; Status UNV Prochlorperazine Edisylate (Compazine) 5 mg PACU PRN PRN IV NAUSEA; Start at 15:45; Stop 03/25/16 at 15:44; Status UNV Ondansetron HCl (Zofran) 4 mg PRN Q6HRS PRN IV Nausea; Start 03/24/16 at 15:45; Stop 03/24/16 at 19:36; Status DC Fentanyl Citrate (Fentanyl 2ml Vial) 25 mcg PRN Q5MIN PRN IV MILD PAIN Last administered on 03/24/16 16:03; Start 03/24/16 at 15:45; Stop 03/24/16 at 19:36; Status DC Fentanyl Citrate (Fentanyl 2ml Vial) 50 mcg PRN Q5MIN PRN IV MODERATE PAIN; Start 03/24/16 at 15:45; Stop 03/24/16 at 19:36; Status DC Morphine Sulfate 1 mg 1 mg PRN Q10MIN PRN IV SEVERE PAIN; Start 03/24/16 at 15: 45; Stop 03/24/16 at 19:36; Status DC Lactated Ringer's (Iv Lactated Ringers) 1,000 ml @ 0 mls/hr Q0M IV ; Start 03/24 at 15:44; Stop 03/24/16 at 19:36; Status DC Lidocaine HCl 2 ml 1X PRN PRN ID IV START; Start 03/24/16 at 15:45; Stop at 19:36; Status DC Hydromorphone HCl (Dilaudid) 0.5 mg PRN Q10MIN PRN IV SEV PAIN,Second choice; Start 03/24/16 at 15:45; Stop 03/24/16 at 19:36; Status DC Prochlorperazine Edisylate (Compazine) 5 mg PACU PRN PRN IV NAUSEA; Start at 15:45; Stop 03/24/16 at 19:36; Status DC Fentanyl Citrate (Fentanyl 2ml Vial) 100 mcg STK-MED ONCE .ROUTE ; Start at 15:47; Stop 03/24/16 at 15:51; Status DC Ondansetron HCl (Zofran Odt) 4 mg PRN Q8HRS PRN PO NAUSEA/VOMITING Last administered on 03/25/16 19:42; Start 03/24/16 at 18:15 Metoclopramide HCl (Reglan) 10 mg PRN Q8HRS PRN IV NAUSEA/VOMITING Last administered on 03/25/16 05:30; Start 03/24/16 at 19:45; Stop 03/25/16 at 17:27; Status DC Lorazepam (Ativan) 0.5 mg 1X ONCE IV Last administered on 03/24/16 22:25; Start 03/24/16 at 22:00; Stop 03/24/16 at 22:01; Status DC Dexamethasone Sodium Phosphate (Decadron) 20 mg STK-MED ONCE .ROUTE ; Start 03/24 at 12:00; Stop 03/25/16 at 13:25; Status DC Ephedrine Sulfate 100 mg STK-MED ONCE IV ; Start 03/24/16 at 12:00; Stop 03/25/16 at 13:25; Status DC Succinylcholine Chloride (Anectine) 200 mg STK-MED ONCE .ROUTE ; Start 03/24/16 at 12:00; Stop 03/25/16 at 13:25; Status DC Sucralfate (Carafate) 1 gm QIDACHS PO Last administered on 03/25/16 14:07; Start 03/25/16 at 13:49; Stop 03/25/16 at 16:46; Status DC Sucralfate (Carafate) 1 gm QIDPRN PRN PO HEARTBURN / GAS; Start 03/26/16 at 08: 00 Metoclopramide HCl (Reglan) 10 mg Q8HRS IV Last administered on 03/27/16 06:04 ; Start 03/25/16 at 22:00; Stop 03/27/16 at 12:17; Status DC Pantoprazole Sodium (Protonix Vial) 40 mg BIDAC IVP Last administered on 08:12; Start 03/26/16 at 09:30; Stop 03/27/16 at 12:17; Status DC Pantoprazole Sodium (Protonix) 40 mg DAILYAC PO Last administered on 03/28/16 08:39; Start 03/28/16 at 07:30 Acetaminophen/ Hydrocodone Bitart (Lortab 5/325) 1 tab PRN Q4HRS PRN PO PAIN; Start 03/27/16 at 12:15 Guaifenesin 600 mg 600 mg BID PO Last administered on 03/28/16 08:39; Start 03/27/16 at 21:00 Levofloxacin/ Dextrose (LEVAQUIN 500mg PREMIX) 100 ml @ 100 mls/hr Q24H IV Last administered on 03/27/16t 13:29; Start 03/27/16 at 12:30 Active Scripts Active [place] 5-325 Tablet (Acetaminophen/Hydrocodone Bitart) 1 Each Tablet 1 Tab PO PRN Q6HRS PRN Vitals/I & O Vital Sign - Last 24 Hours 03/27/16 03/27/16 03/27/16 03/27/16 15:39 19:00 20:15 23:00 Temp 97.5 98.1 97.9 97.5 98.1 97.9 Pulse 70 65 63 Resp 18 20 20 B/P 109/73 128/79 123/66 Pulse Ox 90 92 93 O2 Delivery Nasal Cannula Nasal Cannula Nasal Cannula Nasal Cannula O2 Flow Rate 2.0 2.0 2.0 2.0 03/28/16 03/28/16 03/28/16 03:00 07:00 11:00 Temp 98.4 97.5 98.6 98.4 97.5 98.6 Pulse 59 64 62 Resp 20 16 20 B/P 134/77 118/80 116/77 Pulse Ox 92 95 96 O2 Delivery Nasal Cannula Room Air Room Air O2 Flow Rate 2.0 Intake and Output 03/27/16 03/27/16 03/28/16 15:00 23:00 07:00 Intake Total 600 ml 320 ml Output Total 645 ml 505 ml Balance -45 ml -185 ml HENRY PARK III DO Mar 28, 2016 12:25
--- NOTE | 2016-03-28 12:32 | PDOC ---
Subjective: Subjective: Feeling better, still "spitting up a little," no abd pain, breathing okay. Objective: Vital Signs: Vital Signs Date Time Temp Pulse Resp B/P Pulse Ox O2 Delivery O2 Flow Rate FiO2 03/28/16 11:00 98.6 62 20 116/77 96 Room Air 98.6 03/28/16 03:00 2.0 Labs: Laboratory Tests Test 03/28/16 03:52 White Blood Count 4.0x10^3/uL Red Blood Count 4.61x10^6/uL Hemoglobin 13.4g/dL Hematocrit 40.0% Mean Corpuscular Volume 87fL Mean Corpuscular Hemoglobin 29pg Mean Corpuscular Hemoglobin Concent 34g/dL Red Cell Distribution Width 13.2% Platelet Count 260x10^3/uL Neutrophils (%) (Auto) 59% Lymphocytes (%) (Auto) 23% Monocytes (%) (Auto) 13% Eosinophils (%) (Auto) 5% Basophils (%) (Auto) 1% Neutrophils # (Auto) 2.3x10^3uL Lymphocytes # (Auto) 0.9x10^3/uL Monocytes # (Auto) 0.5x10^3/uL Eosinophils # (Auto) 0.2x10^3/uL Basophils # (Auto) 0.0x10^3/uL Sodium Level 138mmol/L Potassium Level 4.0mmol/L Chloride Level 103mmol/L Carbon Dioxide Level 26mmol/L Anion Gap 9 Blood Urea Nitrogen 16mg/dL Creatinine 1.0mg/dL Estimated GFR (Cockcroft-Gault) 74.8 BUN/Creatinine Ratio 16 Glucose Level 96mg/dL Calcium Level 8.6mg/dL Total Bilirubin 0.6mg/dL Aspartate Amino Transf (AST/SGOT) 51U/L Alanine Aminotransferase (ALT/SGPT) 54U/L Alkaline Phosphatase 61U/L Total Protein 6.6g/dL Albumin 2.4g/dL Albumin/Globulin Ratio 0.6 PE: GEN: NAD LUNGS: CTAB anteriorly HEART: RRR ABD: NABS, S/ND/NT, CRISTY w/ minimal output NEURO/PSYCH: A & O 3 A/P: S/p ERCP w/ stent for bile leak -some n/v post-procedure Cough -- Improving. Drain removal per surgery. Stent removal w/ Dr. Huddleston in 2-3 weeks. HEIKE BOSCH Mar 28, 2016 12:32
--- NOTE | 2016-03-28 13:13 | PDOC ---
MIQUEL CHPAA FORMING PRESS OPERATOR 03/28/16 1312: SURGICAL PROGRESS NOTE Subjective tolerating diet no abdominal pain ongoing cough Vital Signs Vital Signs Date Time Temp Pulse Resp B/P Pulse Ox O2 Delivery O2 Flow Rate FiO2 03/28/16 11:00 98.6 62 20 116/77 96 Room Air 98.6 03/28/16 03:00 2.0 I&O Intake and Output 03/28/16 07:00 Intake Total 920 ml Output Total 1150 ml Balance -230 ml Intake Oral 920 ml Output Urine Total 1100 ml Drainage Total 50 ml General: Alert, Oriented X3, Cooperative, No acute distress Abdomen: Soft, Other (ND, CRISTY serous) Labs Laboratory Tests Test 03/27/16 04:55 03/28/16 03:52 White Blood Count 5.8x10^3/uL (4.0-11.0) 4.0x10^3/uL (4.0-11.0) Red Blood Count 4.37x10^6/uL (4.30-5.70) 4.61x10^6/uL (4.30-5.70) Hemoglobin 12.8g/dL (13.0-17.5) 13.4g/dL (13.0-17.5) Hematocrit 39.2% (39.0-53.0) 40.0% (39.0-53.0) Mean Corpuscular Volume 90fL (79-100) 87fL (79-100) Mean Corpuscular Hemoglobin 29pg (25-35) 29pg (25-35) Mean Corpuscular Hemoglobin Concent 33g/dL (31-37) 34g/dL (31-37) Red Cell Distribution Width 13.1% (11.5-14.5) 13.2% (11.5-14.5) Platelet Count 265x10^3/uL (140-400) 260x10^3/uL (140-400) Neutrophils (%) (Auto) 72% (31-73) 59% (31-73) Lymphocytes (%) (Auto) 14% (24-48) 23% (24-48) Monocytes (%) (Auto) 11% (0-9) 13% (0-9) Eosinophils (%) (Auto) 2% (0-3) 5% (0-3) Basophils (%) (Auto) 1% (0-3) 1% (0-3) Neutrophils # (Auto) 4.2x10^3uL (1.8-7.7) 2.3x10^3uL (1.8-7.7) Lymphocytes # (Auto) 0.8x10^3/uL (1.0-4.8) 0.9x10^3/uL (1.0-4.8) Monocytes # (Auto) 0.6x10^3/uL (0.0-1.1) 0.5x10^3/uL (0.0-1.1) Eosinophils # (Auto) 0.1x10^3/uL (0.0-0.7) 0.2x10^3/uL (0.0-0.7) Basophils # (Auto) 0.1x10^3/uL (0.0-0.2) 0.0x10^3/uL (0.0-0.2) Sodium Level 136mmol/L (136-145) 138mmol/L (136-145) Potassium Level 4.3mmol/L (3.5-5.1) 4.0mmol/L (3.5-5.1) Chloride Level 101mmol/L (98-107) 103mmol/L (98-107) Carbon Dioxide Level 25mmol/L (21-32) 26mmol/L (21-32) Anion Gap 10 (6-14) 9 (6-14) Blood Urea Nitrogen 16mg/dL (8-26) 16mg/dL (8-26) Creatinine 1.1mg/dL (0.7-1.3) 1.0mg/dL (0.7-1.3) Estimated GFR (Cockcroft-Gault) 67.0 74.8 BUN/Creatinine Ratio 15 (6-20) 16 (6-20) Glucose Level 84mg/dL (70-99) 96mg/dL (70-99) Calcium Level 8.7mg/dL (8.5-10.1) 8.6mg/dL (8.5-10.1) Total Bilirubin 1.0mg/dL (0.2-1.0) 0.6mg/dL (0.2-1.0) Aspartate Amino Transf (AST/SGOT) 38U/L (15-37) 51U/L (15-37) Alanine Aminotransferase (ALT/SGPT) 43U/L (16-63) 54U/L (16-63) Alkaline Phosphatase 57U/L (46-116) 61U/L (46-116) Total Protein 6.4g/dL (6.4-8.2) 6.6g/dL (6.4-8.2) Albumin 2.5g/dL (3.4-5.0) 2.4g/dL (3.4-5.0) Albumin/Globulin Ratio 0.6 (1.0-1.7) 0.6 (1.0-1.7) Laboratory Tests Test 03/28/16 03:52 White Blood Count 4.0x10^3/uL (4.0-11.0) Red Blood Count 4.61x10^6/uL (4.30-5.70) Hemoglobin 13.4g/dL (13.0-17.5) Hematocrit 40.0% (39.0-53.0) Mean Corpuscular Volume 87fL (79-100) Mean Corpuscular Hemoglobin 29pg (25-35) Mean Corpuscular Hemoglobin Concent 34g/dL (31-37) Red Cell Distribution Width 13.2% (11.5-14.5) Platelet Count 260x10^3/uL (140-400) Neutrophils (%) (Auto) 59% (31-73) Lymphocytes (%) (Auto) 23% (24-48) Monocytes (%) (Auto) 13% (0-9) Eosinophils (%) (Auto) 5% (0-3) Basophils (%) (Auto) 1% (0-3) Neutrophils # (Auto) 2.3x10^3uL (1.8-7.7) Lymphocytes # (Auto) 0.9x10^3/uL (1.0-4.8) Monocytes # (Auto) 0.5x10^3/uL (0.0-1.1) Eosinophils # (Auto) 0.2x10^3/uL (0.0-0.7) Basophils # (Auto) 0.0x10^3/uL (0.0-0.2) Sodium Level 138mmol/L (136-145) Potassium Level 4.0mmol/L (3.5-5.1) Chloride Level 103mmol/L (98-107) Carbon Dioxide Level 26mmol/L (21-32) Anion Gap 9 (6-14) Blood Urea Nitrogen 16mg/dL (8-26) Creatinine 1.0mg/dL (0.7-1.3) Estimated GFR (Cockcroft-Gault) 74.8 BUN/Creatinine Ratio 16 (6-20) Glucose Level 96mg/dL (70-99) Calcium Level 8.6mg/dL (8.5-10.1) Total Bilirubin 0.6mg/dL (0.2-1.0) Aspartate Amino Transf (AST/SGOT) 51U/L (15-37) Alanine Aminotransferase (ALT/SGPT) 54U/L (16-63) Alkaline Phosphatase 61U/L (46-116) Total Protein 6.6g/dL (6.4-8.2) Albumin 2.4g/dL (3.4-5.0) Albumin/Globulin Ratio 0.6 (1.0-1.7) Problem List Problems Medical Problems: (1) Intractable abdominal pain Status: Acute Assessment/Plan minimal drain output, will dc drain when ready to discharge home Problems: PRADIP MCGOWAN MD 03/28/16 1386: SURGICAL PROGRESS NOTE Assessment/Plan Reviewed, agree with above Problems: MIQUEL CHAPA APRN Mar 28, 2016 13:12 PRADIP MCGOWAN MD Mar 28, 2016 16:52
[2016-03-28 15:00] VITALS: BP 109/73
[2016-03-28 19:00] VITALS: BP 134/75
[2016-03-28 23:00] VITALS: BP 130/76
[2016-03-29 03:00] VITALS: BP 137/80
[2016-03-29 07:00] VITALS: BP 111/60
[2016-03-29 07:09] LABS: BASO % 1 % (0-3); EOS % 3 % (0-3); HEMATOCRIT 42.4 % (39.0-53.0); HEMOGLOBIN 14.1 g/dL (13.0-17.5); LYMPH % 26 % (24-48); MEAN CORPUSCULAR HEMOGLOBIN 29 pg (25-35); MEAN CORPUSCULAR HGB CONC 33 g/dL (31-37); MEAN CORPUSCULAR VOLUME 88 fL (79-100); MONO % 11 % (0-9); NEUT % 59 % (31-73); PLATELET COUNT 280 x10^3/uL (140-400); RED BLOOD COUNT 4.82 x10^6/uL (4.30-5.70); RED CELL DISTRIBUTION WIDTH 13.3 % (11.5-14.5); WHITE BLOOD COUNT 3.7 x10^3/uL (4.0-11.0)
[2016-03-29 07:33] LABS: CALCIUM 9.2 mg/dL (8.5-10.1); GFR 74.8
[2016-03-29] MEDS: PANTOPRAZOLE 40 MG TABLET. PO SCH (08:56)
[2016-03-29] MEDS: GUAIFENESIN ER 600 MG TABLET.ER PO SCH (08:56)
--- NOTE | 2016-03-29 09:00 | PDOC ---
PROGRESS NOTES Subjective Subjective feels well, no abdominal pain, some mild cough, hoping to go home Objective Objective Vital Signs Date Time Temp Pulse Resp B/P Pulse Ox O2 Delivery O2 Flow Rate FiO2 03/29/16 07:00 98.0 65 20 111/60 95 Room Air 98.0 03/28/16 03:00 2.0 Intake and Output 03/29/16 07:00 Intake Total 810 ml Output Total 220 ml Balance 590 ml Intake Oral 810 ml Output Urine Total 220 ml # Voids 2 # Bowel Movements 3 Physical Exam Physical Exam abdomen soft, nontender, the CRISTY drain was removed Assessment Assessment Problems Medical Problems: (1) Intractable abdominal pain Status: Acute Plan Plan of Care OK with me to discharge (if ok from primary standpoing) FU with me in 1 week in office Comment Review of Relevant I have reviewed the following items jass (where applicable) has been applied. Labs Laboratory Tests Test 03/28/16 03:52 03/29/16 06:50 White Blood Count 4.0x10^3/uL (4.0-11.0) 3.7x10^3/uL (4.0-11.0) Red Blood Count 4.61x10^6/uL (4.30-5.70) 4.82x10^6/uL (4.30-5.70) Hemoglobin 13.4g/dL (13.0-17.5) 14.1g/dL (13.0-17.5) Hematocrit 40.0% (39.0-53.0) 42.4% (39.0-53.0) Mean Corpuscular Volume 87fL (79-100) 88fL (79-100) Mean Corpuscular Hemoglobin 29pg (25-35) 29pg (25-35) Mean Corpuscular Hemoglobin Concent 34g/dL (31-37) 33g/dL (31-37) Red Cell Distribution Width 13.2% (11.5-14.5) 13.3% (11.5-14.5) Platelet Count 260x10^3/uL (140-400) 280x10^3/uL (140-400) Neutrophils (%) (Auto) 59% (31-73) 59% (31-73) Lymphocytes (%) (Auto) 23% (24-48) 26% (24-48) Monocytes (%) (Auto) 13% (0-9) 11% (0-9) Eosinophils (%) (Auto) 5% (0-3) 3% (0-3) Basophils (%) (Auto) 1% (0-3) 1% (0-3) Neutrophils # (Auto) 2.3x10^3uL (1.8-7.7) 2.2x10^3uL (1.8-7.7) Lymphocytes # (Auto) 0.9x10^3/uL (1.0-4.8) 1.0x10^3/uL (1.0-4.8) Monocytes # (Auto) 0.5x10^3/uL (0.0-1.1) 0.4x10^3/uL (0.0-1.1) Eosinophils # (Auto) 0.2x10^3/uL (0.0-0.7) 0.1x10^3/uL (0.0-0.7) Basophils # (Auto) 0.0x10^3/uL (0.0-0.2) 0.0x10^3/uL (0.0-0.2) Sodium Level 138mmol/L (136-145) 136mmol/L (136-145) Potassium Level 4.0mmol/L (3.5-5.1) 4.0mmol/L (3.5-5.1) Chloride Level 103mmol/L (98-107) 102mmol/L (98-107) Carbon Dioxide Level 26mmol/L (21-32) 23mmol/L (21-32) Anion Gap 9 (6-14) 11 (6-14) Blood Urea Nitrogen 16mg/dL (8-26) 16mg/dL (8-26) Creatinine 1.0mg/dL (0.7-1.3) 1.0mg/dL (0.7-1.3) Estimated GFR (Cockcroft-Gault) 74.8 74.8 BUN/Creatinine Ratio 16 (6-20) Glucose Level 96mg/dL (70-99) 100mg/dL (70-99) Calcium Level 8.6mg/dL (8.5-10.1) 9.2mg/dL (8.5-10.1) Total Bilirubin 0.6mg/dL (0.2-1.0) Aspartate Amino Transf (AST/SGOT) 51U/L (15-37) Alanine Aminotransferase (ALT/SGPT) 54U/L (16-63) Alkaline Phosphatase 61U/L (46-116) Total Protein 6.6g/dL (6.4-8.2) Albumin 2.4g/dL (3.4-5.0) Albumin/Globulin Ratio 0.6 (1.0-1.7) Laboratory Tests Test 03/29/16 06:50 White Blood Count 3.7x10^3/uL (4.0-11.0) Red Blood Count 4.82x10^6/uL (4.30-5.70) Hemoglobin 14.1g/dL (13.0-17.5) Hematocrit 42.4% (39.0-53.0) Mean Corpuscular Volume 88fL (79-100) Mean Corpuscular Hemoglobin 29pg (25-35) Mean Corpuscular Hemoglobin Concent 33g/dL (31-37) Red Cell Distribution Width 13.3% (11.5-14.5) Platelet Count 280x10^3/uL (140-400) Neutrophils (%) (Auto) 59% (31-73) Lymphocytes (%) (Auto) 26% (24-48) Monocytes (%) (Auto) 11% (0-9) Eosinophils (%) (Auto) 3% (0-3) Basophils (%) (Auto) 1% (0-3) Neutrophils # (Auto) 2.2x10^3uL (1.8-7.7) Lymphocytes # (Auto) 1.0x10^3/uL (1.0-4.8) Monocytes # (Auto) 0.4x10^3/uL (0.0-1.1) Eosinophils # (Auto) 0.1x10^3/uL (0.0-0.7) Basophils # (Auto) 0.0x10^3/uL (0.0-0.2) Sodium Level 136mmol/L (136-145) Potassium Level 4.0mmol/L (3.5-5.1) Chloride Level 102mmol/L (98-107) Carbon Dioxide Level 23mmol/L (21-32) Anion Gap 11 (6-14) Blood Urea Nitrogen 16mg/dL (8-26) Creatinine 1.0mg/dL (0.7-1.3) Estimated GFR (Cockcroft-Gault) 74.8 Glucose Level 100mg/dL (70-99) Calcium Level 9.2mg/dL (8.5-10.1) Medications Current Medications Sodium Chloride (Iv Sodium Chloride 0.9% 1000ml Bag) 1,000 ml @ 1,000 mls/hr Q1H IV Last administered on 03/23/16 07:47; Start 03/23/16 at 07:39; Stop at 08:38; Status DC Morphine Sulfate 5 mg 1X ONCE IV Last administered on 03/23/16 07:49; Start at 07:45; Stop 03/23/16 at 07:46; Status DC Ondansetron HCl (Zofran) 4 mg 1X ONCE IV Last administered on 03/23/16 07:50; Start 03/23/16 at 07:45; Stop 03/23/16 at 07:46; Status DC Famotidine (Pepcid) 20 mg 1X ONCE IVP Last administered on 03/23/16 07:53; Start 03/23/16 at 07:45; Stop 03/23/16 at 07:46; Status DC Hydromorphone HCl (Dilaudid) 1 mg 1X ONCE IV Last administered on 03/23/16 08: 12; Start 03/23/16 at 08:15; Stop 03/23/16 at 08:16; Status DC Iohexol (Omnipaque 300 Mg/ml) 75 ml 1X ONCE IV Last administered on 03/23/16 08:39; Start 03/23/16 at 08:30; Stop 03/23/16 at 08:31; Status DC Info (Do NOT chart on this entry -- for MONITORING) 1 each PRN DAILY PRN MC SEE COMMENTS; Start 03/23/16 at 08:30; Stop 03/25/16 at 08:29; Status DC Hydromorphone HCl (Dilaudid) 1 mg 1X ONCE IV Last administered on 03/23/16 09: 23; Start 03/23/16 at 09:15; Stop 03/23/16 at 09:16; Status DC Ondansetron HCl 4 mg 4 mg PRN Q8HRS PRN IV NAUSEA/VOMITING; Start 03/23/16 at 10 :00; Stop 03/24/16 at 09:59; Status DC Sodium Chloride (Iv Sodium Chloride 0.9% 1000ml Bag) 1,000 ml @ 125 mls/hr Q8H IV Last administered on 03/23/16 11:19; Start 03/23/16 at 10:00; Stop 03/23/16 at 18:47; Status DC Hydromorphone HCl (Dilaudid) 1 mg PRN Q3HRS PRN IV PAIN Last administered on 17:38; Start 03/23/16 at 12:00; Stop 03/23/16 at 18:47; Status DC Hydromorphone HCl (Dilaudid) 1 mg PRN Q2HRS PRN IV PAIN Last administered on 05:30; Start 03/23/16 at 19:00; Stop 03/27/16 at 12:17; Status DC Hydralazine HCl 10 mg 10 mg PRN Q4HRS PRN IVP ELEVATED BP, SEE COMMENTS; Start 03/23/16 at 18:45 Potassium Chloride 20 meq/ Sodium Chloride 1,010 ml @ 75 mls/hr [id number] IV ; Start 03/23/16 at 18:45; Stop 03/23/16 at 19:11; Status DC Potassium Chloride/Sodium Chloride 1,000 ml @ 75 mls/hr [id number] IV Last administered on 03/28/16 02:24; Start 03/23/16 at 19:11; Stop 03/28/16 at 17:19; Status DC Lactated Ringer's (Iv Lactated Ringers) 1,000 ml @ 75 mls/hr 1X ONCE IV Last administered on 03/24/16 13:14; Start 03/24/16 at 13:30; Stop 03/25/16 at 02:49; Status DC Iohexol 50 ml 50 ml STK-MED ONCE .ROUTE ; Start 03/24/16 at 14:01; Stop 03/24/16 at 14:02; Status DC Propofol 20 ml @ As Directed STK-MED ONCE IV ; Start 03/24/16 at 14:09; Stop 03/24 at 14:10; Status DC Propofol (Diprivan) 50 ml @ As Directed STK-MED ONCE IV ; Start 03/24/16 at 14:12 ; Stop 03/24/16 at 14:13; Status DC Ondansetron HCl (Zofran) 4 mg STK-MED ONCE .ROUTE ; Start 03/24/16 at 14:53; Stop 03/24/16 at 14:54; Status DC Iohexol (Omnipaque 300 Mg/ml) 50 ml STK-MED ONCE IV Last administered on t 14:35; Start 03/24/16 at 14:35; Stop 03/24/16 at 15:12; Status DC Ondansetron HCl (Zofran) 4 mg PRN Q6HRS PRN IV Nausea; Start 03/24/16 at 15:45; Stop 03/25/16 at 15:44; Status UNV Fentanyl Citrate (Fentanyl 2ml Vial) 25 mcg PRN Q5MIN PRN IV MILD PAIN; Start 03/24/16 at 15:45; Stop 03/25/16 at 15:44; Status UNV Fentanyl Citrate (Fentanyl 2ml Vial) 50 mcg PRN Q5MIN PRN IV MODERATE PAIN; Start 03/24/16 at 15:45; Stop 03/25/16 at 15:44; Status UNV Morphine Sulfate 1 mg 1 mg PRN Q10MIN PRN IV SEVERE PAIN; Start 03/24/16 at 15: 45; Stop 03/25/16 at 15:44; Status UNV Lactated Ringer's (Iv Lactated Ringers) 1,000 ml @ 0 mls/hr Q0M IV ; Start 03/24 at 15:44; Stop 03/25/16 at 03:43; Status UNV Lidocaine HCl 2 ml 1X PRN PRN ID IV START; Start 03/24/16 at 15:45; Stop at 15:44; Status UNV Hydromorphone HCl (Dilaudid) 0.5 mg PRN Q10MIN PRN IV SEV PAIN,Second choice; Start 03/24/16 at 15:45; Stop 03/25/16 at 15:44; Status UNV Prochlorperazine Edisylate (Compazine) 5 mg PACU PRN PRN IV NAUSEA; Start at 15:45; Stop 03/25/16 at 15:44; Status UNV Ondansetron HCl (Zofran) 4 mg PRN Q6HRS PRN IV Nausea; Start 03/24/16 at 15:45; Stop 03/24/16 at 19:36; Status DC Fentanyl Citrate (Fentanyl 2ml Vial) 25 mcg PRN Q5MIN PRN IV MILD PAIN Last administered on 03/24/16t 16:03; Start 03/24/16 at 15:45; Stop 03/24/16 at 19:36; Status DC Fentanyl Citrate (Fentanyl 2ml Vial) 50 mcg PRN Q5MIN PRN IV MODERATE PAIN; Start 03/24/16 at 15:45; Stop 03/24/16 at 19:36; Status DC Morphine Sulfate 1 mg 1 mg PRN Q10MIN PRN IV SEVERE PAIN; Start 03/24/16 at 15: 45; Stop 03/24/16 at 19:36; Status DC Lactated Ringer's (Iv Lactated Ringers) 1,000 ml @ 0 mls/hr Q0M IV ; Start 03/24 at 15:44; Stop 03/24/16 at 19:36; Status DC Lidocaine HCl 2 ml 1X PRN PRN ID IV START; Start 03/24/16 at 15:45; Stop at 19:36; Status DC Hydromorphone HCl (Dilaudid) 0.5 mg PRN Q10MIN PRN IV SEV PAIN,Second choice; Start 03/24/16 at 15:45; Stop 03/24/16 at 19:36; Status DC Prochlorperazine Edisylate (Compazine) 5 mg PACU PRN PRN IV NAUSEA; Start at 15:45; Stop 03/24/16 at 19:36; Status DC Fentanyl Citrate (Fentanyl 2ml Vial) 100 mcg STK-MED ONCE .ROUTE ; Start at 15:47; Stop 03/24/16 at 15:51; Status DC Ondansetron HCl (Zofran Odt) 4 mg PRN Q8HRS PRN PO NAUSEA/VOMITING Last administered on 03/25/16 19:42; Start 03/24/16 at 18:15 Metoclopramide HCl (Reglan) 10 mg PRN Q8HRS PRN IV NAUSEA/VOMITING Last administered on 03/25/16 05:30; Start 03/24/16 at 19:45; Stop 03/25/16 at 17:27; Status DC Lorazepam (Ativan) 0.5 mg 1X ONCE IV Last administered on 03/24/16 22:25; Start 03/24/16 at 22:00; Stop 03/24/16 at 22:01; Status DC Dexamethasone Sodium Phosphate (Decadron) 20 mg STK-MED ONCE .ROUTE ; Start 03/24 at 12:00; Stop 03/25/16 at 13:25; Status DC Ephedrine Sulfate 100 mg STK-MED ONCE IV ; Start 03/24/16 at 12:00; Stop 03/25/16 at 13:25; Status DC Succinylcholine Chloride (Anectine) 200 mg STK-MED ONCE .ROUTE ; Start 03/24/16 at 12:00; Stop 03/25/16 at 13:25; Status DC Sucralfate (Carafate) 1 gm QIDACHS PO Last administered on 03/25/16 14:07; Start 03/25/16 at 13:49; Stop 03/25/16 at 16:46; Status DC Sucralfate (Carafate) 1 gm QIDPRN PRN PO HEARTBURN / GAS; Start 03/26/16 at 08: 00 Metoclopramide HCl (Reglan) 10 mg Q8HRS IV Last administered on 03/27/16 06:04 ; Start 03/25/16 at 22:00; Stop 03/27/16 at 12:17; Status DC Pantoprazole Sodium (Protonix Vial) 40 mg BIDAC IVP Last administered on 08:12; Start 03/26/16 at 09:30; Stop 03/27/16 at 12:17; Status DC Pantoprazole Sodium (Protonix) 40 mg DAILYAC PO Last administered on 03/29/16 08:56; Start 03/28/16 at 07:30 Acetaminophen/ Hydrocodone Bitart (Lortab 5/325) 1 tab PRN Q4HRS PRN PO PAIN; Start 03/27/16 at 12:15 Guaifenesin 600 mg 600 mg BID PO Last administered on 03/29/16 08:56; Start 03/27/16 at 21:00 Levofloxacin/ Dextrose (LEVAQUIN 500mg PREMIX) 100 ml @ 100 mls/hr Q24H IV Last administered on 03/28/16 13:19; Start 03/27/16 at 12:30 Active Scripts Active [place] 5-325 Tablet (Acetaminophen/Hydrocodone Bitart) 1 Each Tablet 1 Tab PO PRN Q6HRS PRN Vitals/I & O Vital Sign - Last 24 Hours 03/28/16 03/28/16 03/28/16 03/28/16 11:00 15:00 19:00 20:20 Temp 98.6 97.3 98.7 98.6 97.3 98.7 Pulse 62 71 70 Resp 20 22 20 B/P 116/77 109/73 134/75 Pulse Ox 96 92 9 O2 Delivery Room Air Room Air Room Air Room Air 03/28/16 03/29/16 03/29/16 23:00 03:00 07:00 Temp 98.9 98.1 98.0 98.9 98.1 98.0 Pulse 64 73 65 Resp 20 20 20 B/P 130/76 137/80 111/60 Pulse Ox 92 94 95 O2 Delivery Room Air Room Air Room Air Intake and Output 03/28/16 03/28/16 03/29/16 15:00 23:00 07:00 Intake Total 240 ml 570 ml Output Total 220 ml Balance 240 ml 350 ml PRADIP MCGOWAN MD Mar 29, 2016 09:00
[2016-03-29 10:32] VITALS: BP 107/74
--- NOTE | 2016-03-29 11:52 | PDOC ---
Subjective: Subjective: Feeling much better. No complaints, ready to DC. Objective: Objective: CRISTY removed this a.m. Vital Signs: Vital Signs Date Time Temp Pulse Resp B/P Pulse Ox O2 Delivery O2 Flow Rate FiO2 03/29/16 10:32 97.8 63 20 107/74 97 Room Air 97.8 03/29/16 08:00 2.0 Labs: Laboratory Tests Test 03/29/16 06:50 White Blood Count 3.7x10^3/uL Red Blood Count 4.82x10^6/uL Hemoglobin 14.1g/dL Hematocrit 42.4% Mean Corpuscular Volume 88fL Mean Corpuscular Hemoglobin 29pg Mean Corpuscular Hemoglobin Concent 33g/dL Red Cell Distribution Width 13.3% Platelet Count 280x10^3/uL Neutrophils (%) (Auto) 59% Lymphocytes (%) (Auto) 26% Monocytes (%) (Auto) 11% Eosinophils (%) (Auto) 3% Basophils (%) (Auto) 1% Neutrophils # (Auto) 2.2x10^3uL Lymphocytes # (Auto) 1.0x10^3/uL Monocytes # (Auto) 0.4x10^3/uL Eosinophils # (Auto) 0.1x10^3/uL Basophils # (Auto) 0.0x10^3/uL Sodium Level 136mmol/L Potassium Level 4.0mmol/L Chloride Level 102mmol/L Carbon Dioxide Level 23mmol/L Anion Gap 11 Blood Urea Nitrogen 16mg/dL Creatinine 1.0mg/dL Estimated GFR (Cockcroft-Gault) 74.8 Glucose Level 100mg/dL Calcium Level 9.2mg/dL PE: GEN: NAD, walking around room ABD: NABS, S/ND/NT NEURO/PSYCH: A & O 3 A/P: S/p ERCP w/ stent for bile leak -drain removed this a.m. -- DC plans for today. Follow-up w/ Dr. Huddleston in 2-3 weeks for stent removal. HEIKE BOSCH Mar 29, 2016 11:52
--- NOTE | 2016-03-29 11:59 | PDOC ---
PROGRESS NOTES Chief Complaint Chief Complaint RUQ pain ASSESSMENT AND PLAN: 1. RUQ pain 2. nausea 3. Cough History of Present Illness History of Present Illness Patient sitting comfortably in chair Patient denies current abd pain CRISTY drain was removed Dressing clean, dry, intact Patient feeling well Patient approaching baseline status Probable discharge today Vitals Vitals Vital Signs Date Time Temp Pulse Resp B/P Pulse Ox O2 Delivery O2 Flow Rate FiO2 03/29/16 10:32 97.8 63 20 107/74 97 Room Air 97.8 03/29/16 08:00 2.0 Physical Exam General: Alert, Oriented X3, Cooperative, No acute distress Heart: Regular rate, No murmurs Lungs: Wheezing, Other (No wheezes or crackles) Abdomen: Soft, Other (CRISTY drain site closed, healing well, no signs of infection ) Extremities: No clubbing, No edema Skin: No rashes, No breakdown Labs LABS Laboratory Tests Test 03/29/16 06:50 White Blood Count 3.7x10^3/uL (4.0-11.0) Red Blood Count 4.82x10^6/uL (4.30-5.70) Hemoglobin 14.1g/dL (13.0-17.5) Hematocrit 42.4% (39.0-53.0) Mean Corpuscular Volume 88fL (79-100) Mean Corpuscular Hemoglobin 29pg (25-35) Mean Corpuscular Hemoglobin Concent 33g/dL (31-37) Red Cell Distribution Width 13.3% (11.5-14.5) Platelet Count 280x10^3/uL (140-400) Neutrophils (%) (Auto) 59% (31-73) Lymphocytes (%) (Auto) 26% (24-48) Monocytes (%) (Auto) 11% (0-9) Eosinophils (%) (Auto) 3% (0-3) Basophils (%) (Auto) 1% (0-3) Neutrophils # (Auto) 2.2x10^3uL (1.8-7.7) Lymphocytes # (Auto) 1.0x10^3/uL (1.0-4.8) Monocytes # (Auto) 0.4x10^3/uL (0.0-1.1) Eosinophils # (Auto) 0.1x10^3/uL (0.0-0.7) Basophils # (Auto) 0.0x10^3/uL (0.0-0.2) Sodium Level 136mmol/L (136-145) Potassium Level 4.0mmol/L (3.5-5.1) Chloride Level 102mmol/L (98-107) Carbon Dioxide Level 23mmol/L (21-32) Anion Gap 11 (6-14) Blood Urea Nitrogen 16mg/dL (8-26) Creatinine 1.0mg/dL (0.7-1.3) Estimated GFR (Cockcroft-Gault) 74.8 Glucose Level 100mg/dL (70-99) Calcium Level 9.2mg/dL (8.5-10.1) Review of Systems Review of Systems Mild wheezing Complains of sputum production Assessment and Plan Assessmemt and Plan Problems Medical Problems: (1) Intractable abdominal pain Status: Acute ASSESSMENT AND PLAN: 1. RUQ pain: s/p complicated CCY on 03/15. CT a/p w/o significant pathology. s/p ERCP with stent placement on 03/24. pain resolved. Drain removed today 2. Nausea: resolved. advance diet 3. Cough: productive, new. CXR obtained; Patchy left lower lobe atelectasis and/or infiltrate. Right midlung subsegmental atelectasis. fever yesterday PM: abx indicated. continue mucolytics 4. Prophylaxis: Protonix, switch to PO. 5. Dispo: D/C when cleared by surgery, respir status improved Continue home meds Problems: Comment Review of Relevant I have reviewed the following items jass (where applicable) has been applied. Labs Laboratory Tests Test 03/28/16 03:52 03/29/16 06:50 White Blood Count 4.0x10^3/uL (4.0-11.0) 3.7x10^3/uL (4.0-11.0) Red Blood Count 4.61x10^6/uL (4.30-5.70) 4.82x10^6/uL (4.30-5.70) Hemoglobin 13.4g/dL (13.0-17.5) 14.1g/dL (13.0-17.5) Hematocrit 40.0% (39.0-53.0) 42.4% (39.0-53.0) Mean Corpuscular Volume 87fL (79-100) 88fL (79-100) Mean Corpuscular Hemoglobin 29pg (25-35) 29pg (25-35) Mean Corpuscular Hemoglobin Concent 34g/dL (31-37) 33g/dL (31-37) Red Cell Distribution Width 13.2% (11.5-14.5) 13.3% (11.5-14.5) Platelet Count 260x10^3/uL (140-400) 280x10^3/uL (140-400) Neutrophils (%) (Auto) 59% (31-73) 59% (31-73) Lymphocytes (%) (Auto) 23% (24-48) 26% (24-48) Monocytes (%) (Auto) 13% (0-9) 11% (0-9) Eosinophils (%) (Auto) 5% (0-3) 3% (0-3) Basophils (%) (Auto) 1% (0-3) 1% (0-3) Neutrophils # (Auto) 2.3x10^3uL (1.8-7.7) 2.2x10^3uL (1.8-7.7) Lymphocytes # (Auto) 0.9x10^3/uL (1.0-4.8) 1.0x10^3/uL (1.0-4.8) Monocytes # (Auto) 0.5x10^3/uL (0.0-1.1) 0.4x10^3/uL (0.0-1.1) Eosinophils # (Auto) 0.2x10^3/uL (0.0-0.7) 0.1x10^3/uL (0.0-0.7) Basophils # (Auto) 0.0x10^3/uL (0.0-0.2) 0.0x10^3/uL (0.0-0.2) Sodium Level 138mmol/L (136-145) 136mmol/L (136-145) Potassium Level 4.0mmol/L (3.5-5.1) 4.0mmol/L (3.5-5.1) Chloride Level 103mmol/L (98-107) 102mmol/L (98-107) Carbon Dioxide Level 26mmol/L (21-32) 23mmol/L (21-32) Anion Gap 9 (6-14) 11 (6-14) Blood Urea Nitrogen 16mg/dL (8-26) 16mg/dL (8-26) Creatinine 1.0mg/dL (0.7-1.3) 1.0mg/dL (0.7-1.3) Estimated GFR (Cockcroft-Gault) 74.8 74.8 BUN/Creatinine Ratio 16 (6-20) Glucose Level 96mg/dL (70-99) 100mg/dL (70-99) Calcium Level 8.6mg/dL (8.5-10.1) 9.2mg/dL (8.5-10.1) Total Bilirubin 0.6mg/dL (0.2-1.0) Aspartate Amino Transf (AST/SGOT) 51U/L (15-37) Alanine Aminotransferase (ALT/SGPT) 54U/L (16-63) Alkaline Phosphatase 61U/L (46-116) Total Protein 6.6g/dL (6.4-8.2) Albumin 2.4g/dL (3.4-5.0) Albumin/Globulin Ratio 0.6 (1.0-1.7) Laboratory Tests Test 03/29/16 06:50 White Blood Count 3.7x10^3/uL (4.0-11.0) Red Blood Count 4.82x10^6/uL (4.30-5.70) Hemoglobin 14.1g/dL (13.0-17.5) Hematocrit 42.4% (39.0-53.0) Mean Corpuscular Volume 88fL (79-100) Mean Corpuscular Hemoglobin 29pg (25-35) Mean Corpuscular Hemoglobin Concent 33g/dL (31-37) Red Cell Distribution Width 13.3% (11.5-14.5) Platelet Count 280x10^3/uL (140-400) Neutrophils (%) (Auto) 59% (31-73) Lymphocytes (%) (Auto) 26% (24-48) Monocytes (%) (Auto) 11% (0-9) Eosinophils (%) (Auto) 3% (0-3) Basophils (%) (Auto) 1% (0-3) Neutrophils # (Auto) 2.2x10^3uL (1.8-7.7) Lymphocytes # (Auto) 1.0x10^3/uL (1.0-4.8) Monocytes # (Auto) 0.4x10^3/uL (0.0-1.1) Eosinophils # (Auto) 0.1x10^3/uL (0.0-0.7) Basophils # (Auto) 0.0x10^3/uL (0.0-0.2) Sodium Level 136mmol/L (136-145) Potassium Level 4.0mmol/L (3.5-5.1) Chloride Level 102mmol/L (98-107) Carbon Dioxide Level 23mmol/L (21-32) Anion Gap 11 (6-14) Blood Urea Nitrogen 16mg/dL (8-26) Creatinine 1.0mg/dL (0.7-1.3) Estimated GFR (Cockcroft-Gault) 74.8 Glucose Level 100mg/dL (70-99) Calcium Level 9.2mg/dL (8.5-10.1) Medications Current Medications Sodium Chloride (Iv Sodium Chloride 0.9% 1000ml Bag) 1,000 ml @ 1,000 mls/hr Q1H IV Last administered on 03/23/16 07:47; Start 03/23/16 at 07:39; Stop at 08:38; Status DC Morphine Sulfate 5 mg 1X ONCE IV Last administered on 03/23/16 07:49; Start at 07:45; Stop 03/23/16 at 07:46; Status DC Ondansetron HCl (Zofran) 4 mg 1X ONCE IV Last administered on 03/23/16 07:50; Start 03/23/16 at 07:45; Stop 03/23/16 at 07:46; Status DC Famotidine (Pepcid) 20 mg 1X ONCE IVP Last administered on 03/23/16 07:53; Start 03/23/16 at 07:45; Stop 03/23/16 at 07:46; Status DC Hydromorphone HCl (Dilaudid) 1 mg 1X ONCE IV Last administered on 03/23/16 08: 12; Start 03/23/16 at 08:15; Stop 03/23/16 at 08:16; Status DC Iohexol (Omnipaque 300 Mg/ml) 75 ml 1X ONCE IV Last administered on 03/23/16 08:39; Start 03/23/16 at 08:30; Stop 03/23/16 at 08:31; Status DC Info (Do NOT chart on this entry -- for MONITORING) 1 each PRN DAILY PRN MC SEE COMMENTS; Start 03/23/16 at 08:30; Stop 03/25/16 at 08:29; Status DC Hydromorphone HCl (Dilaudid) 1 mg 1X ONCE IV Last administered on 03/23/16 09: 23; Start 03/23/16 at 09:15; Stop 03/23/16 at 09:16; Status DC Ondansetron HCl 4 mg 4 mg PRN Q8HRS PRN IV NAUSEA/VOMITING; Start 03/23/16 at 10 :00; Stop 03/24/16 at 09:59; Status DC Sodium Chloride (Iv Sodium Chloride 0.9% 1000ml Bag) 1,000 ml @ 125 mls/hr Q8H IV Last administered on 03/23/16 11:19; Start 03/23/16 at 10:00; Stop 03/23/16 at 18:47; Status DC Hydromorphone HCl (Dilaudid) 1 mg PRN Q3HRS PRN IV PAIN Last administered on 17:38; Start 03/23/16 at 12:00; Stop 03/23/16 at 18:47; Status DC Hydromorphone HCl (Dilaudid) 1 mg PRN Q2HRS PRN IV PAIN Last administered on 05:30; Start 03/23/16 at 19:00; Stop 03/27/16 at 12:17; Status DC Hydralazine HCl 10 mg 10 mg PRN Q4HRS PRN IVP ELEVATED BP, SEE COMMENTS; Start 03/23/16 at 18:45 Potassium Chloride 20 meq/ Sodium Chloride 1,010 ml @ 75 mls/hr [id number] IV ; Start 03/23/16 at 18:45; Stop 03/23/16 at 19:11; Status DC Potassium Chloride/Sodium Chloride 1,000 ml @ 75 mls/hr [id number] IV Last administered on 03/28/16 02:24; Start 03/23/16 at 19:11; Stop 03/28/16 at 17:19; Status DC Lactated Ringer's (Iv Lactated Ringers) 1,000 ml @ 75 mls/hr 1X ONCE IV Last administered on 03/24/16 13:14; Start 03/24/16 at 13:30; Stop 03/25/16 at 02:49; Status DC Iohexol 50 ml 50 ml STK-MED ONCE .ROUTE ; Start 03/24/16 at 14:01; Stop 03/24/16 at 14:02; Status DC Propofol 20 ml @ As Directed STK-MED ONCE IV ; Start 03/24/16 at 14:09; Stop 03/24 at 14:10; Status DC Propofol (Diprivan) 50 ml @ As Directed STK-MED ONCE IV ; Start 03/24/16 at 14:12 ; Stop 03/24/16 at 14:13; Status DC Ondansetron HCl (Zofran) 4 mg STK-MED ONCE .ROUTE ; Start 03/24/16 at 14:53; Stop 03/24/16 at 14:54; Status DC Iohexol (Omnipaque 300 Mg/ml) 50 ml STK-MED ONCE IV Last administered on 14:35; Start 03/24/16 at 14:35; Stop 03/24/16 at 15:12; Status DC Ondansetron HCl (Zofran) 4 mg PRN Q6HRS PRN IV Nausea; Start 03/24/16 at 15:45; Stop 03/25/16 at 15:44; Status UNV Fentanyl Citrate (Fentanyl 2ml Vial) 25 mcg PRN Q5MIN PRN IV MILD PAIN; Start 03/24/16 at 15:45; Stop 03/25/16 at 15:44; Status UNV Fentanyl Citrate (Fentanyl 2ml Vial) 50 mcg PRN Q5MIN PRN IV MODERATE PAIN; Start 03/24/16 at 15:45; Stop 03/25/16 at 15:44; Status UNV Morphine Sulfate 1 mg 1 mg PRN Q10MIN PRN IV SEVERE PAIN; Start 03/24/16 at 15: 45; Stop 03/25/16 at 15:44; Status UNV Lactated Ringer's (Iv Lactated Ringers) 1,000 ml @ 0 mls/hr Q0M IV ; Start 03/24 at 15:44; Stop 03/25/16 at 03:43; Status UNV Lidocaine HCl 2 ml 1X PRN PRN ID IV START; Start 03/24/16 at 15:45; Stop at 15:44; Status UNV Hydromorphone HCl (Dilaudid) 0.5 mg PRN Q10MIN PRN IV SEV PAIN,Second choice; Start 03/24/16 at 15:45; Stop 03/25/16 at 15:44; Status UNV Prochlorperazine Edisylate (Compazine) 5 mg PACU PRN PRN IV NAUSEA; Start at 15:45; Stop 03/25/16 at 15:44; Status UNV Ondansetron HCl (Zofran) 4 mg PRN Q6HRS PRN IV Nausea; Start 03/24/16 at 15:45; Stop 03/24/16 at 19:36; Status DC Fentanyl Citrate (Fentanyl 2ml Vial) 25 mcg PRN Q5MIN PRN IV MILD PAIN Last administered on 03/24/16t 16:03; Start 03/24/16 at 15:45; Stop 03/24/16 at 19:36; Status DC Fentanyl Citrate (Fentanyl 2ml Vial) 50 mcg PRN Q5MIN PRN IV MODERATE PAIN; Start 03/24/16 at 15:45; Stop 03/24/16 at 19:36; Status DC Morphine Sulfate 1 mg 1 mg PRN Q10MIN PRN IV SEVERE PAIN; Start 03/24/16 at 15: 45; Stop 03/24/16 at 19:36; Status DC Lactated Ringer's (Iv Lactated Ringers) 1,000 ml @ 0 mls/hr Q0M IV ; Start 03/24 at 15:44; Stop 03/24/16 at 19:36; Status DC Lidocaine HCl 2 ml 1X PRN PRN ID IV START; Start 03/24/16 at 15:45; Stop at 19:36; Status DC Hydromorphone HCl (Dilaudid) 0.5 mg PRN Q10MIN PRN IV SEV PAIN,Second choice; Start 03/24/16 at 15:45; Stop 03/24/16 at 19:36; Status DC Prochlorperazine Edisylate (Compazine) 5 mg PACU PRN PRN IV NAUSEA; Start at 15:45; Stop 03/24/16 at 19:36; Status DC Fentanyl Citrate (Fentanyl 2ml Vial) 100 mcg STK-MED ONCE .ROUTE ; Start at 15:47; Stop 03/24/16 at 15:51; Status DC Ondansetron HCl (Zofran Odt) 4 mg PRN Q8HRS PRN PO NAUSEA/VOMITING Last administered on 03/25/16 19:42; Start 03/24/16 at 18:15 Metoclopramide HCl (Reglan) 10 mg PRN Q8HRS PRN IV NAUSEA/VOMITING Last administered on 03/25/16 05:30; Start 03/24/16 at 19:45; Stop 03/25/16 at 17:27; Status DC Lorazepam (Ativan) 0.5 mg 1X ONCE IV Last administered on 03/24/16 22:25; Start 03/24/16 at 22:00; Stop 03/24/16 at 22:01; Status DC Dexamethasone Sodium Phosphate (Decadron) 20 mg STK-MED ONCE .ROUTE ; Start 03/24 at 12:00; Stop 03/25/16 at 13:25; Status DC Ephedrine Sulfate 100 mg STK-MED ONCE IV ; Start 03/24/16 at 12:00; Stop 03/25/16 at 13:25; Status DC Succinylcholine Chloride (Anectine) 200 mg STK-MED ONCE .ROUTE ; Start 03/24/16 at 12:00; Stop 03/25/16 at 13:25; Status DC Sucralfate (Carafate) 1 gm QIDACHS PO Last administered on 03/25/16 14:07; Start 03/25/16 at 13:49; Stop 03/25/16 at 16:46; Status DC Sucralfate (Carafate) 1 gm QIDPRN PRN PO HEARTBURN / GAS; Start 03/26/16 at 08: 00 Metoclopramide HCl (Reglan) 10 mg Q8HRS IV Last administered on 03/27/16 06:04 ; Start 03/25/16 at 22:00; Stop 03/27/16 at 12:17; Status DC Pantoprazole Sodium (Protonix Vial) 40 mg BIDAC IVP Last administered on 08:12; Start 03/26/16 at 09:30; Stop 03/27/16 at 12:17; Status DC Pantoprazole Sodium (Protonix) 40 mg DAILYAC PO Last administered on 03/29/16 08:56; Start 03/28/16 at 07:30 Acetaminophen/ Hydrocodone Bitart (Lortab 5/325) 1 tab PRN Q4HRS PRN PO PAIN; Start 03/27/16 at 12:15 Guaifenesin 600 mg 600 mg BID PO Last administered on 03/29/16 08:56; Start 03/27/16 at 21:00 Levofloxacin/ Dextrose (LEVAQUIN 500mg PREMIX) 100 ml @ 100 mls/hr Q24H IV Last administered on 03/28/16 13:19; Start 03/27/16 at 12:30 Active Scripts Active [place] 5-325 Tablet (Acetaminophen/Hydrocodone Bitart) 1 Each Tablet 1 Tab PO PRN Q6HRS PRN Vitals/I & O Vital Sign - Last 24 Hours 03/28/16 03/28/16 03/28/16 03/28/16 15:00 19:00 20:20 23:00 Temp 97.3 98.7 98.9 97.3 98.7 98.9 Pulse 71 70 64 Resp 22 20 20 B/P 109/73 134/75 130/76 Pulse Ox 92 9 92 O2 Delivery Room Air Room Air Room Air Room Air 03/29/16 03/29/16 03/29/16 03/29/16 03:00 07:00 08:00 10:32 Temp 98.1 98.0 97.8 98.1 98.0 97.8 Pulse 73 65 63 Resp 20 20 20 B/P 137/80 111/60 107/74 Pulse Ox 94 95 97 O2 Delivery Room Air Room Air Room Air Room Air O2 Flow Rate 2.0 Intake and Output 03/28/16 03/28/16 03/29/16 15:00 23:00 07:00 Intake Total 240 ml 570 ml Output Total 220 ml Balance 240 ml 350 ml HENRY PARK III DO Mar 29, 2016 11:59
--- NOTE | 2016-04-11 10:51 | DS ---
DATE OF DISCHARGE: 03/29/2016 ADMISSION DIAGNOSIS: Abdominal pain. DISCHARGE DIAGNOSES: Postop laparoscopic cholecystectomy and postop ERCP. HOSPITAL COURSE: The patient is a pleasant 65-year-old female presented with abdominal pain with symptomatic gallstone. She was admitted. We consulted General Surgery and GI. She was taken for an ERCP and laparoscopic cholecystectomy. Post-procedure, she did well. We discharged home. DISPOSITION: Home. ACTIVITY: As tolerated. DIET: Low sodium. MEDICATIONS: Please see the MRAD. TOTAL TIME: 32 minutes. HENRY PARK DO DR: REYNALDO/brenna JOB#: [id number] / [id number]
== END 2016-03-29 13:30 | disposition home or self-care (01) | DRG 393 ==
LOC: ER 07:29 → 6 SOUTH 09:39
PROVIDERS: ADMIT Internal Medicine Hematology & Oncology; ATTEND Internal Medicine Hematology & Oncology
PROC: 0F798DZ Dilation of Common Bile Duct with Intraluminal Device, Via Natural or Artificial Opening Endoscopic (ICD-10-PCS; principal; 2016-03-24 15:00)
DX: K91.89 Other postprocedural complications and disorders of digestive system (principal); J96.00 Acute respiratory failure, unspecified whether with hypoxia or hypercapnia; J98.11 Atelectasis; G89.18 Other acute postprocedural pain; I10 Essential (primary) hypertension; K21.9 Gastro-esophageal reflux disease without esophagitis; K57.30 Diverticulosis of large intestine without perforation or abscess without bleeding; Z87.442 Personal history of urinary calculi; Z87.891 Personal history of nicotine dependence; Z90.49 Acquired absence of other specified parts of digestive tract; Z88.2 Allergy status to sulfonamides; Y83.9 Surgical procedure, unspecified as the cause of abnormal reaction of the patient, or of later complication, without mention of misadventure at the time of the procedure
CPT/HCPCS: 36415; 71020; 74022; 74177; 74328; 78226; 80048; 80053; 83690; 85027; 93005; 96361; 96374; 96375; 96376; A9537; C1757; C9113; J0330; J1100; J1170; J1956; J2060; J2270; J2405; J2704; J2765; J3010; J7030; J7120; Q0162; Q9967; S0028; 99285-25

== ENCOUNTER → 2016-04-07 | Day surgery (SDC) | payer MEDICARE, OTHER ==
[~2016-04-07] MED LIST changes: +IV RINGERS,LACTATED 1000ML 1,000 ML IV SCH; +PROPOFOL 20 ML IV ONE
[2016-04-07 14:00] VITALS: BP 126/71
--- NOTE | 2016-04-08 03:53 | HP ---
ADMIT DATE: 04/07/2016 REFERRING PHYSICIAN: Dr. Henry Benjamin. REASON FOR FOLLOWUP: Retained biliary stent, status post bile leak. HISTORY OF PRESENT ILLNESS: This is a 65-year-old male with past medical history significant for left shoulder surgery, nephrolithiasis as well as recent cholecystitis complicated by bile leak requiring ERCP with stent placement, has seen for stent removals, biliary drainage has become minimal, abdominal pain has improved, tolerating p.o. and has no additional complaints at the present time. PAST MEDICAL HISTORY: Nephrolithiasis, history of left shoulder surgery. MEDICATIONS: Presently are none. ALLERGIES: SULFA. SOCIAL HISTORY: He is retired, does not drink or smoke. FAMILY HISTORY: Noncontributory. REVIEW OF SYSTEMS: Per records. PHYSICAL EXAMINATION: VITAL SIGNS: Temperature is 97.4, pulse 74, respiratory rate is 18. HEENT: Normocephalic and atraumatic head. Pupils and extraocular muscles not tested. Sclerae anicteric. NECK: Supple. LUNGS: Clear. CARDIOVASCULAR: Reveals S1, S2 without S3, S4 or appreciable murmur. ABDOMEN: Reveals soft abdomen, normal bowel sounds, without appreciable hepatosplenomegaly. EXTREMITIES: Reveals no cyanosis, clubbing or edema. IMPRESSION: Retained biliary stent, status post bile leak. We will recommend an EGD with stent removal today. The risks and benefits of procedure including risk of perforation have been discussed and the patient is willing to proceed at this time. We thank Dr. Benjamin for allowing us to consult and participate in the patient's care. PRADIP FREGOSO MD DR: VERA/brenna JOB#: [id number] / [id number] HENRY Jara DO
== END | disposition home or self-care (01) ==
LOC: ENDOS 11:44
PROVIDERS: ATTEND Internal Medicine Gastroenterology
DX: Z46.59 Encounter for fitting and adjustment of other gastrointestinal appliance and device (principal); K29.70 Gastritis, unspecified, without bleeding; K83.8 Other specified diseases of biliary tract; K21.9 Gastro-esophageal reflux disease without esophagitis; N20.0 Calculus of kidney; K81.9 Cholecystitis, unspecified; M19.90 Unspecified osteoarthritis, unspecified site; I10 Essential (primary) hypertension; F41.9 Anxiety disorder, unspecified; Z90.49 Acquired absence of other specified parts of digestive tract
CPT/HCPCS: 43247; J2704